=== PATIENT | female | born 1990 | race Caucasian/White ===

== ENCOUNTER 2023-11-02 16:05 | Outpatient (OUT) | payer OTHER, SELFPAY ==
[2023-11-02 16:37] LABS: Basophils Percent Auto 0.2 % (0.2-2.0); Eosinophils Percent Auto 0.5 % (0.9-7.0); Hematocrit 33.9 % (36.0-48.0); Hemoglobin 9.5 g/dL (12.0-16.0); Immature Granulocytes Abs Auto 0.01 10^3/uL (0.00-0.03); Immature Granulocytes Pct Auto 0.2 % (0.0-0.5); Lymphocytes Absolute Auto 2.2 10^3/uL (1.2-3.8); Lymphocytes Percent Auto 34.3 % (20.5-60.0); Mean Corpuscular Hemoglobin 19.8 pg (26.7-34.0); Mean Corpuscular Volume 70.5 fL (81.0-99.0); Mean Platelet Volume 10.8 fL (9.5-13.5); Monocytes Absolute Auto 0.5 10^3/uL (0.3-0.8); Monocytes Percent Auto 7.4 % (1.7-12.0); Neutrophils Absolute Auto 3.7 10^3/uL (1.4-6.5); Neutrophils Percent Auto 57.4 % (43.0-75.0); Platelet Count 429 10^3/uL (150-450); Red Cell Distribution Width 28.6 % (11.0-15.0); White Blood Count 6.4 10^3/uL (4.0-11.0)
[2023-11-02 16:53] LABS: Percent Iron Saturation 6.5 %
[2023-11-02 16:56] LABS: Red Blood Count 4.81 10^6/uL (4.20-5.40)
[2023-11-04 15:08] LABS: Hgb A 97.9 % (96.4-98.8); Hgb A2 2.1 % (1.8-3.2)
== END 2023-11-02 16:06 | disposition home or self-care (01) ==
LOC: LAB 16:08
PROVIDERS: PCP Family Medicine; Visit Provider Internal Medicine Hematology & Oncology
DX: D64.9 Anemia, unspecified (principal); D50.9 Iron deficiency anemia, unspecified; K90.9 Intestinal malabsorption, unspecified
CPT/HCPCS: 36415; 82728; 83540; 83550; 85025

== ENCOUNTER 2023-11-12 07:30 | Outpatient (RCR) | payer OTHER, SELFPAY ==
--- NOTE | 2023-11-12 08:21 | PC.NURSE ---
0800 Arrival ambulatory to chair 2. alert oriented.no complaints offered. Explained procedure for medication administration. verbalizes understanding. given water, offered menu, warm blanket and pillow given for comfort. IV #22 inserted rt wrist on 1 attempt, patient tolerated well.
[2023-11-12] MEDS: ACETAMINOPHEN 500 MG TABLET 1000 MG PO (08:39)
[2023-11-12] MEDS: diphenhydrAMINE HCL 25 MG, HYDROCORTISONE SODIUM SUCC/PF 100 MG in 0.9 % SODIUM CHLORID... 301.5 MG IV (08:42)
[2023-11-12] MEDS: IRON DEXTRAN COMPLEX 100 MG/2 ML VIAL 25 MG IVP (09:12)
--- NOTE | 2023-11-12 09:30 | PC.NURSE ---
0912test dose administered, instructed patient to call staff if any itching shortness of breath tachycardia. etc. verbalizes understanding.
[2023-11-12 10:37] VITALS: BP 123/80; PULSE 63; RESP 18; TEMP 36.4; O2SAT 98
--- NOTE | 2023-11-12 10:38 | PC.NURSE ---
Tolerating infusion without any s/s of reaction, meal ordered. vs obtained
--- NOTE | 2023-11-12 12:24 | PC.NURSE ---
Tolerating infusion wthout any issues. up to bathroom several times. eats meal while here.
== END 2023-12-05 23:59 | disposition home or self-care (01) ==
LOC: INF 07:30
PROVIDERS: PCP Family Medicine; Visit Provider Internal Medicine Hematology & Oncology
DX: D50.9 Iron deficiency anemia, unspecified (principal); K90.9 Intestinal malabsorption, unspecified; D64.9 Anemia, unspecified
CPT/HCPCS: 96365; 96366; 96374; J1720; J1750

== ENCOUNTER 2023-12-07 07:20 | Outpatient (RCR) | payer OTHER, SELFPAY ==
[2023-12-07 08:41] LABS: Basophils Percent Auto 0.2 % (0.2-2.0); Eosinophils Absolute Auto 0.1 10^3/uL (0.0-0.7); Eosinophils Percent Auto 1.1 % (0.9-7.0); Hematocrit 41.9 % (36.0-48.0); Hemoglobin 12.8 g/dL (12.0-16.0); Immature Granulocytes Abs Auto 0.02 10^3/uL (0.00-0.03); Immature Granulocytes Pct Auto 0.3 % (0.0-0.5); Lymphocytes Percent Auto 30.2 % (20.5-60.0); Mean Corpuscular HGB Conc 30.5 g/dL (29.9-35.2); Mean Corpuscular Hemoglobin 22.9 pg (26.7-34.0); Mean Corpuscular Volume 75.1 fL (81.0-99.0); Mean Platelet Volume 10.3 fL (9.5-13.5); Monocytes Absolute Auto 0.6 10^3/uL (0.3-0.8); Monocytes Percent Auto 9.4 % (1.7-12.0); Neutrophils Absolute Auto 3.8 10^3/uL (1.4-6.5); Neutrophils Percent Auto 58.8 % (43.0-75.0); Platelet Count 322 10^3/uL (150-450); Red Blood Count 5.58 10^6/uL (4.20-5.40); Red Cell Distribution Width 27.1 % (11.0-15.0); White Blood Count 6.5 10^3/uL (4.0-11.0)
[2023-12-07 09:05] LABS: Percent Iron Saturation 13.8 %
== END 2024-01-04 23:59 | disposition home or self-care (01) ==
LOC: INF 07:20
PROVIDERS: PCP Family Medicine; Visit Provider Internal Medicine Hematology & Oncology
DX: D50.9 Iron deficiency anemia, unspecified (principal); K90.9 Intestinal malabsorption, unspecified; D64.9 Anemia, unspecified
CPT/HCPCS: 36415; 82728; 83540; 83550; 85025; G0463

== ENCOUNTER 2024-01-26 20:06 | Emergency (ER) | payer OTHER, SELFPAY ==
[2024-01-26 20:16] VITALS: BP 115/76; PULSE 56; TEMP 36.8; O2SAT 94; BMI 36.0
--- NOTE | 2024-01-26 20:18 | XR_ITS ---
The [address] [address] Patient Name: JE CANELA MRN: [id number] date: 1990 Sex: F Assigned Patient Location: ER Current Patient Location: ED.MAIN Accession/Order Number: [id number] Exam Date: 01/26/2024 20:42 Report Date: 01/26/2024 21:51 At the request of: MICKY COTTON Procedure: XR knee RT 3V XR knee RT 3V, XR femur RT 2V 01/26/2024 8:42 PM EDT CLINICAL INDICATION: Fall COMPARISON: None. TECHNIQUE: 2 views of the right femur. 3 views of the right knee. FINDINGS: Right femur The bones are intact. The alignment is anatomic. The soft tissues are grossly unremarkable. Right knee The bones are intact. The alignment is anatomic. The joints are maintained. The soft tissues are grossly unremarkable. XR/XR knee RT 3V IMPRESSION: No acute osseous abnormality of the right femur or right knee. Electronically authenticated by: PATRICA GRIFFIN Date: 01/26/2024 21:51
--- NOTE | 2024-01-26 20:19 | ED.FALL1 ---
HPI HPI - Fall General Chief Complaint: Fall Stated Complaint: FALL LOWER INJURY Time Seen by Provider: 01/26/24 20:14 Source: patient and family Mode of arrival: walk-in Limitations: no limitations History of Present Illness HPI Narrative: This 33-year-old female presents for evaluation of right knee pain and decreased range of motion. The patient states she was carrying her baby over a baby gate and the baby lunged forward causing her to twist and fall over the baby gate. She states her body went [address] and her right leg went the other way. She states she heard and felt a pop in the back of her knee and has not been able to move her leg since that time. She denies striking her head. She denies any neck or back pain. She required assistance to get up and then into the car. Her mother brought her to the emergency department. She is unable to straighten or move her right leg. She states she can feel her toes but resists any movement of her lower extremity due to pain in her knee. Related Data Home Medications ?Medication ?Instructions ?Recorded ?Confirmed alprazolam 1 mg tablet mg 01/26/24 amitriptyline 25 mg tablet mg 01/26/24 biotin 10,000 mcg capsule mcg PO 01/26/24 ferrous sulfate 325 mg (65 mg mg 01/26/24 iron) tablet (FeroSul) folic acid 1 mg tablet 01/26/24 gabapentin 300 mg capsule mg 01/26/24 meloxicam 7.5 mg tablet mg 01/26/24 methocarbamol 500 mg tablet mg 01/26/24 pantoprazole 40 mg tablet,delayed mg PO 01/26/24 release pyridoxine (vitamin B6) 25 mg mg 01/26/24 tablet (Vitamin B-6) sertraline 100 mg tablet mg 01/26/24 tizanidine 4 mg tablet mg 01/26/24 Allergies Allergy/AdvReac Type Severity Reaction Status Date / Time Penicillins Allergy Unknown Verified 01/26/24 20:16 Opioid HPI Opioid Management Most Recent Pain and Opioid Data: No Data to Display Review of Systems ROS Status of ROS 10 or more systems reviewed and unremarkable except as noted in history and below Exam Narrative Exam Narrative: Vital signs and Nursing Notes reviewed: General: Awake, alert, oriented, uncomfortable appearing female, no respiratory distress she required assistance from the lobby to room 5 due to inability to weight-bear HEENT: Normocephalic atraumatic, mucous membranes are moist and pink, eyes are clear, normal conjunctiva, vision is grossly intact Neck: Supple, no meningeal signs, no anterior or posterior cervical lymphadenopathy Chest: Lungs are clear to auscultation with good air entry, there is no wheezing rhonchi or rales appreciated no accessory muscle use, patient is speaking in complete sentences-no chest wall tenderness to palpation CVS: Regular rate and rhythm S1-S2, no murmurs rubs or gallops, pulses are brisk and equal bilaterally Extremities: There is generalized right-sided knee tenderness. The patient's knee is held in approximately 15 degrees of flexion. There is no bony deformity noted. She resists any range of motion. There is no effusion appreciated there is no calf swelling or tenderness. Foot is warm and sensate. Skin: Normal in appearance without rash,pallor, petechiae or purpura Neuro: No focal deficits Constitutional Vital Signs, click to edit/add: Last Vital Signs Temp 98.2 F 01/26/24 20:16 Pulse 117 H 01/26/24 20:25 Resp 18 01/26/24 20:16 BP 115/76 01/26/24 20:16 Pulse Ox 95 01/26/24 20:25 O2 Del Method Room Air 01/26/24 20:16 Course Vital Signs Vital signs: Vital Signs Temperature 98.2 F 01/26/24 20:16 Pulse Rate 56 L 01/26/24 20:16 Respiratory Rate 18 01/26/24 20:16 Blood Pressure 115/76 01/26/24 20:16 Pulse Oximetry 94 L 01/26/24 20:16 Oxygen Delivery Method Room Air 01/26/24 20:16 Temperature 98.2 F 01/26/24 20:16 Pulse Rate 117 H 01/26/24 20:25 Respiratory Rate 18 01/26/24 20:16 Blood Pressure 115/76 01/26/24 20:16 Pulse Oximetry 95 01/26/24 20:25 Oxygen Delivery Method Room Air 01/26/24 20:16 MDM - Fall MDM Narrative Medical decision making narrative: This 33-year-old female presents for evaluation of right knee pain after falling over a baby gate while holding her baby at home. She states her body went [address] and her right leg went another way. Upon arrival she was nonambulatory. She was brought to room 5 on the stretcher. She had what appeared to be an elevated high riding patella. The remainder of the exam was normal. She declined range of motion due to discomfort. She was medicated with a milligram of Dilaudid and oral Zofran and x-ray of the right femur and right knee was ordered. The x-rays do not show any bony deformity. She did appear to have a high riding patella and manipulative techniques were used to attempt to reduce the patella. It is moving fairly well. There is a small effusion superior to the patella she complains of pain mostly in the posterior aspect of the knee indicating she may have disrupted a meniscus or ligament. The results of the x-ray discussed with the patient and her mother. She was placed in a knee immobilizer and given crutches for ambulation. She will be discharged home with 2 [place] to go on a short course of [place] to use as needed for pain. She will be referred to outpatient orthopedics. Medical Records Medical records narrative: The [address] [address] XRay Report Signed Patient: JE CANELA MR#: [id number] : 1990 Acct:[id number] Age/Sex: 33 / F ADM Date: 01/26/24 Loc: ER Attending Dr: Ordering Physician: Laya Vásquez Date of Service: 01/26/24 Procedure(s): XR femur RT 2V Accession Number(s): [id number] cc: Laya Vásquez; Morris Reynolds M.D.~ The [address] [address] Patient Name: JE CANELA MRN: [id number] date: 1990 Sex: F Assigned Patient Location: ER Current Patient Location: ED.MAIN Accession/Order Number: [id number] Exam Date: 01/26/2024 20:42 Report Date: 01/26/2024 21:51 At the request of: LAYA VÁSQUEZ Procedure: XR femur RT 2V XR knee RT 3V, XR femur RT 2V 01/26/2024 8:42 PM EDT CLINICAL INDICATION: Fall COMPARISON: None. TECHNIQUE: 2 views of the right femur. 3 views of the right knee. FINDINGS: Right femur The bones are intact. The alignment is anatomic. The soft tissues are grossly unremarkable. Right knee The bones are intact. The alignment is anatomic. The joints are maintained. The soft tissues are grossly unremarkable. XR/XR femur RT 2V IMPRESSION: No acute osseous abnormality of the right femur or right knee. Electronically authenticated by: PATRICA GRIFFIN Date: 01/26/2024 21:51 Discharge Plan Discharge Stand Alone Forms: Portal Instructions Chief Complaint: Fall Clinical Impression: Internal derangement of right knee, Fall from standing, Dislocation of patella, right, closed Patient Disposition: Home, Self-Care Time of Disposition Decision: 22:17 Condition: Good Prescriptions / Home Meds: No Action methocarbamol 500 mg tablet alprazolam 1 mg tablet tizanidine 4 mg tablet pyridoxine (vitamin B6) [Vitamin B-6] 25 mg tablet sertraline 100 mg tablet meloxicam 7.5 mg tablet amitriptyline 25 mg tablet pantoprazole 40 mg tablet,delayed release (DR/EC) PO biotin 10,000 mcg capsule PO ferrous sulfate [FeroSul] 325 mg (65 mg iron) tablet gabapentin 300 mg capsule folic acid 1 mg tablet Print Language: Lebanese Instructions: ACL Injury (ED), Patellar Dislocation (ED), Fall Prevention (ED), Knee Immobilizer (ED) Referrals: Morris Reynolds MD [Primary Care Provider] - 1 week Serg Molina MD [Physician] - 1 week (right knee injury s/p fall) Procedures ED Procedure Instructions Procedures Procedures: This patient presents with right-sided knee pain with what appeared to be an high riding patella. She was medicated with Dilaudid and gentle traction and manipulative techniques were used to return the patella to the anatomic position. The patient felt a pop at that time and had some relief of her pain.
[2024-01-26 20:25] VITALS: PULSE 117; O2SAT 95
--- OUTSIDE RECORDS SUMMARY | 2024-01-26 20:25 | XMS_ITS | CCD ---
Author Organization [facility] CliniSyut Care Team Providers Care Publications Manager Name Role Phone FREDA, DR MATOS Consulting Unavailable FREDA, DR MATOS Admitting Unavailable FREDA, DR MATOS Attending Unavailable NADERER, DR MOBLEY A Primary Care Unavailable FREDA, DR MATOS Attending Unavailable FREDA, DR MATOS Consulting Unavailable FREDA, DR MATOS Admitting Unavailable NADERER, DR MOBELY A Primary Care Unavailable FREDA, DR MATOS Attending Unavailable FREDA, DR MATOS Admitting Unavailable NADERER, DR MOBLEY A Primary Care Unavailable PAY, DR STEWART Admitting Unavailable PAY, DR STEWART Attending Unavailable PAY, DR STEWART Consulting Unavailable NADERER, DR MOBLEY A Primary Care Unavailable GONZÁLEZ, BRENDA Admitting Unavailable GONZÁLEZ, BRENDA Attending Unavailable GONZÁLEZ, BRENDA Consulting Unavailable NADERER, DR MOBLEY A Primary Care Unavailable MISC, DR MEYER Admitting Unavailable NADERER, DR MOBLEY A Primary Care Unavailable MISC, DR MEYER Consulting Unavailable MISC, DR MEYER Attending Unavailable FREDA, DR MATOS Consulting Unavailable FREDA, DR MATOS Admitting Unavailable NADERER, DR MOBLEY A Primary Care Unavailable FREDA, DR MATOS Attending Unavailable FREDA, DR MATOS Admitting Unavailable FREDA, DR MATOS Attending Unavailable NADERER, DR MOBLEY A Primary Care Unavailable FREDA, DR MATOS Admitting Unavailable FREDA, DR MATOS Attending Unavailable NADERER, DR MOBLEY A Primary Care Unavailable FREDA, DR MATOS Attending Unavailable FREDA, DR MATOS Admitting Unavailable NADERER, DR MOBLEY A Primary Care Unavailable NADERER, DR MORRIS Klein Admitting Unavailable NADERER, DR MORRIS Klein Attending Unavailable NADERER, DR MOBLEY A Primary Care Unavailable NADERER, DR MORRIS Klein Consulting Unavailable FREDA, DR MATOS Consulting Unavailable FREDA, DR MATOS Admitting Unavailable FREDA, DR MATOS Attending Unavailable NADERER, DR MORRIS Klein Primary Care Unavailable ZIEBER, DR HILLARY Bass Consulting Unavailable FREDA, DR MATOS Attending Unavailable FREDA, DR MATOS Admitting Unavailable NADERER, DR MORRIS Klein Primary Care Unavailable FREDA, DR MATOS Attending Unavailable FREDA, DR MATOS Consulting Unavailable FREDA, DR MATOS Admitting Unavailable NADERER, DR MORRIS Klein Primary Care Unavailable ZIEBER, DR HILLARY Bass Consulting Unavailable MISC, DR MEYER Admitting Unavailable NADERER, DR MORRIS Klein Primary Care Unavailable MISC, DR MEYER Consulting Unavailable MISC, DR MEYER Attending Unavailable FREDA, DR MATOS Admitting Unavailable NADERER, DR MORRIS Klein Primary Care Unavailable FREDA, DR MATOS Attending Unavailable FREDA, DR MATOS Admitting Unavailable FREDA, DR MATOS Attending Unavailable NADERER, DR MORRIS Klein Primary Care Unavailable KARASIK, DR LÓPEZ Attending Unavailable KARASIK, DR LÓPEZ Consulting Unavailable KARASIK, DR LÓPEZ Admitting Unavailable NADERER, DR MORRIS Klein Primary Care Unavailable WEST, DR SCOTT Atkinson Consulting Unavailable FREDA, DR MATOS Consulting Unavailable KARASIK, DR LÓPEZ Consulting Unavailable KARASIK, DR LÓPEZ Admitting Unavailable KARASIK, DR LÓPEZ Attending Unavailable NADERER, DR MORRIS Klein Primary Care Unavailable WEST, DR SCOTT Atkinson Consulting Unavailable FREDA, DR MATOS Consulting Unavailable FREDA, DR MATOS Consulting Unavailable FREDA, DR MATOS Admitting Unavailable FREDA, DR MATOS Attending Unavailable NADERER, DR MORRIS Klein Primary Care Unavailable FREDA, DR MATOS Consulting Unavailable FREDA, DR MATOS Admitting Unavailable FREDA, DR MATOS Attending Unavailable NADERER, DR MORRIS Klein Primary Care Unavailable FREDA, DR MATOS Consulting Unavailable FREDA, DR MATOS Primary Care Unavailable FREDA, DR MATOS Admitting Unavailable FREDA, DR MATOS Attending Unavailable KARASIK, DR LÓPEZ Consulting Unavailable KARASIK, DR LÓPEZ Admitting Unavailable KARASIK, DR LÓPEZ Attending Unavailable NADERER, DR MORRIS Klein Primary Care Unavailable FREDA, DR MATOS Consulting Unavailable ZIEBER, DR HILLARY Bass Consulting Unavailable FREDA, DR MATOS Consulting Unavailable FREDA, DR MATOS Admitting Unavailable FREDA, DR MATOS Attending Unavailable NADERER, DR MORRIS Klein Primary Care Unavailable KARASIK, DR LÓPEZ Consulting Unavailable KARASIK, DR LÓPEZ Admitting Unavailable KARASIK, DR LÓPEZ Attending Unavailable NADERER, DR MORRIS Klein Primary Care Unavailable WEST, DR SCTOT Atkinson Consulting Unavailable FREDA, DR MATOS Consulting Unavailable KARASIK, DR LÓPEZ Consulting Unavailable KARASIK, DR LÓPEZ Admitting Unavailable KARASIK, DR LÓPEZ Attending Unavailable NADERER, DR MORRIS Klein Primary Care Unavailable FREDA, DR MATOS Consulting Unavailable ZIEBER, DR HILLARY Bass Consulting Unavailable NADERER, DR MORRIS Klein Admitting Unavailable NADERER, DR MORRIS Klein Attending Unavailable NADERER, DR MORRIS Klein Consulting Unavailable NADERER, DR MORRIS Klein Primary Care Unavailable FREDA, DR MATOS Attending Unavailable FREDA, DR MATOS Admitting Unavailable NADERER, DR MORRIS Klein Primary Care Unavailable MAG, VESTA Admitting Unavailable MAG, VESTA Attending Unavailable MAG, VESTA Consulting Unavailable NADERER, DR MORRIS Klein Primary Care Unavailable FREDA, DR MATOS Attending Unavailable FREDA, DR MATOS Consulting Unavailable FREDA, DR MATOS Admitting Unavailable NADERER, DR MORRIS Klein Primary Care Unavailable SALOMON, FERMIN Consulting Unavailable FREDA, DR MATOS Procedure Practitioner Unavailab le FREDA, DR MATOS Attending Unavailable FREDA, DR MATOS Consulting Unavailable FREDA, DR MATOS Admitting Unavailable NADERER, DR MORRIS Klein Primary Care Unavailable RFEDA, DR MATOS Attending Unavailable FREDA, DR MATOS Admitting Unavailable NADERER, DR MORRIS Klein Primary Care Unavailable MISC, DR MEYER Admitting Unavailable NADERER, DR MORRIS Klein Primary Care Unavailable MISC, DR MEEYR Attending Unavailable NADERER, DR MORRIS Klein Primary Care Unavailable FREDA, DR MATOS Attending Unavailable MISC, DR MEYER Admitting Unavailable MISC, DR MEYER Consulting Unavailable ZIEBER, DR HILLARY Bass Consulting Unavailable KARASIK, DR LÓPEZ Consulting Unavailable KARASIK, DR LÓPEZ Admitting Unavailable KARASIK, DR LÓPEZ Attending Unavailable NADERER, DR MORRIS Klein Primary Care Unavailable WEST, DR SCOTT Atkinson Consulting Unavailable FREDA, DR MATOS Consulting Unavailable FREDA, DR MATOS Attending Unavailable FREDA, DR MATOS Admitting Unavailable WEST, DR SCOTT Atkinson Consulting Unavailable NADERER, DR MORRIS Klein Primary Care Unavailable FREDA, DR MATOS Consulting Unavailable MARQUISE, DR LÓPEZ Attending Unavailable KATYHK, DR LÓPEZ Consulting Unavailable MARQUISE, DR LÓPEZ Admitting Unavailable ROXY, DR MORRIS Klein Referring Unavailable PORFIRIOERER, DR MORRIS Klein Primary Care Unavailable FREDA, DR MATOS Consulting Unavailable Morris Ramsey MD Primary Care Provider Morris Ramsey MD Primary Care Provider CHRISTIANSON, NEAL N Attending Unavailable MORRIS RAMSEY Referring Unavailable MORRIS RAMSEY Primary Care Unavailable CHRISTIANSON, NEAL N Referring Unavailable MORRIS RAMSEY Primary Care Unavailable ASHOK, NEAL N Referring Unavailable ROXY, MORRIS Primary Care Unavailable ASHOK, NEAL N Attending Unavailable MORRIS RAMSEY Referring Unavailable ROXY, MORRIS Primary Care Unavailable ZE ABARCA Attending Unavailable DARIEN MONTANA Attending Unavailab ZE Sorto Attending Unavailable Allergies Allergy Classification Reported Allergen(s) Allergy Type Date of Onset Reaction(s) Facility (1 source) Amoxicillin Drug Allergy 2 [facility] Repository (2 sources) Penicillins Propensity to adverse reactions 3 Hives, Itching [facility] Medications Current Medications Medication Drug Class(es) Dates Sig (Normalized) Sig (Original) acetaminophen 325 mg / oxyCODONE hydrochloride 10 mg oral tablet (2 sources) Opioid Agonist take 1 tablet by mouth every four hours as needed for pain oxyCODONE-acetamino phen (PERCOCET) 10-325 mg per tablet Take 1 tablet by mouth every 4 (four) hours as needed for pain. 0 Active ALPRAZolam 1 mg oral tablet (2 sources) Benzodiazepine Start: 03-22-2023 take 1 tablet by mouth three times daily as needed ALPRAZolam (Xanax) 1 MG tablet Take 1 mg by mouth 3 (three) times a day as needed. 0 03/22/2023 Active amitriptyline hydrochloride 25 mg oral tablet (6 sources) Tricyclic Antidepressant Start: 06-14-2023 End: 10-21-2023 amitriptyline (ELAVIL) 25 mg tablet Indications: Fibromyalgia take 1 capsule by mouth AT 8PM 30 tablet 5 10/21/2023 Active biotin 10 mg oral capsule (2 sources) Start: 06-24-2023 take 1 capsule by mouth twice daily at bedtime biotin 10 MG capsule Indications: Fibromyalgia , Lupus (CMS/HCC) take 1 capsule by mouth twice a day - IN THE MORNING AND BEFORE BEDTIME 30 capsule 11 06/24/2023 Active Citalopram (2 sources) Serotonin Reuptake Inhibitor CITALOPRAM HYDROBROMIDE (CITALOPRAM ORAL) Take by mouth. 0 Active ferrous sulfate 325 mg oral tablet (2 sources) take 1 tablet by mouth once daily at breakfast ferrous sulfate 325 (65 FE) mg tablet Take 1 tablet (325 mg total) by mouth daily with breakfast. 0 Active fludrocortisone acetate 0.1 mg oral tablet (2 sources) Start: 08-12-2023 End: 11-10-2023 take 1 tablet by mouth at bedtime fludrocortisone (Florinef) 0.1 MG tablet Indications: Dysautonomia (CMS/HCC) Take 1 tablet (0.1 mg) by mouth at bedtime 30 tablet 2 08/12/2023 11/10/2023 Active folic acid 1 mg oral tablet (2 sources) Start: 04-01-2023 take 1 tablet by mouth in the morning folic acid (Folvite) 1 MG tablet Take 1,000 mcg by mouth in the morning. 0 04/01/2023 Active gabapentin 300 mg oral capsule (6 sources) Anti-epileptic Agent Start: 05-20-2023 End: 10-21-2023 gabapentin (NEURONTIN) 300 mg capsule Indications: Fibromyalgia One capsule at 8 PM 30 capsule 5 10/21/2023 Active ibuprofen 800 mg oral tablet (2 sources) Nonsteroidal Anti-inflammatory Drug Start: 12-05-2017 take 1 tablet by mouth every eight hours as needed for pain ibuprofen (ADVIL,MOTRIN) 800 mg tablet Take 1 tablet (800 mg total) by mouth every 8 (eight) hours as needed for pain for up to 30 doses. 30 tablet 0 12/05/2017 Active LORazepam 0.5 mg oral tablet (2 sources) Benzodiazepine take 1 tablet by mouth every six hours as needed for anxiety LORazepam (ATIVAN) 0.5 mg tablet Take 0.5 mg by mouth every 6 (six) hours as needed for anxiety. 0 Active methocarbamol 500 mg oral tablet (6 sources) Muscle Relaxant Start: 05-20-2023 End: 10-21-2023 take 1 tablet by mouth once daily at bedtime methocarbamoL (ROBAXIN) 500 mg tablet Indications: Fibromyalgia Take 1 tablet (500 mg total) by mouth once daily at bedtime. 30 tablet 5 10/21/2023 Active omeprazole 10 mg delayed release oral capsule (4 sources) Proton Pump Inhibitor take 1 capsule by mouth in the morning omeprazole (PriLOSEC) 10 mg capsule Take 1 capsule (10 mg total) by mouth in the morning. 0 Active pantoprazole 40 mg delayed release oral tablet (4 sources) Proton Pump Inhibitor Start: 04-12-2023 take 1 tablet by mouth in the morning pantoprazole (ProtoNix) 40 MG EC tablet Take 40 mg by mouth in the morning and 40 mg before bedtime. 0 04/12/2023 Active take 1 tablet by mouth in the mo rning pantoprazole (PROTONIX) 20 mg EC tablet Take 1 tablet (20 mg total) by mouth in the morning. 0 Active predniSONE 10 mg oral tablet (2 sources) Start: 04-06-2023 take 6 tablets by mouth once daily, then take 4 tablets by mouth once daily predniSONE (Deltasone) 10 MG tablet take 6 tablets by mouth once daily for 3 days then 4 once daily f... (REFER TO PRESCRIPTION NOTES). 0 04/06/2023 Active 25/iron fum/folic/dha (-1 ORAL) (2 sources) 25/iron fum/folic/dha (-1 ORAL) Take by mouth. 0 Active pyridoxine hydrochloride 25 mg oral tablet (2 sources) Start: 04-26-2023 pyridoxine (Vitamin B-6) 25 MG tablet sertraline 100 mg oral tablet (4 sources) Serotonin Reuptake Inhibitor Start: 05-13-2021 take 1 tablet by mouth in the morning sertraline (ZOLOFT) 100 mg tablet Take 1 tablet (100 mg total) by mouth in the morning. 0 05/13/2021 Active tiZANidine 4 mg oral tablet (2 sources) Central alpha-2 Adrenergic Agonist Start: 08-12-2023 End: 11-10-2023 take 0.5 tablet by mouth at bedtime tiZANidine (Zanaflex) 4 MG tablet Indications: Lumbar radiculopathy Take 0.5 tablets (2 mg) by mouth at bedtime 15 tablet 2 08/12/2023 11/10/2023 Active vitamin b6 100 mg oral tablet (2 sources) take 1 tablet by mouth in the morning pyridoxine, vitamin B6, (vitamin B-6) 100 mg tablet Take 1 tablet (100 mg total) by mouth in the morning. 0 Active Problems Active Problems Problem Classification Problem Date Documented Date Episodic/Chronic Anxiety disorders (1 source) Anxiety disorder, unspecified; Translations: [ANXIETY DISORDER UNSPECIFIED] Onset: 01-12-2022 Chronic Deficiency and other anemia (1 source) Iron deficiency anemia; Translations: [Iron deficiency anemia, unspecified] 09-20-2023 Episodic Deficiency and other anemia (1 source) Iron deficiency anemia, unspecified; Translations: [Iron deficiency anemia, unspecified] Onset: 09-20-2023 Episodic Esophageal disorders (1 source) Gastro-esophageal reflux disease without esophagitis; Translations: [GERD WITHOUT ESOPHAGITIS] Onset: 01-12-2022 Chronic Immunizations and screening for infectious disease (7 sources) Encounter for screening for infections with a predominantly sexual mode of transmission; Translations: [Encounter for immunization] Onset: 08-14-2021 Episodic Malaise and fatigue (1 source) Other fatigue; Translations: [OTHER FATIGUE] Onset: 04-23-2022 Episodic Menstrual disorders (4 sources) Excessive and frequent menstruation with regular cycle; Translations: [EXCESS FREQ MENSTRUATION W/REG CYCL] Onset: 04-22-2022 Chronic Mood disorders (1 source) Major depressive disorder, single episode, unspecified; Translations: [JAY DEPRESS D/O SINGLE EPIS UNS] Onset: 01-12-2022 Chronic Noninfectious gastroenteritis (2 sources) Chronic diarrhea; Translations: [Noninfective gastroenteritis and colitis, unspecified] Onset: 09-20-2023 09-20-2023 Episodic Other aftercare (1 source) Other 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 (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 therapy; Translations: [OTH OPERATIONS RESEARCH DIRECTOR CURRENT DRUG THERAPY] Onset: 05-15-2022 Episodic Other complications of ; puerperium affecting management of mother (3 sources) Obesity complicating childbirth; Translations: [OBESITY COMPLICATING CHILDBIRTH] Onset: 01-01-2022 Chronic Other complications of ; puerperium affecting management of mother (1 source) Anemia complicating childbirth; Translations: [ANEMIA COMPLICATING CHILDBIRTH] Onset: 01-12-2022 Chronic Other complications of (4 sources) Anemia complicating , third trimester; Translations: [ANEMIA COMP THIRD TRI] Onset: 11-24-2021 Chronic Other connective tissue disease (6 sources) Fibromyalgia; Translations: [Fibromyalgia] Onset: 12-04-2022 09-20-2023 Episodic Other female genital disorders (4 sources) Abnormal uterine and vaginal bleeding, unspecified; Translations: [ABNORMAL UTERINE VAGINAL BLEED UNS] Onset: 03-23-2022 Chronic Other hematologic conditions (3 sources) ESR raised; Translations: [Elevated erythrocyte sedimentation rate] Onset: 10-21-2023 09-20-2023 Episodic Other hematologic conditions (1 source) Elevated erythrocyte sedimentation rate; Translations: [Elevated erythrocyte sedimentation rate] Onset: 09-20-2023 Episodic Other nervous system disorders (2 sources) Small fiber neuropathy; Translations: [Polyneuropathy, unspecified] Onset: 05-13-2023 05-13-2023 Chronic Other nervous system disorders (1 source) Other chronic pain; Translations: [Other chronic pain] Onset: 09-20-2023 Chronic Other non-traumatic joint disorders (3 sources) Multiple joint pain; Translations: [Pain in unspecified joint] Onset: 10-21-2023 09-20-2023 Episodic Other non-traumatic joint disorders (1 source) Pain in unspecified joint; Translations: [Pain in unspecified joint] Onset: 09-20-2023 Episodic Other nutritional; endocrine; and metabolic disorders (1 source) Morbid (severe) obesity due to excess calories; Translations: [MORBID SEVERE OBES D/T EXCESS VIOLET] Onset: 01-12-2022 Chronic Other and delivery including normal (6 sources) Encounter for routine follow-up; Translations: [Single live ] Onset: 07-19-2021 Episodic Other screening for suspected conditions (not mental disorders or infectious disease) (11 sources) Encounter for screening for Streptococcus B; Translations: [Encounter for other screening for genetic and chromosomal anomalies] Onset: 07-15-2021 Episodic Other skin disorders (4 sources) Rash and other nonspecific skin eruption; Translations: [RASH OTH NONSPECIFIC SKIN ERUPTION] Onset: 05-12-2022 Episodic Regional enteritis and ulcerative colitis (7 sources) Ulcerative colitis, unspecified, without complications; Translations: [Ulcerative colitis] Onset: 09-01-2021 09-01-2021 Chronic Rheumatoid arthritis and related disease (9 sources) Rheumatoid arthritis without rheumatoid factor, unspecified site; Translations: [Rheumatoid arthritis, unspecified] Onset: 01-12-2022 Chronic Systemic lupus erythematosus and connective tissue disorders (5 sources) Systemic lupus erythematosus, unspecified; Translations: [Lupus erythematosus] Onset: 05-15-2022 09-01-2021 Chronic Unclassified (5 sources) Latent tuberculosis; 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 TUBERCULOSIS] Onset: 07-22-2021 Unclassified (1 source) CONTACT W/AND (SUSP) EXPOS COVID-19; Translations: [CONTACT W/AND (SUSP) EXPOS COVID-19] Onset: 01-12-2022 Unclassified (4 sources) [facility] SPCF DIS/COND COMPL ; Translations: [[facility] SPCF DIS/COND COMPL ] Onset: 11-28-2021 Unclassified (1 source) Low back pain, unspecified; Translations: [Low back pain, unspecified] Onset: 09-20-2023 Viral infection (5 sources) COVID-19; Translations: [COVID-19] Onset: 08-08-2021 Past or Other Problems Problem Classification Problem Date Documented Date Episodic/Chronic Abdominal pain (1 source) Unspecified abdominal pain; Translations: [UNSPECIFIED ABDOMINAL PAIN] Onset: 11-12-2021 Episodic Acute posthemorrhagic anemia (1 source) Acute posthemorrhagic anemia; Translations: [ACUTE POSTHEMORRHAGIC ANEMIA] Onset: 01-12-2022 Episodic Administrative/social admission (5 sources) Persons encountering health services in other specified circumstances; Translations: [PERS ENC HLTH SRVC OT CIRCUMSTANCE] Onset: 03-23-2022 Episodic Deficiency and other anemia (1 source) Other specified anemias; Translations: [OTHER SPECIFIED ANEMIAS] Onset: 01-12-2022 Episodic Deficiency and other anemia (1 source) Anemia, unspecified; Translations: [ANEMIA UNSPECIFIED] Onset: 11-28-2021 Episodic Early or threatened labor (1 source) False labor before 37 completed weeks of gestation, third trimester; Translations: [FALSE LABR BEFOR 37 WK GEST 3RD TRI] Onset: 12-09-2021 Episodic Hemorrhage during ; abruptio placenta; placenta previa (4 sources) Low lying placenta NOS or without hemorrhage, unspecified trimester; Translations: [LOW LYING PL NOS W/O HEMORR UNS TRI] Onset: 10-27-2021 Episodic Nausea and vomiting (1 source) Vomiting, unspecified; Translations: [VOMITING UNSPECIFIED] Onset: 08-14-2021 Episodic Other complications of ; puerperium affecting management of mother (1 source) Other specified complications of labor and delivery; Translations: [OTH SPECIFIED COMP LABOR AND DELIVERY] Onset: 01-12-2022 Episodic Other complications of ; puerperium affecting management of mother (1 source) Other mental disorders complicating childbirth; Translations: [OTH MENTAL D/O COMP CHILDBIRTH] Onset: 01-12-2022 Episodic Other complications of ; puerperium affecting management of mother (1 source) Diseases of the digestive system complicating childbirth; Translations: [DZ DIGESTIVE SYSTEM COMP CHILDBIRTH] Onset: 01-12-2022 Episodic Other complications of (4 sources) Other specified related conditions, third trimester; Translations: [OTH SPEC PREG RELATED COND 3RD TRI] Onset: 12-29-2021 Episodic Other complications of (1 source) Other viral diseases complicating , third trimester; Translations: [OTH VIRAL DZ COMP PREG THIRD TRI] Onset: 11-28-2021 Episodic Other complications of (5 sources) Other specified related conditions, second trimester; Translations: [OTH SPEC PREG RELATED COND 2ND TRI] Onset: 08-14-2021 Episodic Other complications of (4 sources) Other viral diseases complicating , second trimester; Translations: [OTH VIRAL DZ COMP PREG SECOND TRI] Onset: 08-08-2021 Episodic Other connective tissue disease (2 sources) Fibromyalgia; Translations: [FIBROMYALGIA] Onset: 01-12-2022 Episodic Other connective tissue disease (2 sources) Muscle pain; Translations: [Myalgia, unspecified site] Onset: 04-28-2023 04-28-2023 Episodic Other female genital disorders (1 source) Other specified noninflammatory disorders of vagina; Translations: [OTH SPEC NONINFLAMMATORY D/O VAGINA] Onset: 11-20-2021 Episodic Other nervous system disorders (2 sources) Impairment of balance; Translations: [Other abnormalities of gait and mobility] Onset: 06-24-2023 06-24-2023 Episodic Residual codes; unclassified (1 source) 37 weeks gestation of ; Translations: [37 WEEKS GESTATION OF ] Onset: 01-12-2022 Episodic Residual codes; unclassified (1 source) 36 weeks gestation of ; Translations: [36 WEEKS GESTATION OF ] Onset: 12-31-2021 Episodic Residual codes; unclassified (1 source) 35 weeks gestation of ; Translations: [35 WEEKS GESTATION OF ] Onset: 12-24-2021 Episodic Residual codes; unclassified (1 source) 34 weeks gestation of ; Translations: [34 WEEKS GESTATION OF ] Onset: 12-17-2021 Episodic Residual codes; unclassified (1 source) 33 weeks gestation of ; Translations: [33 WEEKS GESTATION OF ] Onset: 12-11-2021 Episodic Residual codes; unclassified (1 source) 32 weeks gestation of ; Translations: [32 WEEKS GESTATION OF ] Onset: 12-03-2021 Episodic Residual codes; unclassified (1 source) 31 weeks gestation of ; Translations: [31 WEEKS GESTATION OF ] Onset: 11-28-2021 Episodic Residual codes; unclassified (1 source) 29 weeks gestation of ; Translations: [29 WEEKS GESTATION OF ] Onset: 11-12-2021 Episodic Residual codes; unclassified (1 source) 19 weeks gestation of ; Translations: [19 WEEKS GESTATION OF ] Onset: 09-02-2021 Episodic Residual codes; unclassified (1 source) 17 weeks gestation of ; Translations: [17 WEEKS GESTATION OF ] Onset: 08-14-2021 Episodic Residual codes; unclassified (2 sources) Amnesia; Translations: [Other amnesia] Onset: 04-28-2023 04-28-2023 Episodic Screening and history of mental health and substance abuse codes (1 source) Personal history of nicotine dependence; Translations: [PERSONAL HISTORY OF NICOTINE DEPEND] Onset: 01-12-2022 Episodic Spondylosis; intervertebral disc disorders; other back problems (4 sources) Dorsalgia, unspecified; Translations: [Chronic low back pain] Onset: 09-02-2021 09-20-2023 Episodic Substance-related disorders (2 sources) Drug use complicating childbirth; Translations: [Cannabis use, unspecified, uncomplicated] Onset: 01-12-2022 Episodic Unclassified (1 source) OT SPCF DIS/COND COMPL ; Translations: [OTH SPCF DIS/COND COMPL ] Onset: 12-05-2021 Viral infection (1 source) Herpesviral infection, unspecified; Translations: [HERPESVIRAL INFECTION UNSPECIFIED] Onset: 11-28-2021 Episodic Results Test Name Value Interpretation Reference Range Facility 36on 01-05-2024 36 Last visit: 07/07/22 Med refill request denied. PT needs to be seen in clinic. marti Normal [facility] XR SACROILIAC JOINTS MIN 3 V WSon 09-22-2023 XR SACROILIAC JOINTS MIN 3 VWS XR SACROILIAC JOINTS MIN 3 VWS SACROILIAC JOINTS 3 VIEW COMPARISON: None. HISTORY: Chronic low back pain Impression: No bone erosion or evidence for advanced degenerative change of the bilateral sacroiliac joints. There is mild spurring of the bilateral SI joints. Finalized by Benson Sampson MD on 09/21/2023 10:15 PM [facility] XR SPINE LUMBAR 2 OR 3 VWSon 09-22-2023 XR SPINE LUMBAR 2 OR 3 VWS XR SPINE LUMBAR 2 OR 3 VWS LUMBAR SPINE 3 VIEWS COMPARISON: None. HISTORY: Chronic low back pain without sciatica. FINDINGS: AP, lateral, and coned lateral lumbar spine radiographs obtained. There is normal alignment of the lumbar spine with no evidence for an acute fracture or subluxation. L5-S1 disc space narrowing. No evidence for advanced facet arthropathy. IMPRESSION: L5-S1 disc space narrowing. Finalized by Benson Sampson MD on 09/21/2023 10:07 PM [facility] [place] GENERIC ORDERon 024 TEST NAME [id number] DS DNA BY DEANNA RED NO GEL SERUM Normal [facility] Comment on above: Result Comment: Raquel ected on 09/20 AT 1617: Previously reported as [id number] DS DNA BY DEANNA SST SERUM Performed By: #### A GO #### [facility] [employer] AND [employer] ([id number]) [address] [place] [address], TEST RESULT SEE NOTE Normal [facility] Comment on above: Result Comment: NOTE Test name Result Flag Units RefIntvl Double-Stranded DNA (dsDNA) Ab IgG IFA <1:10 <1:10 INTERPRETIVE INFORMATION: Double-Stranded DNA (dsDNA) Antibody, IgG by IFA (using Crithidia luciliae) Positivity for anti-double stranded DNA (anti-dsDNA) IgG antibody is a diagnostic criterion of systemic lupus erythematosus (SLE). The presence of the anti-dsDNA IgG antibody is identified by IFA titer (Crithidia luciliae indirect fluorescent test [ALYCE]). ALYCE is highly specific for SLE with a sensitivity of 50-60 percent. Some patients with early or inactive SLE may be positive for anti-dsDNA IgG by JOSE R but negative by ALYCE. If the ALYCE result is negative but the patient has a positive JOSE R and clinical suspicion remains, consider antinuclear antibody (RAGHAVENDRA) testing by IFA. Additional information and recommendations for testing may be found at [email or web address]. Performed By: Melon [address] [place] [address] Alarm Adjuster: Melchor Lopez MD, PhD CLIA Number: [id number] Performed By: #### A GO #### [facility] [employer] AND WELLNESS ([id number]) [address] [place] [address], C-reactive proteinon 024 CRP [Mass/Vol] 3.3 mg/dL High 0.000 - 0.744 mg/dL [facility] CBC AND AUTO DIFFon 09-20-19 24 Erythrocyte distribution width (RBC) [Ratio] 20.5 % High 11.5-15.0 [facility] Comment on above: Performed By: #### C BCA, 77782-7, IMGB, 1988-5, 02016-7 #### [facility] ([id number]) [address] [place] [address], [facility] [address] [place] [address] #### 80016-5, TTAG #### [facility] WELLNESS ([id number]) [address] [facility], Hematocrit (Bld) [Volume fraction] 30.6 % Low 35-47 [facility] Comment on above: Performed By: #### C CAESAR, 81647-9, IMGB, 1988-01, #### [facility] ([id number]) [address] [place] [address], [address] [place] [id number] #### 91896-1, TTAG #### [facility] ([id number]) [address] [facility], Hemoglobin (Bld) [Mass/Vol] 9.2 g/dL Low 11.7-15.5 [facility] Comment on above: Performed By: #### C CAESAR, 85550-4, IMGB, 1988-01, #### [facility] ([id number]) [address] [place] [address], [address] [place] [address] #### 78986-2, TTAG #### [facility] WELLNESS ([id number]) [address] [place] [address], HYPOCHROMIA 1+ Abnormal NONE [facility] Comment on above: Performed By: #### C CAESAR, 15421-4, IMGB, 1988-01, #### [facility] ([id number]) [address] [place] [address], [address] [place] [address] #### 49602-8, TTAG #### [facility] ([id number]) [address] [place] [address], Lymphocytes (Bld) [#/Vol] 0.9 10*3/uL Low 1.0-3.5 [facility] Comment on above: Performed By: #### C CAESAR, 75215-3, IMGB, 1988-01, #### [facility] ([id number]) [address] [place] [address], [address] [place] [address] #### 54598-8, TTAG #### [facility] ([id number]) [address] [place] [address], Lymphocytes/100 WBC (Bld) 20.2 % Normal [facility] Comment on above: Performed By: #### Jewel MAYNARD, 57166-4, IMGB, 1988-01, 41444-2 #### [facility] ([id number]) [address] [place] [address], [address] [place] [address] #### 09715-6, TTAG #### [facility] ([id number]) [address] [place] [address], MCH (RBC) [Entitic mass] 18.2 pg Low 27-34 [facility] Comment on above: Performed By: #### Jewel MAYNARD, 73455-6, IMGB, 1988-01, 23740-5 #### [facility] ([id number]) [address] [place] [address], [address] [place] [address] #### 03869-5, TTAG #### [facility] ([id number]) [address] [place] [address], MCHC (RBC) [Mass/Vol] 30.1 g/dL Low 32-36 [facility] Comment on above: Performed By: #### Jewel MAYNARD, 36267-1, IMGB, 1988-01, #### [facility] ([id number]) [address] [place] [address], [address] [place] [address] #### 20122-9, TTAG #### [facility] ([id number]) [address] [place] [address], MCV (RBC) [Entitic vol] 61 fL Low 80-100 [facility] Comment on above: Performed By: #### Jewel MAYNARD, 34825-5, IMGB, 1988-01, 53381-1 #### [facility] ([id number]) [address] [facility], [address] [place] [address] #### 65938-8, TTAG #### [facility] ([id number]) [address] [facility], Monocytes (Bld) [#/Vol] 0.3 10*3/uL Normal 0-0.9 [facility] Comment on above: Performed By: #### C CAESAR, 98187-5, IMGB, 1988-01, 89222-0 #### [facility] ([id number]) [address] [place] [address], [address] [place] [address] #### 22290-3, TTAG #### [facility] ([id number]) [address] [place] [address], Monocytes/100 WBC (Bld) 5.8 % Normal [facility] Comment on above: Performed By: #### Jewel MAYNARD, 36835-8, IMGB, 1988-01, #### [facility] ([id number]) [address] [place] [address], [address] [place] [address] #### 35721-2, TTAG #### [facility] ([id number]) [address] [place] [address], Neutrophils (Bld) [#/Vol] 3.3 10*3/uL Normal 1.5-6.6 [facility] Comment on above: Performed By: #### Jewel MAYNARD, 30410-0, IMGB, 1988-01, #### [facility] ([id number]) [address] [place] [address], [address] [place] [address] #### 39340-9, TTAG #### [facility] ([id number]) [address] [place] [address], OVALOCYTE 1+ Abnormal NONE [facility] Comment on above: Performed By: #### Jewel MAYNARD, 28580-5, IMGB, 1988-01, #### [facility] ([id number]) [address] [facility], [address] [place] [address] #### 89006-3, TTAG #### [facility] ([id number]) [address] [facility], Platelet mean volume (Bld) [Entitic vol] 8.8 fL Normal 7-12 [facility] Comment on above: Performed By: #### Jewel MAYNARD, 52167-0, IMGB, 1988-01, 23828-8 #### [facility] ([id number]) [address] [facility], [address] [place] [address] #### 33148-9, TTAG #### [facility] ([id number]) [address] [facility], Platelets (Bld) [#/Vol] 369 10*3/uL Normal 150-450 [facility] Comment on above: Performed By: #### eJwel MAYNARD, 58032-7, IMGB, 1988-01, 40190-9 #### [facility] ([id number]) [address] [facility], [address] [place] [address] #### 82074-7, TTAG #### [facility] ([id number]) [facility], POLYCHROMASIA 1+ Abnormal NONE [facility] Comment on above: Performed By: #### Jewel MAYNARD, 26746-1, IMGB, 1988-01, #### [facility] ([id number]) [address] [facility], [address] [place] [address] #### 55359-7, TTAG #### [facility] ([id number]) [address] [facility], RBC COUNT 5.06 X10E12/L Normal 3.80-5.20 [facility] Comment on above: Performed By: #### Jewel MAYNARD, 20815-7, IMGB, 1988-01, #### [facility] ([id number]) [address] [facility], [address] [place] [address] #### 89483-2, TTAG #### [facility] ([id number]) [address] [facility], SEG NEUTROPHIL 74.0 % Normal [facility] Comment on above: Performed By: #### C CAESAR, 29625-6, [facility] 1988-[place], 47220-3 #### [facility] ([id number]) [address] [facility], [address] [place] [address] #### 10517-8, TTAG #### [facility] ([id number]) [address] [facility], WBC (Bld) [#/Vol] 4.5 10*3/uL Normal 4.0-11.0 [facility] Comment on above: Performed By: #### Jewel MAYNARD, 61912-9, [facility] 1988-[place], 59962-6 #### [facility] ([id number]) [address] [facility], [address] [place] [address] #### 63263-6, TTAG #### [facility] ([id number]) [address] [facility], CBC auto differentialon 09-06 Erythrocyte distribution width (RBC) [Ratio] 20.5 % High 11.5 - 15.0 % [facility] Hematocrit (Bld) [Volume fraction] 30.6 % Low 35 - 47 % [facility] Hemoglobin (Bld) [Mass/Vol] 9.2 g/dL Low 11.7 - 15.5 g/dL [facility] Hypochromia Ql (Bld) 1+ Abnormal NONE^NONE [facility] Interpretation and review of laboratory results Abnormal [facility] Lymphocytes (Bld) [#/Vol] 0.9 10*3/uL Low [facility] Lymphocytes/100 WBC (Bld) 20.2 % [facility] MCH (RBC) [Entitic mass] 18.2 pg Low 27 - 34 pg [facility] MCHC (RBC) [Mass/Vol] 30.1 g/dL Low 32 - 36 g/dL [facility] MCV (RBC) [Entitic vol] 61 fL Low 80 - 100 fL [facility] Monocytes (Bld) [#/Vol] 0.3 10*3/uL [facility] Monocytes/100 WBC (Bld) 5.8 % [facility] Neutrophils (Bld) [#/Vol] 3.3 10*3/uL [facility] Ovalocytes LM Ql (Bld) 1+ Abnormal NONE^NONE [facility] Platelet mean volume (Bld) [Entitic vol] 8.8 fL 7 - 12 fL [facility] Platelets (Bld) [#/Vol] 369 10*3/uL [facility] Polychromasia LM Ql (Bld) 1+ Abnormal NONE^NONE [facility] RBC (Bld) [#/Vol] 5.06 10*6/uL [facility] Segmented neutrophils/100 WBC (Bld) 74.0 % [facility] WBC corrected for nucl RBC Auto (Bld) [#/Vol] 4.5 [facility] CRP [Mass/Vol]on 09-20-2023 Interpretation and review of laboratory results Abnormal [facility] C REACTIVE PROTEIN 3.3 mg/dL High 0.000-0.744 [facility] Comment on above: Performed By: #### C CAESAR, 56615-8, IMGB, 1987-, 48674-8 #### [facility] ([id number]) [address] [place] [address], [address] [place] [address] #### 24329-3, TTAG #### [facility] ([id number]) [address] [place] [address], ESR Photometric method (Bld) [Velocity]on 09-20-2023 ESR, ERYTHROCYTE SEDIMENTATION RATE 84 mm/h High 0-20 [facility] Comment on above: Performed By: #### C CAESAR, 76921-9, IM, 1988-01, 92274-6 #### [facility] ([id number]) [address] [place] [address], [facility] [address] [place] [address] #### 25977-1, TTAG #### [facility] ([id number]) [address] [place] [address], Interpretation and review of laboratory results Abnormal [facility] Endomysium Ab Ql (S)on 09-20 ENDOMYSIAL ABS IGA <1:10 Normal <1:10, Te st Not Indicated [facility] Comment on above: Result Comment: NOTE Reference Range: Negative < 1:10 Dilution Endomysial IgA antibody assay is used an aid in diagnosis of celiac disease in individuals who are not IgA-deficient. Clinical correlation required. Test Performed By: [place] [address] Alarm Adjuster: Cesar Barnes III, M.D. [place] #[id number] Performed By: #### C CAESAR, 49226-9, [facility] 1988-[place], 10140-8 #### [facility] ([id number]) [address] [place] [address] #### 06024-5, TTAG #### [facility] ([id number]) [address] [place] [address], Erythrocyte Sedimentation Ra te (ESR)on 09-20-2023 ESR Photometric method (Bld) [Velocity] 84 mm/h High 0 - 20 mm/h [facility] IGG SUBCLASSESon 09-20-2023 IGG SUBCLASS 1 597.6 mg/dL Normal 382-929 [facility] Comment on above: Performed By: #### Jewel MAYNARD, 68911-1, IMGB, 1988-01, 35215-7 #### [facility] ([id number]) [address] [place] [address], [address] [place] [address] #### 19800-9, TTAG #### [facility] ([id number]) [address] [facility], IGG SUBCLASS 2 302.5 mg/dL Normal 242-700 [facility] Comment on above: Performed By: #### Jewel MAYNARD, 84588-7, IMGB, 1988-01, 68963-6 #### [facility] ([id number]) [address] [facility], [address] [place] [address] #### 74885-6, TTAG #### [facility] ([id number]) [address] [facility], IGG SUBCLASS 3 54.9 mg/dL Normal 22-176 [facility] Comment on above: Performed By: #### Jewel MAYNARD, 07996-3, IMGB, 1988-01, 13381-3 #### [facility] ([id number]) [address] [facility], [address] [place] [address] #### 19133-9, TTAG #### [facility] ([id number]) [address] [place] [address], IGG SUBCLASS 4 8.0 mg/dL Normal 4-86 [facility] Comment on above: Performed By: #### Jewel MAYNARD, 22036-3, IMGB, 1988-01, 68245-3 #### [facility] ([id number]) [address] [facility], [address] [place] [address] #### 47963-7, TTAG #### [facility] ([id number]) [address] [place] [address], IMMUNOGLOBULINSon 09-20-2023 IgA [Mass/Vol] 198 mg/dL Normal 68-378 [facility] Comment on above: Performed By: #### Jewel MAYNARD, 64789-6, IMGB, 1988-01, 65598-1 #### [facility] ([id number]) [address] [facility], [address] [place] [address] #### 36767-5, TTAG #### [facility] ([id number]) [address] [facility], IgG [Mass/Vol] 997 mg/dL Normal 635-1741 [facility] Comment on above: Performed By: #### C CAESAR, 96352-4, IMGB, 1988-01, 03399-4 #### [facility] ([id number]) [address] [facility], [address] [place] [address] #### 59469-9, TTAG #### [facility] ([id number]) [address] [facility], IgM [Mass/Vol] 165 mg/dL Normal 45-281 [facility] Comment on above: Performed By: #### C CAESAR, 74767-9, IMGB, 1988-01, 51975-7 #### [facility] ([id number]) [address] [facility], [address] [place] [id number] #### 76977-9, TTAG #### [facility] ([id number]) [address] [place] [address] Immunoglobulinson 09-20-2023 IgA [Mass/Vol] 198 mg/dL 68 - 378 mg/dL [facility] IgG [Mass/Vol] 997 mg/dL 635 - 1741 mg/dL [facility] IgM [Mass/Vol] 165 mg/dL 45 - 281 mg/dL [facility] Laboratory comment Holger (Repo rt)on 09-20-2023 UNLISTED LAB TEST Sent to reference lab Normal [facility] Comment on above: Performed By: #### A GO #### [facility] ([id number]) [address] [place] [address] TTG AB IGA IGGon 09-20-2023 TTG AB IGA <1.2 Normal <4.0 (Negative) [facility] Comment on above: Performed By: #### C CAESAR, 93070-4, IMGB, 1988-01, #### [facility] ([id number]) [address] [place] [address], [address] [place] [address] #### 35327-9, TTAG #### [facility] ([id number]) [address] [place] [address], [facility] AB IGG 1.4 U/mL Normal <6.0 (Negative) [facility] Comment on above: Result Comment: NOTE Test Performed by: [facility] [address] [place] [address] Emergency Vehicle Operations Instructor: Alexander Gonsalez M.D. Ph.D.; CLIA# [id number] Performed By: #### C BCA, 63471-3, IMGB, 1988-, 05643-7 #### [facility] ([id number]) [address] [place] [address], [address] [place] [address] #### 26172-6, TTAG #### [facility] ([id number]) [address] [place] [address], Unlisted Lab Test anti-DNA b y crithedia with titrationon 09-20-2023 Laboratory comment Holger (Report) Sent to reference lab [facility] Vitamin D 25 hydroxyon 09-20 Vitamin D+Metabolites [Mass/Vol] 30.7 ng/mL 30 - 100 ng/mL [facility] Comment on above: Vitamin D status 25 [place] Vitamin D Deficiency <20 ng/mL Insufficiency 20-29 ng/mL Sufficiency 30-100 ng/mL Toxicity >100 ng/mL NOTE: A pediatric reference range has not been established by the compressor technician of this kit. The [place] [employer] recommends a Vitamin D level of = or >20ng/mL in infants and children. Vitamin D+Metabolites [Mass/ Vol]on 09-20-2023 [facility] VITAMIN D 25 HYD TOT 30.7 ng/mL Normal 30-100 [facility] Comment on above: Result Comment: Vitamin D status 25 [place] Vitamin D Deficiency <20 ng/mL Insufficiency 20-29 ng/mL Sufficiency 30-100 ng/mL Toxicity >100 ng/mL NOTE: A pediatric reference range has not been established by the compressor technician of this kit. The [place] [employer] recommends a Vitamin D level of = or >20ng/mL in infants and children. Performed By: #### C BCA, 38862-7, IMGB, 1987-, 43737-8 #### [facility] ([id number]) [address] [place] [address], [address] [place] [address] #### 05026-4, TTAG #### [facility] [employer] AND [employer] ([id number]) [address] [place] [address], 36on 05-24-2023 36 [facility] please advise if refill appropriate Normal [facility] DHEA-SULFATEon 04-23-2022 DHEA-Sulfate 16.1 ug/dL Critically low 84.8-378.0 [facility] Comment on above: Performed By: #### D PATRICIA ####[facility] [address] [place], [place] [address]FrDr. Estella Lopez ESTRADIOLon 04-23-2022 Estradiol <5.0 Normal [facility] Comment on above: Result Comment: Adul t Female: Follicular phase 12.5 - 166.0 Ovulation phase 85.8 - 498.0 Luteal phase 43.8 - 211.0 Postmenopausal <6.0 - 54.7 1st trimester 215.0 - >4300.0 Hui ECLIA methodology Performed By: #### C MP, CRP #### [facility] [address] [place], [place] [address] Dr. Estella Lopez FSHon 04-23-2022 FSH 9.9 mIU/mL Normal [facility] Comment on above: Result Comment: Adul t Female: Follicular phase 3.5 - 12.5 Ovulation phase 4.7 - 21.5 Luteal phase 1.7 - 7.7 Postmenopausal 25.8 - 134.8 Performed By: #### [facility] ####[facility] [address] [place] [address]DrBerna Lopez LUTEINIZING HORMONE (LH)on 0 04-23-2022 LH 3.8 mIU/mL Normal [facility] Comment on above: Result Comment: Adul t Female: Follicular phase 2.4 - 12.6 Ovulation phase 14.0 - 95.6 Luteal phase 1.0 - 11.4 Postmenopausal 7.7 - 58.5 Performed By: #### L BCL ####[facility] [address] [place] [address]DrBerna Lopez PROGESTERONEon 04-23-2022 Progesterone <0.1 Normal [facility] Comment on above: Result Comment: Foll icular phase 0.1 - 0.9 Luteal phase 1.8 - 23.9 Ovulation phase 0.1 - 12.0 First trimester 11.0 - 44.3 Second trimester 25.4 - 83.3 Third trimester 58.7 - 214.0 Postmenopausal 0.0 - 0.1 Performed By: #### C MP, CRP #### [facility] [address] [place] [address] Dr. Estella Lopez TESTOSTERONE, TOTALon 2021 Testosterone [Mass/Vol] ng/dL Critically low 8-60 [facility] Comment on above: Performed By: #### T ESTTOT #### [facility] [address] [place] [address] Dr. Estella Lopez CBC AUTO DIFFon 04-22-2022 BASO # 0.0 103/ul Normal 0.0-0.1 [facility] Comment on above: Performed By: #### C BC ####[facility] [address] [place] [address]DrBerna Lopez Basophils/100 WBC (Bld) 0.2 % Normal 0.2-2.0 [facility] Comment on above: Performed By: #### C BC ####[facility] [address] [place] [address]DrBerna Lopez EO # 0.0 103/ul Normal 0.0-0.7 [facility] Comment on above: Performed By: #### C BC ####[facility] [address] [place] [address]Dr. Estella Lopez Eosinophils/100 WBC (Bld) 0.1 % Critically low 0.9-7.0 [facility] Comment on above: Performed By: #### C BC ####[facility] [address] [place] [address]Dr. Estella Lopez Erythrocyte distribution width (RBC) [Ratio] 18.6 % Critically high 11.0-15.0 [facility] Comment on above: Performed By: #### C BC ####[facility] [address] [place], [place] [address]Dr. Estella Lopez Hematocrit (Bld) [Volume fraction] 39.5 % Normal 36.0-48.0 [facility] Comment on above: Performed By: #### C BC ####[facility] [address] [place], [place] [address]Dr. Estella Lopez Hemoglobin (Bld) [Mass/Vol] 11.9 g/dL Critically low 12.0-16.0 [facility] Comment on above: Performed By: #### C BC ####[facility] [address] [place], [place] [address]Dr. Estella Lopez IG # 0.03 10e3/ul Normal 0.00-0.03 [facility] Comment on above: Performed By: #### C BC ####[facility] [address] [place], [place] [address]Dr. Estella Lopez IG % 0.3 % Normal 0.0-0.5 [facility] Comment on above: Performed By: #### C BC ####[facility] [address] [place], [place] [address]Dr. Estella Lopez LYMPH # 1.9 103/ul Normal 1.2-3.8 [facility] Comment on above: Performed By: #### C BC ####[facility] [address] [place], [place] [address]Dr. Estella Lopez Lymphocytes/100 WBC (Bld) 18.3 % Critically low 20.5-60.0 [facility] Comment on above: Performed By: #### C BC ####[facility] [address] [place] [address]Dr. Estella Lopez MANUAL DIFF REQ NO Normal [facility] [place] Comment on above: Performed By: #### C BC ####[facility] [address] [place] [id number]. Estella Lopez MCH (RBC) [Entitic mass] 22.3 pg Critically low 26.7-34.0 [facility] Comment on above: Performed By: #### C BC ####[facility] [address] [place] [address]Dr. Estella Lopez MCHC (RBC) [Mass/Vol] 30.1 g/dL Normal 29.9-35.2 [facility] Comment on above: Performed By: #### C BC ####[facility] [address] [place], [place] [address]Dr. Estella Lopez MCV (RBC) [Entitic vol] 74.0 fL Critically low 81.0-99.0 [facility] Comment on above: Performed By: #### C BC ####[facility] [address] [place] [address]Dr. Estella Lopez MONO # 0.8 103/ul Normal 0.3-0.8 [facility] Comment on above: Performed By: #### C BC ####[facility] [address] [place] [address]Dr. Estella Lopez Monocytes/100 WBC (Bld) 7.5 % Normal 1.7-12.0 [facility] Comment on above: Performed By: #### C BC ####[facility] [address] [place], [place] [address]DrBerna Lopez NEUT # 7.5 103/ul Critically high 1.4-6.5 The [facility] [place] Comment on above: Performed By: #### C BC ####[facility] Y[address] [place], [place] [address]Dr. Estella Lopez Neutrophils/100 WBC (Bld) 73.6 % Normal 43.0-75.0 [facility] Comment on above: Performed By: #### C BC ####[facility] [address] [place] [id number]. Estella Lopez Platelet mean volume (Bld) [Entitic vol] 10.9 fL Normal 9.5-13.5 [facility] Comment on above: Performed By: #### C BC ####[facility] [address] [place] [id number]. Estella Lopez PLT 388 103/ul Normal 150-450 [facility] Comment on above: Performed By: #### C BC ####[facility] [address] [place] [id number] Lopez RBC 5.34 106/ul Normal 4.20-5.40 [facility] Comment on above: Performed By: #### C BC ####[facility] [address] [place] [id number]. Estella Lopez WBC 10.2 103/ul Normal 4.0-11.0 [facility] Comment on above: Performed By: #### C BC ####[facility] [address] [place] [id number]. Estella Lopez FREE T3on 04-22-2022 FREE T3 2.40 pg/mlL Normal 2.18-3.98 [facility] Comment on above: Performed By: #### T SH, FT3 ####[facility] [address] [place] [phone]. Estella Lopez FREE T4on 04-22-2022 Free T4 [Mass/Vol] 0.99 ng/dL Normal 0.76-1.46 [facility] Comment on above: Performed By: #### C MP, CRP #### [facility] [address] [place], [place] [address] Dr. Estella Lopez TSHon 04-22-2022 TSH 1.098 uIU/mL Normal 0.358-3.740 [facility] Comment on above: Performed By: #### T SH, FT3 ####[facility] [address] [place] [phone]. Estella Lopez CYCLIC CITRULLINATED PEPTIDE AB (CCP)on 04-21-2022 CCP Antibodies IgG/IgA 5 units Normal 0-19 Th [facility] Comment on above: Result Comment: Nega tive <20 Weak positive 20 - 39 Moderate positive 40 - 59 Strong positive >59 Performed By: #### C MP, CRP #### [facility] [address] [address] [address] Estella Lopez PROTEIN ELECTROPHERESISon Albumin [Mass/Vol] 3.1 g/dL Normal 2.9-4.4 [facility] Comment on above: Performed By: #### P RTELEC ####[facility] [address] [place] [address]Dr. Estella Lopez Albumin/Globulin [Mass ratio] 0.9 {ratio} Normal 0.7-1.7 [facility] Comment on above: Performed By: #### P RTELEC ####[facility] [address] [place], [place] [address]DrBerna Lopez Ybnfi-8-Norujikw 0.4 g/dL Normal 0.0-0.4 [facility] Comment on above: Performed By: #### P RTELEC ####[facility] Kw[address] [place], [place] [address]DrBerna Lopez Iavdx-2-Nshmaiar 1.2 g/dL Critically high 0.4-1.0 [facility] Comment on above: Performed By: #### P RTELEC ####[facility] [address] [place] [address]DrBerna Lopez Beta Globulin 1.2 g/dL Normal 0.7-1.3 [facility] Comment on above: Performed By: #### P RTELEC ####[facility] [address] [place] [address]Dr. Estella Lopez Gamma Globulin 0.8 g/dL Normal 0.4-1.8 [facility] Comment on above: Performed By: #### P RTELEC ####[facility] [address] [place], [place] [address]DrBerna Lopez Globulin (S) [Mass/Vol] 3.6 g/dL Normal 2.2-3.9 [facility] Comment on above: Performed By: #### P RTELEC ####[facility] [address] [place] [address]Dr. Estella Lopez M-Prashant Not Observed Normal Not Observed [facility] Comment on above: Performed By: #### P RTELEC ####[facility] [address] [place] [address]Dr. Estella Lopez PDF . Normal [facility] Comment on above: Performed By: #### P RTELEC ####[facility] [address] [place] [address]Dr. Estella Lopez Please note: Comment [facility] Comment on above: Result Comment: Prot ein electrophoresis scan will follow via computer, mail, or performance improvement coordinator delivery. Performed By: #### P RTELEC ####[facility] [address] [place], [place] [address]Dr. Estella Lopez Protein [Mass/Vol] 6.7 g/dL Normal 6.0-8.5 [facility] Comment on above: Performed By: #### P RTELEC ####[facility] [address] [place], [place] [address]Dr. Estella Lopez IMMUNOGLOBULINS IGA/IGM/IGG QUANTITATIVEon 04-18-2022 Immunoglobulin A, Qn, Serum 149 mg/dL Normal 87-352 [facility] Comment on above: Performed By: #### I MMUNGL ####[facility] Z[address] [place], [place] [address]Dr. Estella Lopez Immunoglobulin G, Qn, Serum 977 mg/dL Normal 586-1602 [facility] Comment on above: Performed By: #### I MMUNGL ####[facility] [address] [place], [place] [address]Dr. Estella Lopez Immunoglobulin M, Qn, Serum 98 mg/dL Normal 26-217 [facility] Comment on above: Performed By: #### I MMUNGL ####[facility] [address] [place], [place] [address]Dr. Estella Lopez CRPon 04-17-2022 CRP 1.3 mg/dL Critically high <=1.0 The [facility] [place] Comment on above: Performed By: #### C MP, CRP #### [facility] [address] [place] [address] [address] Estella Lopez SED RATE WESTERGRENon 2021 SED RATE 67 mm/hr Critically high <=20 The [facility] [place] Comment on above: Performed By: #### S EDR ####[facility] [address] [place] [phone]. Estella Lopez US PELVIS AND TRANSVAGon US PELVIS AND TRANSVAG EXAMINATION: US PELVIS AND TRANSVAG HISTORY: Abnormal uterine bleeding unrelated to menstrual cycle ; 10 weeks COMPARISON: No relevant comparison available. TECHNIQUE: Transabdominal and transvaginal sonographic examination. FINDINGS: UTERUS: Normal size and appearance. Uterus size: 8.5 x 5.7 x 4.3 cm ENDOMETRIUM: Normal homogeneous appearance. Endometrial thickness: 8 mm RIGHT OVARY: Not seen. No suspicious adnexal findings. LEFT OVARY: Normal size and appearance. Duplex Doppler demonstrates normal waveform and flow; resistive index 0.4. Ovary size: 1.9 x 1.2 x 1.2 cm CUL-DE-SAC: Unremarkable. No significant free fluid. BLADDER: Unremarkable. OTHER: None. IMPRESSION: 1. No abnormal or suspicious findings to account for patient's symptoms. Electronically authenticated by: HILLARY KULKARNI Date: 2022-03-24 11:53 Normal [facility] CBC AUTO DIFFon 03-23-2022 BASO # 0.0 103/ul Normal 0.0-0.1 [facility] Comment on above: Performed By: #### C BC #### [facility] [address] [place] [address] [address] Estella Lopez Basophils/100 WBC (Bld) 0.3 % Normal 0.2-2.0 [facility] Comment on above: Performed By: #### C BC #### [facility] [address] [place] [address] [address] Estella Lopez EO # 0.0 103/ul Normal 0.0-0.7 [facility] Comment on above: Performed By: #### C BC #### [facility] [address] [place] [address] Dr. Estella Lopez Eosinophils/100 WBC (Bld) 0.7 % Critically low 0.9-7.0 [facility] Comment on above: Performed By: #### C BC #### [facility] [address] [place] [address] Dr. Estella Lopez Erythrocyte distribution width (RBC) [Ratio] 20.4 % Critically high 11.0-15.0 [facility] Comment on above: Performed By: #### C BC #### [facility] [address] [place] [address] Dr. Estella Lopez Hematocrit (Bld) [Volume fraction] 38.3 % Normal 36.0-48.0 [facility] Comment on above: Performed By: #### C BC #### [facility] [address] [place] [address] Dr. Estella Lopez Hemoglobin (Bld) [Mass/Vol] 11.5 g/dL Critically low 12.0-16.0 [facility] Comment on above: Performed By: #### C BC #### [facility] [address] [place] [address] Dr. Estella Lopez IG # 0.02 10e3/ul Normal 0.00-0.03 [facility] Comment on above: Performed By: #### C BC #### [facility] [address] [place] [address] Dr. Estella Lopez IG % 0.3 % Normal 0.0-0.5 [facility] Comment on above: Performed By: #### C BC #### [facility] [address] [place] [address] Dr. Estella Lopez LYMPH # 1.9 103/ul Normal 1.2-3.8 [facility] Comment on above: Performed By: #### C BC #### [facility] [address] [place] [address] Dr. Estella Lopez Lymphocytes/100 WBC (Bld) 33.4 % Normal 20.5-60.0 [facility] Comment on above: Performed By: #### C BC #### [facility] [address] [place] [address] Dr. Estella Lopez MANUAL DIFF REQ NO Normal [facility] Comment on above: Performed By: #### C BC #### [facility] [address] [place] [address] Dr. Estella Lopez MCH (RBC) [Entitic mass] 22.1 pg Critically low 26.7-34.0 [facility] Comment on above: Performed By: #### C BC #### [facility] [address] [place] [address] Dr. Estella Lopez MCHC (RBC) [Mass/Vol] 30.0 g/dL Normal 29.9-35.2 [facility] Comment on above: Performed By: #### C BC #### [facility] [address] [place] [address] Dr. Estella Lopez MCV (RBC) [Entitic vol] 73.5 fL Critically low 81.0-99.0 [facility] Comment on above: Performed By: #### C BC #### [facility] [address] [place] [address] Dr. Estella Lopez MONO # 0.5 103/ul Normal 0.3-0.8 [facility] Comment on above: Performed By: #### C BC #### [facility] [address] [place] [address] Dr. Estella Lopez Monocytes/100 WBC (Bld) 8.3 % Normal 1.7-12.0 [facility] Comment on above: Performed By: #### C BC #### [facility] [address] [place] [address] Dr. Estella Lopez NEUT # 3.3 103/ul Normal 1.4-6.5 [facility] Comment on above: Performed By: #### C BC #### [facility] [address] [place] [address] Dr. Estella Lopez Neutrophils/100 WBC (Bld) 57.0 % Normal 43.0-75.0 [facility] Comment on above: Performed By: #### C BC #### [facility] [address] [place] [address] [address] Estella Lopez Platelet mean volume (Bld) [Entitic vol] 10.0 fL Normal 9.5-13.5 [facility] Comment on above: Performed By: #### C BC #### [facility] [address] [place] [address] [address] Estella Lopez PLT 374 103/ul Normal 150-450 [facility] Comment on above: Performed By: #### C BC #### [facility] [address] [address] [address] Estella Lopez RBC 5.21 106/ul Normal 4.20-5.40 [facility] Comment on above: Performed By: #### C BC #### [facility] [address] [place] [address] [address] Estella Lopez WBC 5.8 103/ul Normal 4.0-11.0 [facility] Comment on above: Performed By: #### C BC #### [facility] [address] [place] [address] [address] Estella Lopez CRPon 03-23-2022 CRP 2.1 mg/dL Critically high <=1.0 [facility] Comment on above: Performed By: #### C MP, CRP #### [facility] [address] [place] [address] Dr. Estella Lopez PROF 14(COMP METB)on 022 Albumin [Mass/Vol] 2.9 g/dL Critically low 3.4-5.0 [facility] Comment on above: Performed By: #### C MP, CRP #### [facility] [address] [place] [address] [address] Estella Lopez Albumin/Globulin [Mass ratio] 0.7 {ratio} Normal [facility] Comment on above: Performed By: #### C MP, CRP #### [facility] [address] [place] [address] [address] Estella Lopez ALP [Catalytic activity/Vol] 132 U/L Critically high 46-116 [facility] Comment on above: Performed By: #### C MP, CRP #### [facility] [address] [place] [address] [address] Estella Lopez ALT [Catalytic activity/Vol] 27 U/L Normal 14-59 [facility] Comment on above: Performed By: #### C MP, CRP #### [facility] [address] [place] [address] [address] Estella Lopez Anion gap [Moles/Vol] 12.1 mmol/L Normal [facility] Comment on above: Performed By: #### C MP, CRP #### [facility] [address] [place] [address] [address] Estella Lopez AST [Catalytic activity/Vol] 19 U/L Normal 15-37 [facility] Comment on above: Performed By: #### C MP, CRP #### [facility] [address] [address] [address] Estella Lopez Bilirubin [Mass/Vol] 0.2 mg/dL Normal 0.2-1.0 [facility] Comment on above: Performed By: #### C MP, CRP #### [facility] [address] [place] [address] [address] Estella Lopez Calcium [Mass/Vol] 8.6 mg/dL Normal 8.5-10.1 [facility] Comment on above: Performed By: #### C MP, CRP #### [facility] [address] [place] [address] [address] Estella Lopez Chloride [Moles/Vol] 104 mmol/L Normal 98-107 [facility] Comment on above: Performed By: #### C MP, CRP #### [facility] [address] [place] [address] [address] Estella Lopez CO2 [Moles/Vol] 26.8 mmol/L Normal 21.0-32.0 [facility] Comment on above: Performed By: #### C MP, CRP #### [facility] [address] [address] [address] Estella Lopez Creatinine [Mass/Vol] 0.81 mg/dL Normal 0.55-1.02 [facility] Comment on above: Performed By: #### C MP, CRP #### [facility] [address] [place] [address] [address] Estella Lopez EGFR-AF GAMBIAN >60 Normal >=60 [facility] Comment on above: Performed By: #### C MP, CRP #### [facility] [address] [place] [address] [address] Estella Lopez EGFR-NON AF GAMBIAN >60 Normal >=60 [facility] Comment on above: Performed By: #### C MP, CRP #### [facility] [address] [place] [address] [address] Estella Lopez Globulin (S) [Mass/Vol] 4.3 g/dL Normal [facility] Comment on above: Performed By: #### C MP, CRP #### [facility] [address] [place] [address] Dr. Estella Lopez Glucose [Mass/Vol] 78 mg/dL Normal 74-106 [facility] Comment on above: Performed By: #### C MP, CRP #### [facility] [address] [address] [address] Estella Lopez Potassium [Moles/Vol] 3.9 mmol/L Normal 3.5-5.1 [facility] Comment on above: Performed By: #### C MP, CRP #### [facility] [address] [place] [address] Dr. Estella Lopez Protein [Mass/Vol] 7.2 g/dL Normal 6.4-8.2 [facility] Comment on above: Performed By: #### C MP, CRP #### [facility] [address] [place] [address] [address] Estella Lopez Sodium [Moles/Vol] 139 mmol/L Normal 136-145 [facility] Comment on above: Performed By: #### C MP, CRP #### [facility] [address] [address] [address] Estella Lopez Urea nitrogen [Mass/Vol] 7.0 mg/dL Normal 7.0-18.0 [facility] Comment on above: Performed By: #### C MP, CRP #### [facility] [address] [address] [address] Estella Lopez Urea nitrogen/Creatinine [Mass ratio] 8.6 mg/mg Normal [facility] Comment on above: Performed By: #### C MP, CRP #### [facility] [address] [address] [address] Estella Lopez SED RATE WESTERGRENon 2021 SED RATE 77 mm/hr Critically high <=20 [facility] Comment on above: Performed By: #### S EDR #### [facility] [address] [place] [address] Dr. Estella Lopez PRBC LEUKOREDUCEDon 01-06-20 22 ABO and Rh group Nom (Bld) Cross Match Result Compatible Unit Blood Type O Pos Unit Number [id number] Status Information Transfused Product ID Red Blood Cells Product Code [id number] Cross Match Result Compatible Unit Blood Type O Pos Unit Number [id number] Status Information Transfused Product ID Red Blood Cells Product Code [id number] Normal [facility] Comment on above: Performed By: #### P RBC ####[facility] [address] [place] [address]Dr. Estella Lopez CBC AUTO DIFFon 01-04-2022 BASO # 0.0 103/ul Normal 0.0-0.1 [facility] Comment on above: Performed By: #### C MP, CRP #### [facility] [address] [place] [address] Dr. Estella Lopez Basophils/100 WBC (Bld) 0.2 % Normal 0.2-2.0 [facility] Comment on above: Performed By: #### C MP, CRP #### [facility] [address] [place] [address] Dr. Estella Lopez EO # 0.1 103/ul Normal 0.0-0.7 [facility] Comment on above: Performed By: #### C MP, CRP #### [facility] [address] [place] [address] Dr. Estella Lopez Eosinophils/100 WBC (Bld) 1.0 % Normal 0.9-7.0 [facility] Comment on above: Performed By: #### C MP, CRP #### [facility] [address] [place] [address] Dr. Estella Lopez Erythrocyte distribution width (RBC) [Ratio] 23.1 % Critically high 11.0-15.0 [facility] Comment on above: Performed By: #### C MP, CRP #### [facility] [address] [place] [address] Dr. Estella Lopez Hematocrit (Bld) [Volume fraction] 30.3 % Critically low 36.0-48.0 [facility] Comment on above: Performed By: #### C MP, CRP #### [facility] [address] [place] [address] Dr. Estella Lopez Hemoglobin (Bld) [Mass/Vol] 9.1 g/dL Critically low 12.0-16.0 [facility] Comment on above: Performed By: #### C MP, CRP #### [facility] [address] [place] [address] Dr. Estella Lopez IG # 0.08 10e3/ul Critically high 0.00-0.03 [facility] Comment on above: Performed By: #### C MP, CRP #### [facility] [address] [place] [address] Dr. Estella Lopez IG % 0.7 % Critically high 0.0-0.5 [facility] [place] Comment on above: Performed By: #### C MP, CRP #### [facility] [address] [place] [address] Dr. Estella Lopez LYMPH # 2.6 103/ul Normal 1.2-3.8 [facility] Comment on above: Performed By: #### C MP, CRP #### [facility] [address] [place] [address] Dr. Estella Lopez Lymphocytes/100 WBC (Bld) 23.6 % Normal 20.5-60.0 [facility] Comment on above: Performed By: #### C MP, CRP #### [facility] [address] [place] [address] Dr. Estella Lopez MANUAL DIFF REQ NO Normal [facility] Comment on above: Performed By: #### C MP, CRP #### [facility] [address] [place] [address] Dr. Estella Lopez MCH (RBC) [Entitic mass] 21.5 pg Critically low 26.7-34.0 [facility] Comment on above: Performed By: #### C MP, CRP #### [facility] [address] [place] [address] Dr. Estella Lopez MCHC (RBC) [Mass/Vol] 30.0 g/dL Normal 29.9-35.2 [facility] Comment on above: Performed By: #### C MP, CRP #### [facility] [address] [place] [address] Dr. Estella Lopez MCV (RBC) [Entitic vol] 71.5 fL Critically low 81.0-99.0 [facility] Comment on above: Performed By: #### C MP, CRP #### [facility] [address] [place] [address] Dr. Estella Lopez MONO # 0.5 103/ul Normal 0.3-0.8 [facility] Comment on above: Performed By: #### C MP, CRP #### [facility] [address] [place] [address] Dr. Estella Lopez Monocytes/100 WBC (Bld) 4.4 % Normal 1.7-12.0 [facility] Comment on above: Performed By: #### C MP, CRP #### [facility] [address] [place] [address] Dr. Estella Lopez NEUT # 7.7 103/ul Critically high 1.4-6.5 [facility] [place] Comment on above: Performed By: #### C MP, CRP #### [facility] [address] [place] [address] Dr. Estella Lopez Neutrophils/100 WBC (Bld) 70.1 % Normal 43.0-75.0 [facility] Comment on above: Performed By: #### C MP, CRP #### [facility] [address] [place] [address] Dr. Estella Lopez Platelet mean volume (Bld) [Entitic vol] 10.4 fL Normal 9.5-13.5 [facility] Comment on above: Performed By: #### C MP, CRP #### [facility] [address] [place] [address] Dr. Estella Lopez PLT 275 103/ul Normal 150-450 [facility] Comment on above: Performed By: #### C MP, CRP #### [facility] [address] [place] [address] Dr. Estella Lopez RBC 4.24 106/ul Normal 4.20-5.40 [facility] Comment on above: Performed By: #### C MP, CRP #### [facility] [address] [place] [address] Dr. Estella Lopez WBC 11.0 103/ul Normal 4.0-11.0 [facility] Comment on above: Performed By: #### C MP, CRP #### [facility] [address] [place] [address] Dr. Estella Lopez CBC AUTO DIFFon 01-03-2022 BASO # 0.0 103/ul Normal 0.0-0.1 [facility] Comment on above: Performed By: #### C MP, CRP #### [facility] [address] [place] [address] Dr. Estella Lopez Basophils/100 WBC (Bld) 0.2 % Normal 0.2-2.0 [facility] Comment on above: Performed By: #### C MP, CRP #### [facility] [address] [place] [address] Dr. Estella Lopez EO # 0.1 103/ul Normal 0.0-0.7 [facility] Comment on above: Performed By: #### C MP, CRP #### [facility] [address] [place] [address] Dr. Estella Lopez Eosinophils/100 WBC (Bld) 0.7 % Critically low 0.9-7.0 [facility] Comment on above: Performed By: #### C MP, CRP #### [facility] [address] [place] [address] Dr. Estella Lopez Erythrocyte distribution width (RBC) [Ratio] 20.8 % Critically high 11.0-15.0 [facility] Comment on above: Performed By: #### C MP, CRP #### [facility] [address] [place] [address] Dr. Estella Lopez Hematocrit (Bld) [Volume fraction] 23.2 % Critically low 36.0-48.0 [facility] Comment on above: Result Comment: Test Repeated. Critical Value Verified Performed By: #### C MP, CRP #### [facility] [address] [place] [address] Dr. Estella Lopez Hemoglobin (Bld) [Mass/Vol] 6.6 g/dL Critically low 12.0-16.0 [facility] Comment on above: Result Comment: Test Repeated. Critical Value Verified Performed By: #### C MP, CRP #### [facility] [address] [place] [address] Dr. Estella Lopez IG # 0.07 10e3/ul Critically high 0.00-0.03 [facility] Comment on above: Performed By: #### C MP, CRP #### [facility] [address] [place] [address] Dr. Estella Lopez IG % 0.5 % Normal 0.0-0.5 [facility] Comment on above: Performed By: #### C MP, CRP #### [facility] [address] [place] [address] Dr. Estella Lopez LYMPH # 2.7 103/ul Normal 1.2-3.8 [facility] Comment on above: Performed By: #### C MP, CRP #### [facility] [address] [place] [address] Dr. Estella Lopez Lymphocytes/100 WBC (Bld) 21.1 % Normal 20.5-60.0 [facility] Comment on above: Performed By: #### C MP, CRP #### [facility] [address] [place] [address] Dr. Estella Lopez MANUAL DIFF REQ NO Normal [facility] Comment on above: Performed By: #### C MP, CRP #### [facility] [address] [place] [address] Dr. Estella Lopez MCH (RBC) [Entitic mass] 19.1 pg Critically low 26.7-34.0 [facility] Comment on above: Performed By: #### C MP, CRP #### [facility] [address] [place] [address] Dr. Estella Lopez MCHC (RBC) [Mass/Vol] 28.4 g/dL Critically low 29.9-35.2 [facility] Comment on above: Performed By: #### C MP, CRP #### [facility] [address] [place] [address] Dr. Estella Lopez MCV (RBC) [Entitic vol] 67.2 fL Critically low 81.0-99.0 [facility] Comment on above: Performed By: #### C MP, CRP #### [facility] [address] [place] [address] Dr. Estella Lopez MONO # 0.6 103/ul Normal 0.3-0.8 [facility] Comment on above: Performed By: #### C MP, CRP #### [facility] [address] [place] [address] Dr. Estella Lopez Monocytes/100 WBC (Bld) 5.0 % Normal 1.7-12.0 [facility] Comment on above: Performed By: #### C MP, CRP #### [facility] [address] [place] [address] Dr. Estella Lopez NEUT # 9.2 103/ul Critically high 1.4-6.5 [facility] Comment on above: Performed By: #### C MP, CRP #### [facility] [address] [place] [address] Dr. Estella Lopez Neutrophils/100 WBC (Bld) 72.5 % Normal 43.0-75.0 [facility] Comment on above: Performed By: #### C MP, CRP #### [facility] [address] [place] [address] Dr. Estella Lopez Platelet mean volume (Bld) [Entitic vol] 10.5 fL Normal 9.5-13.5 [facility] Comment on above: Performed By: #### C MP, CRP #### [facility] [address] [place] [address] Dr. Estella Lopez PLT 274 103/ul Normal 150-450 [facility] Comment on above: Performed By: #### C MP, CRP #### [facility] [address] [place] [address] Dr. Estella Lopez RBC 3.45 106/ul Critically low 4.20-5.40 [facility] Comment on above: Performed By: #### C MP, CRP #### [facility] [address] [place] [address] Dr. Estella Lopez WBC 12.7 103/ul Critically high 4.0-11.0 [facility] Comment on above: Performed By: #### C MP, CRP #### [facility] [address] [place] [address] Dr. Estella Lopez CBC AUTO DIFFon 01-01-2022 BASO # 0.0 103/ul Normal 0.0-0.1 [facility] Comment on above: Performed By: #### C MP, CRP #### [facility] [address] [place] [address] Dr. Estella Lopez Basophils/100 WBC (Bld) 0.1 % Critically low 0.2-2.0 [facility] Comment on above: Performed By: #### C MP, CRP #### [facility] [address] [place] [address] Dr. Estella Lopez EO # 0.0 103/ul Normal 0.0-0.7 [facility] Comment on above: Performed By: #### C MP, CRP #### [facility] [address] [place] [address] Dr. Estella Lopez Eosinophils/100 WBC (Bld) 0.2 % Critically low 0.9-7.0 [facility] Comment on above: Performed By: #### C MP, CRP #### [facility] [address] [address] [address] Estella Lopez Erythrocyte distribution width (RBC) [Ratio] 20.2 % Critically high 11.0-15.0 [facility] Comment on above: Performed By: #### C MP, CRP #### [facility] [address] [place] [address] Dr. Estella Lopez Hematocrit (Bld) [Volume fraction] 26.9 % Critically low 36.0-48.0 [facility] Comment on above: Performed By: #### C MP, CRP #### [facility] [address] [place] [address] Dr. Estella Lopez Hemoglobin (Bld) [Mass/Vol] 7.5 g/dL Critically low 12.0-16.0 [facility] Comment on above: Performed By: #### C MP, CRP #### [facility] [address] [place] [address] Dr. Estella Lopez IG # 0.08 10e3/ul Critically high 0.00-0.03 [facility] Comment on above: Performed By: #### C MP, CRP #### [facility] [address] [place] [address] Dr. Estella Lopez IG % 0.7 % Critically high 0.0-0.5 [facility] Comment on above: Performed By: #### C MP, CRP #### [facility] [address] [place] [address] Dr. Estella Lopez LYMPH # 2.1 103/ul Normal 1.2-3.8 [facility] Comment on above: Performed By: #### C MP, CRP #### [facility] [address] [place] [address] Dr. Estella Lopez Lymphocytes/100 WBC (Bld) 18.2 % Critically low 20.5-60.0 [facility] Comment on above: Performed By: #### C MP, CRP #### [facility] [address] [place] [address] Dr. Estella Lopez MANUAL DIFF REQ NO Normal [facility] Comment on above: Performed By: #### C MP, CRP #### [facility] [address] [place] [address] Dr. Estella Lopez MCH (RBC) [Entitic mass] 18.6 pg Critically low 26.7-34.0 [facility] Comment on above: Result Comment: 2+ h ypochromasia Performed By: #### C MP, CRP #### [facility] [address] [place] [address] Dr. Estella Lopez MCHC (RBC) [Mass/Vol] 27.9 g/dL Critically low 29.9-35.2 [facility] Comment on above: Performed By: #### C MP, CRP #### [facility] [address] [place] [address] Dr. Estella Lopez MCV (RBC) [Entitic vol] 66.7 fL Critically low 81.0-99.0 [facility] Comment on above: Performed By: #### C MP, CRP #### [facility] [address] [place] [address] Dr. Estella Lopez MONO # 0.6 103/ul Normal 0.3-0.8 [facility] Comment on above: Performed By: #### C MP, CRP #### [facility] [address] [place] [address] Dr. Estella Lopez Monocytes/100 WBC (Bld) 5.6 % Normal 1.7-12.0 [facility] Comment on above: Performed By: #### C MP, CRP #### [facility] [address] [place] [address] Dr. Estella Lopez NEUT # 8.6 103/ul Critically high 1.4-6.5 [facility] Comment on above: Performed By: #### C MP, CRP #### [facility] [address] [place] [address] Dr. Estella Lopez Neutrophils/100 WBC (Bld) 75.2 % Critically high 43.0-75.0 [facility] Comment on above: Performed By: #### C MP, CRP #### [facility] [address] [place] [address] Dr. Estella Lopez Platelet mean volume (Bld) [Entitic vol] 10.7 fL Normal 9.5-13.5 [facility] Comment on above: Performed By: #### C MP, CRP #### [facility] [address] [address] [address] Estella Lopez PLT 327 103/ul Normal 150-450 [facility] Comment on above: Performed By: #### C MP, CRP #### [facility] [address] [address] [address] Estella Lopez RBC 4.03 106/ul Critically low 4.20-5.40 [facility] Comment on above: Performed By: #### C MP, CRP #### [facility] [address] [address] [address] Estella Lopez WBC 11.5 103/ul Critically high 4.0-11.0 [facility] Comment on above: Performed By: #### C MP, CRP #### [facility] [address] [address] [address] Estella Lopez Covid-19 PCR ([facility])on 12-06 SARS-CoV-2 (COVID-19) RNA NICOLE+probe Ql (Unsp spec) Not detected Normal NOT DETECTED [facility] Comment on above: Result Comment: When diagnostic testing is negative, the possibility of a false negative should be considered in the context of a patient's recent exposures and the presence of clinical signs and symptoms consistent with SARS-CoV-2. This test is not yet approved or cleared by the [place] FDA. When there are no FDA-approved or cleared tests available, and other criteria are met, FDA can make tests available under an emergency access mechanism called an Emergency Use Authorization (EUA). The EUA for this test is supported by the [employer] of Health and Human Service's declaration that circumstances exist to justify the emergency use of in vitro diagnostics for the detection and/or diagnosis of the virus that causes COVID-19. This EUA will remain in effect for the duration of the COVID-19 declaration justifying emergency of IVDs, unless it is terminated or revoked by the FDA (after which the test may no longer be used). Performed By: #### C VDTBH ####[facility] [id number] [address]Dr. Estella Lopez DRUG SCREEN RAPID (URINE)on 01-01-2022 AMP Negative Normal NEGATIVE [facility] Comment on above: Performed By: #### C MP, CRP #### [facility] [address] [address] [address] Estella Lopez BAR Negative Normal NEGATIVE [facility] Comment on above: Performed By: #### C MP, CRP #### [facility] [address] [address] [address] Estella Lopez BUP Negative Normal NEGATIVE [facility] Comment on above: Performed By: #### C MP, CRP #### [facility] [address] [address] [address] Estella Lopez BZO Negative Normal NEGATIVE [facility] Comment on above: Performed By: #### C MP, CRP #### [facility] [address] [address] [address] Estella Lopez DOUGLAS Negative Normal NEGATIVE [facility] Comment on above: Performed By: #### C MP, CRP #### [facility] [address] [address] [address] Estella Lopez CUT-OFFS SEE BELOW Normal [facility] Comment on above: Result Comment: AMP (Amphetamine): 500ng/mL, BAR (Barbituates): 200 ng/mL, BZO (Benzodiazepines): 150 ng/mL, BUP (Buprenorphine): 10 ng/mL, DOUGLAS (Cocaine): 150 ng/mL, mAMP (Methamphetamine): 500 ng/mL, MTD (Methadone): 200 ng/mL, OPI (Opiates): 100 ng/mL, OXY (Oxycodone): 100 ng/mL, PCP (Phencyclidine): 25 ng/mL, PPX (Propoxyphene): 300 ng/mL, THC (Cannabinoids): 50 ng/mL, TCA (Trycyclic Antidepressants): 300 ng/mL Performed By: #### C MP, CRP #### [facility] [address] [place] [address] Dr. Estella Lopez DRUG CUT HEADER DRUG CLASS TEST SYSTEM CUT-OFF CONCENTRATIONS ARE FOLLOWS: Normal [facility] Comment on above: Performed By: #### C MP, CRP #### [facility] [address] [address] [address] Estella Lopez mAMP Negative Normal NEGATIVE [facility] Comment on above: Performed By: #### C MP, CRP #### [facility] [address] [address] [address] Estella Lopez MTD Negative Normal NEGATIVE [facility] Comment on above: Performed By: #### C MP, CRP #### [facility] [address] [address] [address] Estella Lopez OPI Negative Normal NEGATIVE [facility] Comment on above: Performed By: #### C MP, CRP #### [facility] [address] [address] [address] Estella Lopez OXY Negative Normal NEGATIVE [facility] Comment on above: Performed By: #### C MP, CRP #### [facility] [address] [place] [address] Dr. Estella Lopez PCP Negative Normal NEGATIVE [facility] Comment on above: Performed By: #### C MP, CRP #### [facility] [address] [address] [address] Estella Lopez PPX Negative Normal NEGATIVE [facility] Comment on above: Performed By: #### C MP, CRP #### [facility] [address] [place] [address] Dr. Estella Lopez TCA Negative Normal NEGATIVE [facility] Comment on above: Performed By: #### C MP, CRP #### [facility] [address] [place] [address] Dr. Estella Lopez THC Positive Abnormal NEGATIVE [facility] Comment on above: Performed By: #### C MP, CRP #### [facility] [address] [place] [address] Dr. Estella Lopez TYPE AND SCREENon 01-01-2022 TYPE AND SCREEN Negative Normal [facility] Comment on above: Performed By: #### T NS ####[facility] [id number] [address]Dr. Estella Lopez US PREG BIOPHY W NON STRESSo n 12-29-2021 US PREG BIOPHY W NON STRESS EXAMINATION: US PREG BIOPHY W NON STRESS HISTORY: Systemic lupus erythematosus COMPARISON: No relevant comparison available. TECHNIQUE: Ultrasound biophysical profile was performed in the radiology department. FINDINGS: BREATHING MOVEMENTS: 2.0 GROSS BODY MOVEMENTS: 2.0 TONE: 2.0 QUALITATIVE AMNIOTIC FLUID VOLUME: 2.0 PRESENTATION: CEPHALIC HEART RATE: 125.0 bpm H.B./min AMNIOTIC FLUID VOLUME: 13.8 cm cm GESTATIONAL AGE: 36 weeks 5 days CONCLUSION: Total biophysical profile score: 8.0 Electronically authenticated by: SCOTT ESPINO Date: 2021-12-29 17:02 Normal [facility] GROUP B STREP CULTUREon 12-06 S. agalactiae Ag Ql (Unsp spec) Culture Observations: NEGATIVE FOR GROUP B STREPTOCOCCUS. Normal [facility] Comment on above: Performed By: #### G BSCX ####[facility] [id number] [id number] Lopez US PREG BIOPHY W NON STRESSo n 12-22-2021 US PREG BIOPHY W NON STRESS EXAMINATION: US PREG BIOPHY W NON STRESS HISTORY: Systemic lupus erythematosus COMPARISON: Ultrasound biophysical 12/15/2021 TECHNIQUE: Ultrasound biophysical profile was performed. FINDINGS: BREATHING MOVEMENTS: 2.0 GROSS BODY MOVEMENTS: 2.0 TONE: 2.0 QUALITATIVE AMNIOTIC FLUID VOLUME: 2.0 PRESENTATION: CEPHALIC HEART RATE: 118.4 bpm bpm. AMNIOTIC FLUID VOLUME: 16.0 cm GESTATIONAL AGE: 35 weeks 5 days CONCLUSION: Total biophysical profile score 8.0. Electronically authenticated by: HILLARY KULKARNI Date: 2021-12-22 11:55 Normal [facility] US PREG BIOPHY W NON STRESSo n 12-15-2021 US PREG BIOPHY W NON STRESS EXAMINATION: US PREG BIOPHY W NON STRESS HISTORY: Systemic lupus erythematosus COMPARISON: No relevant comparison available. TECHNIQUE: Ultrasound biophysical profile was performed in the radiology department. FINDINGS: BREATHING MOVEMENTS: 2.0 GROSS BODY MOVEMENTS: 2.0 TONE: 2.0 QUALITATIVE AMNIOTIC FLUID VOLUME: 2.0 PRESENTATION: CEPHALIC HEART RATE: 142.1 bpm H.B./min AMNIOTIC FLUID VOLUME: 19.0 cm cm GESTATIONAL AGE: 34 weeks 5 days CONCLUSION: Total biophysical profile score: 8.0 Electronically authenticated by: SCOTT ESPINO Date: 2021-12-15 12:12 Normal [facility] US PREG BIOPHY W NON STRESSo n 12-08-2021 US PREG BIOPHY W NON STRESS EXAMINATION: US PREG BIOPHY W NON STRESS HISTORY: Systemic lupus erythematosus COMPARISON: Ultrasound biophysical 12/04/2021 TECHNIQUE: Ultrasound biophysical profile was performed. FINDINGS: BREATHING MOVEMENTS: 2.0 GROSS BODY MOVEMENTS: 2.0 TONE: 2.0 QUALITATIVE AMNIOTIC FLUID VOLUME: 2.0 PRESENTATION: Cephalic HEART RATE: 124.4 bpm bpm. AMNIOTIC FLUID VOLUME: 17.1 cm GESTATIONAL AGE: 33 weeks 5 days CONCLUSION: Total biophysical profile score 8.0. Electronically authenticated by: HILLARY KULKARNI Date: 2021-12-08 12:02 Normal [facility] UA (CLEAN/CATCH) [place] RUNNER/MICRO I F IND.on 12-05-2021 Bilirubin Ql (U) Negative Normal NEGATIVE [facility] Comment on above: Performed By: #### U ACSIND #### [facility] [address] [place] [address] Dr. Estella Lopez Clarity (U) CLEAR Normal CLEAR [facility] Comment on above: Performed By: #### U ACSIND #### [facility] [address] [place] [address] Dr. Estella Lopez Color (U) LT. YELLOW Normal YELLOW [facility] Comment on above: Performed By: #### U ACSIND #### [facility] [address] [address] [address] Estella Lopez Glucose Ql (U) Negative Normal NEGATIVE [facility] Comment on above: Performed By: #### U ACSIND #### [facility] [address] [address] [address] Estella Lopez Hemoglobin Ql (U) Negative Normal NEGATIVE [facility] Comment on above: Performed By: #### U ACSIND #### [facility] [address] [place] [address] Dr. Estella Lopez Ketones Ql (U) TRACE Abnormal NEGATIVE [facility] Comment on above: Performed By: #### U ACSIND #### [facility] [address] [address] [address] Estella Lopez LEUKOCYTES Negative Normal NEGATIVE [facility] Comment on above: Performed By: #### U ACSIND #### [facility] [address] [address] [address] Estella Lopez Nitrite Ql (U) Negative Normal NEGATIVE [facility] Comment on above: Performed By: #### U ACSIND #### [facility] [address] [address] [address] Estella Lopez pH (U) 6.0 [pH] Normal 5-9 [facility] Comment on above: Performed By: #### U ACSIND #### [facility] [address] [place] [address] Dr. Estella Lopez SPEC GRAVITY 1.025 Normal 1.005-<=1.025 [facility] Comment on above: Performed By: #### U ACSIND #### [facility] [address] [place] [address] Dr. Estella Lopez UA PROTEIN Negative Normal NEGATIVE/ TRACE [facility] Comment on above: Performed By: #### U ACSIND #### [facility] [address] [address] [address] Estella Lopez UR MICRO IND NOT INDICATED Normal [facility] Comment on above: Performed By: #### U ACSIND #### [facility] [address] [place] [address] Dr. Estella Lopez Urobilinogen Qn (U) 0.2 {Allen'U}/dL Normal 0.2 - 1. 0 [facility] Comment on above: Performed By: #### U ACSIND #### [facility] [address] [place] [address] Dr. Estella Lopez US PREG BIOPHY W NON STRESSo n 12-05-2021 US PREG BIOPHY W NON STRESS EXAMINATION: US PREG BIOPHY W NON STRESS HISTORY: Contraction COMPARISON: 12/01/2021 TECHNIQUE: Ultrasound biophysical profile was performed in the radiology department. non-reactive stress testing was performed by nursing staff in the birthing center. FINDINGS: BREATHING MOVEMENTS: 2.0 GROSS BODY MOVEMENTS: 2.0 TONE: 2.0 QUALITATIVE AMNIOTIC FLUID VOLUME: 2.0 PRESENTATION: Cephalic HEART RATE: 134.3 bpm H.B./min AMNIOTIC FLUID VOLUME: 18.4 cm cm GESTATIONAL AGE: 33 weeks 1 days CONCLUSION: Total biophysical profile score: 8.0 Electronically authenticated by: SCOTT ESPINO Date: 2021-12-05 07:14 Normal [facility] US PREG PLACENTAon US PREG PLACENTA EXAMINATION: US PREG PLACENTA HISTORY: Contraction COMPARISON: 10/28/2021 FINDINGS: position: Cephalic presentation, longitudinal lie Placenta: Posterior, grade 1. The placental edge is 3.6 cm from the internal cervical os Heart rate: Variable ranging from 105-124 bpm, decelerations noted by the technologist Cervix: 3.4 cm, closed IMPRESSION: Variable heart rate, decelerations noted by the technologist Electronically authenticated by: SCOTT ESPINO Date: 2021-12-05 07:16 Normal [facility] US PREG BIOPHY W NON STRESSo n 12-01-2021 US PREG BIOPHY W NON STRESS EXAMINATION: US PREG BIOPHY W NON STRESS HISTORY: Systemic lupus erythematosus COMPARISON: No relevant comparison available. TECHNIQUE: Ultrasound biophysical profile was performed in the radiology department. FINDINGS: BREATHING MOVEMENTS: 2.0 GROSS BODY MOVEMENTS: 2.0 TONE: 2.0 QUALITATIVE AMNIOTIC FLUID VOLUME: 2.0 PRESENTATION: CEPHALIC HEART RATE: 131.7 bpm H.B./min AMNIOTIC FLUID VOLUME: 20.7 cm cm GESTATIONAL AGE: 32 weeks 5 days Other: Partial nuchal cord CONCLUSION: Total biophysical profile score: 8.0 Electronically authenticated by: SCOTT ESPINO Date: 2021-12-01 16:01 Normal [facility] US PREG BIOPHY W NON STRESSo n 11-25-2021 US PREG BIOPHY W NON STRESS EXAMINATION: US PREG BIOPHY W NON STRESS HISTORY: Systemic lupus erythematosus COMPARISON: No relevant comparison available. TECHNIQUE: Ultrasound biophysical profile was performed in the radiology department. FINDINGS: BREATHING MOVEMENTS: 2.0 GROSS BODY MOVEMENTS: 2.0 TONE: 2.0 QUALITATIVE AMNIOTIC FLUID VOLUME: 2.0 PRESENTATION: CEPHALIC HEART RATE: 150.0 bpm H.B./min AMNIOTIC FLUID VOLUME: 16.3 cm cm GESTATIONAL AGE: 31 weeks 5 days CONCLUSION: Total biophysical profile score: 8.0 Electronically authenticated by: SCOTT ESPINO Date: 2021-11-25 07:26 Normal [facility] CHLAMYDIA/GONOCOCCUS NICOLE (SW AB/URINE/PAPon 11-22-2021 Chlamydia trachomatis, NICOLE Negative Normal Negative [facility] Comment on above: Performed By: #### C MP, CRP #### [facility] [address] [place] [address] Dr. Estella Lopez Neisseria gonorrhoeae, NICOLE Negative Normal Negative [facility] Comment on above: Performed By: #### C MP, CRP #### [facility] [address] [place] [address] Dr. Estella Lopez VAGINITIS/VAGINOSIS DNA PROB Brett 11-21-2021 Mirela species Negative Normal Negative [facility] Comment on above: Performed By: #### C MP, CRP #### [facility] [address] [place] [address] Dr. Estella Lopez Gardnerella vaginalis Negative Normal Negative [facility] Comment on above: Performed By: #### C MP, CRP #### [facility] [address] [place] [address] Dr. Estella Lopez Trichomonas vaginalis Negative Normal Negative [facility] Comment on above: Performed By: #### C MP, CRP #### [facility] [address] [place] [address] Dr. Estella Lopez UA (CLEAN/CATCH) CONE RUNNER/MICRO I F IND.on 11-10-2021 Bilirubin Ql (U) Negative Normal NEGATIVE [facility] Comment on above: Performed By: #### C MP, CRP #### [facility] [address] [place] [address] Dr. Estella Lopez Clarity (U) CLEAR Normal CLEAR [facility] Comment on above: Performed By: #### C MP, CRP #### [facility] [address] [place] [address] Dr. Estella Lopez Color (U) LT. YELLOW Normal YELLOW [facility] Comment on above: Performed By: #### C MP, CRP #### [facility] [address] [place] [address] Dr. Estella Lopez Glucose Ql (U) Negative Normal NEGATIVE [facility] Comment on above: Performed By: #### C MP, CRP #### [facility] [address] [place] [address] Dr. Estella Lopez Hemoglobin Ql (U) Negative Normal NEGATIVE [facility] Comment on above: Performed By: #### C MP, CRP #### [facility] [address] [place] [address] Dr. Estella Lopez Ketones Ql (U) >=80 Abnormal NEGATIVE [facility] Comment on above: Performed By: #### C MP, CRP #### [facility] [address] [place] [address] Dr. Estella Lopez LEUKOCYTES Negative Normal NEGATIVE [facility] Comment on above: Performed By: #### C MP, CRP #### [facility] [address] [place] [address] Dr. Estella Lopez Nitrite Ql (U) Negative Normal NEGATIVE [facility] Comment on above: Performed By: #### C MP, CRP #### [facility] [address] [place] [address] Dr. Estella Lopez pH (U) 6.5 [pH] Normal 5-9 [facility] Comment on above: Performed By: #### C MP, CRP #### [facility] [address] [place] [address] Dr. Estella Lopez SPEC GRAVITY 1.020 Normal 1.005-<=1.025 The [facility] Comment on above: Performed By: #### C MP, CRP #### [facility] [address] [place] [address] Dr. Estella Lopez UA PROTEIN Negative Normal NEGATIVE/ TRACE The [facility] Comment on above: Performed By: #### C MP, CRP #### [facility] [address] [place] [address] Dr. Estella Lopez UR MICRO IND NOT INDICATED Normal The [facility] Comment on above: Performed By: #### C MP, CRP #### [facility] [address] [place] [address] Dr. Estella Lopez Urobilinogen Qn (U) 0.2 {Allen'U}/dL Normal 0.2 - 1. 0 The [facility] Comment on above: Performed By: #### C MP, CRP #### [facility] [address] [place] [address] Dr. Estella Lopez US PREG GROWTHon 10-27-2021 US PREG GROWTH EXAMINATION: US PREG GROWTH HISTORY: Low lying placenta COMPARISON: No relevant comparison available. FINDINGS: Heart Rate: 140.6 bpm Number: 1.0 Position: CEPHALIC Amniotic Fluid Volume: 16.3 cm Maximum Vertical Pocket: 5.3 cm BIOMETRY: BPD: 7.3 cm cm; 29 weeks 1 days; 84% HC: 26.1 cmcm; 28 weeks 3 days; 41% AC: 23.5 cm cm; 27 weeks 6 days; 45% FL: 5.1 cm cm; 27 weeks 2 days; 22% EFW: 1121.3 grams; 39% FL/AC: 21.6 FL/BPD: 69.7 HC/AC: 1.1 GESTATIONAL AGE: Age by EDC: 27 weeks 5 days FREDDY by EDC: 01/21/2022 Age by US: 28 weeks, 1 day FREDDY by US: 01/18/2022 IMPRESSION: 1. Single live intrauterine with growth detailed above. 2. Borderline low-lying placenta, 3.2 cm from cervical os. Electronically authenticated by: HILLARY KULKARNI Date: 2021-10-27 12:27 Normal The [facility] US PREG PLACENTAon US PREG PLACENTA EXAMINATION: US PREG PLACENTA HISTORY: Low lying placenta COMPARISON: No relevant comparison available. FINDINGS: PLACENTA: Posterior with lower margin 3.2 cm from internal os. No evidence of abruption or subchorionic hematoma. CERVIX LENGTH: 4.3 cm; closed. HEART RATE: 141 bpm OTHER: None. IMPRESSION: 1. Posterior placenta which is borderline low lying. No correlate of studies for comparison. Electronically authenticated by: HILLARY KULKARNI Date: 2021-10-27 12:20 Normal The [facility] UA (CLEAN/CATCH) CONE RUNNER/MICRO I F IND.on 09-01-2021 Bilirubin Ql (U) Negative Normal NEGATIVE [facility] Comment on above: Performed By: #### U ACSIND #### [facility] [address] [address] [address] Estella Lopez Clarity (U) CLEAR Normal CLEAR [facility] Comment on above: Performed By: #### U ACSIND #### [facility] [address] [place] [address] Dr. Estella Lopez Color (U) LT. YELLOW Normal YELLOW [facility] Comment on above: Performed By: #### U ACSIND #### [facility] [address] [address] [address] Estella Lopez Glucose Ql (U) Negative Normal NEGATIVE The [facility] Comment on above: Performed By: #### U ACSIND #### [facility] [address] [place] [address] Dr. Estella Lopez Hemoglobin Ql (U) Negative Normal NEGATIVE [facility] Comment on above: Performed By: #### U ACSIND #### [facility] [address] [place] [address] Dr. Estella Lopez Ketones Ql (U) Negative Normal NEGATIVE The [facility] Comment on above: Performed By: #### U ACSIND #### [facility] [address] [place] [address] Dr. Estella Lopez LEUKOCYTES Negative Normal NEGATIVE [facility] Comment on above: Performed By: #### U ACSIND #### [facility] [address] [place] [address] Dr. Estella Lopez Nitrite Ql (U) Negative Normal NEGATIVE The [facility] Comment on above: Performed By: #### U ACSIND #### [facility] [address] [place] [address] Dr. Estella Lopez pH (U) 6.5 [pH] Normal 5-9 [facility] Comment on above: Performed By: #### U ACSIND #### [facility] [address] [place] [address] Dr. Estella Lopez SPEC GRAVITY 1.015 Normal 1.005-<=1.025 [facility] Comment on above: Performed By: #### U ACSIND #### [facility] [address] [place] [address] Dr. Estella Lopez UA PROTEIN Negative Normal NEGATIVE/ TRACE The [facility] Comment on above: Performed By: #### U ACSIND #### [facility] [address] [address] [address] Estella Lopez UR MICRO IND NOT INDICATED Normal The [facility] Comment on above: Performed By: #### U ACSIND #### [facility] [address] [address] [address] Estella Lopez Urobilinogen Qn (U) 0.2 {Allen'U}/dL Normal 0.2 - 1. 0 [facility] Comment on above: Performed By: #### U ACSIND #### [facility] [address] [address] [address] Estella Lopez XR CHEST 2 Von 07-22-2021 XR CHEST 2 V EXAMINATION: XR CHEST 2 V HISTORY: Inactive tuberculosis COMPARISON: XR chest 12/11/2020 FINDINGS: LUNGS: No significant pulmonary parenchymal abnormalities. VASCULATURE: No increased pulmonary vasculature. PLEURA: No pneumothorax, effusion, or pleural thickening. CARDIAC: No cardiomegaly or cardiac silhouette abnormality. MEDIASTINUM: No visible mass or adenopathy. BONES: No fracture or visible bone lesion. OTHER: Negative. IMPRESSION: 1. Normal chest. No suspicious findings to suggest tuberculosis. Electronically authenticated by: HILLARY KULKARNI Date: 2021-07-22 16:35 Normal The [facility] JAUN BOX TEST PT SEND OUTo n 07-15-2021 SENT TO REF LAB 07/15/2021 Normal The [facility] Comment on above: Performed By: #### N BOX ####[facility] [id number] [id number]. Estella Lopez ANAon 09-26-2020 Nuclear Ab IF (S) [Titer] HOMOGENEOUS Normal The [facility] Comment on above: Performed By: #### 1 0097, 67903, 60046, 96624 ####[facility] [place] [address], [facility] Nuclear Ab IF (S) [Titer] 1:160 Abnormal <1:40,1:40 [facility] Comment on above: Performed By: #### 1 0097, 37861, 16555, 57459 ####[facility] ANTI DNAon 09-26-2020 ANTI DNA <1:10 Normal <1:10 [facility] Comment on above: Performed By: #### 1 0097, 30318, 25966, 51125 ####[facility].[address] ANTI-ENAon 09-26-2020 ANTI SM Negative Normal NEG,NEGATIVE, Neg [facility] Comment on above: Performed By: #### 1 0097, 99912, 15968, 00619 ####[facility].[address] ANTI SM/ANTIRNP Negative Normal NEG,NEGATIVE , Neg [facility] Comment on above: Performed By: #### 1 0097, 96244, 84659, 81489 ####[facility].[address] C REACTIVE PROTEINon 021 CRP [Mass/Vol] 17.1 mg/L High 0.0-7.0 The [facility] Comment on above: Performed By: #### 1 0204, 01696, 62240, 34331 #### [facility] [address] [place] [address], [facility] CBC W/DIFFon 09-26-2020 ABS BASOPHILS 0.0 10*3/uL Normal 0.0-0.2 The [facility] Comment on above: Performed By: #### 5 6506, 19906 ####[facility].[address] ABS IMM GRANS 0.0 10*3/uL Normal 0.0-0.2 The [facility] Comment on above: Performed By: #### 5 6505, 85316 ####[facility] [place] [address], [facility] ABS NEUTROPHILS 5.1 10*3/uL Normal 1.6-7.6 [facility] Comment on above: Performed By: #### 5 6505, 87552 ####[facility] [place] [address], [facility] Basophils/100 WBC (Bld) 0.1 % Normal 0.0-1.0 The [facility] Comment on above: Performed By: #### 5 6505, 50361 ####[facility] [place] [address], [facility] Eosinophils (Bld) [#/Vol] 0.1 10*3/uL Normal 0.0-0.5 The [facility] Comment on above: Performed By: #### 5 6505, 02750 ####[facility] [place] [address], [facility] Eosinophils/100 WBC (Bld) 0.8 % Normal 0.0-6.0 The [facility] Comment on above: Performed By: #### 5 6505, 44456 ####[facility] [facility] [place] [address], [facility] Erythrocyte distribution width (RBC) [Ratio] 13.8 % Normal 11.5-15.0 The [facility] Comment on above: Performed By: #### 5 6505, 54913 ####[facility] [place] [address], [facility] Hematocrit (Bld) [Volume fraction] 40.8 % Normal 36.0-45.0 The [facility] Comment on above: Performed By: #### 5 6505, 47628 ####[facility] [address], [facility] Hemoglobin (Bld) [Mass/Vol] 12.6 g/dL Normal 12.0-15.0 The [facility] Comment on above: Performed By: #### 5 6505, 04363 ####[facility] IMMATURE GRANS 0.1 % Normal 0.0-1.0 The [facility] Comment on above: Performed By: #### 5 6505, 55588 ####[facility] [place] [address] Lymphocytes (Bld) [#/Vol] 1.7 10*3/uL Normal 1.2-4.0 The [facility] Comment on above: Performed By: #### 5 6505, 86931 ####[address] Lymphocytes/100 WBC (Bld) 23.5 % Normal 20.0-45.0 The [facility] Comment on above: Performed By: #### 5 6505, 68151 ####[address] MCH (RBC) [Entitic mass] 25.6 pg Low 27.0-33.0 The [facility] Comment on above: Performed By: #### 5 6505, 12026 ####[facility] MCHC (RBC) [Mass/Vol] 30.9 g/dL Low 32.0-35.0 The [facility] Comment on above: Performed By: #### 5 6505, 52316 ####[address] MCV (RBC) [Entitic vol] 82.9 fL Normal 82.0-98.0 The [facility] Comment on above: Performed By: #### 5 6505, 77207 ####[address] [place] [address], [facility] Monocytes (Bld) [#/Vol] 0.4 10*3/uL Normal 0.1-1.0 The [facility] Comment on above: Performed By: #### 5 6505, 22002 ####[facility] [place] [address], [facility] MONOS 5.9 % Normal 5.0-12.0 The [facility] Comment on above: Performed By: #### 5 6505, 87946 ####[address] [place] [address], [facility] Neutrophils/100 WBC (Bld) 69.6 % Normal 40.0-72.0 The [facility] Comment on above: Performed By: #### 5 6505, 98158 ####[address] [place] [address], [facility] Nucleated RBC/100 WBC (Bld) [Ratio] 0 % Normal 0-0 The [facility] Comment on above: Performed By: #### 5 6505, 57539 ####[address] [place] [address], [facility] PLAT CNT 328 10*3/uL Normal 150-400 The [facility] Comment on above: Performed By: #### 5 6505, 01357 ####[address] [place] [address], [facility] RBC (Bld) [#/Vol] 4.92 10*6/uL Normal 3.80-5.00 The [facility] Comment on above: Performed By: #### 5 6505, 69603 ####[address] [place] [address], [facility] WBC (Bld) [#/Vol] 7.35 10*3/uL Normal 4.00-10.60 The [facility] Comment on above: Performed By: #### 5 6505, 45520 ####[facility] [address], [facility] COMP METABOLIC PANELon 09-26 Albumin [Mass/Vol] 4.0 g/dL Normal 3.5-5.7 [facility] Comment on above: Performed By: #### 3 0728, 52505, 77922, 04140, 68873 #### [facility] [address] [place] [address], [place] ALKALINE PHOSPH 78 IU/L Normal 34-104 The [facility] Comment on above: Performed By: #### 3 0728, 50335, 81615, 41697, 11598 #### [facility] [address] [place] [address], [place] ALT [Catalytic activity/Vol] 53 U/L High 7-52 The [facility] Comment on above: Performed By: #### 3 0728, 01210, 79382, 68569, 09907 #### [facility] [address] [place] [address], [place] AST [Catalytic activity/Vol] 35 U/L Normal 13-39 The [facility] Comment on above: Performed By: #### 3 0728, 68014, 44353, 01110, 16241 #### [facility] [address] [place] [address], [place] Bilirubin [Mass/Vol] 0.2 mg/dL Low 0.3-1.0 The [facility] Comment on above: Performed By: #### 3 0728, 56781, 85743, 91549, 56408 #### [facility] [address] [place] [address], [place] Calcium [Mass/Vol] 8.8 mg/dL Normal 8.6-10.3 [facility] Comment on above: Performed By: #### 3 0728, 28873, 24482, 68684, 02988 #### [facility] [address] [place] [address], [place] Chloride [Moles/Vol] 106 mmol/L Normal 98-107 The [facility] Comment on above: Performed By: #### 3 0728, 25103, 99888, 28578, 44668 #### [facility] [address] [place] [address], [place] CO2 [Moles/Vol] 23 mmol/L Normal 21-31 [facility] Comment on above: Performed By: #### 3 0728, 51478, 82580, 79075, 56660 #### [facility] [address] [place] [address], [place] Creatinine [Mass/Vol] 0.88 mg/dL Normal 0.60-1.20 [facility] Comment on above: Performed By: #### 3 0728, 32196, 83847, 33939, 43447 #### [facility] [address] [place] [address], [place] GFR/1.73 sq M predicted among blacks MDRD (S/P/Bld) [Vol rate/Area] mL/min/{1.73_m2} Normal >60 [facility] Comment on above: Performed By: #### 3 0728, 97481, 03944, 90383, 97012 #### [facility] [address] [place] [address], [place] GFR/1.73 sq M predicted among non-blacks MDRD (S/P/Bld) [Vol rate/Area] mL/min/{1.73_m2} Normal >60 The [facility] Comment on above: Performed By: #### 3 0728, 31028, 62795, 75887, 24923 #### [facility] [address] [place] [address], [place] Glucose [Mass/Vol] 96 mg/dL Normal 70-100 [facility] Comment on above: Performed By: #### 3 0728, 97108, 81395, 92895, 42083 #### [facility] [address] [place] [address], [place] Potassium [Moles/Vol] 4.1 mmol/L Normal 3.5-5.1 The [facility] Comment on above: Performed By: #### 3 0728, 56130, 85685, 20750, 84428 #### [facility] [address] [place] [address], [place] Protein [Mass/Vol] 7.0 g/dL Normal 6.0-8.3 [facility] Comment on above: Performed By: #### 3 0728, 07952, 06807, 17360, 12079 #### [facility] [address] [place] [address], [place] Sodium [Moles/Vol] 136 mmol/L Normal 136-145 [facility] Comment on above: Performed By: #### 3 0728, 70475, 16073, 18109, 13870 #### [facility] [address] [place] [address], [place] Urea nitrogen [Mass/Vol] 11 mg/dL Normal 7-25 The [facility] Comment on above: Performed By: #### 3 0728, 39313, 15406, 30997, 72541 #### [facility] [address] [place] [address], [place] COMPLEMENT 309-26-2020 COMPLEMENT 3 160 mg/dL High 79-152 The [facility] Comment on above: Performed By: #### 1 0204, 18437, 43674, 64136 #### [facility] [address] [place] [address], [place] COMPLEMENT 4on 09-26-2020 COMPLEMENT 4 19 mg/dL Normal 16-38 [facility] Comment on above: Performed By: #### 1 0204, 08821, 20129, 74009 #### [facility] [address] [place] [address], [facility] CPKon 09-26-2020 CK [Catalytic activity/Vol] 77 U/L Normal 30-223 The [facility] Comment on above: Performed By: #### 3 0728, 66650, 17518, 55674, 47758 #### [facility] [address] [place] [address], [facility] CREATININE URINE RANDOMon Creatinine [Mass/Vol] 154.0 mg/dL Normal Th e [facility] Comment on above: Result Comment: Ther e are no established reference values for random urine specimens Performed By: #### 2 5706, 96115 #### [facility] [address] [place] [address], [facility] HAND LEFT 3 VWSon 09-26-2020 HAND LEFT 3 VWS [facility] Department of Radiology [address] [place] [address] [id number] Patient Name: DEEDEE KHAN : 1990 Sex: F Age: Race: White Pt. Location: [facility] Patient Status: D Ordered Date: 09/26/2020 11:00:00 AM Completed Date: 09/26/2020 11:25 AM Requesting Provider: AINSLEY CARDONA Attending Provider: BIB KRISHNAN I Report Copy To: Signs & Symptoms: M25.50 Pain in unspecified joint I10 History: [place] Comments: Evaluate Exam: HAND LEFT 3 VWS HAND LEFT 3 VWS HISTORY: History of lupus, hand pain. COMPARISON: None. IMPRESSION: 1. No acute abnormality. No malalignment, deformity or erosive change. Electronically signed: Moises Barrera. Transcribed by: [email or web address], User Resident: Electronically Signed by: MOISES BARRERA @ 09/27/2020 10:27 AM Normal The [facility] Comment on above: Order Comment: Evalu ate HAND RIGHT 3 VWSon HAND RIGHT 3 VWS [facility] Department of Radiology [address] [place] [phone] Patient Name: DEEDEE KHAN : 1990 Sex: F Age: Race: White Pt. Location: [facility] Patient Status: D Ordered Date: 09/26/2020 11:00:00 AM Completed Date: 09/26/2020 11:06 AM Requesting Provider: AINSLEY CARDONA Attending Provider: Report Copy To: Signs & Symptoms: M25.50 Pain in unspecified joint I10 History: [place] Comments: Evaluate Exam: HAND RIGHT 3 VWS HAND RIGHT 3 VWS HISTORY: Hand pain, history of lupus. COMPARISON: None. IMPRESSION: 1. No acute abnormality. No erosive change or malalignment. 2. No significant arthritis. Electronically signed: Moises Barrera. Transcribed by: [email or web address], User Resident: Electronically Signed by: MOISES BARRERA @ 09/27/2020 10:14 AM Normal [facility] Comment on above: Order Comment: Evalu ate LUMBAR SPINE 2 OR 3 VWSon LUMBAR SPINE 2 OR 3 VWS [facility] Department of Radiology [address] [place] [id number] Patient Name: DEEDEE KHAN : 1990 Sex: F Age: Race: White Pt. Location: [facility] Patient Status: D Ordered Date: 09/26/2020 11:00:00 AM Completed Date: 09/26/2020 11:06 AM Requesting Provider: AINSLEY CARDONA Attending Provider: Report Copy To: Signs & Symptoms: M54.5 Low back pain I10 History: [place] Comments: Evaluate Exam: LUMBAR SPINE 2 OR 3 S LUMBAR SPINE 2 OR 3 S HISTORY: Low back pain, history of lupus. COMPARISON: None. IMPRESSION: 1. No compression deformity. Minimal L5-S1 disc height loss. Mild lower lumbar lumbar facet arthrosis. Electronically signed: Moises Barrera. Transcribed by: [email or web address], User Resident: Electronically Signed by: MOISES BARRERA @ 09/27/2020 10:18 AM Normal [facility] Comment on above: Order Comment: Evalu ate RHEUMATOID FACTOR SERUMon RA 20 IU/mL Normal 0-20 [facility] Comment on above: Performed By: #### 1 0204, 94384, 72508, 74[address] #### [place] [address], [facility] S-I JOINTS MIN 4 VWSon 09-26 S-I JOINTS MIN 4 VWS [facility] Department of Radiology [address] [place] [id number] Patient Name: DEEDEE KHAN : 1990 Sex: F Age: Race: White Pt. Location: [facility] Patient Status: D Ordered Date: 09/26/2020 11:00:00 AM Completed Date: 09/26/2020 11:06 AM Requesting Provider: AINSLEY CARDONA Attending Provider: Report Copy To: Signs & Symptoms: M54.5 Low back pain I10 History: [place] Comments: Evaluate Exam: S-I JOINTS MIN 4 VWS S-I JOINTS MIN 4 VWS HISTORY: History of lupus, low back pain. COMPARISON: None. IMPRESSION: 1. No convincing evidence of sacroiliitis. No acute abnormality. Electronically signed: Moises Barrera. Transcribed by: [email or web address], User Resident: Electronically Signed by: MOISES BARRERA @ 09/27/2020 10:17 AM Normal The [facility] Comment on above: Order Comment: Evalu ate SEDIMENTATION RATEon 01-21-2 021 SED RATE 44 mm/hr High 0-20 [facility] Comment on above: Performed By: #### 5 6506, 08468 ####[facility] [place] [address], [facility] SJOGRENS ANTIBODIESon 2020 SS-A Negative Normal NEG,NEGATIVE, Neg The [facility] Comment on above: Performed By: #### 1 0097, 58227, 30532, 62035 ####[facility] [place] [address], [facility] SS-B Negative Normal NEG,NEGATIVE, Neg The [facility] Comment on above: Performed By: #### 1 0097, 53698, 63981, 29592 ####[facility] [place] [address], [facility] T PROT UR Elizabeth 09-26-2020 Protein [Mass/Vol] 12.0 mg/dL Normal [facility] Comment on above: Result Comment: Ther e are no established reference values for random urine specimens Performed By: #### 2 5706, [id number] #### [facility] [address] [place] [address], [facility] TSH3 WITH REFLEX FT4on 09-26 TSH 3RD GENERATION 2.41 uIU/mL Normal 0.34-5.60 [facility] Comment on above: Performed By: #### 3 0728, 59911, 44928, 68881, 52169 ####[facility] [place] [address], [facility] URINALYSISon 09-26-2020 Appearance (U) SL CLOUDY Abnormal CLEAR [facility] Comment on above: Performed By: #### 1 0008 ####[facility] [place] [address], [facility] Bilirubin [Mass/Vol] Negative Normal NEGATIVE [facility] Comment on above: Performed By: #### 1 0008 ####[facility] [place] [address], [facility] BLOOD Negative Normal NEGATIVE [facility] Comment on above: Performed By: #### 1 0008 ####[facility] [place] [address], [place] Color (U) YELLOW Normal YELLOW [facility] Comment on above: Performed By: #### 1 0008 ####[facility] [place] [address], [place] Glucose [Mass/Vol] Negative Normal NEGATIVE [facility] Comment on above: Performed By: #### 1 0008 ####[facility] [place] [address], [place] KETONE Negative Normal NEGATIVE [facility] Comment on above: Performed By: #### 1 0008 ####[facility] [place] [address], [facility] LEUK CARMELO Negative Normal NEGATIVE [facility] Comment on above: Performed By: #### 1 0008 ####[facility] [place] [address], [facility] MICRO NOT DONE Normal [facility] Comment on above: Result Comment: Micr oscopics not performed on urines with negative chemical reactions unless requested in original order Performed By: #### 1 0008 ####[facility] [place] [address], [facility] Nitrite Ql (U) Negative Normal NEGATIVE [facility] Comment on above: Performed By: #### 1 0008 ####[facility] [place] [address], [place] pH (Bld) 5.0 Normal 5.0-8.0 [facility] Comment on above: Performed By: #### 1 0008 ####[facility] [facility], [place] [id number] [place] [address] Protein (U) [Mass/Vol] Negative Normal NEGATIVE Th e [facility] Comment on above: Performed By: #### 1 0008 ####[facility], [place] [id number] [place] [address] SPEC GRAV 1.023 High 1.015-1.020 [facility] Comment on above: Performed By: #### 1 0008 ####[facility] VITAMIN B12on 09-26-2020 Cobalamin (Vitamin B12) [Mass/Vol] 303 pg/mL Normal 180-914 [facility] Comment on above: Result Comment: REFE RENCE RANGES: 180-914 pg/mL Normal 145-179 pg/mL Indeterminate <145 pg/mL Deficient Performed By: #### 3 0728, 43375, 38154, 29294, 45944 ####[facility] [address] VITAMIN D 25-HYDROXYon 09-26 VITAMIN D 25-OH 33.7 ng/mL Normal 30.0-80.0 [facility] Comment on above: Result Comment: >80. 0 Toxicity possible Performed By: #### 3 0728, 96844, 59088, 97818, 06484 ####[facility] [address] Vital Signs Date Time Vital Sign Value Performing Clinician Faci lity 10-21-2023 09:52-0500 Body height 162.6 cm Neal Christianson MD Work Phone: [facility] 10-21-2023 09:52-0500 Body mass index (BMI) [Ratio] 37.57 kg/m2 Neal Christianson MD Work Phone: [facility] 10-21-2023 09:52-0500 Body weight 99.34 kg Neal Christianson MD Work Phone: [facility] 10-21-2023 09:52-0500 Diastolic blood pressure 78 mm[Hg] Neal Christianson MD Work Phone: [facility] 10-21-2023 09:52-0500 Respiratory rate 18 /min Neal Christianson MD Work Phone: [facility] 10-21-2023 09:52-0500 Systolic blood pressure 138 mm[Hg] Neal Christianson MD Work Phone: [facility] 09-20-2023 13:40-0500 Body height 162.6 cm Neal Christianson MD Work Phone: [facility] 09-20-2023 13:40-0500 Body mass index (BMI) [Ratio] 36.89 kg/m2 Nael Christianson MD Work Phone: [facility] 09-20-2023 13:40-0500 Body weight 97.52 kg Neal Christianson MD Work Phone: [facility] 09-20-2023 13:40-0500 Diastolic blood pressure 74 mm[Hg] Neal Christianson MD Work Phone: [facility] 09-20-2023 13:40-0500 Respiratory rate 18 /min Neal Christianson MD Work Phone: [facility] 09-20-2023 13:40-0500 Systolic blood pressure 134 mm[Hg] Neal Christianson MD Work Phone: [facility] Encounters Encounter Date Encounter Type Care Provider Facility Start: 11-17-2023 End: 11-17-2023 ambulatory DARIEN MONTANA Not Available Start: 10-21-2023 End: 10-21-2023 ambulatory NEAL CHRISTIANSON [facility] Start: 10-21-2023 End: 10-21-2023 Office outpatient visit 40 minutes Neal Christianson MD Work Phone: [facility] Comment on above: Fibromyalgia (Primar y Dx); Ulcerative pancolitis without complication (CMS-HCC); Polyarthralgia; ESR raised; CRP elevated Start: 10-11-2023 End: 10-11-2023 ambulatory ZE ABARCA Not Available Start: 10-10-2023 Chart abstracting Ze rivera MD Work Phone: [facility] Start: 09-20-2023 End: 09-21-2023 ambulatory [facility] Start: 09-20-2023 End: 09-20-2023 ambulatory [facility] Start: 09-20-2023 End: 09-20-2023 Office outpatient visit 40 minutes Neal Christianson MD [facility] Comment on above: Iron deficiency anem ia, unspecified iron deficiency anemia type (Primary Dx); Fibromyalgia; ESR raised; Chronic diarrhea; Chronic low back pain without sciatica, unspecified back pain laterality; Polyarthralgia; RAGHAVENDRA positive Start: 08-12-2023 End: 08-12-2023 ambulatory ZE ABARCA Not Available Start: 05-12-2022 End: 05-12-[address] TERRY MUNOZ Facility:[facility]1 Start: 04-24-[address] CARLO BARBA Facility :[facility] Start: 04-22-2022 End: 04-23-[address] MORRIS RAMSEY Facility:[facility] Start: 04-21-[address] CARLO BARBA Facility :[facility] Start: 04-17-2022 End: 04-18-[address] DOCTOR FERNANDO Facility:[facility] Start: 04-14-[address] CARLO BARBA Facility :[facility] Start: 03-23-2022 End: 03-24-[address] DOCTOR FERNANDO Facility:[facility] Start: 03-23-2022 End: 03-24-[address] CARLO BARBA Facility:[facility] Start: 01-26-[address] CARLO BARBA Facility :[facility] Start: 01-21-[address] DOCTOR FERNANDO Facility :[facility] Start: 01-19-[address] CARLO BARBA Facility :[facility] Start: 01-12-[address] CARLO BARBA Facility :[facility] Start: 01-06-2022 End: 07-07-[address] CARLO BARBA Facility:[facility] Start: 01-05-[address] CARLO BARBA Facility :[facility] Start: 01-01-2022 End: 01-04-2022 Evaluation and management of inpatient DR CARLO BARBA Facility:[facility]1 Start: 12-29-2021 End: 12-29-[address] MARIBEL CAMARILLO Facility:[facility] Start: 12-25-2021 End: 12-25-[address] CARLO BARBA Facility:[facility]1 Start: 12-25-2021 End: 12-25-[address] CARLO BARBA Facility:[facility]1 Start: 12-22-2021 End: 12-22-[address] MARIBEL CAMARILLO Facility:[facility]1 Start: 12-19-2021 End: 12-19-[address] CARLO BARBA Facility:[facility]1 Start: 12-18-2021 End: 12-18-[address] CARLO BARBA Facility:[facility]1 Start: 12-15-2021 End: 12-15-[address] MARIBEL CAMARILLO Facility:[facility] Start: 12-11-2021 End: 12-11-[address] CARLO BARBA Facility:[facility] Start: 12-08-2021 End: 12-08-[address] MARIBEL CAMARILLO Facility:[facility]1 Start: 12-05-2021 End: 12-05-[address] CARLO BARBA Facility:[facility]1 Start: 12-04-2021 End: 12-04-[address] CARLO BARBA Facility:[facility]1 Start: 12-01-2021 End: 12-01-[address] MARIBEL CAMARILLO Facility:[facility]1 Start: 11-24-2021 End: 11-24-[address] MARIBEL CAMARILLO Facility:[facility] Start: 11-19-2021 End: 03-16-[address] CARLO BARBA Facility:[facility]1 Start: 11-10-2021 End: 11-10-[address] MARIBEL CAMARILLO Facility:[facility]1 Start: 10-27-2021 End: 10-28-[address] CARLO BARBA Facility:[facility]1 Start: 09-01-2021 End: 09-01-2021 ambulatory VESTA HATHAWAY Facility:[facility]1 Start: 09-01-2021 End: 09-01-[address] CARLO BARBA Facility:[facility]1 Start: 08-08-2021 End: 08-09-2021 ambulatory BRENDA GONZÁLEZ Facility:[facility]1 Start: 08-08-2021 End: 08-08-[address] MORRIS RAMSEY Facility:[facility]1 Start: 07-22-2021 End: 07-23-[address] MORRIS RAMSEY Facility:[facility]1 Start: 07-15-2021 End: 07-16-[address] CARLO BARBA Facility:[facility]1 Procedures Date Procedure Procedure Detail Performing Clinician Start: 01-03-2022 Transfusion of Nonau tologous Red Blood Cells into Peripheral Vein, Percutaneous Approach DR CARLO BARBA Start: 01-02-2022 Delivery of Products of Conception, External Approach DR CARLO BARBA Start: 01-01-2022 Drainage of Amniotic Fluid, Therapeutic from Products of Conception, Via Natural or Artificial Opening DR CARLO BARBA Start: 01-01-2022 Introduction of Othe r Hormone into Peripheral Vein, Percutaneous Approach DR CARLO BARBA Plan of Treatment Date Care Activity Detail Author Start: 10-21-2024 Adult BMI Screening Adult BMI Screen ing [facility] Start: 10-21-2024 Tobacco Screening Tobacco Screening [facility] Start: 09-20-2024 Adult BMI Screening Adult BMI Screen ing [facility] Start: 04-26-2024 Tobacco Screening Tobacco Screening [facility] Start: 02-23-2024 End: 02-23-2024 Patient encounter procedure 02/23/2024 1:15 PM EDT Office Visit [facility] [address] [address] Neal Christianson MD [address] [address] [facility] Start: 01-05-2024 End: 01-05-2024 Patient encounter procedure 01/05/2024 1:00 PM EDT Office Visit [facility] [address] [place] [address] Morris Ramsey MD [address] [place] [address] [facility] Start: 10-21-2023 End: 10-21-2023 Patient encounter procedure 10/21/2023 9:45 AM EST Office Visit [facility] [address] [id number] Neal Christianson MD [address] [address] [facility] Start: 10-11-2023 End: 10-11-2023 Patient encounter procedure 10/11/2023 9:20 AM EST [facility] [address] [facility] [address] [place] [address] Ze Abarca MD [address] [facility] [address] [address] [facility] Start: 09-20-2023 End: 09-20-2024 Endomysial antibody, IgA titer Endomysial antibody, IgA titer Lab Routine Chronic diarrhea Expected: 09/20/2023 (Approximate), Expires: 09/20/2024 [facility] Comment on above: Expected: 09/20/2023 (Approximate), Expires: 09/20/2024 Start: 09-20-2023 End: 09-20-2024 MR Hand - right WO and W contrast IV MR hand right with and without contrast Imaging Routine ESR raised Polyarthralgia RAGHAVENDRA positive Expected: 09/20/2023, Expires: 09/20/2024 [facility] Work Phone: Comment on above: Expected: 09/20/2023 , Expires: 09/20/2024 Start: 09-20-2023 End: 09-20-2024 Tissue transglutaminase, IgA & IgG [facility] Comment on above: Expected: 09/20/2023 (Approximate), Expires: 09/20/2024 Start: 09-20-2023 End: 09-20-2024 XR Lumbar spine 2 or 3 Views [facility] Comment on above: Expected: 09/20/2023 , Expires: 09/20/2024 Start: 09-20-2023 End: 09-20-2024 XR Sacroiliac Joint 3 Views [facility] Comment on above: Expected: 09/20/2023 , Expires: 09/20/2024 Start: 05-07-2023 Influenza vaccination [facility] Start: 02-11-2020 Screening for malignant neoplasm of cervix [facility] Start: 2011 Screening for malignant neoplasm of cervix Pap Smear [facility] Start: 02-11-2008 Adult BMI Follow Up Plan Adult BMI Follow Up Plan [facility] Start: 2002 Depression Screening Depression [facility] Start: 2001 DTaP,Tdap and Td Vaccines (6 - Tdap) DTaP,Tdap and Td Vaccines (6 - Tdap) [facility] Endomysium Ab [Presence] in Serum Endomysial antibody, IgA titer Lab Routine Chronic diarrhea 09/20/2023 2:36 PM EST [facility] End: 09-20-2024 IGG subclasses IGG subclasses Lab Routine ESR raised 1 Occurrences starting 09/20/2023 until 09/20/2024 [facility] Comment on above: 1 Occurrences starti ng 09/20/2023 until 09/20/2024 IGG subclasses IGG subclasses L ab Routine ESR raised 09/20/2023 2:36 PM EST [facility] Payers Date Payer Category Payer Private Health Insurance [employer]ET[employer] A ETNA POS II [id number] 2022-Present [phone] [address] [place] [address] [id number] 2022 Private Health Insurance [id number] 2019 Medicaid [facility] MEDICAID [place] MED[place] [id number] 2019-Present [address] [place] [address] [id number] 2016 Unknown [id number] 1990 Unknown [id number] 2.16.840.1.204450.3.579.2. 593 1990 Unknown [id number] 2.16.840.1.472058.3.579.2. 593 1990 Unknown [id number] 2.16.840.1.961554.3.579.2. 593 1990 Unknown [id number] 2.16.840.1.789125.3.579.2. 593 1990 Unknown [id number] 2.16.840.1.484877.3.579.2. 593 1990 Unknown [id number] 2.16.840.1.126228.3.579.2. 593 1990 Unknown [id number] 2.16.840.1.104267.3.579.2. 593 1990 Unknown [id number] 2.16.840.1.942493.3.579.2. 593 1990 Unknown [id number] 2.16.840.1.991846.3.579.2. 593 1990 Unknown [id number] 2.16.840.1.555770.3.579.2. 593 1990 Unknown [id number] 2.16.840.1.506385.3.579.2. 593 1990 Unknown [id number] 2.16.840.1.107793.3.579.2. 593 1990 Unknown [id number] 2.16.840.1.205798.3.579.2. 59 1990 Unknown [id number] 2.16.840.1.366431.3.579.2. 593 1990 Unknown [id number] 2.16.840.1.047163.3.579.2. 59 1990 Unknown [id number] 2.16.840.1.680024.3.579.2. 593 1990 Unknown [id number] 2.16.840.1.852288.3.579.2. 1990 Unknown [id number] 2.16.840.1.691944.3.579.2. 59 1990 Unknown [id number] 2.16.840.1.090759.3.579.2. 1990 Unknown [id number] 2.16.840.1.278432.3.579.2. 59 1990 Unknown [id number] 2.16.840.1.593446.3.579.2. 1990 Unknown [id number] 2.16.840.1.912111.3.579.2. 59 1990 Unknown [id number] 2.16.840.1.559461.3.579.2. 59 1990 Unknown [id number] 2.16.840.1.433294.3.579.2. 59 1990 Unknown [id number] 2.16.840.1.703989.3.579.2. 59 1990 Unknown [id number] 2.16.840.1.792989.3.579.2. 593 1990 Unknown [id number] 2.16.840.1.401156.3.579.2. 59 1990 Unknown [id number] 2.16.840.1.251986.3.579.2. 593 1990 Unknown [id number] 2.16.840.1.781440.3.579.2. 593 1990 Unknown [id number] 2.16.840.1.221473.3.579.2. 593 1990 Unknown [id number] 2.16.840.1.916623.3.579.2. 593 1990 Unknown [id number] 2.16.840.1.825122.3.579.2. 593 1990 Unknown [id number] 2.16.840.1.621118.3.579.2. 593 1990 Unknown [id number] 2.16.840.1.185123.3.579.2. 59 1990 Unknown [id number] 2.16.840.1.413231.3.579.2. 59 1990 Unknown [id number] 2.16.840.1.411931.3.579.2. 593 1990 Unknown [id number] 2.16.840.1.209810.3.579.2. 1285 1990 Unknown [id number] 2.16.840.1.955274.3.579.2. 128 1990 Unknown [id number] 2.16.840.1.274805.3.579.2. 128 1990 Unknown [id number] 2.16.840.1.251870.3.579.2. 128 1990 Unknown [id number] 2.16.840.1.933738.3.579.2. 1285 1990 Unknown [id number] 2.16.840.1.250843.3.579.2. 1259 1990 Unknown [id number] 2.16.840.1.813047.3.579.2. 1259 1990 Unknown [id number] 2.16.840.1.268097.3.579.2. 1259 1959 Self-pay [id number] 1959 Unknown [id number] Unknown [id number] 2.16.840.1.008617.3.579.2. 593 Social History Date Type Detail Facility Start: 06-09-2021 End: 04-28-2023 Tobacco smoking status NHIS Ex-smoker [facility] History of tobacco use Current smoker [facility] Start: 06-09-2021 End: 04-28-2023 Tobacco use and exposure Smokeless tobacco non-user [facility] Start: 09-20-2023 End: 10-21-2023 Alcohol intake Ex-drinker (finding) [facility] Start: 10-17-2020 End: 09-20-2023 History of Social function [facility] Start: 10-17-2020 End: 09-20-2023 Tobacco use panel [facility] Housing Instability Unknown [facility] Start: 1990 Sex Assigned At Not on file P [facility] History of tobacco use Cigarette Smoker [facility] History of Present illness Narrative 10-21-2023 Neal Christianson MD - 10/21/2023 9:45 AM EST Note Date & Type Note Facility 10-21-2023 History of Present illness Narrative Images from the original note were not included. [address] [address] Date of Service: 10/21/2023 Subjective: Deedee Reynolds is a 33 y.o. female who presents today for evaluation history of rheumatoid. Patient is seen at the request of MORRIS RAMSEY MD. This is follow-up visit with this patient who is 33-year-old female patient presenting today as an established patient for follow-up of fibromyalgia , history of inflammatory joint disease who was seen 1st time on 12/04/2022. Last time seen virtual on 09/20/2023 Onset of symptoms 2018 with polyarthritis. Methotrexate for 1 month discontinued for unknown reason. Leflunomide since 2020 Steroid courses during flare up with significant improvement Positive TB test with 9 months treatment 2021 . Other rheumatology history finger color changes not typical for Raynaud's, painful oral ulcers, excessive hair loss Widespread musculoskeletal pain as well as fatigability and non refreshing In addition she has been having neck pain as well as low back pain Lab test RAGHAVENDRA 1;80, CRISTHIAN panel negative, antiphospholipid antibodies negative, CBC showed anemia with low MCV, CMP normal, CK, aldolase and LDH normal, ESR 58, CRP 1.2 mg/dL, both C CP and rheumatoid factor were negative. Lab tests 05/14/2023 ESR 72, CRP 1.4, TSH normal, vitamin B12 normal, vitamin-D 22, hemoglobin 9, MCV 63, ferritin 4, iron 23, iron saturation 5 Lab test 09/20/2023 celiac antibodies negative, IgG subclasses normal, immunoglobulin levels normal, CRP3.3 mg/dL, ESR 84, vitamin normal, CBC hemoglobin 9.2 with low MCV, anti DNA by crithidia negative X-ray SI joints and lumbar spine normal, x-ray hands mild periarticular osteopenia with no radiographic manifestations of inflammatory arthropathy Patient was started on amitriptyline, methocarbamol as well as low-dose gabapentin November 2022 from which she did have some improvement however she continued to have pain fatigue as well as non refreshing sleep. She ran off leflunomide 2 months ago and she does not thing that it was of help. Patient off leflunomide since March 2023 Currently in amitriptyline 25 mg at bedtime, gabapentin 300 mg at bedtime, Robaxin. Today 10/21/2023 patient continued to have joints pain. She did mentioned that she was diagnosed to have ulcerative colitis at the age of 17, continued have diarrhea and blood with mucus The following portions of the patient's history were reviewed and updated as appropriate: allergies, current medications, past family history, past medical history, past social history, past surgical history and problem list. Review of Systems: Review of Systems Constitutional: Positive for fatigue (05/16). Gastrointestinal: Positive for blood in stool and diarrhea. Musculoskeletal: Positive for arthralgias and back pain. Diffuse musculoskeletal pain , feels tired in the morning, exhausted and easy fatigability during daytime Hematological: Negative. Psychiatric/Behavioral: Positive for sleep disturbance. Current Outpatient Medications Medication Sig Dispense Refill ferrous sulfate 325 (65 FE) mg tablet Take 1 tablet (325 mg total) by mouth daily with breakfast. omeprazole (PriLOSEC) 10 mg capsule Take 1 capsule (10 mg total) by mouth in the morning. pantoprazole (PROTONIX) 20 mg EC tablet Take 1 tablet (20 mg total) by mouth in the morning. 25/iron fum/folic/dha (-1 ORAL) Take by mouth. pyridoxine, vitamin B6, (vitamin B-6) 100 mg tablet Take 1 tablet (100 mg total) by mouth in the morning. sertraline (ZOLOFT) 100 mg tablet Take 1 tablet (100 mg total) by mouth in the morning. amitriptyline (ELAVIL) 25 mg tablet take 1 capsule by mouth AT 8PM 30 tablet 5 CITALOPRAM HYDROBROMIDE (CITALOPRAM ORAL) Take by mouth. (Patient not taking: Reported on 06/09/2021) gabapentin (NEURONTIN) 300 mg capsule One capsule at 8 PM 30 capsule 5 ibuprofen (ADVIL,MOTRIN) 800 mg tablet Take 1 tablet (800 mg total) by mouth every 8 (eight) hours as needed for pain for up to 30 doses. (Patient not taking: Reported on 09/01/2021) 30 tablet 0 LORazepam (ATIVAN) 0.5 mg tablet Take 0.5 mg by mouth every 6 (six) hours as needed for anxiety. (Patient not taking: Reported on 06/09/2021) methocarbamoL (ROBAXIN) 500 mg tablet Take 1 tablet (500 mg total) by mouth once daily at bedtime. 30 tablet 5 oxyCODONE-acetaminophen (PERCOCET) 10-325 mg per tablet Take 1 tablet by mouth every 4 (four) hours as needed for pain. (Patient not taking: Reported on 09/01/2021) No current facility-administered medications for this visit. Physical Exam: Physical Exam Vitals and nursing note reviewed. Constitutional: Appearance: She is well-developed. HENT: Head: Normocephalic and atraumatic. Right Ear: External ear normal. Left Ear: External ear normal. Nose: Nose normal. Eyes: Conjunctiva/sclera: Conjunctivae normal. Pupils: Pupils are equal, round, and reactive to light. Neck: Thyroid: No thyromegaly. Vascular: No JVD. Pulmonary: Effort: Pulmonary effort is normal. Musculoskeletal: General: No tenderness or deformity. Normal range of motion. Cervical back: Normal range of motion and neck supple. Comments: Symmetrical tender trigger points No definite synovitis No deformities. . Elbows no nodules Lymphadenopathy: Cervical: No cervical adenopathy. Skin: General: Skin is warm and dry. Coloration: Skin is not pale. Findings: No erythema or rash. Neurological: Mental Status: She is alert and oriented to person, place, and time. Cranial Nerves: No cranial nerve deficit. Coordination: Coordination normal. Psychiatric: Behavior: Behavior normal. Thought Content: Thought content normal. ORTEGA-28 (If Applicable) There is currently no information documented on the homunculus. Go to the Rheumatology activity and complete the homunculus joint exam. ORTEGA-28 (CRP): -- ORTEGA-28 (ESR): -- Tender (ORTEGA-28): -- Swollen (ORTEGA-28): -- BP 138/78 Resp 18 Ht 162.6 cm (5' 4.02 ) Wt 99.3 kg (219 lb) BMI 37.57 kg/m : reviewed Labs and Imaging: reviewed and discussed with the patient during the visit.I Lab Results Component Value Date WBC 4.5 09/20/2023 HGB 9.2 (L) 09/20/2023 HCT 30.6 (L) 09/20/2023 MCV 61 (L) 09/20/2023 CRP 3.3 (H) 09/20/2023 C3 195 (H) 12/04/2022 C4 37 12/04/2022 GFR >60 05/05/2017 GFR >60 05/05/2017 AST 17 12/04/2022 AST 19 03/02/2015 Imaging: Assessment and Plan: Deedee Reynolds is a 33 y.o. female patient with: 1. Fibromyalgia - amitriptyline (ELAVIL) 25 mg tablet; take 1 capsule by mouth AT 8PM Dispense: 30 tablet; Refill: 5 - gabapentin (NEURONTIN) 300 mg capsule; One capsule at 8 PM Dispense: 30 capsule; Refill: 5 - methocarbamoL (ROBAXIN) 500 mg tablet; Take 1 tablet (500 mg total) by mouth once daily at bedtime. Dispense: 30 tablet; Refill: 5 2. Ulcerative pancolitis without complication ([facility]) - [facility] [place], [place]; Future 3. Polyarthralgia 4. ESR raised 5. CRP elevated At this point patient continued to have joints pain as well as fatigability in addition she has been having low back pain. Patient has chronic diarrhea with blood on and off. Patient has iron-deficiency anemia. Has been seen by Hematology under treatment Putting order for gastroenterology referral as the patient was not able to make appointment last MRI right hand rule out hands arthritis , was not scheduled last time when she was in the clinic Return to clinic in January. Total effh-zi-qgvq time was 40 minutes with more than 50% of the visit spent counseling and discussing diagnostic or treatment recommendations, prognosis, risks and benefits of management options, instructions, compliance or risk-factor reduction. This note was created with the assistance of a speech recognition program. While intending to generate a timely document that accurately reflects the content of the visit, no guarantee can be provided that every grammatical or spelling mistake has been or will be identified or corrected. Thank you for your understanding. [facility] Dr. Neal Christianson MD [address] [facility], [address] [place] [address] Office: [phone] documented in this encounter [facility] Reason for referral (narrative) 10-18-2023 Consultation (Routine) - Pending Review Note Date & Type Note Facility 10-18-2023 Reason for referr al (narrative) Specialty Diagnoses / Procedures Referred By Elaine t Referred To Contact Gastroenterology Diagnoses Ulcerative pancolitis without complication ([facility]) Neal Christianson MD [address] [facility] [address] [place] [address] Krissy Key MD [address] [facility] [place] [address] Referral ID Status Reason Start Date Expiration Date Visits Requested Visits Authorized [id number] Pending Review Specialty Services Required 10/21/2023 10/20/2024 1 1 System History of Present illness Narrative 09-20-2023 Neal Christianson MD - 09/20/2023 1:45 PM EST Note Date & Type Note Facility 09-20-2023 History of Present illness Narrative Images from the original note were not included. [address] [facility] [address] [facility] [id number] Date of Service: 09/20/2023 Subjective: Deedee Reynolds is a 33 y.o. female who presents today for evaluation history of rheumatoid. Patient is seen at the request of MORRIS RAMSEY MD. This is follow-up visit with this patient who is 33-year-old female patient presenting today as an established patient for follow-up of fibromyalgia who was seen 1st time on 12/04/2022. Last time seen virtual on 04/26/2023 Patient symptoms started in 2018 with joint pain involving the joints of the hands, knees, ankles, hips, shoulders, elbows, feet, associated with swelling, stiffness,, patient was given methotrexate for 1 month and was stopped for unknown reason and subsequently she has been on leflunomide since 2020, she was planned to see enbril however was not given to her on the advice of her remarketing manager, she was given steroid previously during flare up and then was put on 35 mg daily as the patient said and the last time she was on prednisone was 5 months ago Patient said that she was tested positive for latent TB and received eyes and I as I had for 9 months in 2021 . In addition patient mentioned that she has been having widespread musculoskeletal pain as well as fatigability, poor sleep, feeling tired and exhausted Patient does have discoloration of the fingers on cold exposure ,not typical Raynaud's, she gets painful oral ulcers every 1 month for adolescence ,excessive hair loss, she has history of butterfly rash,she has skin rash.No history of cytopenia ,serositis,DVT/PE, 1 abortions,she has 4 children In addition she has been having neck pain as well as low back pain Lab test RAGHAVENDRA 1;80,CRISTHIAN panel negative, antiphospholipid antibodies negative, CBC showed anemia with low MCV, CMP normal, CK, aldolase and LDH normal, ESR 58, CRP 1.2 mg/dL, both C CP and rheumatoid factor were negative. Lab tests 05/14/2023 ESR 72, CRP 1.4, TSH normal, vitamin B12 normal, vitamin-D 22, hemoglobin 9, MCV 63, ferritin 4, iron 23, iron saturation 5 Patient was started on amitriptyline, methocarbamol as well as low-dose gabapentin November 2022 from which she did have some improvement however she continued to have pain fatigue as well as non refreshing sleep. She ran off leflunomide 2 months ago and she does not thing that it was of help. Patient off leflunomide since March 2020 Currently in amitriptyline 25 mg at bedtime, gabapentin 300 mg at bedtime, Robaxin. Today 09/20/2023 patient continued to have joints pain as well as fatigability. She did mentioned that she has been having diarrhea and on and of blood in addition to low back pain The following portions of the patient's history were reviewed and updated as appropriate: allergies, current medications, past family history, past medical history, past social history, past surgical history and problem list. Review of Systems: Review of Systems Constitutional: Positive for fatigue (05/16). Gastrointestinal: Positive for blood in stool and diarrhea. Musculoskeletal: Positive for arthralgias and back pain. Diffuse musculoskeletal pain , feels tired in the morning, exhausted and easy fatigability during daytime Hematological: Negative. Psychiatric/Behavioral: Positive for sleep disturbance. Current Outpatient Medications Medication Sig Dispense Refill ferrous sulfate 325 (65 FE) mg tablet Take 1 tablet (325 mg total) by mouth daily with breakfast. omeprazole (PriLOSEC) 10 mg capsule Take 1 capsule (10 mg total) by mouth in the morning. pantoprazole (PROTONIX) 20 mg EC tablet Take 1 tablet (20 mg total) by mouth in the morning. 25/iron fum/folic/dha (-1 ORAL) Take by mouth. pyridoxine, vitamin B6, (vitamin B-6) 100 mg tablet Take 1 tablet (100 mg total) by mouth in the morning. sertraline (ZOLOFT) 100 mg tablet Take 1 tablet (100 mg total) by mouth in the morning. amitriptyline (ELAVIL) 25 mg tablet take 1 capsule by mouth AT 8PM 30 tablet 5 CITALOPRAM HYDROBROMIDE (CITALOPRAM ORAL) Take by mouth. (Patient not taking: Reported on 06/09/2021) gabapentin (NEURONTIN) 300 mg capsule One capsule at 8 PM 30 capsule 5 ibuprofen (ADVIL,MOTRIN) 800 mg tablet Take 1 tablet (800 mg total) by mouth every 8 (eight) hours as needed for pain for up to 30 doses. (Patient not taking: Reported on 09/01/2021) 30 tablet 0 LORazepam (ATIVAN) 0.5 mg tablet Take 0.5 mg by mouth every 6 (six) hours as needed for anxiety. (Patient not taking: Reported on 06/09/2021) methocarbamoL (ROBAXIN) 500 mg tablet Take 1 tablet (500 mg total) by mouth once daily at bedtime. 30 tablet 5 oxyCODONE-acetaminophen (PERCOCET) 10-325 mg per tablet Take 1 tablet by mouth every 4 (four) hours as needed for pain. (Patient not taking: Reported on 09/01/2021) No current facility-administered medications for this visit. Physical Exam: Physical Exam Vitals and nursing note reviewed. Constitutional: Appearance: She is well-developed. HENT: Head: Normocephalic and atraumatic. Right Ear: External ear normal. Left Ear: External ear normal. Nose: Nose normal. Eyes: Conjunctiva/sclera: Conjunctivae normal. Pupils: Pupils are equal, round, and reactive to light. Neck: Thyroid: No thyromegaly. Vascular: No JVD. Pulmonary: Effort: Pulmonary effort is normal. Musculoskeletal: General: No tenderness or deformity. Normal range of motion. Cervical back: Normal range of motion and neck supple. Comments: Symmetrical tender trigger points No definite synovitis No deformities. . Elbows no nodules Lymphadenopathy: Cervical: No cervical adenopathy. Skin: General: Skin is warm and dry. Coloration: Skin is not pale. Findings: No erythema or rash. Neurological: Mental Status: She is alert and oriented to person, place, and time. Cranial Nerves: No cranial nerve deficit. Coordination: Coordination normal. Psychiatric: Behavior: Behavior normal. Thought Content: Thought content normal. ORTEGA-28 (If Applicable) There is currently no information documented on the homunculus. Go to the Rheumatology activity and complete the homunculus joint exam. ORTEGA-28 (CRP): -- ORTEGA-28 (ESR): -- Tender (ORTEGA-28): -- Swollen (ORTEGA-28): -- BP 134/74 Resp 18 Ht 162.6 cm (5' 4.02 ) Wt 97.5 kg (215 lb) BMI 36.89 kg/m : reviewed Labs and Imaging: reviewed and discussed with the patient during the visit.I Lab Results Component Value Date WBC 6.3 05/14/2023 HGB 9.0 (L) 05/14/2023 HCT 29.0 (L) 05/14/2023 MCV 63 (L) 05/14/2023 CRP 1.4 (H) 05/14/2023 C3 195 (H) 12/04/2022 C4 37 12/04/2022 GFR >60 05/05/2017 GFR >60 05/05/2017 AST 17 12/04/2022 AST 19 03/02/2015 Imaging: Assessment and Plan: Deedee Reynolds is a 33 y.o. female patient with: 1. Fibromyalgia - amitriptyline (ELAVIL) 25 mg tablet; take 1 capsule by mouth AT 8PM Dispense: 30 tablet; Refill: 5 - gabapentin (NEURONTIN) 300 mg capsule; One capsule at 8 PM Dispense: 30 capsule; Refill: 5 - methocarbamoL (ROBAXIN) 500 mg tablet; Take 1 tablet (500 mg total) by mouth once daily at bedtime. Dispense: 30 tablet; Refill: 5 - CBC auto differential; Future - Vitamin D 25 hydroxy; Future 2. Iron deficiency anemia, unspecified iron deficiency anemia type - [facility] [place], [place]; Future 3. ESR raised - Erythrocyte Sedimentation Rate (ESR); Future - C-reactive protein; Future - MR hand right with and without contrast; Future - Immunoglobulins; Future - IGG subclasses; Future 4. Chronic diarrhea - [facility] [place], [place]; Future - Tissue transglutaminase, IgA & IgG; Future - Endomysial antibody, IgA titer; Future 5. Chronic low back pain without sciatica, unspecified back pain laterality - X-ray sacroiliac joints minimum 3 views; Future - X-ray spine lumbar 2 or 3 views; Future 6. Polyarthralgia - Erythrocyte Sedimentation Rate (ESR); Future - C-reactive protein; Future - Unlisted Lab Test; Future - MR hand right with and without contrast; Future 7. RAGHAVENDRA positive - Erythrocyte Sedimentation Rate (ESR); Future - C-reactive protein; Future - Unlisted Lab Test; Future - MR hand right with and without contrast; Future At this point patient continued to have joints pain as well as fatigability in addition she has been having low back pain. Patient has chronic diarrhea with blood on and off. Patient has iron-deficiency anemia. As well as vitamin-D deficiency. Putting order for gastroenterology referral. Checking celiac disease. Will check immunoglobulin levels as well as IgG subclasses in addition to anti DNA CBC and ESR and CRP. X-ray lumbosacral spine and SI joint. MRI right hand rule out hands arthritis that I am not seeing by physical exam. Return to clinic 1 month. Total pxbk-ji-mpzp time was 450 minutes with more than 50% of the visit spent counseling and discussing diagnostic or treatment recommendations, prognosis, risks and benefits of management options, instructions, compliance or risk-factor reduction. This note was created with the assistance of a speech recognition program. While intending to generate a timely document that accurately reflects the content of the visit, no guarantee can be provided that every grammatical or spelling mistake has been or will be identified or corrected. Thank you for your understanding. [facility] Dr. Neal Christianson MD [address] [facility], [address] [place] [id number] Office: [phone] documented in this encounter [facility] Evaluation note Note Date & Type Note Facility Evaluation note Diagnosis Iron deficiency anemia, unspecified iron deficiency anemia type- Primary Fibromyalgia Unspecified myalgia and myositis ESR raised Elevated sedimentation rate Chronic diarrhea Diarrhea Chronic low back pain without sciatica, unspecified back pain laterality Polyarthralgia Pain in joint, multiple sites RAGHAVENDRA positive documented in this encounter [facility] Evaluation note Note Date & Type Note Facility Evaluation note Diagnosis Fibromyalgia- Primary Unspecified myalgia and myositis Ulcerative pancolitis without complication ([facility]) Polyarthralgia Pain in joint, multiple sites ESR raised Elevated sedimentation rate CRP elevated Elevated C-reactive protein (CRP) documented in this encounter [facility] Instructions Note Date & Type Note Facility Instructions Not on filedocumented in this en counter [facility] Reason for referral (narrative) Consultation (Routine) - Pending Review Note Date & Type Note Facility Reason for referral (narrati ve) Specialty Diagnoses / Procedures Referred By Contac t Referred To Contact Gastroenterology Diagnoses Iron deficiency anemia, unspecified iron deficiency anemia type Chronic diarrhea Neal Christianson MD [address] [address] Krissy Key MD [address] [address] Referral ID Status Reason Start Date Expiration Date Visits Requested Visits Authorized [id number] Pending Review Specialty Services Required 09/20/2023 09/19/2024 1 1 * Diagnostic Imaging (Routine) - Pending Review Specialty Diagnoses / Procedures Referred By Contac t Referred To Contact Radiology Diagnoses ESR raised Polyarthralgia RAGHAVENDRA positive Procedures MR hand right with and without contrast Neal Christianson MD [address] [address] Referral ID Status Reason Start Date Expiration Date V isits Requested Visits Authorized [id number] Pending Review 09/20/2023 09/19/2024 1 1 [facility] Summary Purpose Family History No Family History Records FoundNo Family History Records FoundNo Family History Records FoundNo Family History Records FoundNo Family History Records Found Advance Directives No Advanced Directives Records FoundNo Advanced Directives Records FoundNo Advanced Directives Records FoundNo Advanced Directives Records FoundNo Advanced Directives Records Found Additional Source Comments INFORMATION SOURCE (unrecogn ized section and content) DATE CREATED AUTHOR 09/30/2020 [facility] DATE CREATED AUTHOR AUTHOR'S ORGANIZ ATION 07/07/2022 [facility] DATE CREATED AUTHOR AUTHOR'S ORGANIZ ATION 10/23/2023 [facility] DATE CREATED AUTHOR AUTHOR'S ORGANIZ ATION 11/18/2023 [facility] DATE CREATED AUTHOR AUTHOR'S ORGANIZ ATION 01/06/2024 [facility] Care Teams (unrecognized sec tion and content) Publications Manager Relationship Specialty Start Date End Date Morris Ramsey MD [address] [place] [address] PCP - General Family Medicine 09/30/21 Publications Manager Relationship Specialty Start Date End Date Morris Ramsey MD PCP - General Family Medicine 02/23/23 Publications Manager Relationship Specialty Start Date End Date Morris Ramsey MD [address] [place] [address] PCP - General Family Medicine 09/30/21 FOR RECORDS PERTAINING TO PATIENTS WHO ARE OR HAVE BEEN ENROLLED IN A CHEMICAL DEPENDENCY/SUBSTANCEABUSE PROGRAM, SOME INFORMATION MAY BE OMITTED. This clinical summary was aggregated from multiple sources. Caution should be exercised in using it in the provision of clinical care. This summary normalizes information from multiple sources, and as a consequence, information in this document may materially change the coding, format and clinical context of patient data. In addition, data may be omitted in some cases. CLINICAL DECISIONS SHOULD BE BASED ON THE PRIMARY CLINICAL RECORDS. [employer] [facility]. provides no warranty or guarantee of the accuracy or completeness of information in this document.
--- NOTE | 2024-01-26 20:26 | XR_ITS ---
The [address] [address] Patient Name: JE CANELA MRN: [id number] date: 1990 Sex: F Assigned Patient Location: ER Current Patient Location: ED.MAIN Accession/Order Number: [id number] Exam Date: 01/26/2024 20:42 Report Date: 01/26/2024 21:51 At the request of: MICKY MARKER Procedure: XR femur RT 2V XR knee RT 3V, XR femur RT 2V 01/26/2024 8:42 PM EDT CLINICAL INDICATION: Fall COMPARISON: None. TECHNIQUE: 2 views of the right femur. 3 views of the right knee. FINDINGS: Right femur The bones are intact. The alignment is anatomic. The soft tissues are grossly unremarkable. Right knee The bones are intact. The alignment is anatomic. The joints are maintained. The soft tissues are grossly unremarkable. XR/XR femur RT 2V IMPRESSION: No acute osseous abnormality of the right femur or right knee. Electronically authenticated by: PATRICA GRIFFIN Date: 01/26/2024 21:51
--- NOTE | 2024-01-26 20:28 | PC.NURSE ---
Pt presents to ER after falling over a baby gate at home while carrying her child across Pt states her body went one way and her leg went the other Pt needed assistance getting out of vehicle Pt was assisted by numerous nurses and security, pt hysterically crying and assisted to a stretcher from vehicle Pt states the pain is mostly in her right knee Pt states she can feel her toes but not move them
[2024-01-26] MEDS: ONDANSETRON 4 MG RAPDIS TABLET SL (20:33)
[2024-01-26] MEDS: HYDROMORPHONE HCL 1 MG/ML CARTRIDGE IM (20:33)
[2024-01-26] MEDS: KETOROLAC TROMETHAMINE 60 MG/2 ML VIAL IM (21:34)
[2024-01-26] MEDS: HYDROCODONE/ACET 5-325 MG TABLET 2 TAB PO (22:59)
[2024-01-26 23:01] VITALS: BP 113/70; PULSE 79; O2SAT 96
== END 2024-01-26 23:12 | disposition home or self-care (01) ==
PROVIDERS: Emergency Provider Emergency Medicine; PCP Family Medicine
DX: M23.91 Unspecified internal derangement of right knee (principal); S83.004A Unspecified dislocation of right patella, initial encounter; W18.39XA Other fall on same level, initial encounter
CPT/HCPCS: 27560; 73552; 73562; 96372; 99285; J1170

== ENCOUNTER 2024-03-29 14:50 | Outpatient (OUT) | payer OTHER, SELFPAY ==
[2024-03-29 15:00] LABS: Basophils Percent Auto 0.5 % (0.2-2.0); Eosinophils Absolute Auto 0.1 10^3/uL (0.0-0.7); Eosinophils Percent Auto 0.8 % (0.9-7.0); Hematocrit 39.5 % (36.0-48.0); Immature Granulocytes Abs Auto 0.01 10^3/uL (0.00-0.03); Immature Granulocytes Pct Auto 0.2 % (0.0-0.5); Lymphocytes Absolute Auto 2.1 10^3/uL (1.2-3.8); Lymphocytes Percent Auto 35.3 % (20.5-60.0); Mean Corpuscular HGB Conc 32.9 g/dL (29.9-35.2); Mean Corpuscular Hemoglobin 27.4 pg (26.7-34.0); Mean Corpuscular Volume 83.3 fL (81.0-99.0); Mean Platelet Volume 10.3 fL (9.5-13.5); Monocytes Absolute Auto 0.4 10^3/uL (0.3-0.8); Monocytes Percent Auto 5.9 % (1.7-12.0); Neutrophils Absolute Auto 3.5 10^3/uL (1.4-6.5); Neutrophils Percent Auto 57.3 % (43.0-75.0); Platelet Count 316 10^3/uL (150-450); Red Blood Count 4.74 10^6/uL (4.20-5.40); Red Cell Distribution Width 14.2 % (11.0-15.0); White Blood Count 6.1 10^3/uL (4.0-11.0)
--- OUTSIDE RECORDS SUMMARY | 2024-03-29 15:08 | XMS_ITS | CCD ---
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 marti [facility] XR SACROILIAC JOINTS MIN 3 [...] Benson Sampson MD on 09/21/2023 10:15 PM [facility] XR SPINE LUMBAR 2 OR 3 VWSon [...] Benson Sampson MD on 09/21/2023 10:07 PM [facility] ARUP GENERIC ORDERon 024 TEST NAME [id number] DS DNA BY DEANNA RED NO GEL SERUM Normal [facility] Comment on above: Result Comment: Raquel ected on 09/20 AT 1617: Previously reported as [id number] DS DNA BY DEANNA SST SERUM Performed By: #### A GO #### [facility] [place] [employer] ([id number]) [address] [place] [address], TEST RESULT SEE NOTE Normal [facility] Comment on above: Result Comment: NOTE Test [...] recommendations for testing may be found at [email or web address]. Performed By: [employer] [address] [place] [address] Office Manager: Melchor Lopez MD, PhD CLIA Number: [id number] Performed By: #### A GO #### [facility] [employer] ([id number]) [address] [place] [address], C-reactive proteinon 024 CRP [Mass/Vol] 3.3 mg/dL High 0.000 - 0.744 mg/dL [facility] [employer] [facility] CBC AND AUTO DIFFon 09-20-19 24 Erythrocyte distribution width (RBC) [Ratio] 20.5 % High 11.5-15.0 [facility] Comment on above: Performed By: #### C BCA, 69925-4, IMGB, 1988-5, 58657-4 #### [facility] ([id number]) [address] [place] [address], [facility] [address] [place] [address] #### 39149-8, TTAG #### [facility] [place] [facility] ([id number]) [address] [facility], Hematocrit (Bld) [Volume fraction] 30.6 % Low 35-47 [facility] Comment on above: Performed By: #### C CAESAR, 74725-5, IMGB, 1988-01, #### [facility] ([id number]) [address] [place] [address], [address] [place] [id number] #### 63281-4, TTAG #### [facility] [place] [facility] ([id number]) [address] [facility], Hemoglobin (Bld) [Mass/Vol] 9.2 g/dL Low 11.7-15.5 [facility] Comment on above: Performed By: #### C CAESAR, 58217-2, IMGB, 1988-01, #### [facility] ([id number]) [address] [place] [address], [address] [place] [address] #### 24203-4, TTAG #### [facility] [place] [facility] ([id number]) [address] [place] [address], HYPOCHROMIA 1+ Abnormal NONE [facility] Comment on above: Performed By: #### C CAESAR, 66418-0, IMGB, 1988-01, #### [facility] ([id number]) [address] [place] [address], [address] [place] [address] #### 77124-9, TTAG #### [facility] [place] [facility] ([id number]) [address] [place] [address], Lymphocytes (Bld) [#/Vol] 0.9 10*3/uL Low 1.0-3.5 [facility] Comment on above: Performed By: #### C CAESAR, 53312-1, IMGB, 1988-01, #### [facility] ([id number]) [address] [place] [address], [address] [place] [address] #### 74264-3, TTAG #### [facility] [place] [facility] ([id number]) [address] [place] [address], Lymphocytes/100 WBC (Bld) 20.2 % Normal [facility] Comment on above: Performed By: #### Jewel MAYNADR, 19669-7, IMGB, 1988-01, 26221-8 #### [facility] ([id number]) [address] [place] [address], [address] [place] [address] #### 23891-6, TTAG #### [facility] [place] [facility] ([id number]) [address] [place] [address], MCH (RBC) [Entitic mass] 18.2 pg Low 27-34 [facility] Comment on above: Performed By: #### Jewel MAYNARD, 44032-8, IMGB, 1988-01, 49327-1 #### [facility] ([id number]) [address] [place] [address], [address] [place] [address] #### 19600-7, TTAG #### [facility] [place] [facility] ([id number]) [address] [place] [address], MCHC (RBC) [Mass/Vol] 30.1 g/dL Low 32-36 [facility] Comment on above: Performed By: #### Jewel MAYNARD, 03865-3, IMGB, 1988-01, #### [facility] ([id number]) [address] [place] [address], [address] [place] [address] #### 70686-6, TTAG #### [facility] [place] [facility] ([id number]) [address] [place] [address], MCV (RBC) [Entitic vol] 61 fL Low 80-100 [facility] Comment on above: Performed By: #### Jewel MAYNARD, 35449-9, IMGB, 1988-01, 32796-3 #### [facility] ([id number]) [address] [facility], [address] [place] [address] #### 80586-5, TTAG #### [facility] ([id number]) [address] [facility], Monocytes (Bld) [#/Vol] 0.3 10*3/uL Normal 0-0.9 [facility] Comment on above: Performed By: #### C CAESAR, 91525-7, IMGB, 1988-01, 29804-6 #### [facility] ([id number]) [address] [place] [address], [address] [place] [address] #### 03505-3, TTAG #### [facility] [place] [facility] ([id number]) [address] [place] [address], Monocytes/100 WBC (Bld) 5.8 % Normal [facility] Comment on above: Performed By: #### Jewel MAYNARD, 52340-4, IMGB, 1988-01, #### [facility] ([id number]) [address] [place] [address], [address] [place] [address] #### 22033-2, TTAG #### [facility] [place] [facility] ([id number]) [address] [place] [address], Neutrophils (Bld) [#/Vol] 3.3 10*3/uL Normal 1.5-6.6 [facility] Comment on above: Performed By: #### Jewel MAYNARD, 28808-7, IMGB, 1988-01, #### [facility] ([id number]) [address] [place] [address], [address] [place] [address] #### 88213-5, TTAG #### [facility] [place] [facility] ([id number]) [address] [place] [address], OVALOCYTE 1+ Abnormal NONE [facility] Comment on above: Performed By: #### Jewel MAYNARD, 77026-9, IMGB, 1988-01, #### [facility] ([id number]) [address] [facility], [address] [place] [address] #### 82481-5, TTAG #### [facility] [place] [facility] ([id number]) [address] [facility], Platelet mean volume (Bld) [Entitic vol] 8.8 fL Normal 7-12 [facility] Comment on above: Performed By: #### Jewel MAYNARD, 52168-1, IMGB, 1988-01, 35556-8 #### [facility] ([id number]) [address] [facility], [address] [place] [address] #### 09125-6, TTAG #### [facility] [place] [facility] ([id number]) [address] [facility], Platelets (Bld) [#/Vol] 369 10*3/uL Normal 150-450 [facility] Comment on above: Performed By: #### Jewel MAYNARD, 46333-7, IMGB, 1988-01, 07842-9 #### [facility] ([id number]) [address] [facility], [address] [place] [address] #### 18415-2, TTAG #### [facility] [place] [facility] ([id number]) [facility]0 [facility], POLYCHROMASIA 1+ Abnormal NONE [facility] Comment on above: Performed By: #### Jewel MAYNARD, 53253-8, IMGB, 1988-01, #### [facility] ([id number]) [address] [facility], [address] [place] [address] #### 78492-9, TTAG #### [facility] [place] [facility] ([id number]) [address] [facility], RBC COUNT 5.06 X10E12/L Normal 3.80-5.20 [facility] Comment on above: Performed By: #### Jewel MAYNARD, 98187-2, IMGB, 1988-01, #### [facility] ([id number]) [address] [facility], [address] [place] [address] #### 71837-6, TTAG #### [facility] ([id number]) [address] [facility], SEG NEUTROPHIL 74.0 % Normal [facility] Comment on above: Performed By: #### C CAESAR, 55215-3, [facility], 1988-01, 40498-0 #### [facility] ([id number]) [address] [facility], [address] [place] [address] #### 93287-9, TTAG #### [facility] ([id number]) [address] [facility], WBC (Bld) [#/Vol] 4.5 10*3/uL Normal 4.0-11.0 [facility] Comment on above: Performed By: #### Jewel MAYNARD, 83705-7, [facility], 1988-01, 98212-8 #### [facility] ([id number]) [address] [facility], [address] [place] [address] #### 96898-3, TTAG #### [facility] ([id number]) [address] [facility], CBC auto differentialon 09-06 Erythrocyte distribution width (RBC) [Ratio] 20.5 % High 11.5 - 15.0 % [facility] Hematocrit (Bld) [Volume fraction] 30.6 % Low 35 - 47 % [facility] Hemoglobin (Bld) [Mass/Vol] 9.2 g/dL Low 11.7 - 15.5 g/dL [facility] Hypochromia Ql (Bld) 1+ Abnormal NONE^NONE [facility] Interpretation and review of laboratory results Abnormal [facility] Lymphocytes (Bld) [#/Vol] 0.9 10*3/uL Low [facility] Lymphocytes/100 WBC (Bld) 20.2 % [facility] MCH (RBC) [Entitic mass] 18.2 pg Low 27 - 34 pg [facility] MCHC (RBC) [Mass/Vol] 30.1 g/dL Low 32 - 36 g/dL [facility] MCV (RBC) [Entitic vol] 61 fL Low 80 - 100 fL [facility] Monocytes (Bld) [#/Vol] 0.3 10*3/uL [facility] Monocytes/100 WBC (Bld) 5.8 % [facility] Neutrophils (Bld) [#/Vol] 3.3 10*3/uL [facility] Ovalocytes LM Ql (Bld) 1+ Abnormal NONE^NONE [facility] Platelet mean volume (Bld) [Entitic vol] 8.8 fL 7 - 12 fL [facility] Platelets (Bld) [#/Vol] 369 10*3/uL [facility] Polychromasia LM Ql (Bld) 1+ Abnormal NONE^NONE [facility] RBC (Bld) [#/Vol] 5.06 10*6/uL [facility] Segmented neutrophils/100 WBC (Bld) 74.0 % [facility] WBC corrected for nucl RBC Auto (Bld) [#/Vol] 4.5 [facility] CRP [Mass/Vol]on 09-20-2023 Interpretation and review of laboratory results Abnormal [facility] C REACTIVE PROTEIN 3.3 mg/dL High 0.000-0.744 [facility] Comment on above: Performed By: #### C CAESAR, 77001-0, IMGB, 1987-, 31130-6 #### [facility] ([id number]) [address] [place] [address], [address] [place] [address] #### 94780-9, TTAG #### [facility] [place] [facility] ([id number]) [address] [place] [address], ESR Photometric method (Bld) [Velocity]on 09-20-2023 ESR, ERYTHROCYTE SEDIMENTATION RATE 84 mm/h High 0-20 [facility] Comment on above: Performed By: #### C CAESAR, 78870-3, IM, 1988-01, 82056-5 #### [facility] ([id number]) [address] [place] [address], [facility] [address] [place] [address] #### 06488-1, TTAG #### [facility] ([id number]) [address] [place] [address], Interpretation and review of laboratory results Abnormal [facility] Endomysium Ab Ql (S)on 09-20 ENDOMYSIAL ABS IGA <1:10 Normal <1:10, Te st Not Indicated [facility] Comment on above: Result Comment: NOTE Reference Range: Negative < 1:10 Dilution Endomysial IgA antibody assay is used an aid in diagnosis of celiac disease in individuals who are not IgA-deficient. Clinical correlation required. Test Performed By: [place] [address] Office Manager: Cesar Barnes III, M.D. [place] #[id number] Performed By: #### C CAESAR, 51537-3, [facility], 1988-01, 20529-7 #### [facility] ([id number]) [address] [place] [address] #### 66835-2, TTAG #### [facility] ([id number]) [address] [place] [address], Erythrocyte Sedimentation Ra te (ESR)on 09-20-2023 ESR Photometric method (Bld) [Velocity] 84 mm/h High 0 - 20 mm/h [facility] IGG SUBCLASSESon 09-20-2023 IGG SUBCLASS 1 597.6 mg/dL Normal 382-929 [facility] Comment on above: Performed By: #### Jewel MAYNARD, 65836-8, IMGB, 1988-01, 06504-0 #### [facility] ([id number]) [address] [place] [address], [address] [place] [address] #### 42416-3, TTAG #### [facility] ([id number]) [address] [facility], IGG SUBCLASS 2 302.5 mg/dL Normal 242-700 [facility] Comment on above: Performed By: #### Jewel MAYNARD, 61428-0, IMGB, 1988-01, 72563-3 #### [facility] ([id number]) [address] [facility], [address] [place] [address] #### 88445-9, TTAG #### [facility] [place] [facility] ([id number]) [address] [facility], IGG SUBCLASS 3 54.9 mg/dL Normal 22-176 [facility] Comment on above: Performed By: #### Jewel MAYNARD, 70315-2, IMGB, 1988-01, 05133-1 #### [facility] ([id number]) [address] [facility], [address] [place] [address] #### 02541-8, TTAG #### [facility] [place] [facility] ([id number]) [address] [place] [address], IGG SUBCLASS 4 8.0 mg/dL Normal 4-86 [facility] Comment on above: Performed By: #### Jewel MAYNARD, 97329-8, IMGB, 1988-01, 07055-4 #### [facility] ([id number]) [address] [facility], [address] [place] [address] #### 56917-6, TTAG #### [facility] [place] [facility] ([id number]) [address] [place] [address], IMMUNOGLOBULINSon 09-20-2023 IgA [Mass/Vol] 198 mg/dL Normal 68-378 [facility] Comment on above: Performed By: #### Jewel MAYNARD, 91153-9, IMGB, 1988-01, 28699-9 #### [facility] ([id number]) [address] [facility], [address] [place] [address] #### 39947-2, TTAG #### [facility] [place] [facility] ([id number]) [address] [facility], IgG [Mass/Vol] 997 mg/dL Normal 635-1741 [facility] Comment on above: Performed By: #### C CAESAR, 67472-0, IMGB, 1988-01, 25331-9 #### [facility] ([id number]) [address] [facility], [address] [place] [address] #### 84405-6, TTAG #### [facility] [place] [facility] ([id number]) [address] [facility], IgM [Mass/Vol] 165 mg/dL Normal 45-281 [facility] Comment on above: Performed By: #### C CAESAR, 94227-9, IMGB, 1988-01, 27975-4 #### [facility] ([id number]) [address] [facility], [address] [place] [address] #### 66317-3, TTAG #### [facility] [place] [facility] ([id number]) [address] [place] [address] Immunoglobulinson 09-20-2023 IgA [Mass/Vol] 198 mg/dL 68 - 378 mg/dL [facility] IgG [Mass/Vol] 997 mg/dL 635 - 1741 mg/dL [facility] IgM [Mass/Vol] 165 mg/dL 45 - 281 mg/dL [facility] Laboratory comment [place] (Repo rt)on 09-20-2023 UNLISTED LAB TEST Sent to reference lab Normal [facility] Comment on above: Performed By: #### A GO #### [facility] ([id number]) [address] [place] [address] TTG AB IGA IGGon 09-20-2023 TTG AB IGA <1.2 Normal <4.0 (Negative) [facility] Comment on above: Performed By: #### C CAESAR, 75908-0, IMGB, 1988-01, #### [facility] ([id number]) [address] [place] [address], [address] [place] [address] #### 97231-3, TTAG #### [facility] ([id number]) [address] [place] [address], [facility] AB IGG 1.4 U/mL Normal <6.0 (Negative) [facility] Comment on above: Result Comment: NOTE Test Performed by: [facility] [address] [place] [address] Supervisor Sample Preparation: Alexander Gonsalez M.D. Ph.D.; CLIA# [id number] Performed By: #### C BCA, 92121-9, IMGB, 1988-, 37793-3 #### [facility] ([id number]) [address] [place] [address], [address] [place] [address] #### 71267-4, TTAG #### [facility] ([id number]) [address] [place] [address], Unlisted Lab Test anti-DNA b y crithedia with titrationon 09-20-2023 Laboratory comment [place] (Report) Sent to reference lab [facility] Vitamin D 25 hydroxyon 09-20 Vitamin D+Metabolites [Mass/Vol] 30.7 ng/mL 30 - 100 ng/mL [facility] Comment on above: Vitamin D status 25 [place] Vitamin D Deficiency <20 ng/mL Insufficiency 20-29 ng/mL Sufficiency 30-100 ng/mL Toxicity >100 ng/mL NOTE: A pediatric reference range has not been established by the director of promotions of this kit. The [employer] recommends a Vitamin D level of = or >20ng/mL in infants and children. Vitamin D+Metabolites [Mass/ Vol]on 09-20-2023 [facility] VITAMIN D 25 HYD TOT 30.7 ng/mL Normal 30-100 [facility] Comment on above: Result Comment: Vitamin D status 25 [place] Vitamin D Deficiency <20 ng/mL Insufficiency 20-29 ng/mL Sufficiency 30-100 ng/mL Toxicity >100 ng/mL NOTE: A pediatric reference range has not been established by the director of promotions of this kit. The [employer] recommends a Vitamin D level of = or >20ng/mL in infants and children. Performed By: #### C BCA, 57557-5, IMGB, 1987-, 38211-5 #### [facility] ([id number]) [address] [place] [address], [address] [place] [address] #### 33636-2, TTAG #### [facility] [place] [employer] ([id number]) [address] [place] [address], 36on 05-24-2023 36 [facility] advise if [facility]ill [facility] DHEA-SULFATEon 04-23-2022 DHEA-Sulfate 16.1 ug/dL Critically low 84.8-378.0 [facility] Comment on above: Performed By: #### D PATRICIA ####[facility] [address] [place], [place] [address]UnDr. Estella Lopez ESTRADIOLon 04-23-2022 Estradiol <5.0 Normal [facility] Comment on above: Result Comment: Adul t Female: Follicular phase 12.5 - 166.0 Ovulation phase 85.8 - 498.0 Luteal phase 43.8 - 211.0 Postmenopausal <6.0 - 54.7 1st trimester 215.0 - >4300.0 Hui ECLIA methodology Performed By: #### C MP, CRP #### [facility] [address] [place], [place] [address] Dr. Estella Lopez FSHon 04-23-2022 FSH 9.9 mIU/mL Normal [facility] Comment on above: Result Comment: Adul t Female: Follicular phase 3.5 - 12.5 Ovulation phase 4.7 - 21.5 Luteal phase 1.7 - 7.7 Postmenopausal 25.8 - 134.8 Performed By: #### L [facility] ####[facility] [address] [place] [address]DrBerna Lopez LUTEINIZING HORMONE (LH)on 0 04-23-2022 LH 3.8 mIU/mL Normal [facility] Comment on above: Result Comment: Adul t Female: Follicular phase 2.4 - 12.6 Ovulation phase 14.0 - 95.6 Luteal phase 1.0 - 11.4 Postmenopausal 7.7 - 58.5 Performed By: #### L BCL ####[facility] [address] [place] [address]DrBerna Lopez PROGESTERONEon 04-23-2022 Progesterone <0.1 Normal [facility] Comment on above: Result Comment: Foll icular phase 0.1 - 0.9 Luteal phase 1.8 - 23.9 Ovulation phase 0.1 - 12.0 First trimester 11.0 - 44.3 Second trimester 25.4 - 83.3 Third trimester 58.7 - 214.0 Postmenopausal 0.0 - 0.1 Performed By: #### C MP, CRP #### [facility] [address] [place] [address] Dr. Estella Lopez TESTOSTERONE, TOTALon 2021 Testosterone [Mass/Vol] ng/dL Critically low 8-60 [facility] Comment on above: Performed By: #### T ESTTOT #### [facility] [address] [place] [address] Dr. Estella Lopez CBC AUTO DIFFon 04-22-2022 BASO # 0.0 103/ul Normal 0.0-0.1 [facility] Comment on above: Performed By: #### C BC ####[facility] [address] [place] [address]DrBerna Lopez Basophils/100 WBC (Bld) 0.2 % Normal 0.2-2.0 [facility] Comment on above: Performed By: #### C BC ####[facility] [address] [place] [address]DrBerna Lopez EO # 0.0 103/ul Normal 0.0-0.7 [facility] Comment on above: Performed By: #### C BC ####[facility] [address] [place] [address]Dr. Estella Lopez Eosinophils/100 WBC (Bld) 0.1 % Critically low 0.9-7.0 [facility] Comment on above: Performed By: #### C BC ####[facility] [address] [place] [address]Dr. Estella Lopez Erythrocyte distribution width (RBC) [Ratio] 18.6 % Critically high 11.0-15.0 [facility] Comment on above: Performed By: #### C BC ####[facility] [address] [place], [place] [address]Dr. Estella Lopez Hematocrit (Bld) [Volume fraction] 39.5 % Normal 36.0-48.0 [facility] Comment on above: Performed By: #### C BC ####[facility] [address] [place], [place] [address]Dr. Estella Lopez Hemoglobin (Bld) [Mass/Vol] 11.9 g/dL Critically low 12.0-16.0 [facility] Comment on above: Performed By: #### C BC ####[facility] [address] [place], [place] [address]Dr. Esetlla Lopez IG # 0.03 10e3/ul Normal 0.00-0.03 [facility] Comment on above: Performed By: #### C BC ####[facility] [address] [place], [place] [address]Dr. Estella Lopez IG % 0.3 % Normal 0.0-0.5 [facility] Comment on above: Performed By: #### C BC ####[facility] [address] [place], [place] [address]Dr. Estella Lopez LYMPH # 1.9 103/ul Normal 1.2-3.8 [facility] Comment on above: Performed By: #### C BC ####[facility] [address] [address] [place], [place] [address]Dr. Estella Lopez Lymphocytes/100 WBC (Bld) 18.3 % Critically low 20.5-60.0 [facility] Comment on above: Performed By: #### C BC ####[facility] [address] [place] [address]Dr. Estella Lopez MANUAL DIFF REQ NO Normal [facility] Comment on above: Performed By: #### C BC ####[facility] [address] [place] [id number]. Estella Lopez MCH (RBC) [Entitic mass] 22.3 pg Critically low 26.7-34.0 [facility] Comment on above: Performed By: #### C BC ####[facility] [address] [place] [address]Dr. Estella Lopez MCHC (RBC) [Mass/Vol] 30.1 g/dL Normal 29.9-35.2 [facility] Comment on above: Performed By: #### C BC ####[facility] [address] [place], [place] [address]Dr. Estella Lopez MCV (RBC) [Entitic vol] 74.0 fL Critically low 81.0-99.0 [facility] Comment on above: Performed By: #### C BC ####[facility] [address] [place] [address]Dr. Estella Lopez MONO # 0.8 103/ul Normal 0.3-0.8 [facility] Comment on above: Performed By: #### C BC ####[facility] [address] [place] [address]Dr. Estella Lopez Monocytes/100 WBC (Bld) 7.5 % Normal 1.7-12.0 [facility] Comment on above: Performed By: #### C BC ####[facility] [address] [place], [place] [address]DrBerna Lopez NEUT # 7.5 103/ul Critically high 1.4-6.5 [facility] Comment on above: Performed By: #### C BC ####[facility] [address] [place], [place] [address]Dr. Estella Lopez Neutrophils/100 WBC (Bld) 73.6 % Normal 43.0-75.0 [facility] Comment on above: Performed By: #### C BC ####[facility] [address] [place] [id number]. Estella Lopez Platelet mean volume (Bld) [Entitic vol] 10.9 fL Normal 9.5-13.5 [facility] Comment on above: Performed By: #### C BC ####[facility] [address] [place] [id number]. Estella Lopez PLT 388 103/ul Normal 150-450 [facility] Comment on above: Performed By: #### C BC ####[facility] [address] [place] [id number] Lopez RBC 5.34 106/ul Normal 4.20-5.40 [facility] Comment on above: Performed By: #### C BC ####[facility] [address] [place] [id number]. Estella Lopez WBC 10.2 103/ul Normal 4.0-11.0 [facility] Comment on above: Performed By: #### C BC ####[facility] [address] [place] [id number]. Estella Lopez FREE T3on 04-22-2022 FREE T3 2.40 pg/mlL Normal 2.18-3.98 [facility] Comment on above: Performed By: #### T SH, FT3 ####[facility] [address] [place] [id number]. Estella Lopez FREE T4on 04-22-2022 Free T4 [Mass/Vol] 0.99 ng/dL Normal 0.76-1.46 [facility] Comment on above: Performed By: #### C MP, CRP #### [facility] [address] [place], [place] [address] Dr. Estella Lopez TSHon 04-22-2022 TSH 1.098 uIU/mL Normal 0.358-3.740 [facility] Comment on above: Performed By: #### T SH, FT3 ####[facility] [address] [place] [id number]. Estella Lopez CYCLIC CITRULLINATED PEPTIDE AB (CCP)on 04-21-2022 CCP Antibodies IgG/IgA 5 units Normal 0-19 [facility] Comment on above: Result Comment: Nega tive <20 Weak positive 20 - 39 Moderate positive 40 - 59 Strong positive >59 Performed By: #### C MP, CRP #### [facility] [address] [address] [address] Estella Lopez PROTEIN ELECTROPHERESISon Albumin [Mass/Vol] 3.1 g/dL Normal 2.9-4.4 [facility] Comment on above: Performed By: #### P RTELEC ####[facility] [address] [place] [address]Dr. Estella Lopez Albumin/Globulin [Mass ratio] 0.9 {ratio} Normal 0.7-1.7 [facility] Comment on above: Performed By: #### P RTELEC ####[facility] [address] [place], [place] [address]DrBerna Lopez Sbbzs-4-Sotwjanl 0.4 g/dL Normal 0.0-0.[address] [facility] Comment on above: Performed By: #### P RTELEC ####[facility] [address] [place], [place] [address]DrBerna Lopez Lbtnd-3-Bshnwecw 1.2 g/dL Critically high 0.4-1.0 [facility] Comment on above: Performed By: #### P RTELEC ####[facility] [address] [place] [address]DrBerna Lopez Beta Globulin 1.2 g/dL Normal 0.7-1.3 [facility] Comment on above: Performed By: #### P RTELEC ####[facility] [address] [place] [address]Dr. Estella Lopez Gamma Globulin 0.8 g/dL Normal 0.4-1.8 [facility] Comment on above: Performed By: #### P RTELEC ####[facility] [address] [place], [place] [address]DrBerna Lopez Globulin (S) [Mass/Vol] 3.6 g/dL Normal 2.2-3.9 [facility] Comment on above: Performed By: #### P RTELEC ####[facility] [address] [place] [address]Dr. Estella Lopez M-Prashant Not Observed Normal Not Observed [facility] Comment on above: Performed By: #### P RTELEC ####[facility] [address] [place] [address]Dr. Estella Lopez PDF . Normal [facility] Comment on above: Performed By: #### P RTELEC ####[facility] [address] [place] [address]Dr. Estella Lopez Please note: Comment [facility] Comment on above: Result Comment: Prot ein electrophoresis scan will follow via computer, mail, or contract administrator delivery. Performed By: #### P RTELEC ####[facility] [address] [place], [place] [address]Dr. Estella Lopez Protein [Mass/Vol] 6.7 g/dL Normal 6.0-8.5 [facility] Comment on above: Performed By: #### P RTELEC ####[facility] [address] [place], [place] [address]Dr. Estella Lopez IMMUNOGLOBULINS IGA/IGM/IGG QUANTITATIVEon 04-18-2022 Immunoglobulin A, Qn, Serum 149 mg/dL Normal 87-352 [facility] Comment on above: Performed By: #### I MMUNGL ####[facility] [address] [place], [place] [address]Dr. Estella Lopez Immunoglobulin G, Qn, Serum 977 mg/dL Normal 586-1602 [facility] Comment on above: Performed By: #### I MMUNGL ####[facility] [address] [place], [place] [address]Dr. Estella Lopez Immunoglobulin M, Qn, Serum 98 mg/dL Normal 26-217 [facility] Comment on above: Performed By: #### I MMUNGL ####[facility] [address] [place], [place] [address]Dr. Estella Lopez CRPon 04-17-2022 CRP 1.3 mg/dL Critically high <=1.0 [facility] Comment on above: Performed By: #### C MP, CRP #### [facility] [address] [place] [address] [address] Estella Lopez SED RATE WESTERGRENon 2021 SED RATE 67 mm/hr Critically high <=20 [facility] Comment on above: Performed By: #### S EDR ####[facility] [address] [place] [id number]. Estella Lopez US PELVIS AND TRANSVAGon US [...] HILLARY KULKARNI Date: 2022-03-24 11:53 Normal [facility] CBC AUTO DIFFon 03-23-2022 BASO # 0.0 103/ul Normal 0.0-0.1 [facility] Comment on above: Performed By: #### C BC #### [facility] [address] [address] [address] Estella Lopez Basophils/100 WBC (Bld) 0.3 % Normal 0.2-2.0 [facility] Comment on above: Performed By: #### C BC #### [facility] [address] [address] [address] Estella Lopez EO # 0.0 103/ul Normal 0.0-0.7 [facility] Comment on above: Performed By: #### C BC #### [facility] [address] [place] [address] Dr. Estella Lopez Eosinophils/100 WBC (Bld) 0.7 % Critically low 0.9-7.0 [facility] Comment on above: Performed By: #### C BC #### [facility] [address] [place] [address] Dr. Estella Lopez Erythrocyte distribution width (RBC) [Ratio] 20.4 % Critically high 11.0-15.0 [facility] Comment on above: Performed By: #### C BC #### [facility] [address] [place] [address] Dr. Estella Lopez Hematocrit (Bld) [Volume fraction] 38.3 % Normal 36.0-48.0 [facility] Comment on above: Performed By: #### C BC #### [facility] [address] [place] [address] Dr. Estella Lopez Hemoglobin (Bld) [Mass/Vol] 11.5 g/dL Critically low 12.0-16.0 [facility] Comment on above: Performed By: #### C BC #### [facility] [address] [place] [address] Dr. Estella Lopez IG # 0.02 10e3/ul Normal 0.00-0.03 [facility] Comment on above: Performed By: #### C BC #### [facility] [address] [place] [address] Dr. Estella Lopez IG % 0.3 % Normal 0.0-0.5 [facility] Comment on above: Performed By: #### C BC #### [facility] [address] [place] [address] Dr. Estella Lopez LYMPH # 1.9 103/ul Normal 1.2-3.8 [facility] Comment on above: Performed By: #### C BC #### [facility] [address] [place] [address] Dr. Estella Lopez Lymphocytes/100 WBC (Bld) 33.4 % Normal 20.5-60.0 [facility] Comment on above: Performed By: #### C BC #### [facility] [address] [place] [address] Dr. Estella Lopez MANUAL DIFF REQ NO Normal [facility] Comment on above: Performed By: #### C BC #### [facility] [address] [place] [address] Dr. Estella Lopez MCH (RBC) [Entitic mass] 22.1 pg Critically low 26.7-34.0 [facility] Comment on above: Performed By: #### C BC #### [facility] [address] [place] [address] Dr. Estella Lopez MCHC (RBC) [Mass/Vol] 30.0 g/dL Normal 29.9-35.2 [facility] Comment on above: Performed By: #### C BC #### [facility] [address] [place] [address] Dr. Estella Lopez MCV (RBC) [Entitic vol] 73.5 fL Critically low 81.0-99.0 [facility] Comment on above: Performed By: #### C BC #### [facility] [address] [place] [address] Dr. Estella Lopez MONO # 0.5 103/ul Normal 0.3-0.8 [facility] Comment on above: Performed By: #### C BC #### [facility] [address] [place] [address] Dr. Estella Lopez Monocytes/100 WBC (Bld) 8.3 % Normal 1.7-12.0 [facility] Comment on above: Performed By: #### C BC #### [facility] [address] [place] [address] Dr. Estella Lopez NEUT # 3.3 103/ul Normal 1.4-6.5 [facility] Comment on above: Performed By: #### C BC #### [facility] [address] [place] [address] Dr. Estella Lopez Neutrophils/100 WBC (Bld) 57.0 % Normal 43.0-75.0 [facility] Comment on above: Performed By: #### C BC #### [facility] [address] [address] [address] Estella Lopez Platelet mean volume (Bld) [Entitic vol] 10.0 fL Normal 9.5-13.5 [facility] Comment on above: Performed By: #### C BC #### [facility] [address] [address] [address] Estella Lopez PLT 374 103/ul Normal 150-450 [facility] Comment on above: Performed By: #### C BC #### [facility] [address] [address] [address] Estella Lopez RBC 5.21 106/ul Normal 4.20-5.40 [facility] Comment on above: Performed By: #### C BC #### [facility] [address] [address] [address] Estella Lopez WBC 5.8 103/ul Normal 4.0-11.0 [facility] Comment on above: Performed By: #### C BC #### [facility] [address] [address] [address] Estella Lopez CRPon 03-23-2022 CRP 2.1 mg/dL Critically high <=1.0 [facility] Comment on above: Performed By: #### C MP, CRP #### [facility] [address] [place] [address] Dr. Estella Lopez PROF 14(COMP METB)on 022 Albumin [Mass/Vol] 2.9 g/dL Critically low 3.4-5.0 [facility] Comment on above: Performed By: #### C MP, CRP #### [facility] [address] [address] [address] Estella Lopez Albumin/Globulin [Mass ratio] 0.7 {ratio} Normal [facility] Comment on above: Performed By: #### C MP, CRP #### [facility] [address] [address] [address] Estella Lopez ALP [Catalytic activity/Vol] 132 U/L Critically high 46-116 [facility] Comment on above: Performed By: #### C MP, CRP #### [facility] [address] [address] [address] Estella Lopez ALT [Catalytic activity/Vol] 27 U/L Normal 14-59 [facility] Comment on above: Performed By: #### C MP, CRP #### [facility] [address] [address] [address] Estella Lopez Anion gap [Moles/Vol] 12.1 mmol/L Normal [facility] Comment on above: Performed By: #### C MP, CRP #### [facility] [address] [place] [address] [address] Estella Lopez AST [Catalytic activity/Vol] 19 U/L Normal 15-37 [facility] Comment on above: Performed By: #### C MP, CRP #### [facility] [address] [address] [address] Estella Lopez Bilirubin [Mass/Vol] 0.2 mg/dL Normal 0.2-1.0 [facility] Comment on above: Performed By: #### C MP, CRP #### [facility] [address] [address] [address] Estella Lopez Calcium [Mass/Vol] 8.6 mg/dL Normal 8.5-10.1 [facility] Comment on above: Performed By: #### C MP, CRP #### [facility] [address] [address] [address] Estella Lopez Chloride [Moles/Vol] 104 mmol/L Normal 98-107 [facility] Comment on above: Performed By: #### C MP, CRP #### [facility] [address] [address] [address] Estella Lopez CO2 [Moles/Vol] 26.8 mmol/L Normal 21.0-32.[address] [facility] Comment on above: Performed By: #### C MP, CRP #### [facility] [address] [address] [address] Estella Lopez Creatinine [Mass/Vol] 0.81 mg/dL Normal 0.55-1.02 [facility] Comment on above: Performed By: #### C MP, CRP #### [facility] [address] [address] [address] Estella Lopez EGFR-AF COOK ISLANDER >60 Normal >=[address] [facility] Comment on above: Performed By: #### C MP, CRP #### [facility] [address] [address] [address] Estella Lopez EGFR-NON AF [place] ISLANDER >60 Normal >=60 [facility] Comment on above: Performed By: #### C MP, CRP #### [facility] [address] [address] [address] Estella Lopez Globulin (S) [Mass/Vol] 4.3 g/dL Normal [facility] Comment on above: Performed By: #### C MP, CRP #### [facility] [address] [place] [address] Dr. Estella Lopez Glucose [Mass/Vol] 78 mg/dL Normal 74-106 [facility] Comment on above: Performed By: #### C MP, CRP #### [facility] [address] [address] [address] Estella Lopez Potassium [Moles/Vol] 3.9 mmol/L Normal 3.5-5.1 [facility] Comment on above: Performed By: #### C MP, CRP #### [facility] [address] [place] [address] Dr. Estella Lopez Protein [Mass/Vol] 7.2 g/dL Normal 6.4-8.2 [facility] Comment on above: Performed By: #### C MP, CRP #### [facility] [address] [address] [address] Estella Lopez Sodium [Moles/Vol] 139 mmol/L Normal 136-145 [facility] Comment on above: Performed By: #### C MP, CRP #### [facility] [address] [address] [address] Estella Lopez Urea nitrogen [Mass/Vol] 7.0 mg/dL Normal 7.0-18.0 [facility] Comment on above: Performed By: #### C MP, CRP #### [facility] [address] [address] [address] Estella Lopez Urea nitrogen/Creatinine [Mass ratio] 8.6 mg/mg Normal [facility] Comment on above: Performed By: #### C MP, CRP #### [facility] [address] [address] [address] Estella Lopez SED RATE WESTERGRENon 2021 SED RATE 77 mm/hr Critically high <=20 [facility] Comment on above: Performed By: #### S EDR #### [facility] [address] [place] [address] Dr. Estella Lopez PRBC LEUKOREDUCEDon 01-06-20 22 ABO and Rh group Nom (Bld) Cross Match Result Compatible Unit Blood Type O Pos Unit Number [id number] Status Information Transfused Product ID Red Blood Cells Product Code [id number] Cross Match Result Compatible Unit Blood Type O Pos Unit Number [id number] Status Information Transfused Product ID Red Blood Cells Product Code [id number] Normal [facility] Comment on above: Performed By: #### P RBC ####[facility] [address] [place] [address]Dr. Estella Lopez CBC AUTO DIFFon 01-04-2022 BASO # 0.0 103/ul Normal 0.0-0.1 [facility] Comment on above: Performed By: #### C MP, CRP #### [facility] [address] [place] [address] Dr. Estella Lopez Basophils/100 WBC (Bld) 0.2 % Normal 0.2-2.0 [facility] Comment on above: Performed By: #### C MP, CRP #### [facility] [address] [place] [address] Dr. Estella Lopez EO # 0.1 103/ul Normal 0.0-0.7 [facility] Comment on above: Performed By: #### C MP, CRP #### [facility] [address] [place] [address] Dr. Estella Lopez Eosinophils/100 WBC (Bld) 1.0 % Normal 0.9-7.0 [facility] Comment on above: Performed By: #### C MP, CRP #### [facility] [address] [place] [address] Dr. Estella Lopez Erythrocyte distribution width (RBC) [Ratio] 23.1 % Critically high 11.0-15.0 [facility] Comment on above: Performed By: #### C MP, CRP #### [facility] [address] [place] [address] Dr. Estella Lopez Hematocrit (Bld) [Volume fraction] 30.3 % Critically low 36.0-48.0 [facility] Comment on above: Performed By: #### C MP, CRP #### [facility] [address] [place] [address] Dr. Estella Lopez Hemoglobin (Bld) [Mass/Vol] 9.1 g/dL Critically low 12.0-16.0 [facility] Comment on above: Performed By: #### C MP, CRP #### [facility] [address] [place] [address] Dr. Estella Lopez IG # 0.08 10e3/ul Critically high 0.00-0.03 [facility] Comment on above: Performed By: #### C MP, CRP #### [facility] [address] [place] [address] Dr. Estella Lopez IG % 0.7 % Critically high 0.0-0.5 [facility] Comment on above: Performed By: #### C MP, CRP #### [facility] [address] [place] [address] Dr. Estella Lopez LYMPH # 2.6 103/ul Normal 1.2-3.8 [facility] Comment on above: Performed By: #### C MP, CRP #### [facility] [address] [place] [address] Dr. Estella Lopez Lymphocytes/100 WBC (Bld) 23.6 % Normal 20.5-60.0 [facility] Comment on above: Performed By: #### C MP, CRP #### [facility] [address] [place] [address] Dr. Estella Lopez MANUAL DIFF REQ NO Normal [facility] Comment on above: Performed By: #### C MP, CRP #### [facility] [address] [place] [address] Dr. Estella Lopez MCH (RBC) [Entitic mass] 21.5 pg Critically low 26.7-34.0 [facility] Comment on above: Performed By: #### C MP, CRP #### [facility] [address] [place] [address] Dr. Estella Lopez MCHC (RBC) [Mass/Vol] 30.0 g/dL Normal 29.9-35.2 [facility] Comment on above: Performed By: #### C MP, CRP #### [facility] [address] [place] [address] Dr. Estella Lopez MCV (RBC) [Entitic vol] 71.5 fL Critically low 81.0-99.0 [facility] Comment on above: Performed By: #### C MP, CRP #### [facility] [address] [place] [address] Dr. Estella Lopez MONO # 0.5 103/ul Normal 0.3-0.8 [facility] Comment on above: Performed By: #### C MP, CRP #### [facility] [address] [place] [address] Dr. Estella Lopez Monocytes/100 WBC (Bld) 4.4 % Normal 1.7-12.0 [facility] Comment on above: Performed By: #### C MP, CRP #### [facility] [address] [place] [address] Dr. Estella Lopez NEUT # 7.7 103/ul Critically high 1.4-6.5 [facility] Comment on above: Performed By: #### C MP, CRP #### [facility] [address] [place] [address] Dr. Estella Lopez Neutrophils/100 WBC (Bld) 70.1 % Normal 43.0-75.0 [facility] Comment on above: Performed By: #### C MP, CRP #### [facility] [address] [place] [address] Dr. Estella Lopez Platelet mean volume (Bld) [Entitic vol] 10.4 fL Normal 9.5-13.5 [facility] Comment on above: Performed By: #### C MP, CRP #### [facility] [address] [place] [address] Dr. Estella Lopez PLT 275 103/ul Normal 150-450 [facility] Comment on above: Performed By: #### C MP, CRP #### [facility] [address] [place] [address] Dr. Estella Lopez RBC 4.24 106/ul Normal 4.20-5.40 [facility] Comment on above: Performed By: #### C MP, CRP #### [facility] [address] [place] [address] Dr. Estella Lopez WBC 11.0 103/ul Normal 4.0-11.0 [facility] Comment on above: Performed By: #### C MP, CRP #### [facility] [address] [place] [address] Dr. Estella Lopez CBC AUTO DIFFon 01-03-2022 BASO # 0.0 103/ul Normal 0.0-0.1 [facility] Comment on above: Performed By: #### C MP, CRP #### [facility] [address] [place] [address] Dr. Estella Lopez Basophils/100 WBC (Bld) 0.2 % Normal 0.2-2.0 [facility] Comment on above: Performed By: #### C MP, CRP #### [facility] [address] [place] [address] Dr. Estella Lopez EO # 0.1 103/ul Normal 0.0-0.7 [facility] Comment on above: Performed By: #### C MP, CRP #### [facility] [address] [place] [address] Dr. Estella Lopez Eosinophils/100 WBC (Bld) 0.7 % Critically low 0.9-7.0 [facility] Comment on above: Performed By: #### C MP, CRP #### [facility] [address] [place] [address] Dr. Estella Lopez Erythrocyte distribution width (RBC) [Ratio] 20.8 % Critically high 11.0-15.0 [facility] Comment on above: Performed By: #### C MP, CRP #### [facility] [address] [place] [address] Dr. Estella Lopez Hematocrit (Bld) [Volume fraction] 23.2 % Critically low 36.0-48.0 [facility] Comment on above: Result Comment: Test Repeated. Critical Value Verified Performed By: #### C MP, CRP #### [facility] [address] [place] [address] Dr. Estella Lopez Hemoglobin (Bld) [Mass/Vol] 6.6 g/dL Critically low 12.0-16.0 [facility] Comment on above: Result Comment: Test Repeated. Critical Value Verified Performed By: #### C MP, CRP #### [facility] [address] [place] [address] Dr. Estella Lopez IG # 0.07 10e3/ul Critically high 0.00-0.03 [facility] Comment on above: Performed By: #### C MP, CRP #### [facility] [address] [place] [address] Dr. Estella Lopez IG % 0.5 % Normal 0.0-0.5 [facility] Comment on above: Performed By: #### C MP, CRP #### [facility] [address] [place] [address] Dr. Estella Lopez LYMPH # 2.7 103/ul Normal 1.2-3.8 [facility] Comment on above: Performed By: #### C MP, CRP #### [facility] [address] [place] [address] Dr. Estella Lopez Lymphocytes/100 WBC (Bld) 21.1 % Normal 20.5-60.0 [facility] Comment on above: Performed By: #### C MP, CRP #### [facility] [address] [place] [address] Dr. Estella Lopez MANUAL DIFF REQ NO Normal [facility] Comment on above: Performed By: #### C MP, CRP #### [facility] [address] [place] [address] Dr. Estella Lopez MCH (RBC) [Entitic mass] 19.1 pg Critically low 26.7-34.0 [facility] Comment on above: Performed By: #### C MP, CRP #### [facility] [address] [place] [address] Dr. Estella Lopez MCHC (RBC) [Mass/Vol] 28.4 g/dL Critically low 29.9-35.2 [facility] Comment on above: Performed By: #### C MP, CRP #### [facility] [address] [place] [address] Dr. Estella Lopez MCV (RBC) [Entitic vol] 67.2 fL Critically low 81.0-99.0 [facility] Comment on above: Performed By: #### C MP, CRP #### [facility] [address] [place] [address] Dr. Estella Lopez MONO # 0.6 103/ul Normal 0.3-0.8 [facility] Comment on above: Performed By: #### C MP, CRP #### [facility] [address] [place] [address] Dr. Estella Lopez Monocytes/100 WBC (Bld) 5.0 % Normal 1.7-12.0 [facility] Comment on above: Performed By: #### C MP, CRP #### [facility] [address] [place] [address] Dr. Estella Lopez NEUT # 9.2 103/ul Critically high 1.4-6.5 [facility] Comment on above: Performed By: #### C MP, CRP #### [facility] [address] [place] [address] Dr. Estella Lopez Neutrophils/100 WBC (Bld) 72.5 % Normal 43.0-75.0 [facility] Comment on above: Performed By: #### C MP, CRP #### [facility] [address] [place] [address] Dr. Estella Lopez Platelet mean volume (Bld) [Entitic vol] 10.5 fL Normal 9.5-13.5 [facility] Comment on above: Performed By: #### C MP, CRP #### [facility] [address] [place] [address] Dr. Estella Lopez PLT 274 103/ul Normal 150-450 [facility] Comment on above: Performed By: #### C MP, CRP #### [facility] [address] [place] [address] Dr. Estella Lopez RBC 3.45 106/ul Critically low 4.20-5.40 [facility] Comment on above: Performed By: #### C MP, CRP #### [facility] [address] [place] [address] Dr. Estella Lopez WBC 12.7 103/ul Critically high 4.0-11.0 [facility] Comment on above: Performed By: #### C MP, CRP #### [facility] [address] [place] [address] Dr. Estella Lopez CBC AUTO DIFFon 01-01-2022 BASO # 0.0 103/ul Normal 0.0-0.1 [facility] Comment on above: Performed By: #### C MP, CRP #### [facility] [address] [place] [address] Dr. Estella Lopez Basophils/100 WBC (Bld) 0.1 % Critically low 0.2-2.0 [facility] Comment on above: Performed By: #### C MP, CRP #### [facility] [address] [place] [address] Dr. Estella Lopez EO # 0.0 103/ul Normal 0.0-0.7 [facility] Comment on above: Performed By: #### C MP, CRP #### [facility] [address] [place] [address] Dr. Estella Lopez Eosinophils/100 WBC (Bld) 0.2 % Critically low 0.9-7.0 [facility] Comment on above: Performed By: #### C MP, CRP #### [facility] [address] [address] [address] Estella Lopez Erythrocyte distribution width (RBC) [Ratio] 20.2 % Critically high 11.0-15.0 [facility] Comment on above: Performed By: #### C MP, CRP #### [facility] [address] [place] [address] Dr. Estella Lopez Hematocrit (Bld) [Volume fraction] 26.9 % Critically low 36.0-48.0 [facility] Comment on above: Performed By: #### C MP, CRP #### [facility] [address] [place] [address] Dr. Estella Lopez Hemoglobin (Bld) [Mass/Vol] 7.5 g/dL Critically low 12.0-16.0 [facility] Comment on above: Performed By: #### C MP, CRP #### [facility] [address] [place] [address] Dr. Estella Lopez IG # 0.08 10e3/ul Critically high 0.00-0.03 [facility] Comment on above: Performed By: #### C MP, CRP #### [facility] [address] [place] [address] Dr. Estella Lopez IG % 0.7 % Critically high 0.0-0.5 [facility] Comment on above: Performed By: #### C MP, CRP #### [facility] [address] [place] [address] Dr. Estella Lopez LYMPH # 2.1 103/ul Normal 1.2-3.8 [facility] Comment on above: Performed By: #### C MP, CRP #### [facility] [address] [place] [address] Dr. Estella Lopez Lymphocytes/100 WBC (Bld) 18.2 % Critically low 20.5-60.0 [facility] Comment on above: Performed By: #### C MP, CRP #### [facility] [address] [place] [address] Dr. Estella Lopez MANUAL DIFF REQ NO Normal [facility] Comment on above: Performed By: #### C MP, CRP #### [facility] [address] [place] [address] Dr. Estella Lopez MCH (RBC) [Entitic mass] 18.6 pg Critically low 26.7-34.0 [facility] Comment on above: Result Comment: 2+ h ypochromasia Performed By: #### C MP, CRP #### [facility] [address] [place] [address] Dr. Estella Lopez MCHC (RBC) [Mass/Vol] 27.9 g/dL Critically low 29.9-35.2 [facility] Comment on above: Performed By: #### C MP, CRP #### [facility] [address] [place] [address] Dr. Estella Lopez MCV (RBC) [Entitic vol] 66.7 fL Critically low 81.0-99.0 [facility] Comment on above: Performed By: #### C MP, CRP #### [facility] [address] [place] [address] Dr. Estella Lopez MONO # 0.6 103/ul Normal 0.3-0.8 [facility] Comment on above: Performed By: #### C MP, CRP #### [facility] [address] [place] [address] Dr. Estella Lopez Monocytes/100 WBC (Bld) 5.6 % Normal 1.7-12.0 [facility] Comment on above: Performed By: #### C MP, CRP #### [facility] [address] [place] [address] Dr. Estella Lopez NEUT # 8.6 103/ul Critically high 1.4-6.5 [facility] Comment on above: Performed By: #### C MP, CRP #### [facility] [address] [place] [address] Dr. Estella Lopez Neutrophils/100 WBC (Bld) 75.2 % Critically high 43.0-75.0 [facility] Comment on above: Performed By: #### C MP, CRP #### [facility] [address] [place] [address] Dr. Estella Lopez Platelet mean volume (Bld) [Entitic vol] 10.7 fL Normal 9.5-13.5 [facility] Comment on above: Performed By: #### C MP, CRP #### [facility] [address] [address] [address] Estella Lopez PLT 327 103/ul Normal 150-450 [facility] Comment on above: Performed By: #### C MP, CRP #### [facility] [address] [address] [address] Estella Lopez RBC 4.03 106/ul Critically low 4.20-5.40 [facility] Comment on above: Performed By: #### C MP, CRP #### [facility] [address] [address] [address] Estella Lopez WBC 11.5 103/ul Critically high 4.0-11.[address] [facility] Comment on above: Performed By: #### C MP, CRP #### [facility] [address] [address] [address] Estella Lopez Covid-19 PCR ([facility])on 12-06 SARS-CoV-2 (COVID-19) RNA NICOLE+probe Ql (Unsp spec) Not detected Normal NOT DETECTED [facility] Comment on above: Result Comment: When diagnostic [...] for this test is supported by the [place] of [employer] and Human Service's declaration that [...] be used). Performed By: #### C VDTBH ####[facility] [id number] [address]Dr. Estella Lopez DRUG SCREEN RAPID (URINE)on 01-01-2022 AMP Negative Normal NEGATIVE [facility] Comment on above: Performed By: #### C MP, CRP #### [facility] [address] [address] [address] Estella Lopez BAR Negative Normal NEGATIVE [facility] Comment on above: Performed By: #### C MP, CRP #### [facility] [address] [address] [address] Estella Lopez BUP Negative Normal NEGATIVE [facility] Comment on above: Performed By: #### C MP, CRP #### [facility] [address] [address] [address] Estella Lopez BZO Negative Normal NEGATIVE [facility] Comment on above: Performed By: #### C MP, CRP #### [facility] [address] [address] [address] Estella Lopez DOUGLAS Negative Normal NEGATIVE [facility] Comment on above: Performed By: #### C MP, CRP #### [facility] [address] [address] [address] Estella Lopez CUT-OFFS SEE BELOW Normal [facility] Comment on above: Result Comment: AMP (Amphetamine): [...] Performed By: #### C MP, CRP #### [facility] [address] [place] [address] Dr. Estella Lopez DRUG CUT HEADER DRUG CLASS TEST SYSTEM CUT-OFF CONCENTRATIONS ARE FOLLOWS: Normal [facility] Comment on above: Performed By: #### C MP, CRP #### [facility] [address] [address] [address] Estella Lopez mAMP Negative Normal NEGATIVE [facility] Comment on above: Performed By: #### C MP, CRP #### [facility] [address] [address] [address] Estella Lopez MTD Negative Normal NEGATIVE [facility] Comment on above: Performed By: #### C MP, CRP #### [facility] [address] [address] [address] Estella Lopez OPI Negative Normal NEGATIVE [facility] Comment on above: Performed By: #### C MP, CRP #### [facility] [address] [address] [address] Estella Lopez OXY Negative Normal NEGATIVE [facility] Comment on above: Performed By: #### C MP, CRP #### [facility] [address] [place] [address] Dr. Estella Lopez PCP Negative Normal NEGATIVE [facility] Comment on above: Performed By: #### C MP, CRP #### [facility] [address] [address] [address] Estella Lopez PPX Negative Normal NEGATIVE [facility] Comment on above: Performed By: #### C MP, CRP #### [facility] [address] [place] [address] Dr. Estella Lopez TCA Negative Normal NEGATIVE [facility] Comment on above: Performed By: #### C MP, CRP #### [facility] [address] [place] [address] Dr. Estella Lopez THC Positive Abnormal NEGATIVE [facility] Comment on above: Performed By: #### C MP, CRP #### [facility] [address] [place] [address] Dr. Estella Lopez TYPE AND SCREENon 01-01-2022 TYPE AND SCREEN Negative Normal [facility] Comment on above: Performed By: #### T NS ####[facility] [id number] [address]Dr. Estella Lopez US PREG BIOPHY W NON [...] by: SCOTT ESPINO Date: 2021-12-29 17:02 Normal [facility] GROUP B STREP CULTUREon 12-06 S. agalactiae Ag Ql (Unsp spec) Culture Observations: NEGATIVE FOR GROUP B STREPTOCOCCUS. Normal [facility] Comment on above: Performed By: #### G BSCX ####[facility] [id number] [id number] Lopez US PREG BIOPHY W NON STRESSo [...] HILLARY KULKARNI Date: 2021-12-22 11:55 Normal [facility] US PREG BIOPHY W NON STRESSo n [...] SCOTT ESPINO Date: 2021-12-15 12:12 Normal [facility] US PREG BIOPHY W NON STRESSo n [...] HILLARY KULKARNI Date: 2021-12-08 12:02 Normal [facility] UA (CLEAN/CATCH) CLOTH BLEACHING RANGE BACK TENDER/MICRO I F IND.on 12-05-2021 Bilirubin Ql (U) Negative Normal NEGATIVE [facility] Comment on above: Performed By: #### U ACSIND #### [facility] [address] [place] [address] Dr. Estella Lopez Clarity (U) CLEAR Normal CLEAR [facility] Comment on above: Performed By: #### U ACSIND #### [facility] [address] [place] [address] Dr. Estella Lopez Color (U) LT. YELLOW Normal YELLOW [facility] Comment on above: Performed By: #### U ACSIND #### [facility] [address] [address] [address] Estella Lopez Glucose Ql (U) Negative Normal NEGATIVE [facility] Comment on above: Performed By: #### U ACSIND #### [facility] [address] [address] [address] Estella Lopez Hemoglobin Ql (U) Negative Normal NEGATIVE [facility] Comment on above: Performed By: #### U ACSIND #### [facility] [address] [place] [address] Dr. Estella Lopez Ketones Ql (U) TRACE Abnormal NEGATIVE [facility] Comment on above: Performed By: #### U ACSIND #### [facility] [address] [address] [address] Estella Lopez LEUKOCYTES Negative Normal NEGATIVE [facility] Comment on above: Performed By: #### U ACSIND #### [facility] [address] [address] [address] Estella Lopez Nitrite Ql (U) Negative Normal NEGATIVE [facility] Comment on above: Performed By: #### U ACSIND #### [facility] [address] [address] [address] Estella Lopez pH (U) 6.0 [pH] Normal 5-9 [facility] Comment on above: Performed By: #### U ACSIND #### [facility] [address] [place] [address] Dr. Estella Lopez SPEC GRAVITY 1.025 Normal 1.005-<=1.025 [facility] Comment on above: Performed By: #### U ACSIND #### [facility] [address] [place] [address] Dr. Estella Lopez UA PROTEIN Negative Normal NEGATIVE/ TRACE [facility] Comment on above: Performed By: #### U ACSIND #### [facility] [address] [address] [address] Estella Lopez UR MICRO IND NOT INDICATED Normal [facility] Comment on above: Performed By: #### U ACSIND #### [facility] [address] [place] [address] Dr. Estella Lopez Urobilinogen Qn (U) 0.2 {Allen'U}/dL Normal 0.2 - 1. 0 [facility] Comment on above: Performed By: #### U ACSIND #### [facility] [address] [place] [address] Dr. Estella Lopez US PREG BIOPHY W [...] by: SCOTT ESPINO Date: 2021-12-05 07:14 Normal [facility] US PREG PLACENTAon US PREG PLACENTA EXAMINATION: [...] by: SCOTT ESPINO Date: 2021-12-05 07:16 Normal [facility] US PREG BIOPHY W NON STRESSo n [...] by: SCOTT ESPINO Date: 2021-12-01 16:01 Normal [facility] US PREG BIOPHY W NON STRESSo n [...] SCOTT ESPINO Date: 2021-11-25 07:26 Normal [facility] CHLAMYDIA/GONOCOCCUS NICOLE (SW AB/URINE/PAPon 11-22-2021 Chlamydia trachomatis, NICOLE Negative Normal Negative [facility] Comment on above: Performed By: #### C MP, CRP #### [facility] [address] [place] [address] Dr. Estella Lopez Neisseria gonorrhoeae, NICOLE Negative Normal Negative [facility] Comment on above: Performed By: #### C MP, CRP #### [facility] [address] [place] [address] Dr. Estella Lopez VAGINITIS/VAGINOSIS DNA PROB Brett 11-21-2021 Mirela species Negative Normal Negative [facility] Comment on above: Performed By: #### C MP, CRP #### [facility] [address] [place] [address] Dr. Estella Lopez Gardnerella vaginalis Negative Normal Negative [facility] Comment on above: Performed By: #### C MP, CRP #### [facility] [address] [place] [address] Dr. Estella Lopez Trichomonas vaginalis Negative Normal Negative [facility] Comment on above: Performed By: #### C MP, CRP #### [facility] [address] [place] [address] Dr. Estella Lopez UA (CLEAN/CATCH) CLOTH BLEACHING RANGE BACK TENDER/MICRO I F IND.on 11-10-2021 Bilirubin Ql (U) Negative Normal NEGATIVE [facility] Comment on above: Performed By: #### C MP, CRP #### [facility] [address] [place] [address] Dr. Estella Lopez Clarity (U) CLEAR Normal CLEAR [facility] Comment on above: Performed By: #### C MP, CRP #### [facility] [address] [place] [address] Dr. Estella Lopez Color (U) LT. YELLOW Normal YELLOW [facility] Comment on above: Performed By: #### C MP, CRP #### [facility] [address] [place] [address] Dr. Estella Lopez Glucose Ql (U) Negative Normal NEGATIVE [facility] Comment on above: Performed By: #### C MP, CRP #### [facility] [address] [place] [address] Dr. Estelal Lopez Hemoglobin Ql (U) Negative Normal NEGATIVE [facility] Comment on above: Performed By: #### C MP, CRP #### [facility] [address] [place] [address] Dr. Estella Lopez Ketones Ql (U) >=80 Abnormal NEGATIVE [facility] Comment on above: Performed By: #### C MP, CRP #### [facility] [address] [place] [address] Dr. Estella Lopez LEUKOCYTES Negative Normal NEGATIVE [facility] Comment on above: Performed By: #### C MP, CRP #### [facility] [address] [place] [address] Dr. Estella Lopez Nitrite Ql (U) Negative Normal NEGATIVE [facility] Comment on above: Performed By: #### C MP, CRP #### [facility] [address] [place] [address] Dr. Estella Lopez pH (U) 6.5 [pH] Normal 5-9 [facility] Comment on above: Performed By: #### C MP, CRP #### [facility] [address] [place] [address] Dr. Estella Lopez SPEC GRAVITY 1.020 Normal 1.005-<=1.025 [facility] Comment on above: Performed By: #### C MP, CRP #### [facility] [address] [place] [address] Dr. Estella Lopez UA PROTEIN Negative Normal NEGATIVE/ TRACE [facility] Comment on above: Performed By: #### C MP, CRP #### [facility] [address] [place] [address] Dr. Estella Lopez UR MICRO IND NOT INDICATED Normal [facility] Comment on above: Performed By: #### C MP, CRP #### [facility] [address] [place] [address] Dr. Estella Lopez Urobilinogen Qn (U) 0.2 {Allen'U}/dL Normal 0.2 - 1. 0 [facility] Comment on above: Performed By: #### C MP, CRP #### [facility] [address] [place] [address] Dr. Estella Lopez US PREG GROWTHon 10-27-2021 [...] HILLARY KULKARNI Date: 2021-10-27 12:27 Normal [facility] US PREG PLACENTAon US PREG PLACENTA EXAMINATION: [...] HILLARY KULKARNI Date: 2021-10-27 12:20 Normal [facility] UA (CLEAN/CATCH) CLOTH BLEACHING RANGE BACK TENDER/MICRO I F IND.on 09-01-2021 Bilirubin Ql (U) Negative Normal NEGATIVE [facility] Comment on above: Performed By: #### U ACSIND #### [facility] [address] [address] [address] Estella Lopez Clarity (U) CLEAR Normal CLEAR [facility] Comment on above: Performed By: #### U ACSIND #### [facility] [address] [place] [address] Dr. Estella Lopez Color (U) LT. YELLOW Normal YELLOW [facility] Comment on above: Performed By: #### U ACSIND #### [facility] [address] [address] [address] Estella Lopez Glucose Ql (U) Negative Normal NEGATIVE [facility] Comment on above: Performed By: #### U ACSIND #### [facility] [address] [place] [address] Dr. Estella Lopez Hemoglobin Ql (U) Negative Normal NEGATIVE [facility] Comment on above: Performed By: #### U ACSIND #### [facility] [address] [place] [address] Dr. Estella Lopez Ketones Ql (U) Negative Normal NEGATIVE [facility] Comment on above: Performed By: #### U ACSIND #### [facility] [address] [place] [address] Dr. Estella Lopez LEUKOCYTES Negative Normal NEGATIVE [facility] Comment on above: Performed By: #### U ACSIND #### [facility] [address] [place] [address] Dr. Estella Lopez Nitrite Ql (U) Negative Normal NEGATIVE The [facility] Comment on above: Performed By: #### U ACSIND #### [facility] [address] [place] [address] Dr. Estella Lopez pH (U) 6.5 [pH] Normal 5-9 [facility] Comment on above: Performed By: #### U ACSIND #### [facility] [address] [place] [address] Dr. Estella Lopez SPEC GRAVITY 1.015 Normal 1.005-<=1.025 [facility] Comment on above: Performed By: #### U ACSIND #### [facility] [address] [place] [address] Dr. Estella Lopez UA PROTEIN Negative Normal NEGATIVE/ TRACE [facility] Comment on above: Performed By: #### U ACSIND #### [facility] [address] [address] [address] Estella Lopez UR MICRO IND NOT INDICATED Normal The [facility] Comment on above: Performed By: #### U ACSIND #### [facility] [address] [address] [address] Estella Lopez Urobilinogen Qn (U) 0.2 {Allen'U}/dL Normal 0.2 - 1. 0 [facility] Comment on above: Performed By: #### U ACSIND #### [facility] [address] [address] [address] Estella Lopez XR CHEST 2 Von [...] HILLARY KULKARNI Date: 2021-07-22 16:35 Normal [facility] JAUN BOX TEST PT SEND OUTo n 07-15-2021 SENT TO REF LAB 07/15/2021 Normal The [facility] Comment on above: Performed By: #### N BOX ####[facility] [id number] [id number]. Estella Lopez ANAon 09-26-2020 Nuclear Ab IF (S) [Titer] HOMOGENEOUS Normal [facility] Comment on above: Performed By: #### 1 0097, 51674, 15733, 69868 ####[facility] [place] [address], [facility] Nuclear Ab IF (S) [Titer] 1:160 Abnormal <1:40,1:40 [facility] Comment on above: Performed By: #### 1 0097, 31993, 35902, 87669 ####[facility] [facility].[address] ANTI DNAon 09-26-2020 ANTI DNA <1:10 Normal <1:10 [facility] Comment on above: Performed By: #### 1 0097, 73727, 53329, 87962 ####[facility] [facility].[address] ANTI-ENAon 09-26-2020 ANTI SM Negative Normal NEG,NEGATIVE, Neg [facility] Comment on above: Performed By: #### 1 0097, 60558, 16831, 17092 ####[facility] [facility].[address] ANTI SM/ANTIRNP Negative Normal NEG,NEGATIVE , Neg [facility] Comment on above: Performed By: #### 1 0097, 21924, 49380, 20072 ####[facility] [facility].[address] C REACTIVE PROTEINon 021 CRP [Mass/Vol] 17.1 mg/L High 0.0-7.0 The [facility] Comment on above: Performed By: #### 1 0204, 80120, 13222, 79519 #### [facility] [address] [facility] [place] [place] [address], [facility] CBC W/DIFFon 09-26-2020 ABS BASOPHILS 0.0 10*3/uL Normal 0.0-0.2 The [facility] Comment on above: Performed By: #### 5 6506, 84337 ####[facility] [facility].[address] ABS IMM GRANS 0.0 10*3/uL Normal 0.0-0.2 The [facility] Comment on above: Performed By: #### 5 6505, 51319 ####[facility] [place] [address], [facility] ABS NEUTROPHILS 5.1 10*3/uL Normal 1.6-7.6 [facility] Comment on above: Performed By: #### 5 6505, 96413 ####[facility] [place] [address], [facility] Basophils/100 WBC (Bld) 0.1 % Normal 0.0-1.0 [facility] Comment on above: Performed By: #### 5 6505, 61593 ####[facility] [place] [address], [facility] Eosinophils (Bld) [#/Vol] 0.1 10*3/uL Normal 0.0-0.5 [facility] Comment on above: Performed By: #### 5 6505, 10910 ####[facility] [place] [address], [facility] Eosinophils/100 WBC (Bld) 0.8 % Normal 0.0-6.0 [facility] Comment on above: Performed By: #### 5 6505, 45206 ####[facility] [place] [address], [facility] Erythrocyte distribution width (RBC) [Ratio] 13.8 % Normal 11.5-15.0 [facility] Comment on above: Performed By: #### 5 6505, 62687 ####[facility] [place] [address], [facility] Hematocrit (Bld) [Volume fraction] 40.8 % Normal 36.0-45.0 [facility] Comment on above: Performed By: #### 5 6505, 63257 ####[facility] [address], [facility] Hemoglobin (Bld) [Mass/Vol] 12.6 g/dL Normal 12.0-15.0 [facility] Comment on above: Performed By: #### 5 6505, 98838 ####[facility] IMMATURE GRANS 0.1 % Normal 0.0-1.0 The [facility] Comment on above: Performed By: #### 5 6505, 97378 ####[facility] [place] [address] Lymphocytes (Bld) [#/Vol] 1.7 10*3/uL Normal 1.2-4.0 [facility] Comment on above: Performed By: #### 5 6505, 12652 ####[address] Lymphocytes/100 WBC (Bld) 23.5 % Normal 20.0-45.0 [facility] Comment on above: Performed By: #### 5 6505, 15135 ####[address] MCH (RBC) [Entitic mass] 25.6 pg Low 27.0-33.0 [facility] Comment on above: Performed By: #### 5 6505, 10514 ####[facility] MCHC (RBC) [Mass/Vol] 30.9 g/dL Low 32.0-35.0 [facility] Comment on above: Performed By: #### 5 6505, 24946 ####[address] MCV (RBC) [Entitic vol] 82.9 fL Normal 82.0-98.0 [facility] Comment on above: Performed By: #### 5 6505, 77295 ####[address] [place] [address], [facility] Monocytes (Bld) [#/Vol] 0.4 10*3/uL Normal 0.1-1.0 [facility] Comment on above: Performed By: #### 5 6505, 83899 ####[facility] [facility] [place] [place] [address], [facility] MONOS 5.9 % Normal 5.0-12.0 [facility] Comment on above: Performed By: #### 5 6505, 94493 ####[address] [place] [address], [facility] Neutrophils/100 WBC (Bld) 69.6 % Normal 40.0-72.0 [facility] Comment on above: Performed By: #### 5 6505, 86530 ####[address] [place] [address], [facility] Nucleated RBC/100 WBC (Bld) [Ratio] 0 % Normal 0-0 [facility] Comment on above: Performed By: #### 5 6505, 80573 ####[address] [place] [address], [facility] PLAT CNT 328 10*3/uL Normal 150-400 The [facility] Comment on above: Performed By: #### 5 6505, 53349 ####[address] [place] [address], [facility] RBC (Bld) [#/Vol] 4.92 10*6/uL Normal 3.80-5.00 The [facility] Comment on above: Performed By: #### 5 6505, 37494 ####[address] [place] [address], [facility] WBC (Bld) [#/Vol] 7.35 10*3/uL Normal 4.00-10.60 [facility] Comment on above: Performed By: #### 5 6505, 38466 ####[facility] [address], [facility] COMP METABOLIC PANELon 09-26 Albumin [Mass/Vol] 4.0 g/dL Normal 3.5-5.7 The [facility] Comment on above: Performed By: #### 3 0728, 04275, 26278, 24791, 79884 #### [facility] [address] [place] [address], [place] ALKALINE PHOSPH 78 IU/L Normal 34-104 [facility] Comment on above: Performed By: #### 3 0728, 76696, 90499, 07445, 95528 #### [facility] [address] [place] [address], [place] ALT [Catalytic activity/Vol] 53 U/L High 7-52 [facility] Comment on above: Performed By: #### 3 0728, 67282, 93790, 09841, 77229 #### [facility] [address] [place] [address], [place] AST [Catalytic activity/Vol] 35 U/L Normal 13-39 [facility] Comment on above: Performed By: #### 3 0728, 93134, 37367, 89626, 69629 #### [facility] [address] [place] [address], [place] Bilirubin [Mass/Vol] 0.2 mg/dL Low 0.3-1.0 [facility] Comment on above: Performed By: #### 3 0728, 98993, 13285, 21445, 72801 #### [facility] [address] [place] [address], [place] Calcium [Mass/Vol] 8.8 mg/dL Normal 8.6-10.3 The [facility] Comment on above: Performed By: #### 3 0728, 82540, 20504, 72442, 67359 #### [facility] [address] [place] [address], [place] Chloride [Moles/Vol] 106 mmol/L Normal 98-107 [facility] Comment on above: Performed By: #### 3 0728, 52683, 83920, 87517, 26904 #### [facility] [address] [place] [address], [place] CO2 [Moles/Vol] 23 mmol/L Normal 21-31 [facility] Comment on above: Performed By: #### 3 0728, 99959, 50986, 65652, 48056 #### [facility] [address] [place] [address], [place] Creatinine [Mass/Vol] 0.88 mg/dL Normal 0.60-1.20 [facility] Comment on above: Performed By: #### 3 0728, 18451, 11284, 84240, 48496 #### [facility] [address] [place] [address], [place] GFR/1.73 sq M predicted among blacks MDRD (S/P/Bld) [Vol rate/Area] mL/min/{1.73_m2} Normal >60 [facility] Comment on above: Performed By: #### 3 0728, 20818, 16412, 62411, 71083 #### [facility] [address] [place] [address], [place] GFR/1.73 sq M predicted among non-blacks MDRD (S/P/Bld) [Vol rate/Area] mL/min/{1.73_m2} Normal >60 [facility] Comment on above: Performed By: #### 3 0728, 42273, 86834, 10874, 59187 #### [facility] [address] [place] [address], [place] Glucose [Mass/Vol] 96 mg/dL Normal 70-100 [facility] Comment on above: Performed By: #### 3 0728, 77061, 43077, 42410, 56814 #### [facility] [address] [place] [address], [place] Potassium [Moles/Vol] 4.1 mmol/L Normal 3.5-5.1 [facility] Comment on above: Performed By: #### 3 0728, 41933, 11479, 33078, 06910 #### [facility] [address] [place] [address], [place] Protein [Mass/Vol] 7.0 g/dL Normal 6.0-8.3 [facility] Comment on above: Performed By: #### 3 0728, 08387, 92913, 09032, 65274 #### [facility] [address] [place] [address], [place] Sodium [Moles/Vol] 136 mmol/L Normal 136-145 [facility] Comment on above: Performed By: #### 3 0728, 29737, 01336, 46626, 01041 #### [facility] [address] [place] [address], [place] Urea nitrogen [Mass/Vol] 11 mg/dL Normal 7-25 [facility] Comment on above: Performed By: #### 3 0728, 16966, 76723, 34093, 62431 #### [facility] [address] [place] [address], [place] COMPLEMENT 309-26-2020 COMPLEMENT 3 160 mg/dL High 79-152 The [facility] Comment on above: Performed By: #### 1 0204, 34531, 80353, 70462 #### [facility] [address] [place] [address], [place] COMPLEMENT 4on 09-26-2020 COMPLEMENT 4 19 mg/dL Normal 16-38 The [facility] Comment on above: Performed By: #### 1 0204, 80776, 92367, 14038 #### [facility] [address] [facility] [place] [address], [facility] CPKon 09-26-2020 CK [Catalytic activity/Vol] 77 U/L Normal 30-223 [facility] Comment on above: Performed By: #### 3 0728, 71075, 37325, 58128, 94562 #### [facility] [address] [facility] [place] [address], [facility] CREATININE URINE RANDOMon Creatinine [Mass/Vol] 154.0 mg/dL Normal [facility] Comment on above: Result Comment: Ther e are no established reference values for random urine specimens Performed By: #### 2 5706, 07743 #### [facility] [address] [place] [address], [facility] HAND LEFT 3 VWSon 09-26-2020 HAND LEFT 3 [facility] Department of Radiology [address] [place] [address] [id number] Patient Name: DEEDEE KHAN : 1990 Sex: F Age: Race: White Pt. Location: [facility] Patient Status: D Ordered Date: 09/26/2020 [...] change. Electronically signed: Moises Barrera. Transcribed by: [email or web address], User Resident: Electronically Signed by: MOISES BARRERA @ 09/27/2020 10:27 AM Normal [facility] Comment on above: Order Comment: Evalu ate HAND RIGHT 3 VWSon HAND RIGHT 3 VWS [facility] Department of Radiology [address] [place] [phone] Patient Name: DEEDEE KHAN : 1990 Sex: F Age: Race: White Pt. Location: [facility] Patient Status: D Ordered Date: 09/26/2020 [...] arthritis. Electronically signed: Moises Barrera. Transcribed by: [email or web address], User Resident: Electronically Signed by: MOISES BARRERA @ 09/27/2020 10:14 AM Normal [facility] Comment on above: Order Comment: Evalu ate LUMBAR SPINE 2 OR 3 VWSon LUMBAR SPINE 2 OR 3 VWS [facility] Department of Radiology [address] [place] [phone] Patient Name: DEEDEE KHAN : 1990 Sex: F Age: Race: White Pt. Location: [facility] Patient Status: D Ordered Date: 09/26/2020 11:00:00 AM Completed Date: 09/26/2020 11:06 AM Requesting Provider: AINSLEY CARDONA Attending Provider: Report Copy To: Signs & Symptoms: M54.5 Low back pain I10 History: [place] Comments: Evaluate Exam: LUMBAR SPINE 2 OR 3 S LUMBAR SPINE 2 OR 3 S HISTORY: Low back pain, history of lupus. COMPARISON: None. IMPRESSION: 1. No compression deformity. Minimal L5-S1 disc height loss. Mild lower lumbar lumbar facet arthrosis. Electronically signed: Moises Barrera. Transcribed by: [email or web address], User Resident: Electronically Signed by: MOISES BARRERA @ 09/27/2020 10:18 AM Normal [facility] Comment on above: Order Comment: Evalu ate RHEUMATOID FACTOR SERUMon RA 20 IU/mL Normal 0-20 [facility] Comment on above: Performed By: #### 1 0204, 77820, 57878, 15131 #### [place] [address], [facility] S-I JOINTS MIN 4 VWSon 09-26 S-I JOINTS MIN 4 VWS [facility] Department of Radiology [address] [place] [phone] Patient Name: DEEDEE KHAN : 1990 Sex: F Age: Race: White Pt. Location: [facility] Patient Status: D Ordered Date: 09/26/2020 [...] abnormality. Electronically signed: Moises Barrera. Transcribed by: [email or web address], User Resident: Electronically Signed by: MOISES BARRERA @ 09/27/2020 10:17 AM Normal [facility] Comment on above: Order Comment: Evalu ate SEDIMENTATION RATEon 01-21-2 021 SED RATE 44 mm/hr High 0-20 [facility] Comment on above: Performed By: #### 5 6506, 96055 ####[facility] [facility] [place] [address], [facility] SJOGRENS ANTIBODIESon 2020 SS-A Negative Normal NEG,NEGATIVE, Neg [facility] Comment on above: Performed By: #### 1 0097, 34866, 39694, 25552 ####[facility] [facility] [place] [place] [address], [facility] SS-B Negative Normal NEG,NEGATIVE, Neg [facility] Comment on above: Performed By: #### 1 0097, 18510, 98037, 02065 ####[facility] [facility] [place] [address], [facility] T PROT UR Elizabeth 09-26-2020 Protein [Mass/Vol] 12.0 mg/dL Normal The [facility] Comment on above: Result Comment: Ther e are no established reference values for random urine specimens Performed By: #### 2 5706, 93026 #### [facility] [address] [facility] [place] [place] [address], [facility] TSH3 WITH REFLEX FT4on 09-26 TSH 3RD GENERATION 2.41 uIU/mL Normal 0.34-5.60 The [facility] Comment on above: Performed By: #### 3 0728, 69302, 99857, 65700, 12750 ####[facility] [facility] [place] [address], [facility] URINALYSISon 09-26-2020 Appearance (U) SL CLOUDY Abnormal CLEAR The [facility] Comment on above: Performed By: #### 1 0008 ####[facility] [facility] [place] [address], [facility] Bilirubin [Mass/Vol] Negative Normal NEGATIVE [facility] Comment on above: Performed By: #### 1 0008 ####[facility] [facility] [place] [place] [address], [facility] BLOOD Negative Normal NEGATIVE [facility] Comment on above: Performed By: #### 1 0008 ####[facility] [facility] [place] [place] [address], [place] Color (U) YELLOW Normal YELLOW [facility] Comment on above: Performed By: #### 1 0008 ####[facility] [facility] [place] [place] [address], [place] Glucose [Mass/Vol] Negative Normal NEGATIVE The [facility] Comment on above: Performed By: #### 1 0008 ####[facility] [facility] [place] [place] [address], [place] KETONE Negative Normal NEGATIVE [facility] Comment on above: Performed By: #### 1 0008 ####[facility] [facility] [place] [place] [address], [facility] LEUK CARMELO Negative Normal NEGATIVE [facility] Comment on above: Performed By: #### 1 0008 ####[facility] [facility] [place] [place] [address], [facility] MICRO NOT DONE Normal The [facility] Comment on above: Result Comment: Micr oscopics not performed on urines with negative chemical reactions unless requested in original order Performed By: #### 1 0008 ####[facility] [facility] [place] [place] [address], [facility] Nitrite Ql (U) Negative Normal NEGATIVE The [facility] Comment on above: Performed By: #### 1 0008 ####[facility] [facility] [place] [place] [address], [place] pH (Bld) 5.0 Normal 5.0-8.0 [facility] Comment on above: Performed By: #### 1 0008 ####[facility] [facility], [place] [id number] [place] [address] Protein (U) [Mass/Vol] Negative Normal NEGATIVE [facility] Comment on above: Performed By: #### 1 0008 ####[facility], [place] [id number] [place] [address] SPEC GRAV 1.023 High 1.015-1.020 [facility] Comment on above: Performed By: #### 1 0008 ####[facility] [facility].[address] VITAMIN B12on 09-26-2020 Cobalamin (Vitamin B12) [Mass/Vol] 303 pg/mL Normal 180-914 [facility] Comment on above: Result Comment: REFE RENCE RANGES: 180-914 pg/mL Normal 145-179 pg/mL Indeterminate <145 pg/mL Deficient Performed By: #### 3 0728, 45883, 48331, 35771, 05264 ####[facility] VITAMIN D 25-HYDROXYon 09-26 VITAMIN D 25-OH 33.7 ng/mL Normal 30.0-80.0 [facility] Comment on above: Result Comment: >80. 0 Toxicity possible Performed By: #### 3 0728, 85575, 51774, 68919, 86767 ####[facility] Vital Signs Date Time Vital Sign Value Performing Clinician Faci lity 10-21-2023 09:52-0500 Body height 162.6 cm Neal Christianson MD Work Phone: [facility] 10-21-2023 09:52-0500 Body mass index (BMI) [Ratio] 37.57 kg/m2 Neal Christianson MD Work Phone: [facility] 10-21-2023 09:52-0500 Body weight 99.34 kg Neal Christianson MD Work Phone: [facility] [employer] [facility] 10-21-2023 09:52-0500 Diastolic blood pressure 78 mm[Hg] Neal Christianson MD Work Phone: [facility] 10-21-2023 09:52-0500 Respiratory rate 18 /min Neal Christianson MD Work Phone: [facility] 10-21-2023 09:52-0500 Systolic blood pressure 138 mm[Hg] Neal Christianson MD Work Phone: [facility] 09-20-2023 13:40-0500 Body height 162.6 cm Neal Christianson MD Work Phone: [facility] 09-20-2023 13:40-0500 Body mass index (BMI) [Ratio] 36.89 kg/m2 Neal Christianson MD Work Phone: [facility] [employer] [facility] 09-20-2023 13:40-0500 Body weight 97.52 kg Neal Christianson MD Work Phone: [facility] 09-20-2023 13:40-0500 Diastolic blood pressure 74 mm[Hg] Neal Christianson MD Work Phone: [facility] 09-20-2023 13:40-0500 Respiratory rate 18 /min Neal Christianson MD Work Phone: [facility] 09-20-2023 13:40-0500 Systolic blood pressure 134 mm[Hg] Neal Christianson MD Work Phone: [facility] Encounters Encounter Date Encounter Type Care Provider Facility Start: 11-17-2023 End: 11-17-2023 ambulatory DARIEN MONTANA Not Available Start: 10-21-2023 End: 10-21-2023 ambulatory NEAL CHRISTIANSON [facility] Start: 10-21-2023 End: 10-21-2023 Office outpatient visit 40 minutes Neal Christianson MD Work Phone: [facility] Comment on above: Fibromyalgia (Primar y Dx); Ulcerative pancolitis without complication (CMS-HCC); Polyarthralgia; ESR raised; CRP elevated Start: 10-11-2023 End: 10-11-2023 ambulatory ZE ABARCA Not Available Start: 10-10-2023 Chart abstracting Ze rivera MD Work Phone: [facility] Start: 09-20-2023 End: 09-21-2023 ambulatory [facility] Start: 09-20-2023 End: 09-20-2023 ambulatory [facility] Start: 09-20-2023 End: 09-20-2023 Office outpatient visit 40 minutes [facility] Christians[facility] Comment on above: Iron [...] Facility:[facility] Start: 12-25-2021 End: 12-25-[address] CRALO BARBA Facility:[facility] Start: 12-22-2021 End: 12-22-2021 ambulatory [...] Via Natural or Artificial Opening DR CARLO BARAB Start: 01-01-2022 Introduction of Othe r Hormone into Peripheral Vein, Percutaneous Approach DR CARLO BARBA Plan of Treatment Date Care Activity Detail Author Start: 10-21-2024 Adult BMI Screening Adult BMI Screen ing [facility] Start: 10-21-2024 Tobacco Screening Tobacco Screening [facility] Start: 09-20-2024 Adult BMI Screening Adult BMI Screen ing [facility] Start: 04-26-2024 Tobacco Screening Tobacco Screening [facility] Start: 02-23-2024 End: 02-23-2024 Patient encounter procedure 02/23/2024 1:15 PM EDT Office Visit [facility] [address] [address] Neal Christianson MD [address] [address] [facility] Start: 01-05-2024 End: 01-05-2024 Patient encounter procedure 01/05/2024 1:00 PM EDT Office Visit [facility] [address] [place] [address] Morris Ramsey MD [address] [place] [address] [facility] Start: 10-21-2023 End: 10-21-2023 Patient encounter procedure 10/21/2023 9:45 AM EST Office Visit [facility] [address] [id number] Neal Christianson MD [address] [address] [facility] Start: 10-11-2023 End: 10-11-2023 Patient encounter procedure 10/11/2023 9:20 AM EST [facility] [address] [facility] [address] [place] [address] Ze Abarca MD 6766 [facility] [address] [address] [facility] Start: 09-20-2023 End: 09-20-2024 Endomysial antibody, IgA titer Endomysial antibody, IgA titer Lab Routine Chronic diarrhea Expected: 09/20/2023 (Approximate), Expires: 09/20/2024 [facility] Comment on above: Expected: 09/20/2023 (Approximate), Expires: 09/20/2024 Start: 09-20-2023 End: 09-20-2024 MR Hand - right WO and W contrast IV MR hand right with and without contrast Imaging Routine ESR raised Polyarthralgia RAGHAVENDRA positive Expected: 09/20/2023, Expires: 09/20/2024 [facility] Work Phone: Comment on above: Expected: 09/20/2023 , Expires: 09/20/2024 Start: 09-20-2023 End: 09-20-2024 Tissue transglutaminase, IgA & IgG [facility] Comment on above: Expected: 09/20/2023 (Approximate), Expires: 09/20/2024 Start: 09-20-2023 End: 09-20-2024 XR Lumbar spine 2 or 3 Views [facility] Comment on above: Expected: 09/20/2023 , Expires: 09/20/2024 Start: 09-20-2023 End: 09-20-2024 XR Sacroiliac Joint 3 Views [facility] Comment on above: Expected: 09/20/2023 , Expires: 09/20/2024 Start: 05-07-2023 Influenza vaccination [facility] Start: 02-11-2020 Screening for malignant neoplasm of cervix [facility] Start: 2011 Screening for malignant neoplasm of cervix Pap Smear [facility] Start: 02-11-2008 Adult BMI Follow Up Plan Adult BMI Follow Up Plan [facility] Start: 2002 Depression Screening Depression [facility] Start: 2001 DTaP,Tdap and Td Vaccines (6 - Tdap) DTaP,Tdap and Td Vaccines (6 - Tdap) [facility] Endomysium Ab [Presence] in Serum Endomysial antibody, IgA titer Lab Routine Chronic diarrhea 09/20/2023 2:36 PM EST [facility] End: 09-20-2024 IGG subclasses IGG subclasses Lab Routine ESR raised 1 Occurrences starting 09/20/2023 until 09/20/2024 [facility] Comment on above: 1 Occurrences starti ng 09/20/2023 until 09/20/2024 IGG subclasses IGG subclasses L ab Routine ESR raised 09/20/2023 2:36 PM EST [facility] Payers Date Payer Category Payer Private Health Insurance [employer]ETNA A ETNA POS II [id number] 2022-Present [phone] [address] [place] [address] [id number] 2022 Private Health Insurance [id number] 2019 Medicaid [facility] MEDICAID [place] MED[place] [id number] 2019-Present [address] [place] [address] [id number] 2016 Unknown [id number] 1990 Unknown [id number] 2.16.840.1.077481.3.579.2. 593 1990 Unknown [id number] 2.16.840.1.936450.3.579.2. 593 1990 Unknown [id number] 2.16.840.1.475856.3.579.2. 593 1990 Unknown [id number] 2.16.840.1.688687.3.579.2. 593 1990 Unknown [id number] 2.16.840.1.146598.3.579.2. 593 1990 Unknown [id number] 2.16.840.1.693315.3.579.2. 593 1990 Unknown [id number] 2.16.840.1.349905.3.579.2. 593 1990 Unknown [id number] 2.16.840.1.062373.3.579.2. 593 1990 Unknown [id number] 2.16.840.1.199975.3.579.2. 593 1990 Unknown [id number] 2.16.840.1.660725.3.579.2. 593 1990 Unknown [id number] 2.16.840.1.102245.3.579.2. 593 1990 Unknown [id number] 2.16.840.1.154617.3.579.2. 593 1990 Unknown [id number] 2.16.840.1.293302.3.579.2. 59 1990 Unknown [id number] 2.16.840.1.400351.3.579.2. 593 1990 Unknown [id number] 2.16.840.1.161524.3.579.2. 59 1990 Unknown [id number] 2.16.840.1.802143.3.579.2. 593 1990 Unknown [id number] 2.16.840.1.231257.3.579.2. 1990 Unknown [id number] 2.16.840.1.019464.3.579.2. 59 1990 Unknown [id number] 2.16.840.1.016099.3.579.2. 1990 Unknown [id number] 2.16.840.1.044862.3.579.2. 59 1990 Unknown [id number] 2.16.840.1.828278.3.579.2. 1990 Unknown [id number] 2.16.840.1.596760.3.579.2. 59 1990 Unknown [id number] 2.16.840.1.688747.3.579.2. 59 1990 Unknown [id number] 2.16.840.1.870632.3.579.2. 59 1990 Unknown [id number] 2.16.840.1.747712.3.579.2. 59 1990 Unknown [id number] 2.16.840.1.147169.3.579.2. 593 1990 Unknown [id number] 2.16.840.1.632073.3.579.2. 59 1990 Unknown [id number] 2.16.840.1.525459.3.579.2. 593 1990 Unknown [id number] 2.16.840.1.221211.3.579.2. 593 1990 Unknown [id number] 2.16.840.1.686761.3.579.2. 593 1990 Unknown [id number] 2.16.840.1.654607.3.579.2. 593 1990 Unknown [id number] 2.16.840.1.630127.3.579.2. 593 1990 Unknown [id number] 2.16.840.1.699883.3.579.2. 593 1990 Unknown [id number] 2.16.840.1.081050.3.579.2. 59 1990 Unknown [id number] 2.16.840.1.635422.3.579.2. 59 1990 Unknown [id number] 2.16.840.1.852360.3.579.2. 593 1990 Unknown [id number] 2.16.840.1.927669.3.579.2. 1285 1990 Unknown [id number] 2.16.840.1.887810.3.579.2. 128 1990 Unknown [id number] 2.16.840.1.956466.3.579.2. 128 1990 Unknown [id number] 2.16.840.1.372829.3.579.2. 128 1990 Unknown [id number] 2.16.840.1.895862.3.579.2. 1285 1990 Unknown [id number] 2.16.840.1.075562.3.579.2. 1259 1990 Unknown [id number] 2.16.840.1.440363.3.579.2. 1259 1990 Unknown [id number] 2.16.840.1.856054.3.579.2. 1259 1959 Self-pay [id number] 1959 Unknown [id number] Unknown [id number] 2.16.840.1.849933.3.579.2. 593 Social History Date Type Detail Facility Start: 06-09-2021 End: 04-28-2023 Tobacco smoking status NHIS Ex-smoker [facility] History of tobacco use Current smoker [facility] Start: 06-09-2021 End: 04-28-2023 Tobacco use and exposure Smokeless tobacco non-user [facility] Start: 09-20-2023 End: 10-21-2023 Alcohol intake Ex-drinker (finding) [facility] Start: 10-17-2020 End: 09-20-2023 History of Social function [facility] Start: 10-17-2020 End: 09-20-2023 Tobacco use panel [facility] Housing Instability Unknown [facility] Start: 1990 Sex Assigned At Not on file P [facility] History of tobacco use Cigarette Smoker [facility] History of Present illness Narrative 10-21-2023 Neal Christianson MD - 10/21/2023 9:45 AM EST Note Date & Type Note Facility 10-21-2023 History of Present illness Narrative Images from the original note were not included. [address] [address] Date of Service: 10/21/2023 Subjective: Deedee Reynolds [...] Refill: 5 2. Ulcerative pancolitis without complication ([facility]) - [facility] [place], [place]; Future 3. Polyarthralgia 4. ESR raised [...] clinic Return to clinic in January. Total usfe-dz-moje time was 40 minutes with more than [...] or corrected. Thank you for your understanding. [facility] Rhe[facility] Dr. Neal Christianson MD [address] [facility], [address] [place] [address] Office: [phone] documented in this encounter [facility] Reason for referral (narrative) 10-18-2023 Consultation (Routine) - Pending Review Note Date & Type Note Facility 10-18-2023 Reason for referr al (narrative) Specialty Diagnoses / Procedures Referred By Elaine t Referred To Contact Gastroenterology Diagnoses Ulcerative pancolitis without complication ([facility]) Neal Christianson MD [address] [facility] [address] [place] [address] Krissy Key MD [address] [facility] [place] [address] Referral ID Status Reason Start Date Expiration Date Visits Requested Visits Authorized [id number] Pending Review Specialty Services Required 10/21/2023 10/20/2024 1 1 [facility] History of Present illness Narrative 09-20-2023 Neal Christianson MD - 09/20/2023 1:45 PM EST Note Date & Type Note Facility 09-20-2023 History of Present illness Narrative Images from the original note were not included. [address] [facility] [address] [facility] [address] Date of Service: 09/20/2023 Subjective: Deedee Reynolds [...] to her on the advice of her it support manager, she was given steroid previously during [...] anemia, unspecified iron deficiency anemia type - [facility] [place], [place]; Future 3. ESR raised - Erythrocyte Sedimentation Rate (ESR); Future - C-reactive protein; Future - MR hand right with and without contrast; Future - Immunoglobulins; Future - IGG subclasses; Future 4. Chronic diarrhea - [facility] [place], [place]; Future - Tissue transglutaminase, IgA & [...] exam. Return to clinic 1 month. Total kblj-ny-usna time was 450 minutes with more than [...] or corrected. Thank you for your understanding. [facility] Rheumat[facility] Dr. Neal Christianson MD [address] [facility], [address] [place] [id number] Office: [phone] documented in this encounter [facility] Evaluation note Note Date & Type Note Facility Evaluation note Diagnosis Iron deficiency anemia, unspecified iron deficiency anemia type- Primary Fibromyalgia Unspecified myalgia and myositis ESR raised Elevated sedimentation rate Chronic diarrhea Diarrhea Chronic low back pain without sciatica, unspecified back pain laterality Polyarthralgia Pain in joint, multiple sites RAGHAVENDRA positive documented in this encounter [facility] Evaluation note Note Date & Type Note Facility Evaluation note Diagnosis Fibromyalgia- Primary Unspecified myalgia and myositis Ulcerative pancolitis without complication ([facility]) Polyarthralgia Pain in joint, multiple sites ESR [...] type Chronic diarrhea Neal Christianson MD [address] [address] Krissy Key MD [address] [address] Referral ID Status Reason Start Date Expiration Date Visits Requested Visits Authorized [id number] Pending Review Specialty Services Required 09/20/2023 09/19/2024 1 1 * Diagnostic Imaging (Routine) - Pending Review Specialty Diagnoses / Procedures Referred By Contac t Referred To Contact Radiology Diagnoses ESR raised Polyarthralgia RAGHAVENDRA positive Procedures MR hand right with and without contrast Neal Christianson MD [address] [address] Referral ID Status Reason Start Date Expiration Date V isits Requested Visits Authorized [id number] Pending Review 09/20/2023 09/19/2024 1 1 [facility] [...] section and content) DATE CREATED AUTHOR 09/30/2020 [facility] DATE CREATED AUTHOR AUTHOR'S ORGANIZ ATION 07/07/2022 [facility] DATE CREATED AUTHOR AUTHOR'S ORGANIZ ATION 10/23/2023 [facility] DATE CREATED AUTHOR AUTHOR'S ORGANIZ ATION 11/18/2023 [facility] d[facility] Specialists [facility] DATE CREATED AUTHOR AUTHOR'S ORGANIZ ATION 01/06/2024 [facility] Care Teams (unrecognized sec tion and content) Applications Intern Relationship Specialty Start Date End Date Morris Ramsey MD [address] [place] [address] PCP - General Family Medicine 09/30/21 Applications Intern Relationship Specialty Start Date End Date Morris Ramsey MD PCP - General Family Medicine 02/23/23 Applications Intern Relationship Specialty Start Date End Date Morris Ramsey MD [address] [place] [address] PCP - General Family Medicine 09/30/21 FOR [...] BE BASED ON THE PRIMARY CLINICAL RECORDS. [facility]. provides no warranty or guarantee of the accuracy or completeness of information in this document.
[2024-03-29 15:25] LABS: Percent Iron Saturation 16.3 %
[2024-03-30 04:07] LABS: Ferritin 128 ng/mL (15-150); Vitamin B12 467 pg/mL (232-1245)
[2024-03-30 07:09] LABS: Vitamin D, 25-Hydroxy 19.1 ng/mL (30.0-100.0)
== END 2024-03-29 14:51 | disposition home or self-care (01) ==
LOC: LAB 14:51
PROVIDERS: PCP Family Medicine; Visit Provider Internal Medicine Hematology & Oncology
DX: D64.9 Anemia, unspecified (principal); D50.9 Iron deficiency anemia, unspecified; K90.9 Intestinal malabsorption, unspecified
CPT/HCPCS: 36415; 82306; 82607; 82728; 83540; 83550; 85025

== ENCOUNTER 2024-04-18 07:13 | Outpatient (RCR) | payer OTHER, SELFPAY ==
[2024-04-17 12:54] LABS: Basophils Percent Auto 0.3 % (0.2-2.0); Eosinophils Percent Auto 0.6 % (0.9-7.0); Hematocrit 42.1 % (36.0-48.0); Hemoglobin 13.5 g/dL (12.0-16.0); Immature Granulocytes Abs Auto 0.02 10^3/uL (0.00-0.03); Immature Granulocytes Pct Auto 0.3 % (0.0-0.5); Lymphocytes Absolute Auto 1.9 10^3/uL (1.2-3.8); Lymphocytes Percent Auto 29.4 % (20.5-60.0); Mean Corpuscular HGB Conc 32.1 g/dL (29.9-35.2); Mean Corpuscular Hemoglobin 26.6 pg (26.7-34.0); Mean Corpuscular Volume 82.9 fL (81.0-99.0); Mean Platelet Volume 10.5 fL (9.5-13.5); Monocytes Absolute Auto 0.4 10^3/uL (0.3-0.8); Monocytes Percent Auto 6.1 % (1.7-12.0); Neutrophils Absolute Auto 4.2 10^3/uL (1.4-6.5); Neutrophils Percent Auto 63.3 % (43.0-75.0); Platelet Count 336 10^3/uL (150-450); Red Blood Count 5.08 10^6/uL (4.20-5.40); Red Cell Distribution Width 13.7 % (11.0-15.0); White Blood Count 6.6 10^3/uL (4.0-11.0)
[2024-04-17 14:30] LABS: Percent Iron Saturation 13.3 %
== END 2024-05-06 23:59 | disposition home or self-care (01) ==
LOC: HEMC 07:13
PROVIDERS: PCP Family Medicine; Visit Provider Internal Medicine Hematology & Oncology
DX: D50.9 Iron deficiency anemia, unspecified (principal); K90.9 Intestinal malabsorption, unspecified; D64.9 Anemia, unspecified; M06.9 Rheumatoid arthritis, unspecified; E55.9 Vitamin D deficiency, unspecified; G62.9 Polyneuropathy, unspecified
CPT/HCPCS: 36415; 82306; 82607; 82728; 83540; 83550; 85025; G0463

== ENCOUNTER 2024-09-11 13:05 | Outpatient (OUT) | payer OTHER, SELFPAY ==
[2024-09-11 13:34] LABS: Basophils Percent Auto 0.4 % (0.2-2.0); Eosinophils Percent Auto 0.6 % (0.9-7.0); Hematocrit 43.7 % (36.0-48.0); Hemoglobin 14.1 g/dL (12.0-16.0); Immature Granulocytes Abs Auto 0.01 10^3/uL (0.00-0.03); Immature Granulocytes Pct Auto 0.1 % (0.0-0.5); Lymphocytes Absolute Auto 2.2 10^3/uL (1.2-3.8); Lymphocytes Percent Auto 30.9 % (20.5-60.0); Mean Corpuscular HGB Conc 32.3 g/dL (29.9-35.2); Mean Corpuscular Hemoglobin 26.3 pg (26.7-34.0); Mean Corpuscular Volume 81.4 fL (81.0-99.0); Mean Platelet Volume 10.2 fL (9.5-13.5); Monocytes Absolute Auto 0.5 10^3/uL (0.3-0.8); Monocytes Percent Auto 7.2 % (1.7-12.0); Neutrophils Absolute Auto 4.4 10^3/uL (1.4-6.5); Neutrophils Percent Auto 60.8 % (43.0-75.0); Platelet Count 332 10^3/uL (150-450); Red Blood Count 5.37 10^6/uL (4.20-5.40); Red Cell Distribution Width 13.7 % (11.0-15.0); White Blood Count 7.3 10^3/uL (4.0-11.0)
[2024-09-11 14:33] LABS: Percent Iron Saturation 12.8 %
[2024-09-12 07:18] LABS: Vitamin B12 533 pg/mL (232-1245)
== END 2024-09-11 13:06 | disposition home or self-care (01) ==
PROVIDERS: PCP Family Medicine; Visit Provider Internal Medicine Hematology & Oncology
DX: D64.9 Anemia, unspecified (principal); D50.9 Iron deficiency anemia, unspecified; K90.9 Intestinal malabsorption, unspecified
CPT/HCPCS: 36415; 82306; 82607; 82728; 83540; 83550; 85025

== ENCOUNTER 2024-09-12 07:44 | Outpatient (RCR) | payer OTHER, SELFPAY | END 2024-09-13 09:23 | disposition home or self-care (01) | LOC: HEMC 07:44 | PROVIDERS: PCP Family Medicine; Visit Provider Internal Medicine Hematology & Oncology | DX: D64.9 Anemia, unspecified (principal); D50.9 Iron deficiency anemia, unspecified; K90.9 Intestinal malabsorption, unspecified; Z87.891 Personal history of nicotine dependence; M06.9 Rheumatoid arthritis, unspecified; G62.9 Polyneuropathy, unspecified | CPT/HCPCS: G0463 ==

== ENCOUNTER 2024-11-16 07:38 | Outpatient (RCR) | payer OTHER, SELFPAY ==
[2024-11-16 12:43] LABS: Basophils Percent Auto 0.3 % (0.2-2.0); Eosinophils Percent Auto 0.5 % (0.9-7.0); Hemoglobin 14.2 g/dL (12.0-16.0); Immature Granulocytes Abs Auto 0.01 10^3/uL (0.00-0.03); Immature Granulocytes Pct Auto 0.2 % (0.0-0.5); Lymphocytes Absolute Auto 1.8 10^3/uL (1.2-3.8); Lymphocytes Percent Auto 27.2 % (20.5-60.0); Mean Corpuscular Hemoglobin 26.7 pg (26.7-34.0); Mean Platelet Volume 10.6 fL (9.5-13.5); Monocytes Absolute Auto 0.4 10^3/uL (0.3-0.8); Monocytes Percent Auto 6.5 % (1.7-12.0); Neutrophils Absolute Auto 4.2 10^3/uL (1.4-6.5); Neutrophils Percent Auto 65.3 % (43.0-75.0); Platelet Count 324 10^3/uL (150-450); Red Blood Count 5.31 10^6/uL (4.20-5.40); Red Cell Distribution Width 13.7 % (11.0-15.0); White Blood Count 6.4 10^3/uL (4.0-11.0)
[2024-11-16 12:53] LABS: Anion Gap 13.5; BUN Creatinine Ratio 3.9; Carbon Dioxide 26.2 mmol/L (21.0-32.0); Chloride 104 mmol/L (98-107); Estimated GFR (African America >60 (>=60 mL/min/1.73m^2); Estimated GFR (Non-African Ame >60 (>=60 mL/min/1.73m^2); Glucose 93 mg/dL (74-106); Potassium 3.7 mmol/L (3.5-5.1); Sodium 140 mmol/L (136-145)
[2024-11-16 13:01] LABS: Percent Iron Saturation 23.6 %
[2024-11-17 04:07] LABS: Vitamin B12 548 pg/mL (232-1245)
== END 2024-11-17 08:01 | disposition home or self-care (01) ==
LOC: HEMC 07:38
PROVIDERS: PCP Family Medicine; Visit Provider Internal Medicine Hematology & Oncology
DX: D50.9 Iron deficiency anemia, unspecified (principal); K90.9 Intestinal malabsorption, unspecified; D64.9 Anemia, unspecified; M62.9 Disorder of muscle, unspecified; M15.0 Primary generalized (osteo)arthritis; R76.0 Raised antibody titer; M79.646 Pain in unspecified finger(s); E55.9 Vitamin D deficiency, unspecified; E61.2 Magnesium deficiency; M85.9 Disorder of bone density and structure, unspecified; M45.A6 Non-radiographic axial spondyloarthritis of lumbar region; Z11.9 Encounter for screening for infectious and parasitic diseases, unspecified; Z13.29 Encounter for screening for other suspected endocrine disorder; Z87.891 Personal history of nicotine dependence; M06.9 Rheumatoid arthritis, unspecified; G62.9 Polyneuropathy, unspecified; M79.7 Fibromyalgia
CPT/HCPCS: 36415; 80048; 82306; 82607; 82728; 83540; 83550; 85025; G0463

== ENCOUNTER 2025-03-27 07:51 | Outpatient (RCR) | payer OTHER, SELFPAY ==
[2025-03-26 10:39] LABS: Hematocrit 43.3 % (36.0-48.0); Hemoglobin 14.0 g/dL (12.0-16.0); Immature Granulocytes Abs Auto 0.01 10^3/uL (0.00-0.03); Immature Granulocytes Pct Auto 0.2 % (0.0-0.5); Lymphocytes Absolute Auto 1.9 10^3/uL (1.2-3.8); Mean Corpuscular HGB Conc 32.3 g/dL (29.9-35.2); Mean Corpuscular Hemoglobin 26.1 pg (26.7-34.0); Mean Corpuscular Volume 80.6 fL (81.0-99.0); Platelet Count 340 10^3/uL (150-450); Red Blood Count 5.37 10^6/uL (4.20-5.40); White Blood Count 5.9 10^3/uL (4.0-11.0)
[2025-03-26 11:43] LABS: Iron 40.0 ug/dL (50.0-170.0); Percent Iron Saturation 12.7 %; Total Iron Binding Capacity 315.0 ug/dL (250.0-450.0)
[2025-03-26 11:49] LABS: Alanine Aminotransferase 24 U/L (14-59); Albumin Globulin Ratio 0.9; Albumin Level 3.6 g/dL (3.4-5.0); Alkaline Phosphatase 88 U/L (46-116); Anion Gap 15.1; Aspartate Amino Transferase 11 U/L (15-37); Blood Urea Nitrogen 11.0 mg/dL (7.0-18.0); Calcium 9.6 mg/dL (8.5-10.1); Carbon Dioxide 26.3 mmol/L (21.0-32.0); Chloride 104 mmol/L (98-107); Estimated GFR (African America >60 (>=60 mL/min/1.73m^2); Estimated GFR (Non-African Ame >60 (>=60 mL/min/1.73m^2); Globulin 4.1 g/dL; Glucose 89 mg/dL (74-106); Potassium 4.4 mmol/L (3.5-5.1); Sodium 141 mmol/L (136-145); Total Protein 7.7 g/dL (6.4-8.2)
[2025-03-27 04:07] LABS: Vitamin B12 599 pg/mL (232-1245)
== END 2025-04-05 23:59 | disposition home or self-care (01) ==
LOC: HEMC 07:51
PROVIDERS: PCP Family Medicine; Visit Provider Internal Medicine Hematology & Oncology
DX: D64.9 Anemia, unspecified (principal); D50.9 Iron deficiency anemia, unspecified; K90.9 Intestinal malabsorption, unspecified; M62.9 Disorder of muscle, unspecified; M15.0 Primary generalized (osteo)arthritis; R76.0 Raised antibody titer; M79.646 Pain in unspecified finger(s); E55.9 Vitamin D deficiency, unspecified; Z11.7 Encounter for testing for latent tuberculosis infection; E61.2 Magnesium deficiency; Z13.29 Encounter for screening for other suspected endocrine disorder; Z11.9 Encounter for screening for infectious and parasitic diseases, unspecified; M85.9 Disorder of bone density and structure, unspecified; M45.A6 Non-radiographic axial spondyloarthritis of lumbar region; Z87.891 Personal history of nicotine dependence
CPT/HCPCS: 36415; 80053; 82306; 82607; 82728; 83540; 83550; 85025; G0463

== ENCOUNTER 2025-04-06 07:37 | Outpatient (RCR) | payer OTHER, SELFPAY ==
[2025-04-06 09:22] VITALS: BP 130/70; PULSE 73; TEMP 36.7; O2SAT 97
[2025-04-06] MEDS: diphenhydrAMINE HCL 25 MG in 0.9 % SODIUM CHLORIDE 100 ML 301.5 MG IV (09:26)
[2025-04-06] MEDS: ACETAMINOPHEN 500 MG TABLET 1000 MG PO (09:26)
[2025-04-06] MEDS: HYDROCORTISONE SODIUM SUCC PF 100 MG/2 ML VIAL IV (09:26)
[2025-04-06] MEDS: IRON DEXTRAN COMPLEX 100 MG/2 ML VIAL 25 MG IV (10:00)
[2025-04-06 10:09] LABS: Thyroid Stimulating Hormone 1.483 uIU/mL (0.358-3.740)
[2025-04-06] MEDS: SODIUM CHLORIDE 0.9% IV (11:05)
[2025-04-06] MEDS: IRON DEXTRAN COMPLEX IV (11:05)
[2025-04-06 14:00] VITALS: BP 116/76; PULSE 76; TEMP 36.6; O2SAT 98
--- NOTE | 2025-04-06 14:08 | PC.NURSE ---
1005 test dose of iron given IVP. instructed on notfiying staff for any itching shortness of breath or wheezing. patient vebalizes understanding 1045 no s/s of reaction. pharmacy notified. patient eats 100% of meal. 1100 iron infusion initiated. educated on s/s of reaction and to notify staff. verbalizes understanding 1230 tolerates infusion without any issues 1300 resting reclined with eyes shut. respirations with ease. 1400 iron infused line flushed with ns
== END 2025-05-06 23:59 | disposition home or self-care (01) ==
LOC: HEMC 07:37
PROVIDERS: PCP Family Medicine; Visit Provider Internal Medicine Hematology & Oncology
DX: D50.9 Iron deficiency anemia, unspecified (principal); D64.9 Anemia, unspecified; K90.9 Intestinal malabsorption, unspecified; M62.9 Disorder of muscle, unspecified; M15.0 Primary generalized (osteo)arthritis; R76.0 Raised antibody titer; M79.646 Pain in unspecified finger(s); E55.9 Vitamin D deficiency, unspecified; Z11.7 Encounter for testing for latent tuberculosis infection; E61.2 Magnesium deficiency; Z13.29 Encounter for screening for other suspected endocrine disorder; Z11.9 Encounter for screening for infectious and parasitic diseases, unspecified; M85.9 Disorder of bone density and structure, unspecified; M45.A6 Non-radiographic axial spondyloarthritis of lumbar region
CPT/HCPCS: 36415; 84439; 84443; 86800; 96365; 96366; 96367; 96375; 96376; J1200; J1720; J1750

== ENCOUNTER 2025-05-22 08:58 | Outpatient (RCR) | payer OTHER, SELFPAY ==
[2025-05-21 13:36] LABS: Hematocrit 41.4 % (36.0-48.0); Hemoglobin 13.5 g/dL (12.0-16.0); Immature Granulocytes Abs Auto 0.02 10^3/uL (0.00-0.03); Immature Granulocytes Pct Auto 0.3 % (0.0-0.5); Lymphocytes Absolute Auto 2.2 10^3/uL (1.2-3.8); Mean Corpuscular HGB Conc 32.6 g/dL (29.9-35.2); Mean Corpuscular Hemoglobin 26.7 pg (26.7-34.0); Mean Corpuscular Volume 82.0 fL (81.0-99.0); Platelet Count 322 10^3/uL (150-450); Red Blood Count 5.05 10^6/uL (4.20-5.40); White Blood Count 6.6 10^3/uL (4.0-11.0)
[2025-05-21 14:42] LABS: Alanine Aminotransferase 27 U/L (14-59); Albumin Globulin Ratio 1.1; Albumin Level 3.8 g/dL (3.4-5.0); Alkaline Phosphatase 78 U/L (46-116); Anion Gap 11.3; Aspartate Amino Transferase 12 U/L (15-37); Blood Urea Nitrogen 6.0 mg/dL (7.0-18.0); Calcium 8.8 mg/dL (8.5-10.1); Carbon Dioxide 26.7 mmol/L (21.0-32.0); Chloride 107 mmol/L (98-107); Estimated GFR (African America >60 (>=60 mL/min/1.73m^2); Estimated GFR (Non-African Ame >60 (>=60 mL/min/1.73m^2); Globulin 3.5 g/dL; Glucose 105 mg/dL (74-106); Potassium 4.0 mmol/L (3.5-5.1); Sodium 141 mmol/L (136-145); Total Protein 7.3 g/dL (6.4-8.2)
[2025-05-21 14:47] LABS: Iron 49.0 ug/dL (50.0-170.0); Percent Iron Saturation 20.5 %; Total Iron Binding Capacity 239.0 ug/dL (250.0-450.0)
[2025-05-21 15:03] LABS: Ferritin 145.0 ng/mL (8.0-252.0)
[2025-05-25 08:09] LABS: FSH 4.4 mIU/mL (.)
== END 2025-06-05 23:59 | disposition home or self-care (01) ==
LOC: HEMC 08:58
PROVIDERS: PCP Family Medicine; Visit Provider Internal Medicine Hematology & Oncology
DX: D50.9 Iron deficiency anemia, unspecified (principal); D64.9 Anemia, unspecified; K90.9 Intestinal malabsorption, unspecified; M62.9 Disorder of muscle, unspecified; M15.0 Primary generalized (osteo)arthritis; R76.0 Raised antibody titer; M79.646 Pain in unspecified finger(s); E55.9 Vitamin D deficiency, unspecified; Z11.7 Encounter for testing for latent tuberculosis infection; E61.2 Magnesium deficiency; Z13.29 Encounter for screening for other suspected endocrine disorder; Z11.9 Encounter for screening for infectious and parasitic diseases, unspecified; M85.9 Disorder of bone density and structure, unspecified; M45.A6 Non-radiographic axial spondyloarthritis of lumbar region; Z87.891 Personal history of nicotine dependence; M06.9 Rheumatoid arthritis, unspecified; M79.7 Fibromyalgia; G62.9 Polyneuropathy, unspecified
CPT/HCPCS: 36415; 80053; 82533; 82627; 82670; 82728; 83001; 83002; 83540; 83550; 85025; G0463

== ENCOUNTER 2025-05-24 08:53 | Outpatient (OUT) | payer OTHER, SELFPAY ==
--- NOTE | 2025-05-24 08:56 | US_ITS ---
The [address] [address] Patient Name: JE CANELA MRN: [id number] date: 1990 Sex: F Assigned Patient Location: US Current Patient Location: US Accession/Order Number: [id number] Exam Date: 05/24/2025 09:00 Report Date: 05/24/2025 09:42 At the request of: PAT PALOMO MD Procedure: US thyroid THYROID ULTRASOUND CLINICAL DATA: Lump at right neck while swallowing for the past 2 weeks. COMPARISON: None The right thyroid lobe measures 5.6 x 1.9 x 1.0 cm. The left lobe measures 4.9 x 1.7 x 1.2 cm. The isthmus measures 3 - 4 mm. Thyroid echotexture is slightly heterogeneous. There is a tiny colloid cyst at the midpole on the right measuring 2 to 3 mm in size. No other thyroid nodularity is seen. The finance analyst reported no suspicious findings at right neck where patient feels lump when swallowing. US/US thyroid IMPRESSION: TINY RIGHT COLLOID CYST. NO OTHER SIGNIFICANT FINDINGS. Impression dictated by: Sarah Bliss M.D. 05/24/2025 9:42 AM Dictation Location: [place] [address] Electronically authenticated by: [id number] Y Date: 05/24/2025 09:42
--- OUTSIDE RECORDS SUMMARY | 2025-05-24 08:57 | XMS_ITS | Encounter Summary ---
Author Organization [facility] Address [address] [facility] [place] [address] Care Team Providers Care Alliances Consultant Name Role Phone Morris Reynolds MD Primary Care Provider [phone] Encounter Details Date Type Department Care Team (Late st Contact Info) Description 07/01/2023 Abstract [facility] [address], [place] [address] Jose Abarca MD [address], [place] [address] Social History Tobacco Use Types Packs/Day Years Used Date Smoking Tobacco: Former Cigarettes Smokeless Tobacco: Never Alcohol Use Standard Drinks/Week Comments Not Currently 0 (1 standard drink = 0.6 oz pur e alcohol) Comments Unknown Sex and Gender Information Value Date Recorded Sex Assigned at Not on file Legal Sex Female 6:38 PM EDT Gender Identity Not on file Sexual Orientation Not on file documented as of this encounter Plan of Treatment Not on file documented as of this encounter Visit Diagnoses Not on filedocumented in this encounter Care Teams Alliances Consultant Relationship Specialty Start Date End Date Morris Reynolds MD PCP - General Family Medicine 02/23/23 documented as of this encounter
--- OUTSIDE RECORDS SUMMARY | 2025-05-24 08:57 | XMS_ITS | Clinical Summary ---
Author Organization [facility] Address [id number] [address] [place] [address] Care Team Providers Care Trip Follower Name Role Phone Morris Reynolds MD Primary Care Provider [phone] Allergies No known active allergies Medications LORazepam (ATIVAN) 0.5 mg tablet Take 0.5 mg by mouth every 6 (six) hours as needed for anxiety. Active CITALOPRAM HYDROBROMIDE (CITALOPRAM ORAL) Take by mouth. Activ e ibuprofen (ADVIL,MOTRIN) 800 mg tablet Take 1 tablet (800 mg total) by mouth every 8 (eight) hours as needed for pain for up to 30 doses. 30 tablet 8 Active Additional Information Patient not taking.Reported on 12/04/2022 oxyCODONE-acetam inophen (PERCOCET) 10-325 mg per tablet Take 1 tablet by mouth every 4 (four) hours as needed for pain. Active sertraline (ZOLOFT) 100 mg tablet Take 1 tablet (100 mg total) by mouth in the morning. 1 Active omeprazole (PriLOSEC) 10 mg capsule Take 1 capsule (10 mg total) by mouth in the morning. Active pantoprazole (PROTONIX) 20 mg EC tablet Take 1 tablet (20 mg total) by mouth in the morning. Active ferrous sulfate 325 (65 FE) mg tablet Take 1 tablet (325 mg total) by mouth daily with breakfast. Active pyridoxine, vitamin B6, (vitamin B-6) 100 mg tablet Take 1 tablet (100 mg total) by mouth in the morning. Active 25/iron fum/folic/dha (-1 ORAL) Take by mouth. Activ e amitriptyline (ELAVIL) 25 mg tabletIndication s:Fibromyalgia take 1 capsule by mouth AT 8PM 30 tablet 5 4 Active gabapentin (NEURONTIN) 300 mg capsuleIndicatio ns:Fibromyalgia One capsule at 8 PM 30 capsule 5 4 Active methocarbamoL (ROBAXIN) 500 mg tabletIndication s:Fibromyalgia Take 1 tablet (500 mg total) by mouth once daily at bedtime. 30 tablet 5 4 Active Active Problems Problem Noted Date Diagnosed Date Polyarthralgia 10/21/2023 CRP elevated 10/21/2023 ESR raised 10/21/2023 Fibromyalgia 12/04/2022 Ulcerative colitis RA (rheumatoid arthritis) Lupus Social History Tobacco Use Types Packs/Day Years Used Date Smoking Tobacco: Former Smokeless Tobacco: Never Alcohol Use Standard Drinks/Week Comments Not Currently 0 (1 standard drink = 0.6 oz pur e alcohol) Childcare Answer Date Recorded Childcare Unknown 02/15/2019 Employment Answer Date Recorded Employment Unknown 02/15/2019 Purpose - Life Answer Date Recorded Purpose and direction in life Unknown Comments No Sex and Gender Information Value Date Recorded Sex Assigned at Not on file Legal Sex Female 11:43 AM EDT Gender Identity Not on file Sexual Orientation Not on file Last Filed Vital Signs Vital Sign Reading Time Taken Comments Blood Pressure 138/78 10/21/2023 9:52 AM EST Pulse 92 11/28/2021 8:02 AM EDT Temperature 36.8 C (98.3 F) 12/05/2017 10:18 AM EDT Respiratory Rate 18 10/21/2023 9:52 AM EST Oxygen Saturation 100% 12/05/2017 10:18 AM EDT Inhaled Oxygen Concentration - - Weight 99.3 kg (219 lb) 10/21/2023 9:52 AM EST Height 162.6 cm (5' 4.02 ) 10/21/2023 9:52 AM ES T Body Mass Index 37.57 10/21/2023 9:52 AM EST Plan of Treatment Health Maintenance Due Date Last Done Comments DTaP,Tdap and Td Vaccines (6 - Tdap) 2001 04/09/1995, 03/04/1992, 02/27/1991, Additional history exists Depression Screening 2002 Pap Smear 2011 Adult BMI Screening 10/21/2024 10/21/2023 Tobacco Screening 10/21/2024 10/21/2023 Influenza Vaccine 05/07/2025 Medical Devices Not on file Insurance AETNA Care Teams Trip Follower Relationship Specialty Start Date End Date Morris Reynolds MD PCP - General Family Medicine 09/30/21
--- OUTSIDE RECORDS SUMMARY | 2025-05-24 08:57 | XMS_ITS | Encounter Summary ---
Author Organization [facility] Address [address] [place] [address] Care Team Providers Care Semiconductor Wafers Tester Name Role Phone Morris Reynolds MD Primary Care Provider Encounter Details Date Type Department Care Team (Late st Contact Info) Description 12/07/2023 [facility] [address] [place] [address] Morris Reynolds MD [address] [place] [address] Social History Tobacco Use Types Packs/Day Years Used Date Smoking Tobacco: Former Cigarettes Q uit: 2019 Smokeless Tobacco: Never Alcohol Use Standard Drinks/Week [...] on filedocumented in this encounter Care Teams Semiconductor Wafers Tester Relationship Specialty Start Date End Date Morris Reynolds MD PCP - General Family Medicine 02/23/23 documented as of this encounter
--- OUTSIDE RECORDS SUMMARY | 2025-05-24 08:57 | XMS_ITS | Encounter Summary ---
Author Organization [facility] Address [address] [place] [address] Care Team Providers Care Electrical Electronics Engineer Name Role Phone Morris Reynolds MD Primary Care Provider [phone] Encounter Details Date Type Department Care Team (Late st Contact Info) Description 01/28/2024 Orders Only [facility] [address] [place] [address] Laya Vásquez MD [address] [place] [address] Social History Tobacco Use Types Packs/Day Years Used Date Smoking Tobacco: Former Cigarettes Q uit: 2019 Smokeless Tobacco: Never Alcohol Use Standard Drinks/Week Comments Not Currently 0 (1 standard drink = 0.6 oz pur e alcohol) Social Connection and Isolation Panel [NHANES] A nswer Date Recorded In a typical week, how many times do you talk on the phone with family, friends, or neighbors? Twice a week 12/29/2023 How often do you get togethe r with friends or relatives? Once a week 12/29/2023 How often do you attend jewish or buddhism serv ices? Patient declined 12/29/2023 Do you belong to any clubs o r organizations such as jewish groups, unions, fraternal or athletic groups, or school groups? No 12/29/2023 How often do you attend meet ings of the clubs or organizations you belong to? Never 12/29/2023 Are you , , di vorced, , never , or living with a partner? 12/29/2023 AUDIT-C Answer Date Recorded Q1: How often do you have a drink containing alcohol? Never 12/29/2023 Q2: How many drinks containi ng alcohol do you have on a typical day when you are drinking? Patient does not drink Q3: How often do you have si x or more drinks on one occasion? Never 12/29/2023 Overall Financial Resource Strain (CARDIA) Answe r Date Recorded How hard is it for you to pa y for the very basics like food, housing, medical care, and heating? Very hard 12/29/2023 [facility] [place] of Occupat ional Health - Occupational Stress Questionnaire Answer Date Recorded Do you feel stress - tense, restless, nervous, or anxious, or unable to sleep at night because your mind is troubled all the time - these days? Very much 12/29/2023 Exercise Vital Sign Answer Date Recorde d On average, how many days pe r week do you engage in moderate to strenuous exercise (like a brisk walk)? 0 days 12/29/2023 On average, how many minutes do you engage in exercise at this level? 0 min 12/29/2023 Hunger Vital Sign Answer Date Recorded Within the past 12 months, y ou worried that your food would run out before you got the money to buy more. Often true 12/29/19 Within the past 12 months, t he food you bought just didn't last and you didn't have money to get more. Often true 12/29/2023 PRAPARE - Transportation Answer Date Re corded In the past 12 months, has l ack of transportation kept you from medical appointments or from getting medications? Yes 12/06 In the past 12 months, has l ack of transportation kept you from meetings, work, or from getting things needed for daily living? Yes 12/29/2023 Housing Stability Vital Sign Answer Dwain e Recorded In the last 12 months, was t here a time when you were not able to pay the mortgage or rent on time? Yes 12/29/2023 In the last 12 months, how many places have you lived? 2 12/29/2023 In the last 12 months, was t here a time when you did not have a steady place to sleep or slept in a chcf (including now)? No 12/29/2023 Comments Unknown Sex and Gender Information Value Date Recorded Sex Assigned at Not on file Legal Sex Female 6:38 PM EDT Gender Identity Not on file Sexual Orientation Not on file documented as of this encounter Plan of Treatment Not on file documented as of this encounter Procedures Procedure Name Priority Date/Time Associated Diagnosis Comments XR KNEE 3 VIEWS RIGHT Routine 01/28/2024 10:29 AM EDT documented in this encounter Results * XR knee 3 views right (01/28/2024 10:29 AM EDT) Anatomical Region Laterality Modality Lower Extremities, Knee Right Radiogra phic Imaging Laya Vásquez MD IMG XR PROCEDURES Final Result documented in this encounter Visit Diagnoses Not on filedocumented in this encounter Care Teams Electrical Electronics Engineer Relationship Specialty Start Date End Date Morris Reynolds MD PCP - General Family Medicine 02/23/23 documented as of this encounter
--- OUTSIDE RECORDS SUMMARY | 2025-05-24 08:57 | XMS_ITS | Encounter Summary ---
Author Organization [facility] Address [address] [facility] [place] [place] [address] Care Team Providers Care Flooring Salesperson Name Role Phone Morris Reynolds MD Primary Care Provider [phone] Reason for Visit * Reason Onset Date Comments Med Refill 08/02/2023 Encounter Details Date Type Department Care Team (Late st Contact Info) Description 08/02/2023 Refill [facility] [address] [place] [address] Morris Reynolds MD [address] [place] [address] Social History Tobacco Use Types Packs/Day Years [...] on filedocumented in this encounter Care Teams Flooring Salesperson Relationship Specialty Start Date End Date Morris Reynolds MD PCP - General Family Medicine 02/23/23 documented as of this encounter
--- OUTSIDE RECORDS SUMMARY | 2025-05-24 08:57 | XMS_ITS | Encounter Summary ---
Author Organization [facility] Address [address] [place] [address] Care Team Providers Care Knee Bolter Name Role Phone Morris Reynolds MD Primary Care Provider [phone] Encounter Details Date Type Department Care Team (Late st Contact Info) Description 05/15/2024 Orders Only [facility] [address] [place] [address] Daija Monahan DO [address] [facility] [place] [address] Social History Tobacco Use Types Packs/Day Years [...] week 12/29/2023 How often do you attend adventism or restorationist serv ices? Patient declined 12/29/2023 Do you belong to any clubs o r organizations such as adventism groups, unions, fraternal or athletic groups, or [...] medical care, and heating? Very hard 12/29/2023 [facility] of Occupat ional Health - Occupational Stress [...] place to sleep or slept in a residential (including now)? No 12/29/2023 Comments Unknown Sex and Gender Information Value Date Recorded Sex Assigned at Not on file Legal Sex Female 6:38 PM EDT Gender Identity Not on file Sexual Orientation Not on file documented as of this encounter Plan of Treatment Not on file documented as of this encounter Procedures Procedure Name Priority Date/Time Associated Diagnosis Comments HCG, QL, URINE Routine 05/09/2024 8:15 AM EDT documented in this encounter Results * , urine (05/09/2024 8:15 AM EDT) Urine Urine specimen obtained by clean catch procedure / Unknown Daija Monahan DO LAB URINE ORDERABLES Final Resul t documented in this encounter Visit Diagnoses Not on filedocumented in this encounter Care Teams Knee Bolter Relationship Specialty Start Date End Date Morris Reynolds MD PCP - General Family Medicine 02/23/23 documented as of this encounter
--- OUTSIDE RECORDS SUMMARY | 2025-05-24 08:57 | XMS_ITS | Encounter Summary ---
Author Organization [facility] Address [address] [place] [address] Care Team Providers Care Maintenance Services Dispatcher Name Role Phone Morris Reynolds MD Primary Care Provider [phone] Encounter Details Date Type Department Care Team (Late st Contact Info) Description 09/18/2024 Abstract [facility] [address] [place] [id number] Maycol Duckworth DO [address] [place] [address] Social History Tobacco Use Types Packs/Day Years [...] week 12/29/2023 How often do you attend scientologist or alevism serv ices? Patient declined 12/29/2023 Do you belong to any clubs o r organizations such as scientologist groups, unions, fraternal or athletic groups, or [...] medical care, and heating? Very hard 12/29/2023 [facility] [place] of Occupat ional Health - Occupational Stress [...] place to sleep or slept in a fci (including now)? No 12/29/2023 Comments Unknown Sex and Gender Information Value Date Recorded Sex Assigned at Not on file Legal Sex Female 6:38 PM EDT Gender Identity Not on file Sexual Orientation Not on file documented as of this encounter Plan of Treatment Not on file documented as of this encounter Visit Diagnoses Not on filedocumented in this encounter Care Teams Maintenance Services Dispatcher Relationship Specialty Start Date End Date Morris Reynolds MD PCP - General Family Medicine 02/23/23 documented as of this encounter
--- OUTSIDE RECORDS SUMMARY | 2025-05-24 08:57 | XMS_ITS | Encounter Summary ---
Author Organization [facility] Address [address] [facility] [place] [address] Care Team Providers Care Automobile Sales Representative Name Role Phone Morris Reynolds MD Primary Care Provider [phone] Encounter Details Date Type Department Care Team (Late st Contact Info) Description 04/19/2024 Abstract [facility] [address] [place] [address] Perla Munoz LPN [address] [employer] [address] [place] [id number] Social History Tobacco Use Types Packs/Day Years [...] week 12/29/2023 How often do you attend yazidism or zoroastrianism serv ices? Patient declined 12/29/2023 Do you belong to any clubs o r organizations such as yazidism groups, unions, fraternal or athletic groups, or [...] medical care, and heating? Very hard 12/29/2023 [facility] of Occupat ional Health - Occupational Stress [...] place to sleep or slept in a detention (including now)? No 12/29/2023 Comments Unknown Sex and Gender Information Value Date Recorded Sex Assigned at Not on file Legal Sex Female 6:38 PM EDT Gender Identity Not on file Sexual Orientation Not on file documented as of this encounter Plan of Treatment Not on file documented as of this encounter Visit Diagnoses Not on filedocumented in this encounter Care Teams Automobile Sales Representative Relationship Specialty Start Date End Date Morris Reynolds MD PCP - General Family Medicine 02/23/23 documented as of this encounter
--- OUTSIDE RECORDS SUMMARY | 2025-05-24 08:57 | XMS_ITS | Encounter Summary ---
Author Organization [facility] tem Address [id number] [address] [place] [address] Care Team Providers Care Patient Account Specialist Name Role Phone Morris Reynolds MD Primary Care Provider [phone] Encounter Details Date Type Department Care Team (Late st Contact Info) Description 06/06/2021 Orders Only [facility] at [facility] [address] [place] [phone] Maycol Duckworth, DO [address] [facility] [place] [address] Social History Tobacco Use Types Packs/Day Years Used Date Smoking Tobacco: Every Day Smokeless Tobacco: Never Alcohol Use Standard Drinks/Week Comments Not Currently 0 (1 standard drink = 0.6 oz pur e alcohol) Childcare Answer Date Recorded Childcare Unknown 02/15/2019 Employment Answer Date Recorded Employment Unknown 02/15/2019 Purpose - Life Answer Date Recorded Purpose and direction in life Unknown Comments Yes Sex and Gender Information Value Date Recorded Sex Assigned at Not on file Legal Sex Female 11:43 AM EDT Gender Identity Not on file Sexual Orientation Not on file COVID-19 Exposure Response Date Recorded In the last month, have you been in contact with someone who was confirmed or suspected to have Coronavirus / COVID-19? No / Unsure 06/09/2021 9:41 AM EDT documented as of this encounter Plan of Treatment Not on file documented as of this encounter Procedures Procedure Name Priority Date/Time Associated Diagnosis Comments US OFFICE Routine 06/04/2021 US OFFICE Routine 06/02/2021 documented in this encounter Results * Ultrasound office (06/04/2021) Anatomical Region Laterality Modality AMB Ultrasound us Maycol R Donita DO IMG US ORDERABLES Final Result * Ultrasound office (06/02/2021) Anatomical Region Laterality Modality AMB Ultrasound us Maycol R Donita DO IMG US ORDERABLES Final Result documented in this encounter Visit Diagnoses Not on filedocumented in this encounter Care Teams Patient Account Specialist Relationship Specialty Start Date End Date Morris Reynolds MD PCP - General Family Medicine 09/30/21 documented as of this encounter
--- OUTSIDE RECORDS SUMMARY | 2025-05-24 08:57 | XMS_ITS | Encounter Summary ---
Author Organization [facility] Address [address] [place] [address] Care Team Providers Care Chief Of Party Name Role Phone Morris Reynolds MD Primary Care Provider [phone] Encounter Details Date Type Department Care Team (Late st Contact Info) Description 04/18/2024 Abstract [facility] [address] [place] [address] Morris Reynolds MD [address] [place] [address] Social History Tobacco Use Types Packs/Day Years [...] week 12/29/2023 How often do you attend yarsani or voodoo serv ices? Patient declined 12/29/2023 Do you belong to any clubs o r organizations such as yarsani groups, unions, fraternal or athletic groups, or [...] medical care, and heating? Very hard 12/29/2023 [facility] [place] of Occupat ional Health - Occupational Stress [...] place to sleep or slept in a skilled nursing (including now)? No 12/29/2023 Comments Unknown Sex and Gender Information Value Date Recorded Sex Assigned at Not on file Legal Sex Female 6:38 PM EDT Gender Identity Not on file Sexual Orientation Not on file documented as of this encounter Plan of Treatment Not on file documented as of this encounter Visit Diagnoses Not on filedocumented in this encounter Care Teams Chief Of Party Relationship Specialty Start Date End Date Morris Reynolds MD PCP - General Family Medicine 02/23/23 documented as of this encounter
--- OUTSIDE RECORDS SUMMARY | 2025-05-24 08:58 | XMS_ITS | Encounter Summary ---
Author Organization [facility] Address [id number] [address] [place] [address] Care Team Providers Care Loft Rigger Name Role Phone Morris Reynolds MD Primary Care Provider [phone] Reason for Visit * Reason Comments Med Refill Encounter Details Date Type Department Care Team ([facility] Contact Info) Description 06/22/2023 Refill [facility] [address] [phone] Emi Cook MD [address] [address] Fibromyalgia Social History Tobacco Use Types Packs/Day Years [...] documented as of this encounter Visit Diagnoses Diagnosis Fibromyalgia Unspecified myalgia and myositis documented in this encounter Care Teams Loft Rigger Relationship Specialty Start Date End Date Morris Reynolds MD PCP - General Family Medicine 09/30/21 documented as of this encounter
--- OUTSIDE RECORDS SUMMARY | 2025-05-24 08:58 | XMS_ITS | Clinical Summary ---
Author Organization [facility] Healthcare Address [address] [place] [address] Care Team Providers Care Plate Grainer Name Role Phone Morris Reynolds MD Primary Care Provider [phone] Allergies Active Allergy Reactions Criticality Noted Date Comments Penicillins Hives,Itching High 04/28/2023 Medications folic acid (Folvite) 1 MG tablet Take 1,000 mcg by mouth in the morning. 3 Active predniSONE (Deltasone) 10 MG tablet take 6 tablets by mouth once daily for 3 days then 4 once daily f... (REFER TO PRESCRIPTION NOTES). 3 Active omeprazole (PriLOSEC) [address] capsule Take 10 mg by mouth in the morning. Active pyridoxine (Vitamin B-6) 25 MG tablet 3 Active sertraline (Zoloft) 100 MG tablet Take 100 mg by mouth in the morning. 3 Active biotin 10 MG capsule Take 100 mg by mouth Daily Active pantoprazole (ProtoNix) 40 MG EC tabletIndicatio ns:Gastroesopha geal reflux disease with esophagitis without hemorrhage Take 1 tablet (40 mg) by mouth in the morning and 1 tablet (40 mg) before bedtime. 60 tablet 11 4 Active dexAMETHasone (Decadron) 2 MG tabletIndicatio ns:Acute pain of right knee 2mg 3 pills po X3 days,2 pills po daily X3 days , then 1 pill po daily X3 days then stop 9 days 18 pills 18 tablet 4 Active FeroSul 325 (65 Fe) MG tablet 4 Active gabapentin (Neurontin) 300 MG capsuleIndicati ons:Small fiber neuropathy Take 1 capsule (300 mg) by mouth at bedtime 90 capsule 4 Active amitriptyline (Elavil) 25 MG tabletIndicatio ns:Small fiber neuropathy Take 1 tablet (25 mg) by mouth at bedtime One capsule at 8 PM each nightOne capsule at 8 PM each night 90 tablet 3 4 Active fludrocortisone (Florinef) 0.1 MG tabletIndicatio ns:Dysautonomia (HCC) Take 0.5 tablets (0.05 mg) by mouth in the morning and in the evening 60 tablet 11 4 Active methocarbamol (Robaxin) 500 MG tabletIndicatio ns:Small fiber neuropathy Take 1 tablet (500 mg) by mouth at bedtime 90 tablet 3 4 Active ALPRAZolam (Xanax) 1 MG tabletIndicatio ns:VICKIE (generalized anxiety disorder) Take 1 tablet (1 mg) by mouth 3 (three) times a day as needed for anxiety 90 tablet 5 Active nystatin (Mycostatin) 091487 UNIT/ML suspensionIndic ations:Oral tatyana Take 5 mL (500,000 Units) by mouth in the morning and 5 mL (500,000 Units) at noon and 5 mL (500,000 Units) in the evening and 5 mL (500,000 Units) before bedtime. Do all this for 7 days. Swish in mouth and spit out. 140 mL 5 025 Active Problems Problem Noted Date Diagnosed Date VICKIE (generalized anxiety disorder) 08/25/2024 Abdominal pain 04/06/2024 Constipation 04/06/2024 Dyspepsia 04/06/2024 Gastroesophageal reflux disease 04/06/2024 Major depressive disorder, recurrent episode, mi ld 01/05/2024 Dysautonomia 11/17/2023 CRP elevated 10/21/2023 ESR raised 10/21/2023 Polyarthralgia 10/21/2023 Iron deficiency anemia 10/11/2023 Balance problems 06/24/2023 Small fiber neuropathy 05/13/2023 Lumbar radiculopathy 05/13/2023 Lupus 04/28/2023 RA (rheumatoid arthritis) 04/28/2023 Ulcerative colitis 04/28/2023 Memory loss 04/28/2023 Myalgia 04/28/2023 Fibromyalgia 12/04/2022 Encounters Date Type Department Care Team Description 04/26/2025 Telephone [facility] [address] [place] [address] Morris Reynolds MD 04/06/2025 Clinisync Result Encounter [facility] External Department Unsolicited Provider, Generic External Data 03/26/2025 Clinisync Result Encounter [facility] External Department Unsolicited Provider, Generic External Data from Last 3 Months Family History Medical History Relation Name Comments Cancer Father Hypertension Father Breast cancer Maternal Grandmother Diabetes Mother Ulcers Mother Ulcers Sister Relation Name Status Comments Father Alive Maternal Grandmother Mother Alive Sister Social History Tobacco Use Types Packs/Day Years Used Date Smoking Tobacco: Former Cigarettes Q uit: 2019 Smokeless Tobacco: Never Tobacco Cessation:Counseling Given: Not Answered Alcohol Use Standard Drinks/Week Comments Not Currently [...] week 12/29/2023 How often do you attend taoism or voodoo serv ices? Patient declined 12/29/2023 Do you belong to any clubs o r organizations such as taoism groups, unions, fraternal or athletic groups, or [...] medical care, and heating? Very hard 12/29/2023 [facility] [place] of Occupat ional Health - Occupational Stress [...] place to sleep or slept in a retirement (including now)? No 12/29/2023 Comments No Sex and Gender Information Value Date Recorded Sex Assigned at Not on file Legal Sex Female 6:38 PM EDT Gender Identity Not on file Sexual Orientation Not on file Last Filed Vital Signs Vital Sign Reading Time Taken Comments Blood Pressure 122/76 02/06/2025 11:43 AM EDT Pulse - - Temperature - - Respiratory Rate - - Oxygen Saturation - - Inhaled Oxygen Concentration - - Weight 91.6 kg (202 lb) 02/06/2025 11:43 AM EDT Height 162.6 cm (5' 4 ) 02/06/2025 11:43 AM EDT Body Mass Index 34.67 02/06/2025 11:43 AM EDT Plan of Treatment Health Maintenance Due Date Last Done Comments Pap Smear 2011 Cervical Cancer Screening 02/11/2020 HPV/Cotest 02/11/2020 Influenza Vaccine (#1) 2025 Procedures Procedure Name Priority Date/Time Associated Diagnosis Comments THYROGLOBULIN ANTIBODY Routine 9:15 AM EDT ALL THYROXINE (T4) FREE Routine 04/06/2025 9:15 AM EDT ALL THYROID STIM HORMONE Routine 04/06/2025 9:15 AM EDT ALL MISCELLANEOUS TEST Routine 5 10:24 AM EDT VITAMIN B12 Routine 03/26/2025 10:24 AM EDT [facility] VITAMIN D 25 OH Routine 03/26/2025 1 0:24 AM EDT [facility] CMP (CMP) (FOR REMOTE [facility] USE) Routine 03/26/2025 10:24 AM EDT METRO IRON AND TIBC Routine 03/26/2025 1 0:24 AM EDT ALL CBC WITH AUTO DIFF Routine 5 10:24 AM EDT from Last 3 Months Results * THYROGLOBULIN ANTIBODY (04/06/2025 9:15 AM EDT) THYROGLOBULIN ANTIBODY <1.0 0.0 - 0.9 IU/mL TB Comment: Thyroglobulin Antibody measured by Alma Ruddy Methodology It should be noted that the presence of thyroglobulin antibodies may not be pathogenic nor diagnostic, especially at very low levels. The assay joint maker machine has found that four percent of individuals without evidence of thyroid disease or autoimmunity will have positive TgAb levels up to 4 IU/mL. Performed at: [address] [id number] Bartender: Ramon Gomez PhD, Phone: [phone] 04/06/2025 9:15 AM EDT 04/06/2025 9:36 AM EDT Narrative CLIN[facility]NC - 04/09/2025 2:12 PM EDT Generic External Data Provider LAB BLOOD ORDERAB LES Final Result Performing Organization Address City/[facility]/ZIP Co de Phone Number CLINIS[facility]NC TB * ALL THYROXINE (T4) FREE (04/06/2025 9:15 AM EDT) FREE T4 1.20 0.76 - 1.46 ng/dL TB 04/06/2025 9:15 AM EDT 04/06/2025 9:36 AM EDT Narrative CLINISYNC - 04/06/2025 10:12 AM EDT Generic External Data Provider CLIN[facility]NC F inal Result Performing Organization Address [facility] Co de Phone Number [facility] * ALL THYROID STIM HORMONE (04/06/2025 9:15 AM EDT) THYROID STIMULATING HORMONE 1.483 0.358 - 3.740 uIU/mL TB 04/06/2025 9:15 AM EDT 04/06/2025 9:36 AM EDT Narrative CLINISYNC - 04/06/2025 10:10 AM EDT Generic External Data Provider CLIN[facility]NC F inal Result Performing Organization Address [facility] Co de Phone Number [facility] * VITAMIN B12 (03/26/2025 10:24 AM EDT) VITAMIN B12 599 232 - 1245 pg/mL TB Comment: Performed at: CB - [address] [id number] Bartender: Ramon Gomez PhD, Phone: [phone] 03/26/2025 10:2 4 AM EDT 03/26/2025 10:26 AM EDT Narrative CLINISYNC - 03/27/2025 4:07 AM EDT Generic External Data Provider LAB BLOOD ORDERAB LES Final Result Performing Organization Address [facility] Co de Phone Number CLINISYNC [facility] * [facility]H VITAMIN D 25 OH (03/26/2025 10:24 AM EDT) VITAMIN D 23.0 ng/mL TB Comment: <20 ng/mL Vit D deficient 20-<30 ng/mL Vit D insufficient 30-100 ng/mL Vit D sufficient >100 ng/mL Potential Toxicity 03/26/2025 10:2 4 AM EDT 03/26/2025 10:26 AM EDT Narrative CLINISYNC - 03/26/2025 12:19 PM EDT Generic External Data Provider CLINISYNC F inal Result Performing Organization Address [facility] de Phone Number CLINISYNC [facility] * (ABNORMAL) METRO IRON AND TIBC (03/26/2025 10:24 AM EDT) TBH IRON 40.0(L) 50.0 - 170.0 ug/dL TBH TBH TOTAL IRON BINDING CAPACITY 315.0 250.0 - 450.0 ug/dL TBH TBH PERCENT IRON SATURATION 12.7 % TBH 03/26/2025 10:2 4 AM EDT 03/26/2025 10:26 AM EDT Narrative CLINISYNC - 03/26/2025 11:45 AM EDT Generic External Data Provider CLINISYNC F inal Result Performing Organization Address [facility]/ZIP Co de Phone Number CLINISYNC [facility] * (ABNORMAL) [facility] CMP (CMP) (FOR REMOTE [facility] USE) (03/26/2025 10:24 AM EDT) SODIUM 141 136 - 145 mmol/L TBH POTASSIUM 4.4 3.5 - 5.1 mmol/L TBH CHLORIDE 104 98 - 107 mmol/L TBH CARBON DIOXIDE 26.3 21.0 - 32.0 mmol/L TBH ANION GAP 15.1 TBH GLUCOSE 89 74 - 106 mg/dL TBH BLOOD UREA NITROGEN 11.0 7.0 - 18.0 mg/dL TBH CREATININE 0.94 0.55 - 1.02 mg/dL TBH TBH EGFR-AF ZIMBABWEAN >60 >=60 mL/min/1. 73m 2 TBH TBH EGFR-NON AF [place]IM[place]ABWEAN >60 >=60 mL/min/1. 73m 2 TBH BUN CREATININE RATIO 11.7 TBH CALCIUM 9.6 8.5 - 10.1 mg/dL TBH BILIRUBIN TOTAL 0.3 0.2 - 1.0 mg/dL TBH ASPARTATE AMINO TRANSFERASE 11(L) 15 - 37 U/L TBH ALANINE AMINOTRANSFERASE 24 14 - 59 U/L TBH ALKALINE PHOSPHATASE 88 46 - 116 U/L TBH TOTAL PROTEIN 7.7 6.4 - 8.2 g/dL TBH ALBUMIN LEVEL 3.6 3.4 - 5.0 g/dL TBH GLOBULIN 4.1 g/dL TBH ALBUMIN GLOBULIN RATIO 0.9 TBH 03/26/2025 10:2 4 AM EDT 03/26/2025 10:26 AM EDT Narrative CLINISYNC - 03/26/2025 11:51 AM EDT Generic External Data Provider CLINISYNC F inal Result [facility] * ALL MISCELLANEOUS TEST (03/26/2025 10:24 AM EDT) MISCELLANEOUS TEST COMMENT . TB Comment: Test Ordered: [id number] Ferritin Ferritin 40 ng/mL Reference Range: 15-150 Performed at: - [address] [id number] Bartender: Ramon Gomez PhD, Phone: [phone] 03/26/2025 10:2 4 AM EDT 03/26/2025 10:26 AM EDT Narrative CLINISYNC - 03/27/2025 8:09 AM EDT [id number] Ferritin us Generic External Data Provider CLINISYNC F inal Result [facility] * (ABNORMAL) ALL CBC WITH AUTO DIFF (03/26/2025 10:24 AM EDT) TB WBC 5.9 4.0 - 11.0 10 3/uL TBH TBH RBC 5.37 4.20 - 5.40 10 6/uL TBH TBH HGB 14.0 12.0 - 16.0 g/dL TBH TBH HCT 43.3 36.0 - 48.0 % TBH TBH MCV 80.6(L) 81.0 - 99.0 fL TBH TBH MCH 26.1(L) 26.7 - 34.0 pg TBH TBH MCHC 32.3 29.9 - 35.2 g/dL TBH TBH RDW 14.0 11.0 - 15.0 % TBH TBH PLT 340 150 - 450 10 3/uL TBH TBH MPV 11.0 9.5 - 13.5 fL TBH NEUTROPHILS PERCENT AUTO 61.9 43.0 - 75.0 % TBH LYMPHOCYTES PERCENT AUTO 32.5 20.5 - 60.0 % TBH MONOCYTES PERCENT AUTO 4.9 1.7 - 12.0 % TBH TBH EO % 0.3(L) 0.9 - 7.0 % TBH BASOPHILS PERCENT AUTO 0.2 0.2 - 2.0 % TBH IMMATURE GRANULOCYTES PCT AUTO 0.2 0.0 - 0.5 % TBH NEUTROPHILS ABSOLUTE AUTO 3.7 1.4 - 6.5 10 3/uL TBH LYMPHOCYTES ABSOLUTE AUTO 1.9 1.2 - 3.8 10 3/uL TBH MONOCYTES ABSOLUTE AUTO 0.3 0.3 - 0.8 10 3/uL TBH TBH EO # 0.0 0.0 - 0.7 10 3/uL TBH BASOPHILS ABSOLUTE AUTO 0.0 0.0 - 0.1 10 3/uL TBH IMMATURE GRANULOCYTES ABS AUTO 0.01 0.00 - 0.03 10 3/uL TBH 03/26/2025 10:2 4 AM EDT 03/26/2025 10:26 AM EDT Narrative CLINISYNC - 03/26/2025 10:50 AM EDT us Generic External Data Provider CLINISYNC F inal Result CLINISYNC [facility] from Last 3 Months Insurance [employer] Care Teams Plate Grainer Relationship Specialty Start Date End Date Morris Reynolds MD PCP - General Family Medicine 02/23/23
--- OUTSIDE RECORDS SUMMARY | 2025-05-24 08:58 | XMS_ITS | Encounter Summary ---
Author Organization Isabella Oliver [facility] tem Address [id number] [address] [place] [address] Care Team Providers Care Drop Board Man Name Role Phone Morris Reynolds MD Primary Care Provider [phone] Encounter Details Date Type Department Care Team (Late st Contact Info) Description 11/18/2023 Telephone [facility] [address] [place] [address] [place] [phone] [facility] [address] [place] [address], [address] [place] [address] Social History Tobacco Use Types Packs/Day Years [...] on file documented as of this encounter Miscellaneous Notes * Telephone Encounter - Dipti Sullivan - 11/18/2023 9:50 AM EDT Received a referral for Deedee Reynolds from Dr. 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 LVM for patient to call back and schedule saddle and side wire stitcher appt. documented in this encounter Plan of Treatment Not on file documented as of this encounter Visit Diagnoses Not on filedocumented in this encounter Care Teams Drop Board Man Relationship Specialty Start Date End Date Morris Reynolds MD PCP - General Family Medicine 09/30/21 documented as of this encounter
--- OUTSIDE RECORDS SUMMARY | 2025-05-24 08:58 | XMS_ITS | Encounter Summary ---
Author Organization [facility] Address [address] [place] [place] [address] Care Team Providers Care Cartoon Designer Name Role Phone Morris Reynolds MD Primary Care Provider [phone] Encounter Details Date Type Department Care Team (Late st Contact Info) Description 11/17/2024 Abstract [facility] [address] [place] [address] Maycol Duckworth DO [address] [place] [address] Social History Tobacco Use Types Packs/Day Years [...] week 12/29/2023 How often do you attend amish or sabianism serv ices? Patient declined 12/29/2023 Do you belong to any clubs o r organizations such as amish groups, unions, fraternal or athletic groups, or [...] medical care, and heating? Very hard 12/29/2023 [facility] [place] of Occupat ional Health - Occupational Stress [...] place to sleep or slept in a custodial (including now)? No 12/29/2023 Comments Unknown Sex and Gender Information Value Date Recorded Sex Assigned at Not on file Legal Sex Female 6:38 PM EDT Gender Identity Not on file Sexual Orientation Not on file documented as of this encounter Plan of Treatment Not on file documented as of this encounter Visit Diagnoses Not on filedocumented in this encounter Care Teams Cartoon Designer Relationship Specialty Start Date End Date Morris Reynolds MD PCP - General Family Medicine 02/23/23 documented as of this encounter
--- OUTSIDE RECORDS SUMMARY | 2025-05-24 09:02 | XMS_ITS | CCD ---
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 Name Role Phone DONITA, DR MATOS Consulting Unavailable DONITA, DR MATOS Admitting Unavailable DONITA, DR MATOS Attending Unavailable NADERER, DR MOBLEY A Primary Care Unavailable DONITA, DR MATOS Attending Unavailable DONITA, DR MATOS Consulting Unavailable DONITA, DR MATOS Admitting Unavailable NADERER, DR MORRIS Klein Primary Care Unavailable DONITA, DR MATOS Attending Unavailable DONITA, DR MATOS Admitting Unavailable NADERER, DR MOBLEY A Primary Care Unavailable PAY, DR STEWART Admitting Unavailable PAY, DR STEWART Attending Unavailable PAY, DR STEWART Consulting Unavailable NADERER, DR MORRIS Klein Primary Care Unavailable GONZÁLEZ, BRENDA Admitting Unavailable GONZÁLEZ, BRENDA Attending Unavailable GONZÁLEZ, BRENDA Consulting Unavailable NADERER, DR MOBLEY A Primary Care Unavailable MISC, DR MEYER Admitting Unavailable NADERER, DR MOBLEY A Primary Care Unavailable MISC, DR MEYER Consulting Unavailable MISC, DR MEYER Attending Unavailable DONITA, DR MATOS Consulting Unavailable DONITA, DR MATOS Admitting Unavailable NADERER, DR MOBLEY A Primary Care Unavailable DONITA, DR MATOS Attending Unavailable DONITA, DR MATOS Admitting Unavailable DONITA, DR MATOS Attending Unavailable NADERER, DR MORRIS Klein Primary Care Unavailable DONITA, DR MATOS Admitting Unavailable DONITA, DR MATOS Attending Unavailable NADERER, DR MORRIS Klein Primary Care Unavailable DONITA, DR MATOS Attending Unavailable DONITA, DR MATOS Admitting Unavailable NADERER, DR MORRIS Klein Primary Care Unavailable NADERER, DR MORRIS Klein Admitting Unavailable NADERER, DR MORRIS Klein Attending Unavailable NADERER, DR MORRIS Klein Primary Care Unavailable NADERER, DR MORRIS Klein Consulting Unavailable DONITA, DR MATOS Consulting Unavailable DONITA, DR MATOS Admitting Unavailable DONITA, DR MATOS Attending Unavailable NADERER, DR MORRIS Klein Primary Care Unavailable ZIEBER, DR HILLARY Bass Consulting Unavailable DONITA, DR MATOS Attending Unavailable DONITA, DR MATOS Admitting Unavailable NADERER, DR MORRIS Klein Primary Care Unavailable DONITA, DR MATOS Attending Unavailable DONITA, DR MATOS Consulting Unavailable DONITA, DR MATOS Admitting Unavailable NADERER, DR MORRIS Klein Primary Care Unavailable ZIEBER, DR HILLARY Bass Consulting Unavailable MISC, DR MEYER Admitting Unavailable NADERER, DR MORRIS Klein Primary Care Unavailable MISC, DR MEYER Consulting Unavailable MISC, DR MEYER Attending Unavailable DONITA, DR MATOS Admitting Unavailable NADERER, DR MORRIS Klein Primary Care Unavailable DONITA, DR MATOS Attending Unavailable DONITA, DR MATOS Admitting Unavailable DONITA, DR MATOS Attending Unavailable NADERER, DR MORRIS Klein Primary Care Unavailable KARASIK, DR LÓPEZ Attending Unavailable KARASIK, DR LÓPEZ Consulting Unavailable KARASIK, DR LÓPEZ Admitting Unavailable NADERER, DR MORRIS Klein Primary Care Unavailable WEST, DR SCOTT Atkinson Consulting Unavailable DONITA, DR MATOS Consulting Unavailable KARASIK, DR LÓPEZ Consulting Unavailable KARASIK, DR LÓPEZ Admitting Unavailable KARASIK, DR LÓPEZ Attending Unavailable NADERER, DR MORRIS Klein Primary Care Unavailable WEST, DR SCOTT Atkinson Consulting Unavailable DONITA, DR MATOS Consulting Unavailable DONITA, DR MATOS Consulting Unavailable DONITA, DR MATOS Admitting Unavailable DONITA, DR MATOS Attending Unavailable NADERER, DR MORRIS Klein Primary Care Unavailable DONITA, DR MATOS Consulting Unavailable DONITA, DR MATOS Admitting Unavailable DONITA, DR MATOS Attending Unavailable NADERER, DR MORRIS Klein Primary Care Unavailable DONITA, DR MATOS Consulting Unavailable DONITA, DR MATOS Primary Care Unavailable DONITA, DR MATOS Admitting Unavailable DONITA, DR MATOS Attending Unavailable KARASIK, DR LÓPEZ Consulting Unavailable KARASIK, DR LÓPEZ Admitting Unavailable KARASIK, DR LÓPEZ Attending Unavailable NADERER, DR MORRIS Klein Primary Care Unavailable DONITA, DR MATOS Consulting Unavailable ZIEBER, DR HILLARY Bass Consulting Unavailable DONITA, DR MATOS Consulting Unavailable DONITA, DR MATOS Admitting Unavailable DONITA, DR MATOS Attending Unavailable NADERER, DR MORRIS Klein Primary Care Unavailable KARASIK, DR LÓPEZ Consulting Unavailable KARASIK, DR LÓPEZ Admitting Unavailable KARASIK, DR LÓPEZ Attending Unavailable NADERER, DR MORRIS Klein Primary Care Unavailable WEST, DR SCOTT Atkinson Consulting Unavailable DONITA, DR MATOS Consulting Unavailable KARASIK, DR LÓPEZ Consulting Unavailable KARASIK, DR LÓPEZ Admitting Unavailable KARASIK, DR LÓPEZ Attending Unavailable NADERER, DR MORRIS Klein Primary Care Unavailable DONITA, DR MATOS Consulting Unavailable ZIEBER, DR HILLARY Bass Consulting Unavailable NADERER, DR MORRIS Klein Admitting Unavailable NADERER, DR MORRIS Klein Attending Unavailable NADERER, DR MORRIS Klein Consulting Unavailable NADERER, DR MORRIS Klein Primary Care Unavailable DONITA, DR MATOS Attending Unavailable DONITA, DR MATOS Admitting Unavailable NADERER, DR MORRIS Klein Primary Care Unavailable MAG, VESTA Admitting Unavailable MAG, VESTA Attending Unavailable MAG, VESTA Consulting Unavailable NADERER, DR MORRIS Klein Primary Care Unavailable DONITA, DR MATOS Attending Unavailable DONITA, DR MATOS Consulting Unavailable DONITA, DR MATOS Admitting Unavailable NADERER, DR MORRIS Klein Primary Care Unavailable SALOMON, FERMIN Consulting Unavailable DONITA, DR MATOS Procedure Practitioner Unavailab le DONITA, DR MATOS Attending Unavailable DONITA, DR MATOS Consulting Unavailable DONITA, DR MATOS Admitting Unavailable NADERER, DR MORRIS Klein Primary Care Unavailable DONITA, DR MATOS Attending Unavailable DONITA, DR MATOS Admitting Unavailable NADERER, DR MORRIS Klein Primary Care Unavailable MISC, DR MEYER Admitting Unavailable NADERER, DR MORRIS Klein Primary Care Unavailable MISC, DR MEYER Attending Unavailable NADERER, DR MORRIS Klein Primary Care Unavailable DONITA, DR MATOS Attending Unavailable MISC, DR MEYER Admitting Unavailable MISC, DR MEYER Consulting Unavailable ZIEBER, DR HILLARY Bass Consulting Unavailable KARASIK, DR LÓPEZ Consulting Unavailable KARASIK, DR LÓPEZ Admitting Unavailable KARASIK, DR LÓPEZ Attending Unavailable NADERER, DR MORRIS Klein Primary Care Unavailable WEST, DR SCOTT Atkinson Consulting Unavailable DONITA, DR MATOS Consulting Unavailable DONITA, DR MATOS Attending Unavailable DONITA, DR MATOS Admitting Unavailable WEST, DR SCOTT Atkinson Consulting Unavailable NADERER, DR MORRIS Klein Primary Care Unavailable DONITA, DR MATOS Consulting Unavailable KARASIK, DR LÓPEZ Attending Unavailable KARASIK, DR LÓPEZ Consulting Unavailable KARASIK, DR LÓPEZ Admitting Unavailable NADERER, DR MORRIS Klein Referring Unavailable NADERER, DR MORRIS Klein Primary Care Unavailable DONITA, DR MATOS Consulting Unavailable Morris Ramsey MD Primary Care Provider CHRISTIANSON, NANO N Attending Unavailable MORRIS RAMSEY Referring Unavailable NADEREShelia, MORRIS Primary Care Unavailable CHRISTIANSON, NANO N Referring Unavailable NADEREShelia, MORRIS Primary Care Unavailable CHRISTIANSON, NANO N Referring Unavailable NADEREShelia, MORRIS Primary Care Unavailable CHRISTIANSON, NANO N Attending Unavailable MORRIS RAMSEY Referring Unavailable MORRIS RAMSEY Primary Care Unavailable MD Morris Ramsey Primary Care Provider Ly, DO Daija Bower Attending Provider [phone] Ly, Daija Bower Attending Unavailable Daija Monahan Admitting Unavailable Rodolfo, Morris Primary Care Unavailable Morris Ramsey MD Primary Care Provider Morris Ramsey MD Primary Care Provider [phone] MAYCOL DUCKWORTH Attending Unavailable MAYCOL DUCKWORTH Referring Unavailable ZE ABARCA Attending Unavailable BRISEIDA PATHAK Attending Unavailable GIO ABARCANDAN W Referring Unavailable GUDELIA LANCE Attending Unavailable MACY ZE W Referring Unavailable LAYA ORTIZ Attending Unavailable GIO ABARCANDAN W Referring Unavailable GUDELIA LANCE Attending Unavailable MACY, ZE W Referring Unavailable BRISEIDA PATHAK Attending Unavailable MACY, ZE W Referring Unavailable Allergies Allergy Classification Reported Allergen(s) Allergy Type Date of Onset Reaction(s) Facility (1 source) Amoxicillin Drug Allergy 2 [facility] (15 sources) Penicillins Propensity to adverse reactions 3 Hives, Itching [facility] (1 source) Penicillins Drug allergy (disorder) 4 [facility]ository Medications Current Medications Medication Drug Class(es) Dates Sig (Normalized) Sig (Original) acetaminophen 325 mg / oxyCODONE hydrochloride 10 mg oral tablet (2 sources) Opioid Agonist take 1 tablet by mouth every four hours as needed for pain oxyCODONE-acetami nophen (PERCOCET) 10-325 mg per tablet Take 1 tablet by mouth every 4 (four) hours as needed for pain. 0 Active ALPRAZolam 1 mg oral tablet (18 sources) Benzodiazepine Start: 12-28-2024 take 1 tablet by mouth three times daily as needed for anxiety ALPRAZolam (Xanax) 1 MG tablet Indications: VICKIE (generalized anxiety disorder) Take 1 tablet (1 mg) by mouth 3 (three) times a day as needed for anxiety 90 tablet 12/28/2024 Active Start: 03-22-2023 End: 10-12-2024 take 1 tablet by mouth three times daily as needed for anxiety ALPRAZolam (Xanax) 1 MG tablet Indications: VICKIE (generalized anxiety disorder) (CMS/HCC) Take 1 tablet (1 mg) by mouth 3 (three) times a day as needed for anxiety 90 tablet 09/12/2024 Active Start: 08-20-2020 [facility] Alprazolam (Xanax) 2 mg Tablet Active 2 MG PO Twice daily August 20, 2020 1:00am amitriptyline hydrochloride 25 mg oral tablet (20 sources) Tricyclic Antidepressant Start: 04-06-2024 End: 04-06-2025 take 1 tablet by mouth at bedtime, then take 1 tablet by mouth in the evening amitriptyline (Elavil) 25 MG tablet Indications: Small fiber neuropathy Take 1 tablet (25 mg) by mouth at bedtime One capsule at 8 PM each nightOne capsule at 8 PM each night 90 tablet 3 04/06/2024 Active Start: 06-14-2023 End: 10-21-2023 amitriptyline (ELAVIL) 25 mg tablet Indications: Fibromyalgia take 1 capsule by mouth AT 8PM 30 tablet 5 10/21/2023 Active Biotin (16 sources) Start: 04-25-2024 take 1 capsule by mo ut once daily biotin Active 1 CAP PO Daily April 25, 2024 12:00am Start: 06-24-2023 take 1 capsule by mo ut twice daily at bedtime biotin 10 MG capsule Indications: Fibromyalgia , Lupus (CMS/HCC) take 1 capsule by mouth twice a day - IN THE MORNING AND BEFORE BEDTIME 30 capsule 11 06/24/2023 Active biotin 10 MG cap razia Take 100 mg by mouth Daily Active citalopram 40 mg oral tablet (3 sources) Serotonin Reuptake Inhibitor Start: 08-20-2020 take 40 mg by mouth once daily Citalopram Active 40 MG PO Daily August 20, 2020 1:00am CITALOPRAM HYDRO BROMIDE (CITALOPRAM ORAL) Take by mouth. 0 Active dexamethasone 2 mg oral tablet (12 sources) Corticosteroid Start: 03-06-2024 dexAMETHasone (Decadron) 2 MG tablet Indications: Acute pain of right knee 2mg 3 pills po X3 days,2 pills po daily X3 days , then 1 pill po daily X3 days then stop 9 days 18 pills 18 tablet 03/06/2024 Active ferrous sulfate 325 mg oral tablet (16 sources) Start: 04-05-2024 FeroSul 325 (6 5 Fe) MG tablet 04/05/2024 Active take 1 tablet by kandace th once daily at breakfast ferrous sulfate 325 (65 FE) mg tablet Ta ke 1 tablet (325 mg total) by mouth daily with breakfast. 0 Active fludrocortisone acetate 0.1 mg oral tablet (15 sources) Start: 04-25-2024 take 0.1 mg by mouth once daily Fludrocortisone Active 0.1 MG PO Daily April 25, 2024 12:00am Start: 04-06-2024 End: 05-06-2024 take 0.5 tablet by mouth in the morning fludrocortisone (Florinef) 0.1 MG tablet Indications: Dysautonomia (HCC) Take 0.5 tablets (0.05 mg) by mouth in the morning and in the evening 60 tablet 11 04/06/2024 Active Start: 08-12-2023 End: 11-10-2023 take 1 tablet by mouth at bedtime fludrocortisone (Florinef) 0.1 MG tablet Indications: Dysautonomia (CMS/HCC) Take 1 tablet (0.1 mg) by mouth at bedtime 30 tablet 2 08/12/2023 11/10/2023 Active Folic Acid (16 sources) Start: 04-25-2024 take 1 tablet by kandace th once daily folic acid Active 1 TAB PO Daily April 25, 2024 12:00am Start: 04-01-2023 take 1 tablet by kandace th in the morning folic acid (Folvite) 1 MG tablet Take 1,000 mcg by mouth in the morning. 04/01/2023 Active gabapentin 300 mg oral capsule (20 sources) Anti-epileptic Agent Start: 04-06-2024 End: 07-05-2024 take 1 capsule by mouth at bedtime gabapentin (Neurontin) 300 MG capsule Indications: Small fiber neuropathy Take 1 capsule (300 mg) by mouth at bedtime 90 capsule 04/06/2024 Active Start: 05-20-2023 End: 10-21-2023 gabapentin (NEURONTIN) 300 m g capsule Indications: Fibromyalgia One capsule at 8 [...] hours as needed for anxiety. 0 Active meloxicam 7.5 mg oral tablet (14 sources) Nonsteroidal Anti-inflammatory Drug Start: 04-06-2024 End: 04-06-2025 take 1 tablet by mouth once daily meloxicam (Mobic) 7.5 MG tablet Indications: Fibromyalgia , Lumbar radiculopathy Take 1 tablet (7.5 mg) by mouth Daily 90 tablet 3 04/06/2024 04/06/2025 Active methocarbamol 500 mg oral tablet (20 sources) Muscle Relaxant Start: 04-06-2024 End: 04-06-2025 take 1 tablet by mouth at bedtime methocarbamol (Robaxin) 500 MG tablet Indications: Small fiber neuropathy Take 1 tablet (500 mg) by mouth at bedtime 90 tablet 3 04/06/2024 Active Start: 05-20-2023 End: 10-21-2023 take 1 tablet by mouth once daily at bedtime methocarbamoL (ROBAXIN) 500 mg tablet Indications: Fibromyalgia Take 1 tablet (500 mg total) by mouth once daily at bedtime. 30 tablet 5 10/21/2023 Active omeprazole 10 mg delayed release oral capsule (17 sources) Proton Pump Inhibitor take 1 capsule by mouth in the morning omeprazole (PriLOSEC) [address] capsule Take 10 mg by mouth in the morning. Active pantoprazole 40 mg delayed release oral tablet (18 sources) Proton Pump Inhibitor Start: 01-25-20 End: 01-25-20 take 1 tablet by mouth in the morning pantoprazole (ProtoNix) 40 MG EC tablet Indications: Gastroesophageal reflux disease with esophagitis without hemorrhage Take 1 tablet (40 mg) by mouth in the morning and 1 tablet (40 mg) before bedtime. 60 tablet 11 01/25/2024 Active Start: 04-12-2023 take 1 tablet by kandace th in the morning pantoprazole (ProtoNix) 40 MG EC tablet Take 40 mg by mouth in the morning and 40 mg before bedtime. 0 04/12/2023 Active take 1 tablet by kandace th in the morning pantoprazole (PROTONIX) 20 mg EC tablet Take 1 tablet (20 mg total) by mouth in the morning. 0 Active predniSONE 10 mg oral tablet (15 sources) Start: 04-06-2023 take 6 tablets by mouth once daily, then take 4 tablets by mouth once daily predniSONE (Deltasone) 10 MG tablet take 6 tablets by mouth once daily for 3 days then 4 once daily f... (REFER TO PRESCRIPTION NOTES). 04/06/2023 Active 25/iron fum/folic/dha (-1 ORAL) (2 sources) 25/iron fum/folic/dha (-1 ORAL) Take by mouth. 0 Active pyridoxine (17 sources) Start: 04-25-2024 Pyridoxine (Vi tamin B6) (Vitamin B-6) 25 mg tablet Active 50 MG PO Daily April 25, 2024 12:00am Start: 04-25-2024 take 1 capsule by mo uth twice daily pyridoxine (vitamin B6) Active 1 CAP PO Twice daily April 25, 2024 12:00am Start: 04-26-2023 pyridoxine (Vi tamin B-6) 25 MG tablet 04/26/2023 Active sertraline 50 mg oral tablet (18 sources) Serotonin Reuptake Inhibitor Start: 04-25-2024 take 1 tablet by mouth once daily Sertraline (Zoloft) 50 mg tablet Active 50 MG PO Daily April 25, 2024 12:00am Start: 05-13-2021 take 1 tablet by kandace th in the morning sertraline (Zoloft) 100 MG tablet Take 100 mg by mouth in the morning. 04/12/2023 Active tiZANidine 4 mg oral tablet (2 sources) Central alpha-2 Adrenergic Agonist Start: 08-12-2023 End: 11-10-2023 take 0.5 tablet by mouth at bedtime tiZANidine (Zanaflex) 4 MG tablet Indications: Lumbar radiculopathy Take 0.5 tablets (2 mg) by mouth at bedtime 15 tablet 2 08/12/2023 11/10/2023 Active traZODone hydrochloride 100 mg oral tablet (1 source) Serotonin Reuptake Inhibitor Start: 08-20-2020 take 100 mg by mouth once daily Trazodone Active 100 MG PO Daily August 20, 2020 1:00am vitamin b6 100 mg oral tablet (2 sources) take 1 tablet by mouth in the morning pyridoxine, vitamin B6, (vitamin B-6) 100 mg tablet Take 1 tablet (100 mg total) by mouth in the morning. 0 Active Completed/Discontinued Medications Medication Drug Class(es) Dates Sig (Normalized) Sig (Original) Norethindrone-Ethi n Estradiol (1 source) Estrogen Start: 08-20-2020 End: 04-25-2024 take [id number] ug by mouth once daily Norethindrone-Ethin Estradiol (Alyacen (28)) 1-35 mg-mcg tablet Discontinued 1 TAB PO Daily August 20, 2020 1:00am April 25, 2024 2:00pm Problems Active Problems Problem Classification Problem Date Documented Date Episodic/Chronic Administrative/social admission (7 sources) Persons encountering health services in other specified circumstances; Translations: [Patient encounter status] Onset: 03-23-2022 Episodic Anxiety disorders (12 sources) Anxiety disorder, unspecified; Translations: [Generalized anxiety disorder] Onset: 01-12-2022 08-25-2024 Chronic Deficiency and other anemia (2 sources) Iron deficiency anemia, unspecified; Translations: [Iron deficiency anemia, unspecified] Onset: 09-20-2023 Episodic Esophageal disorders (15 sources) Gastro-esophageal reflux disease without esophagitis; Translations: [Gastroesophageal reflux disease] Onset: 01-12-2022 08-20-2020 Chronic Immunizations and screening for infectious disease (7 sources) Encounter for screening for infections with a predominantly sexual mode of transmission; Translations: [Encounter for immunization] Onset: 08-14-2021 Episodic Malaise and fatigue (1 source) Other fatigue; Translations: [OTHER FATIGUE] Onset: 04-23-2022 Episodic Menstrual disorders (6 sources) Excessive and frequent menstruation with regular cycle; Translations: [Menorrhagia] Onset: 04-22-2022 Chronic Mood disorders (14 sources) Major depressive disorder, single episode, unspecified; Translations: [Recurrent major depressive episodes, mild ] Onset: 01-12-2022 01-05-2024 Chronic Nervous system congenital anomalies (13 sources) Disorder of autonomic nervous system; Translations: [Familial dysautonomia [Calixto-Day]] Onset: 11-17-2023 11-17-2023 Chronic Noninfectious gastroenteritis (2 sources) Noninfective gastroenteritis and colitis, unspecified; Translations: [Chronic diarrhea] Onset: 09-20-2023 09-20-2023 Episodic Other aftercare (1 source) Other snf (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 therapy; Translations: [OTH [facility] CURRENT DRUG THERAPY] Onset: 05-15-2022 Episodic Other [...] COMP THIRD TRI] Onset: 11-24-2021 Chronic Other female genital disorders (4 sources) Abnormal uterine and vaginal bleeding, unspecified; Translations: [ABNORMAL UTERINE VAGINAL BLEED UNS] Onset: 03-23-2022 Chronic Other female genital disorders (2 sources) Abnormal uterine bleeding; Translations: [Abnormal uterine and vaginal bleeding, unspecified] 02-06-2025 Chronic Other hematologic conditions (1 source) Elevated erythrocyte sedimentation rate; Translations: [Elevated erythrocyte sedimentation rate] Onset: 09-20-2023 Episodic Other nervous system disorders (15 sources) Small fiber neuropathy; Translations: [Polyneuropathy, unspecified] Onset: 05-13-2023 05-13-2023 Chronic Other nervous system disorders (1 source) Other chronic pain; Translations: [Other chronic pain] Onset: 09-20-2023 Chronic Other non-traumatic joint disorders (1 source) Pain in unspecified joint; Translations: [Pain in unspecified joint] Onset: 09-20-2023 Episodic Other nutritional; endocrine; and metabolic disorders (1 source) Morbid (severe) obesity due to excess calories; Translations: [MORBID SEVERE OBES D/T EXCESS VIOLET] Onset: 01-12-2022 Chronic Other and delivery including normal (6 sources) Encounter for routine follow-up; Translations: [Single live ] Onset: 07-19-2021 Episodic Other skin disorders (4 sources) Rash and other nonspecific skin eruption; Translations: [RASH OTH NONSPECIFIC SKIN ERUPTION] Onset: 05-12-2022 Episodic Regional enteritis and ulcerative colitis (20 sources) Ulcerative colitis, unspecified, without complications; Translations: [Ulcerative colitis] Onset: 09-01-2021 04-28-2023 Chronic Rheumatoid arthritis and related disease (20 sources) Rheumatoid arthritis without rheumatoid factor, unspecified site; Translations: [Rheumatoid arthritis, unspecified] Onset: 01-12-2022 Chronic Systemic lupus erythematosus and connective tissue disorders (20 sources) Systemic lupus erythematosus, unspecified; Translations: [Lupus erythematosus] Onset: 05-15-2022 04-28-2023 Chronic Unclassified (5 sources) Latent tuberculosis; 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 TUBERCULOSIS] Onset: 07-22-2021 Unclassified (1 source) CONTACT W/AND (SUSP) EXPOS COVID-19; Translations: [CONTACT W/AND (SUSP) EXPOS COVID-19] Onset: 01-12-2022 Unclassified (4 sources) OTH SPCF DIS/COND COMPL ; Translations: [OTH SPCF DIS/COND COMPL ] Onset: 11-28-2021 Unclassified (1 source) Low back pain, unspecified; Translations: [Low back pain, unspecified] Onset: 09-20-2023 Viral infection (5 sources) COVID-19; Translations: [COVID-19] Onset: 08-08-2021 Past or Other Problems Problem Classification Problem Date Documented Da te Episodic/Chronic Abdominal pain (20 sources) Unspecified abdominal pain; Translations: [Indigestion] Onset: 11-12-2021 08-20-2020 Episodic Acute posthemorrhagic anemia (1 source) Acute posthemorrhagic anemia; Translations: [ACUTE POSTHEMORRHAGIC ANEMIA] Onset: 01-12-2022 Episodic Deficiency and other anemia (1 source) Other specified anemias; Translations: [OTHER SPECIFIED ANEMIAS] Onset: 01-12-2022 Episodic Deficiency and other anemia (1 source) Anemia, unspecified; Translations: [ANEMIA UNSPECIFIED] Onset: 11-28-2021 Episodic Deficiency and other anemia (14 sources) Iron deficiency anemia; Translations: [Iron deficiency anemia, unspecified] Onset: 10-11-2023 10-11-2023 Episodic Early or threatened labor (1 source) [...] Onset: 01-12-2022 Episodic Other connective tissue disease (20 sources) Fibromyalgia; Translations: [Fibromyalgia] Onset: 12-04-2022 04-28-2023 Episodic Other connective tissue disease (15 sources) Muscle pain; Translations: [Myalgia, unspecified site] Onset: 04-28-2023 04-28-2023 Episodic Other connective tissue disease (1 source) Muscle weakness of limb; Translations: [Muscle weakness (generalized)] 04-27-2024 Episodic Other female genital disorders (1 source) Other specified noninflammatory disorders of vagina; Translations: [OTH SPEC NONINFLAMMATORY D/O VAGINA] Onset: 11-20-2021 Episodic Other gastrointestinal disorders (14 sources) Constipation; Translations: [Constipation, unspecified] Onset: 04-06-2024 08-20-2020 Episodic Other hematologic conditions (16 sources) ESR raised; Translations: [Elevated erythrocyte sedimentation rate] Onset: 10-21-2023 04-06-2024 Episodic Other nervous system disorders (15 sources) Impairment of balance; Translations: [Other abnormalities of gait and mobility] Onset: 06-24-2023 06-24-2023 Episodic Other non-traumatic joint disorders (16 sources) Multiple joint pain; Translations: [Pain in unspecified joint] Onset: 10-21-2023 04-06-2024 Episodic Other screening for suspected conditions (not mental disorders or infectious disease) (20 sources) Encounter for screening for Streptococcus B; Translations: [Encounter for other screening for genetic and chromosomal anomalies] Onset: 07-15-2021 Episodic Residual codes; unclassified (1 source) 37 [...] ] Onset: 08-14-2021 Episodic Residual codes; unclassified (15 sources) Amnesia; Translations: [Other amnesia] Onset: 04-28-2023 04-28-2023 Episodic Screening and history of mental health and substance abuse codes (1 source) Personal history of nicotine dependence; Translations: [PERSONAL HISTORY OF NICOTINE DEPEND] Onset: 01-12-2022 Episodic Spondylosis; intervertebral disc disorders; other back problems (19 sources) Dorsalgia, unspecified; Translations: [Lumbar radiculopathy] Onset: 09-02-2021 05-13-2023 Episodic Substance-related disorders (2 sources) Drug use complicating childbirth; Translations: [Cannabis use, unspecified, uncomplicated] Onset: 01-12-2022 Episodic Unclassified (1 source) OTH SPCF DIS/COND COMPL ; Translations: [OTH SPCF DIS/COND COMPL ] Onset: 12-05-2021 Viral infection (1 source) Herpesviral infection, unspecified; Translations: [HERPESVIRAL INFECTION UNSPECIFIED] Onset: 11-28-2021 Episodic Results Test Name Value Interpretation Reference Range Facility ALL THYROID STIM HORMONEon 0 04-06-2025 TSH Qn 1.483 m[IU]/L [facility] ALL CBC WITH AUTO DIFFon BASOPHILS ABSOLUTE AUTO 0 [facility] Basophils/100 WBC (Bld) 0.2 % 0.2 - 2.0 % [facility] Eosinophils/100 WBC (Bld) 0.3 % Low 0.9 - 7.0 % [facility] Erythrocyte distribution width (RBC) [Ratio] 14 % 11.0 - 15.0 % [facility] Hematocrit (Bld) [Volume fraction] 43.3 % 36.0 - 48.0 % [facility] Hemoglobin (Bld) [Mass/Vol] 14 g/dL 12.0 - 16.0 g/dL [facility] IMMATURE GRANULOCYTES ABS AUTO 0.01 [facility] Immature granulocytes/100 WBC (Bld) 0.2 % 0.0 - 0.5 % [facility] Interpretation and review of laboratory results Abnormal [facility] LYMPHOCYTES ABSOLUTE AUTO 1.9 [facility] Lymphocytes/100 WBC (Bld) 32.5 % 20.5 - 60.0 % [facility] MCH (RBC) [Entitic mass] 26.1 pg Low 26.7 - 34.0 pg [facility] MCHC (RBC) [Mass/Vol] 32.3 g/dL 29.9 - 35.2 g/dL [facility] MCV (RBC) [Entitic vol] 80.6 fL Low 81.0 - 99.0 fL [facility] MONOCYTES ABSOLUTE AUTO 0.3 [facility] Monocytes/100 WBC (Bld) 4.9 % 1.7 - 12.0 % [facility] NEUTROPHILS ABSOLUTE AUTO 3.7 [facility] Neutrophils/100 WBC (Bld) 61.9 % 43.0 - 75.0 % [facility] Platelet mean volume (Bld) [Entitic vol] 11 fL 9.5 - 13.5 fL [facility] TBH EO # 0 [facility] TB PLT 340 [facility] RBC 5.37 [facility] TBH WBC 5.9 [facility] US PELVIC COMPLETE W/ TVon 0 02-19-2025 US PELVIC COMPLETE W/ TV EXAM: US PELVIC COMPLETE W/ TV HISTORY: AUB, menorrhagia, anemia. COMPARISON: None available. TECHNIQUE: Two-dimensional transabdominal grayscale ultrasound imaging of the pelvis was performed. Color flow Doppler imaging of the ovaries was also performed. Transvaginal was performed. FINDINGS: UTERUS 9.0 x 4.6 x 4.8 cm The uterus is anteverted in position and demonstrates a normal, homogeneous echotexture. ENDOMETRIUM 0.9 cm The endometrium demonstrates a normal, homogeneous echotexture. RIGHT OVARY 2.4 x 1.5 x 2.0 cm The right ovary demonstrates a normal echotexture. There is normal color Doppler flow. There is a dominant follicle visualized. LEFT OVARY 1.6 x 1.0 x 1.5 cm The left ovary demonstrates a normal echotexture. There is normal color Doppler flow. No fluid is present within the cul-de-sac. IMPRESSION: 1. Unremarkable ultrasound of the pelvis. 2. Normal color Doppler flow within the bilateral ovaries. Interpreted by: Electronically signed by CRISTO CASEY II, MD, PHD at 20-Feb-2025 08:12:26 AM [facility] Normal Not Available Comment on above: Order Comment: US PE LVIS-TRANSVAG IF INDICATED Patient's last menstrual period was 01/28/2025 (approximate). HCG ( test) Ql (U)o n 02-06-2025 Interpretation and review of laboratory results Normal [facility] Preg Test, Ur Negative Negative [facility] Urinalysis macro (dipstick) panel (U)on 02-06-2025 Bilirubin, UA Negative Negative - 4(70) +++ mg/dL [facility] Blood, UA Negative Negative - 50 Juan Carlos/mcL [facility] Clarity, UA Clear [facility] Color, UA Yellow [facility] Glucose, UA Negative Negative - 2000(110) ++++ mg/dL [facility] Interpretation and review of laboratory results Normal [facility] Ketones, UA Negative Negative - 160(16) ++++ mg/dL [facility] Leukocytes, UA Negative Negative - 500+++ Flex/mcL [facility] Nitrite, UA Negative Negative - Positive [facility] pH, UA 7 5 - 9 [facility] Protein, UA Negative Negative - 1999(20) ++++ mg/dL [facility] Spec Grav, UA 1.01 1 - 1.03 [facility] Urobilinogen, UA 0.2 0.2 - 12 mg/dL [facility] ALL CBC WITH AUTO DIFFon BASOPHILS ABSOLUTE AUTO 0 [facility] Basophils/100 WBC (Bld) 0.3 % 0.2 - 2.0 % [facility] Eosinophils/100 WBC (Bld) 0.5 % Low 0.9 - 7.0 % [facility] Erythrocyte distribution width (RBC) [Ratio] 13.7 % 11.0 - 15.0 % [facility] Hematocrit (Bld) [Volume fraction] 43 % 36.0 - 48.0 % [facility] Hemoglobin (Bld) [Mass/Vol] 14.2 g/dL 12.0 - 16.0 g/dL [facility] IMMATURE GRANULOCYTES ABS AUTO 0.01 [facility] Immature granulocytes/100 WBC (Bld) 0.2 % 0.0 - 0.5 % [facility] Interpretation and review of laboratory results Abnormal [facility] LYMPHOCYTES ABSOLUTE AUTO 1.8 [facility] Lymphocytes/100 WBC (Bld) 27.2 % 20.5 - 60.0 % [facility] MCH (RBC) [Entitic mass] 26.7 pg 26.7 - 34.0 pg [facility] MCHC (RBC) [Mass/Vol] 33 g/dL 29.9 - 35.2 g/dL [facility] MCV (RBC) [Entitic vol] 81 fL 81.0 - 99.0 fL [facility] MONOCYTES ABSOLUTE AUTO 0.4 [facility] Monocytes/100 WBC (Bld) 6.5 % 1.7 - 12.0 % [facility] NEUTROPHILS ABSOLUTE AUTO 4.2 [facility] Neutrophils/100 WBC (Bld) 65.3 % 43.0 - 75.0 % [facility] Platelet mean volume (Bld) [Entitic vol] 10.6 fL 9.5 - 13.5 fL [facility] TBH EO # 0 [facility] PLT 324 [facility] RBC 5.31 [facility] WBC 6.4 [facility] ALL CBC WITH AUTO DIFFon BASOPHILS ABSOLUTE AUTO 0 [facility] Basophils/100 WBC (Bld) 0.4 % 0.2 - 2.0 % [facility] Eosinophils/100 WBC (Bld) 0.6 % Low 0.9 - 7.0 % [facility] Erythrocyte distribution width (RBC) [Ratio] 13.7 % 11.0 - 15.0 % [facility] Hematocrit (Bld) [Volume fraction] 43.7 % 36.0 - 48.0 % [facility] Hemoglobin (Bld) [Mass/Vol] 14.1 g/dL 12.0 - 16.0 g/dL [facility] IMMATURE GRANULOCYTES ABS AUTO 0.01 [facility] Immature granulocytes/100 WBC (Bld) 0.1 % 0.0 - 0.5 % [facility] Interpretation and review of laboratory results Abnormal [facility] LYMPHOCYTES ABSOLUTE AUTO 2.2 [facility] Lymphocytes/100 WBC (Bld) 30.9 % 20.5 - 60.0 % [facility] MCH (RBC) [Entitic mass] 26.3 pg Low 26.7 - 34.0 pg [facility] MCHC (RBC) [Mass/Vol] 32.3 g/dL 29.9 - 35.2 g/dL [facility] MCV (RBC) [Entitic vol] 81.4 fL 81.0 - 99.0 fL [facility] MONOCYTES ABSOLUTE AUTO 0.5 [facility] Monocytes/100 WBC (Bld) 7.2 % 1.7 - 12.0 % [facility] NEUTROPHILS ABSOLUTE AUTO 4.4 [facility] Neutrophils/100 WBC (Bld) 60.8 % 43.0 - 75.0 % [facility] Platelet mean volume (Bld) [Entitic vol] 10.2 fL 9.5 - 13.5 fL [facility] TBH EO # 0 [facility] TBH PLT 332 [facility] RBC 5.37 [facility] WBC 7.3 [facility] Amphetamine Screen Ql (U)Ord ered By: Daija Monahan on 05-09-2024 Amphetamines Ql (U) Negative Negative [facility] Barbiturates [Presence] in U rine by Screen methodOrdered By: Daija Monahan on 05-09-2024 Barbiturates Screen Ql (U) Negative Negative [facility] Benzodiazepines Screen Ql (U )Ordered By: Daija Monahan on 05-09-2024 Benzodiazepines Ql (U) Negative Negative [facility] Benzoylecgonine [Presence] i n Urine by Screen methodOrdered By: Daija Monahan on 05-09-2024 Benzoylecgonine Screen Ql (U) Negative Negative [facility] Cannabinoids [Presence] in U rine by Screen methodOrdered By: Daija Monahan on 05-09-2024 Cannabinoids Screen Ql (U) Positive High Negative [facility] Comment on above: These are unconfirme d results and should not be used for legal purposes. Drug Cut-Off Concentration: AMPH 1000 ng/mL TAYLER 200 ng/mL AURA 200 ng/mL COCM 300 ng/mL OP 300 ng/mL PCP 25 ng/mL THC 20 ng/mL Drug Screen,Urineon 05-09-20 24 Amphetamine Screen,Urine Negative Normal Negative [facility] Comment on above: Performed By: #### U RDS #### [place] [address] [place] Barbiturate Screen,Urine Negative Normal Negative [facility] Comment on above: Performed By: #### U RDS #### [place] [address] [place] Benzodiazepines Screen,Urine Negative Normal Negative [facility] Comment on above: Performed By: #### U RDS #### [place] [address] [place] Cannabinoid Screen,Urine Positive High Negative [facility] Comment on above: Result Comment: Thes e are unconfirmed results and should not be used for legal purposes. Drug Cut-Off Concentration: AMPH 1000 ng/mL TAYLER 200 ng/mL AURA 200 ng/mL COCM 300 ng/mL OP 300 ng/mL PCP 25 ng/mL THC 20 ng/mL PERFORMED BY: [place] [address] PATHOLOGIST HEATING FIXTURE TENDER SAIDA GARCIA M.D. Performed By: #### U RDS #### [place] [address] [place] Cocaine Screen,Urine Negative Normal Negative [facility] Comment on above: Performed By: #### U RDS #### [facility] [address] Opiate Screen,Urine Negative Normal Negative [facility] Comment on above: Performed By: #### U RDS #### [facility] [address] Phencyclidine Screen,Urine Negative Normal Negative [facility] Comment on above: Performed By: #### U RDS #### [facility] [address] HCG ( test) IA.rapi d Ql (U)Ordered By: Daija Monahan on 05-09-2024 HCG ( test) Ql (U) Negative [facility] HCG,Urineon 05-09-2024 Beta HCG ( test) Ql (U) Negative Normal [facility] Comment on above: Result Comment: PERF ORMED BY: [place] [address] PATHOLOGIST HEATING FIXTURE TENDER SAIDA GARCIA M.D. Performed By: #### U HCG #### [place] [address] [place] Varghese 05-09-2024 L Specimen: [id number] Received: 05/09/24 Status: SARKIS Coffey Num: [id number] Spec Type: Surgical Subm Dr: Daija Monahan DO Tissues: A Small Intestine - Biopsy/Polyp (SMALL BOWEL R/O CELIAC) B GASTRIC FOR HP (GASTRIC BX R/O H PYLORI) Procedures: HE/4, Gross/Micro L4/2, H PYLORI Age/ Patient Sex Location Account Attending Physician Je Reynolds 34/F [id number] Daija Monahan DO SPEC NUM: [id number] RECD: 05/09/24 STATUS: SARKIS COFFEY NUM: [id number] DAYNA: 05/09/[address]: Daija Monahan DO ENTERED: 05/09/[address]: SPEC TYPE: Surgical DEPT: S ENTERED BY: [id number] RECV BY: [id number] ORDERED: HE/4, Gross/Micro L4/2, H PYLORI ORDERED: HE/4, Gross/Micro L4/2, H PYLORI Pathological Diagnosis A. Small bowel, biopsy: No significant pathologic abnormality. B. Stomach, biopsy: No significant pathologic abnormality. Clinical Information Hiatal hernia, iron deficiency anemia Gross Description Part A is received in formalin with the patient's name and small bowel biopsy and consists of 2 hinkle soft tissue fragment ranging in size from 0.3 to 0.4 cm. The specimen is entirely submitted in cassette A1. Part B is received in formalin with the patient's name and gastric biopsy and consists of 2 hinkle soft tissue fragment ranging in size from 0.2 to 0.3 cm. The specimen is entirely submitted in cassette B1. CPT Codes 69534n1 Specimen: [id number] Received: 05/09/24 Status: SARKIS Coffey Num: [id number] Spec Type: Surgical Subm Dr: Daija Monahan DO Tissues: A Small Intestine - Biopsy/Polyp (SMALL BOWEL R/O CELIAC) B GASTRIC FOR HP (GASTRIC BX R/O H PYLORI) Procedures: HE/4, Gross/Micro L4/2, H PYLORI Patient: Je Reynolds [id number] (Continued) Signed (signature on file) Zeina Ayoub MD 05/16/24 1504 Normal [facility] Opiates [Presence] in Urine by Screen methodOrdered By: Daija Monahan on 05-09-2024 Opiates Screen Ql (U) Negative Negative [facility] Phencyclidine Screen Ql (U)O rdered By: Daija Monahan on 05-09-2024 Phencyclidine Ql (U) Negative Negative [facility] 36on 01-05-2024 36 Last visit: 07/07/22 Med refill request denied. PT needs to be seen in clinic. marti Normal [facility] XR SACROILIAC JOINTS MIN 3 [...] Benson Sampson MD on 09/21/2023 10:15 PM Normal [facility] XR SPINE LUMBAR 2 OR 3 VWSon [...] Benson Sampson MD on 09/21/2023 10:07 PM Normal [facility] Proximiant GENERIC ORDERon -15-2 024 TEST NAME [id number] DS DNA BY CRITHIDIA RED NO GEL SERUM Normal [facility] Comment on above: Result Comment: Raquel ected on 09/20 AT 1617: Previously reported as [id number] DS DNA BY CRITHIDIA SST SERUM Performed By: #### A GO #### Kash ([id number]) [address] [place] [address], TEST RESULT SEE NOTE Normal [facility] Comment on above: Result Comment: NOTE Test [...] recommendations for testing may be found at [email or web address]. Performed By: [employer] [address] [place] [address] District Sales Leader: Melchor Lopez MD, PhD CLIA Number: [id number] Performed By: #### A GO #### Kash ([id number]) [address] [place] [address] C-reactive proteinon 024 CRP [Mass/Vol] 3.3 mg/dL High 0.000 - 0.744 mg/dL [facility] CBC AND AUTO DIFFon 09-20-19 24 Erythrocyte distribution width (RBC) [Ratio] 20.5 % High 11.5-15.0 [facility] Comment on above: Performed By: #### Jewel MAYNARD, 18996-1, IM, 1988-01, 33588-9 #### [facility] ([id number]) [address] [place] [address], [address] [place] [address] #### 36266-7, TTAG #### [facility] ([id number]) [address] [place] [address], Hematocrit (Bld) [Volume fraction] 30.6 % Low 35-47 [facility] Comment on above: Performed By: #### Jewel MAYNARD, 40056-8, IM, 1988-01, 37058-9 #### [facility] ([id number]) [address] [place] [address], [address] [place] [address] #### 54690-5, TTAG #### [facility] ([id number]) [address] [place] [address], Hemoglobin (Bld) [Mass/Vol] 9.2 g/dL Low 11.7-15.5 [facility] Comment on above: Performed By: #### Jewel MAYNARD, 99156-6, IM, 1988-01, 74735-5 #### [facility] ([id number]) [address] [place] [address], [address] [place] [address] #### 99852-3, TTAG #### [facility] ([id number]) [address] [place] [address], HYPOCHROMIA 1+ Abnormal NONE [facility] Comment on above: Performed By: #### Jewel MAYNARD, 89061-6, IM, 1988-01, 46039-4 #### [facility] ([id number]) [address], [address] [place] [address] #### 24068-2, TTAG #### [facility] ([id number]) [address] [facility], Lymphocytes (Bld) [#/Vol] 0.9 10*3/uL Low 1.0-3.5 [facility] Comment on above: Performed By: #### Jewel MAYNARD, 83809-9, IMGB, 1988-01, #### [facility] ([id number]) [address] [facility], [address] [place] [address] #### 38559-9, TTAG #### [facility] ([id number]) [address] [facility], Lymphocytes/100 WBC (Bld) 20.2 % Normal [facility] Comment on above: Performed By: #### Jewel MAYNARD, 12844-5, IMGB, 1988-01, #### [facility] ([id number]) [address] [facility], [address] [place] [address] #### 11248-1, TTAG #### [facility] ([id number]) [address] [facility], MCH (RBC) [Entitic mass] 18.2 pg Low 27-34 [facility] Comment on above: Performed By: #### Jewel MAYNARD, 28807-8, IMGB, 1988-01, #### [facility] ([id number]) [address] [facility], [address] [place] [address] #### 84202-4, TTAG #### [facility] ([id number]) [address] [facility], MCHC (RBC) [Mass/Vol] 30.1 g/dL Low 32-[address] [facility] Comment on above: Performed By: #### Jewel MAYNARD, 22708-0, IMGB, 1988-01, 34180-3 #### [facility] ([id number]) [address] [facility], [address] [place] [address] #### 01390-8, TTAG #### [facility] ([id number]) [address] [facility], MCV (RBC) [Entitic vol] 61 fL Low 80-100 [facility] Comment on above: Performed By: #### Jewel MAYNARD, 40540-6, [facility], 1988-01, #### [facility] ([id number]) [address] [facility], [address] [place] [address] #### 80567-1, TTAG #### [facility] ([id number]) [address] [facility], Monocytes (Bld) [#/Vol] 0.3 10*3/uL Normal 0-0.9 [facility] Comment on above: Performed By: #### Jewel MAYNARD, 59502-7, [facility], 1988-01, 57485-2 #### [facility] ([id number]) [address] [facility], [address] [place] [id number] #### 85366-2, TTAG #### [facility] ([id number]) [address] [facility], Monocytes/100 WBC (Bld) 5.8 % Normal [facility] Comment on above: Performed By: #### Jewel MAYNARD, 81371-2, [facility], 1988-01, #### [facility] ([id number]) [address] [facility], [address] [place] [address] #### 20730-0, TTAG #### [facility] ([id number]) [address] [facility], Neutrophils (Bld) [#/Vol] 3.3 10*3/uL Normal 1.5-6.6 [facility] Comment on above: Performed By: #### C CAESAR, 09155-1, IMGB, 1988-01, 23612-5 #### [facility] ([id number]) [address] [facility], [address] [place] [id number] #### 94356-0, TTAG #### [facility] ([id number]) [address] [facility], OVALOCYTE 1+ Abnormal NONE [facility] Comment on above: Performed By: #### C CAESAR, 01818-4, IMGB, 1988-01, 27566-6 #### [facility] ([id number]) [address] [place] [address], [address] [place] [address] #### 67780-6, TTAG #### [facility] ([id number]) [address] [place] [address], Platelet mean volume (Bld) [Entitic vol] 8.8 fL Normal 7-12 [facility] Comment on above: Performed By: #### C CAESAR, 36370-4, IMGB, 1988-01, 00129-6 #### [facility] ([id number]) [address] [place] [address], [address] [place], [place] [address] #### 92127-0, TTAG #### [facility] ([id number]) [address] [place] [address], Platelets (Bld) [#/Vol] 369 10*3/uL Normal 150-450 [facility] Comment on above: Performed By: #### C CAESAR, 27259-5, IMGB, 1988-01, 19491-1 #### [facility] ([id number]) [address] [place] [address], [address] [place] [address] #### 10825-9, TTAG #### [facility] ([id number]) [address] [place] [address], POLYCHROMASIA 1+ Abnormal NONE [facility] Comment on above: Performed By: #### C CAESAR, 82517-9, IMGB, 1988-01, 19498-8 #### [facility] ([id number]) [address] [place] [address], [facility] [address] [place] [id number] #### 38423-7, TTAG #### [facility] ([id number]) [address] [facility], RBC COUNT 5.06 X10E12/L Normal 3.80-5.20 [facility] Comment on above: Performed By: #### C CAESAR, 32755-2, IMGB, 1988-01, 87308-0 #### [facility] ([id number]) [address] [place] [address], [place] [address] #### 39226-1, TTAG #### [facility] ([id number]) [address] [place] [address], [facility] NEUTROPHIL 74.0 % Normal [facility] Comment on above: Performed By: #### C CAESAR, 92782-2, IMGB, 1988-01, 57996-9 #### [facility] ([id number]) [address] [place] [address], [place] [address] #### 63946-2, TTAG #### [facility] ([id number]) [address] [place] [address], WBC (Bld) [#/Vol] 4.5 10*3/uL Normal 4.0-11.0 [facility] Comment on above: Performed By: #### C CAESAR, 50167-2, IMGB, 1988-01, 61066-9 #### [facility] ([id number]) [address] [place] [address], [facility] [address] [place] [id number] #### 17159-7, TTAG #### [facility] ([id number]) [address] [facility], CBC auto differentialon 09-06 Erythrocyte distribution width (RBC) [Ratio] 20.5 % High 11.5 - 15.0 % [facility] Hematocrit (Bld) [Volume fraction] 30.6 % Low 35 - 47 % [facility] Hemoglobin (Bld) [Mass/Vol] 9.2 g/dL Low 11.7 - 15.5 g/dL [facility] Hypochromia Ql (Bld) 1+ Abnormal NONE^NONE [facility] Interpretation and review of laboratory results Abnormal [facility] Lymphocytes (Bld) [#/Vol] 0.9 10*3/uL Low [facility] Lymphocytes/100 WBC (Bld) 20.2 % [facility] MCH (RBC) [Entitic mass] 18.2 pg Low 27 - 34 pg [facility] MCHC (RBC) [Mass/Vol] 30.1 g/dL Low 32 - 36 g/dL P [facility] MCV (RBC) [Entitic vol] 61 fL Low 80 - 100 fL [facility] Monocytes (Bld) [#/Vol] 0.3 10*3/uL [facility] Monocytes/100 WBC (Bld) 5.8 % [facility] Neutrophils (Bld) [#/Vol] 3.3 10*3/uL [facility] Ovalocytes LM Ql (Bld) 1+ Abnormal NONE^NONE Pr [facility] Platelet mean volume (Bld) [Entitic vol] 8.8 fL 7 - 12 fL [facility] Platelets (Bld) [#/Vol] 369 10*3/uL [facility] Polychromasia LM Ql (Bld) 1+ Abnormal NONE^NONE [facility] RBC (Bld) [#/Vol] 5.06 10*6/uL [facility] Segmented neutrophils/100 WBC (Bld) 74.0 % [facility] WBC corrected for nucl RBC Auto (Bld) [#/Vol] 4.5 [facility] CRP [Mass/Vol]on 09-20-2023 Interpretation and review of laboratory results Abnormal [facility] C REACTIVE PROTEIN 3.3 mg/dL High 0.000-0.744 [facility] Comment on above: Performed By: #### C BCA, 17526-6, IMGB, 1988-01, 09994-7 #### [facility] ([id number]) [address] [place] [address], [place] [address] #### 26656-8, TTAG #### [facility] ([id number]) [address] [place] [address], ESR Photometric method (Bld) [Velocity]on 09-20-2023 ESR, ERYTHROCYTE SEDIMENTATION RATE 84 mm/h High 0-20 [facility] Comment on above: Performed By: #### C CAESAR, 07101-8, IMGB, 1988-01, 91092-0 #### [facility] ([id number]) [address] [place] [address] #### 24574-8, TTAG #### [facility] [employer] [facility] ([id number]) [address] [place] [address], Interpretation and review of laboratory results Abnormal [facility] Endomysium Ab Ql (S)on 09-20 ENDOMYSIAL ABS IGA <1:10 Normal <1:10, Te st Not Indicated [facility] Comment on above: Result Comment: NOTE Reference Range: Negative < 1:10 Dilution Endomysial IgA antibody assay is used an aid in diagnosis of celiac disease in individuals who are not IgA-deficient. Clinical correlation required. Test Performed By: [facility] [address] [place] [address] District Sales Leader: Jaxon Cruz III #[id number] Performed By: #### C CAESAR, 31216-5, IMGB, 1988-01, 40499-6 #### [facility] ([id number]) [address] [place] [address], [place] [address] #### 28877-8, TTAG #### [facility] ([id number]) [address] [place] [address], Erythrocyte Sedimentation Ra te (ESR)on 09-20-2023 ESR Photometric method (Bld) [Velocity] 84 mm/h High 0 - 20 mm/h [facility] IGG SUBCLASSESon 09-20-2023 IGG SUBCLASS 1 597.6 mg/dL Normal 382-929 [facility] Comment on above: Performed By: #### C CAESAR, 66573-5, IMGB, 1988-01, 67049-0 #### [facility] ([id number]) [address], [address] [place] [address] #### 12488-5, TTAG #### [facility] ([id number]) [address] [facility], IGG SUBCLASS 2 302.5 mg/dL Normal 242-700 [facility] Comment on above: Performed By: #### C CAESAR, 60852-8, IMGB, 1988-01, #### [facility] ([id number]) [address], [address] [place] [address] #### 38396-8, TTAG #### [facility]LL[facility] ([id number]) [address] [facility], IGG SUBCLASS 3 54.9 mg/dL Normal 22-176 [facility] Comment on above: Performed By: #### Jewel MAYNARD, 16920-1, IMGB, 1988-01, 53069-7 #### [facility] ([id number]) [address], [address] [place] [address] #### 58997-3, TTAG #### [facility] ([id number]) [address] [facility], IGG SUBCLASS 4 8.0 mg/dL Normal 4-86 [facility] Comment on above: Performed By: #### Jewel MAYNARD, 57534-9, IMGB, 1988-01, #### [facility] ([id number]) [address] [facility] [place] [address] #### 60130-2, TTAG #### [facility] ([id number]) [address] [facility], IMMUNOGLOBULINSon 09-20-2023 IgA [Mass/Vol] 198 mg/dL Normal 68-378 [facility] Comment on above: Performed By: #### Jewel MAYNARD, 68939-2, IMGB, 1988-01, 18932-5 #### [facility] ([id number]) [address] [place] [address], [place] [address] #### 57972-2, TTAG #### [facility] ([id number]) [address] [place] [address] IgG [Mass/Vol] 997 mg/dL Normal 635-1741 [facility] Comment on above: Performed By: #### Jewel MAYNARD, 57295-4, IMGB, 1988-01, 46454-2 #### [facility] ([id number]) [address] [place] [address], [place] [address] #### 20129-3, TTAG #### [facility] ([id number]) [address] [place] [address] IgM [Mass/Vol] 165 mg/dL Normal 45-281 [facility] Comment on above: Performed By: #### Jewel MAYNARD, 39300-6, IMGB, 1988-01, 10931-0 #### [facility] ([id number]) [address] [place] [address], [address] [place] [address] #### 48843-6, TTAG #### [facility] ([id number]) [facility], Immunoglobulinson 09-20-2023 IgA [Mass/Vol] 198 mg/dL 68 - 378 mg/dL [facility] IgG [Mass/Vol] 997 mg/dL 635 - 1741 mg/dL [facility] IgM [Mass/Vol] 165 mg/dL 45 - 281 mg/dL [facility] Laboratory comment Holger (Courtney rt)on 09-20-2023 UNLISTED LAB TEST Sent to reference lab Normal [facility] Comment on above: Performed By: #### A GO #### [facility] ([id number]) [address] [place] [address] TTG AB IGA IGGon 09-20-2023 TTG AB IGA <1.2 Normal <4.0 (Negative) [facility] Comment on above: Performed By: #### C CAESAR, 03998-6, IM, 1988-01, 59513-5 #### [facility] ([id number]) [address] [place] [address], [address] [place] [address] #### 51328-8, TTAG #### [facility] [employer] [facility] ([id number]) [address] [place] [address], TTG AB IGG 1.4 U/mL Normal <6.0 (Negative) [facility] Comment on above: Result Comment: NOTE Test Performed by: [facility] [address] [place] [address] Cotton Expert: Alexander Gonsalez M.D. Ph.D.; CLIA# [id number] Performed By: #### C CAESAR, 80060-7, [facility], 1988-01, 45764-2 #### [facility] ([id number]) [address] [place] [address], [address] [place] [address] #### 93308-5, TTAG #### [facility] ([id number]) [address] [place] [address], Unlisted Lab Test anti-DNA b y crithedia with titrationon 09-20-2023 Laboratory comment Holger (Report) Sent to reference lab [facility] Vitamin D 25 hydroxyon 09-20 Vitamin D+Metabolites [Mass/Vol] 30.7 ng/mL 30 - 100 ng/mL [facility] Comment on above: Vitamin D status 25 [place] Vitamin D Deficiency <20 ng/mL Insufficiency 20-29 ng/mL Sufficiency 30-100 ng/mL Toxicity >100 ng/mL NOTE: A pediatric reference range has not been established by the surgeon partner of this kit. The [place] [employer] recommends a Vitamin D level of = or >20ng/mL in infants and children. Vitamin D+Metabolites [Mass/ Vol]on 09-20-2023 [facility] VITAMIN D 25 HYD TOT 30.7 ng/mL Normal 30-100 [facility] Comment on above: Result Comment: Vitamin D status 25 [place] Vitamin D Deficiency <20 ng/mL Insufficiency 20-29 ng/mL Sufficiency 30-100 ng/mL Toxicity >100 ng/mL NOTE: A pediatric reference range has not been established by the surgeon partner of this kit. The [place] [employer] recommends a Vitamin D level of = or >20ng/mL in infants and children. Performed By: #### C BCA, 44657-1, IMGB, 1988-5, 03475-5 #### [facility] ([id number]) [address] [place] [address] [address] [place] [address] #### 56314-5, TTA #### [facility] ([id number]) [address] [place] [address], 36on 05-24-2023 36 It looks like pt is being seen by [facility] rheumatology please advise if refill appropriate Normal [facility] DHEA-SULFATEon 04-23-2022 DHEA-Sulfate 16.1 ug/dL Critically low 84.8-378.0 [facility] Comment on above: Performed By: #### Becky GOMEZ ####[facility] [address] [place], [place] [address]OkBerna Estella John ESTRADIOLon 04-23-2022 Estradiol <5.0 Normal [facility] Comment on above: Result Comment: Adul t Female: Follicular phase 12.5 - 166.0 Ovulation phase 85.8 - 498.0 Luteal phase 43.8 - 211.0 Postmenopausal <6.0 - 54.7 1st trimester 215.0 - >4300.0 Hui ECLIA methodology Performed By: #### C MP, CRP #### [facility] [address] [address] [address] Estella Lopez FSHon 04-23-2022 FSH 9.9 mIU/mL Normal [facility] Comment on above: Result Comment: Adul t Female: Follicular phase 3.5 - 12.5 Ovulation phase 4.7 - 21.5 Luteal phase 1.7 - 7.7 Postmenopausal 25.8 - 134.8 Performed By: #### L BCFSH ####[facility] [address] [address]Dr. Estella Lopez LUTEINIZING HORMONE (LH)on 0 04-23-2022 LH 3.8 mIU/mL Normal [facility] Comment on above: Result Comment: Adul t Female: Follicular phase 2.4 - 12.6 Ovulation phase 14.0 - 95.6 Luteal phase 1.0 - 11.4 Postmenopausal 7.7 - 58.5 Performed By: #### L BCLH ####[facility] [address] [address]Dr. Estella Lopez PROGESTERONEon 04-23-2022 Progesterone <0.1 Normal [facility] Comment on above: Result Comment: Foll icular phase 0.1 - 0.9 Luteal phase 1.8 - 23.9 Ovulation phase 0.1 - 12.0 First trimester 11.0 - 44.3 Second trimester 25.4 - 83.3 Third trimester 58.7 - 214.0 Postmenopausal 0.0 - 0.1 Performed By: #### C MP, CRP #### [facility] [address] [address] [address] Estella Lopez TESTOSTERONE, TOTALon 2021 Testosterone [Mass/Vol] ng/dL Critically low 8-60 [facility] Comment on above: Performed By: #### T ESTTOT #### [facility] [address] [address] [address] Estella Lopez CBC AUTO DIFFon 04-22-2022 BASO # 0.0 103/ul Normal 0.0-0.1 [facility] Comment on above: Performed By: #### C BC ####[facility] [address] [address]Dr. Estella Lopez Basophils/100 WBC (Bld) 0.2 % Normal 0.2-2.0 [facility] Comment on above: Performed By: #### C BC ####[facility] [address] [place], [place] [address]Dr. Estella Lopez EO # 0.0 103/ul Normal 0.0-0.7 [facility] Comment on above: Performed By: #### C BC ####[facility] Rx[address] [place], [place] [address]Dr. Estella Lopez Eosinophils/100 WBC (Bld) 0.1 % Critically low 0.9-7.0 [facility] Comment on above: Performed By: #### C BC ####[facility] L[address] [place], [place] [address]Dr. Estella Lopez Erythrocyte distribution width (RBC) [Ratio] 18.6 % Critically high 11.0-15.0 [facility] Comment on above: Performed By: #### C BC ####[facility] [address] [place], [place] [address]Dr. Estella Lopez Hematocrit (Bld) [Volume fraction] 39.5 % Normal 36.0-48.0 [facility] Comment on above: Performed By: #### C BC ####[facility] V[address] [place], [place] [address]Dr. Estella Lopez Hemoglobin (Bld) [Mass/Vol] 11.9 g/dL Critically low 12.0-16.0 [facility] Comment on above: Performed By: #### C BC ####[facility] [address] [place], [place] [address]Dr. Estella Lopez IG # 0.03 10e3/ul Normal 0.00-0.03 [facility] Comment on above: Performed By: #### C BC ####[facility] [address] [place], [place] [address]Dr. Estella Lopez IG % 0.3 % Normal 0.0-0.5 [facility] Comment on above: Performed By: #### C BC ####[facility] [address] [address]DrBerna Lopez LYMPH # 1.9 103/ul Normal 1.2-3.8 [facility] Comment on above: Performed By: #### C BC ####[facility] [address] [address]DrBerna Lopez Lymphocytes/100 WBC (Bld) 18.3 % Critically low 20.5-60.0 [facility] Comment on above: Performed By: #### C BC ####[facility] [address] [address]DrBerna Lopez MANUAL DIFF REQ NO Normal [facility] Comment on above: Performed By: #### C BC ####[facility] [address] [address]DrBerna Lopez MCH (RBC) [Entitic mass] 22.3 pg Critically low 26.7-34.0 [facility] Comment on above: Performed By: #### C BC ####[facility] D[address] [place], [place] [address]DrBerna Lopez MCHC (RBC) [Mass/Vol] 30.1 g/dL Normal 29.9-35.2 [facility] Comment on above: Performed By: #### C BC ####[facility] [address] [place], [place] [address]DrBerna Lopez MCV (RBC) [Entitic vol] 74.0 fL Critically low 81.0-99.0 [facility] Comment on above: Performed By: #### C BC ####[facility] [address] [place], [place] [address]DrBerna Lopez MONO # 0.8 103/ul Normal 0.3-0.8 [facility] Comment on above: Performed By: #### C BC ####[facility] [address] [place], [place] [address]DrBerna Lopez Monocytes/100 WBC (Bld) 7.5 % Normal 1.7-12.0 [facility] Comment on above: Performed By: #### C BC ####[facility] [address] [address]Dr. Estella Lopez NEUT # 7.5 103/ul Critically high 1.4-6.5 [facility] Comment on above: Performed By: #### C BC ####[facility] [address] [address]Dr. Estella Lopez Neutrophils/100 WBC (Bld) 73.6 % Normal 43.0-75.0 [facility] Comment on above: Performed By: #### C BC ####[facility] [address] [address]Dr. Estella Lopez Platelet mean volume (Bld) [Entitic vol] 10.9 fL Normal 9.5-13.5 [facility] Comment on above: Performed By: #### C BC ####[facility] Nfk[address] [place], [place] [address]Dr. Estella Lopez PLT 388 103/ul Normal 150-450 [facility] Comment on above: Performed By: #### C BC ####[facility] Dw[address] [place], [place] [address]Dr. Estella Lopez RBC 5.34 106/ul Normal 4.20-5.40 [facility] Comment on above: Performed By: #### C BC ####[facility] [address] [place], [place] [address]Dr. Estella Lopez WBC 10.2 103/ul Normal 4.0-11.0 [facility] Comment on above: Performed By: #### C BC ####[facility] [address] [place], [place] [address]Dr. Estella Lopez FREE T3on 04-22-2021 FREE T3 2.40 pg/mlL Normal 2.18-3.98 [facility] Comment on above: Performed By: #### T SH, FT3 ####[facility] [address] [place], [place] [address]DrBerna Lopez FREE T4on 04-22-2022 Free T4 [Mass/Vol] 0.99 ng/dL Normal 0.76-1.46 [facility] Comment on above: Performed By: #### C MP, CRP #### [facility] [address] [address] [address] Estella Lopez TSHon 04-22-2022 TSH 1.098 uIU/mL Normal 0.358-3.[address] [facility] Comment on above: Performed By: #### T SH, FT3 ####[facility] [address] [address]DrBerna Lopez CYCLIC CITRULLINATED PEPTIDE AB (CCP)on 04-21-2022 CCP Antibodies IgG/IgA 5 units Normal 0-19 [facility] Comment on above: Result Comment: Nega tive <20 Weak positive 20 - 39 Moderate positive 40 - 59 Strong positive >59 Performed By: #### C MP, CRP #### [facility] [address] [address] [address] Estella Lopez PROTEIN ELECTROPHERESISon Albumin [Mass/Vol] 3.1 g/dL Normal 2.9-4.4 [facility] Comment on above: Performed By: #### P RTELEC ####[facility] [address] [address]DrBerna Lopez Albumin/Globulin [Mass ratio] 0.9 {ratio} Normal 0.7-1.7 [facility] Comment on above: Performed By: #### P RTELEC ####[facility] [address] [address]Dr. Estella Lopez Vfuvn-9-Ijwczqlm 0.4 g/dL Normal 0.0-0.4 [facility] Comment on above: Performed By: #### P RTELEC ####[facility] [address] [address]Dr. Estella Lopez Tcnkx-0-Eptoojro 1.2 g/dL Critically high 0.4-1.0 [facility] Comment on above: Performed By: #### P RTELEC ####[facility] [address] [address]Dr. Estella Lopez Beta Globulin 1.2 g/dL Normal 0.7-1.3 [facility] Comment on above: Performed By: #### P RTELEC ####[facility] [address] [address]Dr. Estella Lopez Gamma Globulin 0.8 g/dL Normal 0.4-1.8 [facility] Comment on above: Performed By: #### P RTELEC ####[facility] [address] [address]Dr. Mounarosie Lopez Globulin (S) [Mass/Vol] 3.6 g/dL Normal 2.2-3.9 [facility] Comment on above: Performed By: #### P RTELEC ####[facility] [address] [place], [place] [address]Dr. Mounarosie Lopez M-Prashant Not Observed Normal Not Observed [facility] Comment on above: Performed By: #### P RTELEC ####[facility] [address] [address]Dr. Mounarosie Lopez PDF . Normal [facility] Comment on above: Performed By: #### P RTELEC ####[facility] [address] [place], [place] [address]Dr. Estella Lopez Please note: Comment Normal [facility] Comment on above: Result Comment: Prot ein electrophoresis scan will follow via computer, mail, or regional engineer delivery. Performed By: #### P RTELEC ####[facility] [address] [address]Dr. Mounarosie Lopez Protein [Mass/Vol] 6.7 g/dL Normal 6.0-8.5 [facility] Comment on above: Performed By: #### P RTELEC ####[facility] [address] [address]Dr. Estella John IMMUNOGLOBULINS IGA/IGM/IGG QUANTITATIVEon 04-18-2022 Immunoglobulin A, Qn, Serum 149 mg/dL Normal 87-352 [facility] Comment on above: Performed By: #### I MMUNGL ####[facility] [address] [place], [place] [address]Wc. Estella Lopez Immunoglobulin G, Qn, Serum 977 mg/dL Normal 586-1602 [facility] Comment on above: Performed By: #### I MMUNGL ####[facility] [address] [place], [place] [address]Cm. Estella John Immunoglobulin M, Qn, Serum 98 mg/dL Normal 26-217 [facility] Comment on above: Performed By: #### I MMUNGL ####[facility] [address] [place], [place] [address]Xo. Estella Lopez CRPon 04-17-2022 CRP 1.3 mg/dL Critically high <=1.0 [facility] Comment on above: Performed By: #### C MP, CRP #### [facility] [address] [place], [place] [address] Dr. Estella Lopez SED RATE WESTERGRENon 2021 SED RATE 67 mm/hr Critically high <=20 [facility] Comment on above: Performed By: #### S EDR ####[facility] [address] [place], [place] [address]Qj. Mounarosie Lopez US PELVIS AND TRANSVAGon US PELVIS [...] HILLARY KULKARNI Date: 2022-03-24 11:53 Normal [facility] CBC AUTO DIFFon 03-23-2022 BASO # 0.0 103/ul Normal 0.0-0.1 [facility] Comment on above: Performed By: #### C BC #### [facility] [address] [place] [address] Dr. Estella Lopez Basophils/100 WBC (Bld) 0.3 % Normal 0.2-2.0 [facility] Comment on above: Performed By: #### C BC #### [facility] [address] [place] [address] Dr. Estella Lopez EO # 0.0 103/ul Normal 0.0-0.7 [facility] Comment on above: Performed By: #### C BC #### [facility] [address] [place] [address] Dr. Estella Lopez Eosinophils/100 WBC (Bld) 0.7 % Critically low 0.9-7.0 [facility] Comment on above: Performed By: #### C BC #### [facility] [address] [place] [address] Dr. Estella Lopez Erythrocyte distribution width (RBC) [Ratio] 20.4 % Critically high 11.0-15.0 [facility] Comment on above: Performed By: #### C BC #### [facility] [address] [place] [address] Dr. Estella Lopez Hematocrit (Bld) [Volume fraction] 38.3 % Normal 36.0-48.0 [facility] Comment on above: Performed By: #### C BC #### [facility] [address] [place] [address] Dr. Estella Lopez Hemoglobin (Bld) [Mass/Vol] 11.5 g/dL Critically low 12.0-16.0 [facility] Comment on above: Performed By: #### C BC #### [facility] [address] [place] [address] Dr. Estella Lopez IG # 0.02 10e3/ul Normal 0.00-0.03 [facility] Comment on above: Performed By: #### C BC #### [facility] [address] [place] [address] Dr. Estella Lopez IG % 0.3 % Normal 0.0-0.5 [facility] Comment on above: Performed By: #### C BC #### [facility] [address] [place] [address] Dr. Estella Lopez LYMPH # 1.9 103/ul Normal 1.2-3.8 [facility] Comment on above: Performed By: #### C BC #### [facility] [address] [place] [address] Dr. Estella Lopez Lymphocytes/100 WBC (Bld) 33.4 % Normal 20.5-60.0 [facility] Comment on above: Performed By: #### C BC #### [facility] [address] [place] [address] Dr. Estella Lopez MANUAL DIFF REQ NO Normal [facility] Comment on above: Performed By: #### C BC #### [facility] [address] [place] [address] Dr. Estella Lopez MCH (RBC) [Entitic mass] 22.1 pg Critically low 26.7-34.0 [facility] Comment on above: Performed By: #### C BC #### [facility] [address] [place] [address] Dr. Estella Lopez MCHC (RBC) [Mass/Vol] 30.0 g/dL Normal 29.9-35.2 [facility] Comment on above: Performed By: #### C BC #### [facility] [address] [place] [address] Dr. Estella Lopez MCV (RBC) [Entitic vol] 73.5 fL Critically low 81.0-99.0 [facility] Comment on above: Performed By: #### C BC #### [facility] [address] [place] [address] Dr. Estella Lopez MONO # 0.5 103/ul Normal 0.3-0.8 [facility] Comment on above: Performed By: #### C BC #### [facility] [address] [place] [address] Dr. Estella Lopez Monocytes/100 WBC (Bld) 8.3 % Normal 1.7-12.0 [facility] Comment on above: Performed By: #### C BC #### [facility] [address] [place] [address] Dr. Estella Lopez NEUT # 3.3 103/ul Normal 1.4-6.5 [facility] Comment on above: Performed By: #### C BC #### [facility] [address] [place] [address] Dr. Estella Lopez Neutrophils/100 WBC (Bld) 57.0 % Normal 43.0-75.0 [facility] Comment on above: Performed By: #### C BC #### [facility] [address] [place] [address] Dr. Estella Lopez Platelet mean volume (Bld) [Entitic vol] 10.0 fL Normal 9.5-13.5 [facility] Comment on above: Performed By: #### C BC #### [facility] [address] [place] [address] Dr. Estella Lopez PLT 374 103/ul Normal 150-450 [facility] Comment on above: Performed By: #### C BC #### [facility] [address] [place] [address] Dr. Estella Lopez RBC 5.21 106/ul Normal 4.20-5.40 [facility] Comment on above: Performed By: #### C BC #### [facility] [address] [place] [address] Dr. Estella Lopez WBC 5.8 103/ul Normal 4.0-11.0 [facility] Comment on above: Performed By: #### C BC #### [facility] [address] [place] [address] Dr. Estella Lopez CRPon 03-23-2022 CRP 2.1 mg/dL Critically high <=1.0 [facility] Comment on above: Performed By: #### C MP, CRP #### [facility] [address] [place] [address] Dr. Estella Lopez PROF 14(COMP METB)on 07-18-2 022 Albumin [Mass/Vol] 2.9 g/dL Critically low 3.4-5.0 [facility] Comment on above: Performed By: #### C MP, CRP #### [facility] [address] [place] [address] Dr. Estella Lopez Albumin/Globulin [Mass ratio] 0.7 {ratio} Normal [facility] Comment on above: Performed By: #### C MP, CRP #### [facility] [address] [address] [address] Estella Lopez ALP [Catalytic activity/Vol] 132 U/L Critically high 46-116 [facility] Comment on above: Performed By: #### C MP, CRP #### [facility] [address] [place] [address] Dr. Estella Lopez ALT [Catalytic activity/Vol] 27 U/L Normal 14-59 [facility] Comment on above: Performed By: #### C MP, CRP #### [facility] [address] [place] [address] Dr. Estella Lopez Anion gap [Moles/Vol] 12.1 mmol/L Normal [facility] Comment on above: Performed By: #### C MP, CRP #### [facility] [address] [place] [address] Dr. Estella Lopez AST [Catalytic activity/Vol] 19 U/L Normal 15-37 [facility] Comment on above: Performed By: #### C MP, CRP #### [facility] [address] [place] [address] Dr. Estella Lopez Bilirubin [Mass/Vol] 0.2 mg/dL Normal 0.2-1.0 [facility] Comment on above: Performed By: #### C MP, CRP #### [facility] [address] [place] [address] Dr. Estella Lopez Calcium [Mass/Vol] 8.6 mg/dL Normal 8.5-10.1 [facility] Comment on above: Performed By: #### C MP, CRP #### [facility] [address] [place] [address] Dr. Estella Lopez Chloride [Moles/Vol] 104 mmol/L Normal 98-107 [facility] Comment on above: Performed By: #### C MP, CRP #### [facility] [address] [address] [address] Estella Lopez CO2 [Moles/Vol] 26.8 mmol/L Normal 21.0-32.0 [facility] Comment on above: Performed By: #### C MP, CRP #### [facility] [address] [address] [address] Estella Lopez Creatinine [Mass/Vol] 0.81 mg/dL Normal 0.55-1.02 [facility] Comment on above: Performed By: #### C MP, CRP #### [facility] [address] [address] [address] Estella Lopez EGFR-AF INDIAN >60 Normal >=60 [facility] Comment on above: Performed By: #### C MP, CRP #### [facility] [address] [address] [address] Estella Lopez EGFR-NON AF INDIAN >60 Normal >=60 [facility] Comment on above: Performed By: #### C MP, CRP #### [facility] [address] [place] [address] Dr. Estella Lopez Globulin (S) [Mass/Vol] 4.3 g/dL Normal [facility] Comment on above: Performed By: #### C MP, CRP #### [facility] [address] [address] [address] Estella Lopez Glucose [Mass/Vol] 78 mg/dL Normal 74-106 [facility] Comment on above: Performed By: #### C MP, CRP #### [facility] [address] [address] [address] Estella Lopez Potassium [Moles/Vol] 3.9 mmol/L Normal 3.5-5.1 [facility] Comment on above: Performed By: #### C MP, CRP #### [facility] [address] [address] [address] Estella Lopez Protein [Mass/Vol] 7.2 g/dL Normal 6.4-8.2 [facility] Comment on above: Performed By: #### C MP, CRP #### [facility] [address] [address] [address] Estella Lopez Sodium [Moles/Vol] 139 mmol/L Normal 136-145 [facility] Comment on above: Performed By: #### C MP, CRP #### [facility] [address] [address] [address] Estella Lopez Urea nitrogen [Mass/Vol] 7.0 mg/dL Normal 7.0-18.0 [facility] Comment on above: Performed By: #### C MP, CRP #### [facility] [address] [place] [address] Dr. Estella Lopez Urea nitrogen/Creatinine [Mass ratio] 8.6 mg/mg Normal [facility] Comment on above: Performed By: #### C MP, CRP #### [facility] [address] [place] [address] Dr. Estella Lopez [facility] RATE 77 mm/hr Critically high <=20 [facility] Comment on above: Performed By: #### S EDR #### [facility] [address] [place] [address] Dr. Estella Lopez PRBC LEUKOREDUCEDon 01-06-20 22 ABO and Rh group Nom (Bld) Cross Match Result Compatible Unit Blood Type O Pos Unit Number [id number] Status Information Transfused Product ID Red Blood Cells Product Code [id number] Cross Match Result Compatible Unit Blood Type O Pos Unit Number [id number] Status Information Transfused Product ID Red Blood Cells Product Code [id number] Normal [facility] Comment on above: Performed By: #### P RBC ####[facility] [id number] [address]Dr. Estella Lopez CBC AUTO DIFFon 01-04-2022 BASO # 0.0 103/ul Normal 0.0-0.1 [facility] Comment on above: Performed By: #### C MP, CRP #### [facility] [address] [place], [place] [id number] Dr. Estella Lopez Basophils/100 WBC (Bld) 0.2 % Normal 0.2-2.0 [facility] Comment on above: Performed By: #### C MP, CRP #### [facility] [address] [place] [address] Dr. Estella Lopez EO # 0.1 103/ul Normal 0.0-0.7 [facility] Comment on above: Performed By: #### C MP, CRP #### [facility] [address] [place] [address] Dr. Estella Lopez Eosinophils/100 WBC (Bld) 1.0 % Normal 0.9-7.0 [facility] Comment on above: Performed By: #### C MP, CRP #### [facility] [address] [place] [address] Dr. Estella Lopez Erythrocyte distribution width (RBC) [Ratio] 23.1 % Critically high 11.0-15.0 [facility] Comment on above: Performed By: #### C MP, CRP #### [facility] [address] [place] [address] Dr. Estella Lopez Hematocrit (Bld) [Volume fraction] 30.3 % Critically low 36.0-48.0 [facility] Comment on above: Performed By: #### C MP, CRP #### [facility] [address] [place] [address] Dr. Estella Lopez Hemoglobin (Bld) [Mass/Vol] 9.1 g/dL Critically low 12.0-16.0 [facility] Comment on above: Performed By: #### C MP, CRP #### [facility] [address] [place] [address] Dr. Estella Lopez IG # 0.08 10e3/ul Critically high 0.00-0.03 [facility] Comment on above: Performed By: #### C MP, CRP #### [facility] [address] [place] [address] Dr. Estella Lopez IG % 0.7 % Critically high 0.0-0.5 [facility] Comment on above: Performed By: #### C MP, CRP #### [facility] [address] [address] [address] Estella Lopez LYMPH # 2.6 103/ul Normal 1.2-3.8 [facility] Comment on above: Performed By: #### C MP, CRP #### [facility] [address] [address] [address] Estella Lopez Lymphocytes/100 WBC (Bld) 23.6 % Normal 20.5-60.0 [facility] Comment on above: Performed By: #### C MP, CRP #### [facility] [address] [place] [address] Dr. Estella Lopez MANUAL DIFF REQ NO Normal [facility] Comment on above: Performed By: #### C MP, CRP #### [facility] [address] [place] [address] Dr. Estella Lopez MCH (RBC) [Entitic mass] 21.5 pg Critically low 26.7-34.0 [facility] Comment on above: Performed By: #### C MP, CRP #### [facility] [address] [place] [address] Dr. Estella Lopez MCHC (RBC) [Mass/Vol] 30.0 g/dL Normal 29.9-35.2 [facility] Comment on above: Performed By: #### C MP, CRP #### [facility] [address] [place] [address] Dr. Estella Lopez MCV (RBC) [Entitic vol] 71.5 fL Critically low 81.0-99.0 [facility] Comment on above: Performed By: #### C MP, CRP #### [facility] [address] [place] [address] Dr. Estella Lopez MONO # 0.5 103/ul Normal 0.3-0.8 [facility] Comment on above: Performed By: #### C MP, CRP #### [facility] [address] [place] [address] Dr. Estella Lopez Monocytes/100 WBC (Bld) 4.4 % Normal 1.7-12.0 [facility] Comment on above: Performed By: #### C MP, CRP #### [facility] [address] [address] [address] Estella Lopez NEUT # 7.7 103/ul Critically high 1.4-6.5 [facility] Comment on above: Performed By: #### C MP, CRP #### [facility] [address] [address] [address] Estella Lopez Neutrophils/100 WBC (Bld) 70.1 % Normal 43.0-75.0 [facility] Comment on above: Performed By: #### C MP, CRP #### [facility] [address] [address] [address] Estella Lopez Platelet mean volume (Bld) [Entitic vol] 10.4 fL Normal 9.5-13.5 [facility] Comment on above: Performed By: #### C MP, CRP #### [facility] [address] [address] [address] Estella Lopez PLT 275 103/ul Normal 150-450 [facility] Comment on above: Performed By: #### C MP, CRP #### [facility] [address] [address] [address] Estella Lopez RBC 4.24 106/ul Normal 4.20-5.40 [facility] Comment on above: Performed By: #### C MP, CRP #### [facility] [address] [address] [address] Estella Lopez WBC 11.0 103/ul Normal 4.0-11.0 [facility] Comment on above: Performed By: #### C MP, CRP #### [facility] [address] [address] [address] Estella Lopez CBC AUTO DIFFon 01-03-2022 BASO # 0.0 103/ul Normal 0.0-0.1 [facility] Comment on above: Performed By: #### C MP, CRP #### [facility] [address] [address] [address] Estella Lopez Basophils/100 WBC (Bld) 0.2 % Normal 0.2-2.0 [facility] Comment on above: Performed By: #### C MP, CRP #### [facility] [address] [place] [address] Dr. Estella Lopez EO # 0.1 103/ul Normal 0.0-0.7 [facility] Comment on above: Performed By: #### C MP, CRP #### [facility] [address] [place] [address] Dr. Estella Lopez Eosinophils/100 WBC (Bld) 0.7 % Critically low 0.9-7.0 [facility] Comment on above: Performed By: #### C MP, CRP #### [facility] [address] [place] [address] Dr. Estella Lopez Erythrocyte distribution width (RBC) [Ratio] 20.8 % Critically high 11.0-15.0 [facility] Comment on above: Performed By: #### C MP, CRP #### [facility] [address] [place] [address] Dr. Estella Lopez Hematocrit (Bld) [Volume fraction] 23.2 % Critically low 36.0-48.0 [facility] Comment on above: Result Comment: Test Repeated. Critical Value Verified Performed By: #### C MP, CRP #### [facility] [address] [place] [address] Dr. Estella Lopez Hemoglobin (Bld) [Mass/Vol] 6.6 g/dL Critically low 12.0-16.0 [facility] Comment on above: Result Comment: Test Repeated. Critical Value Verified Performed By: #### C MP, CRP #### [facility] [address] [place] [address] Dr. Estella Lopez IG # 0.07 10e3/ul Critically high 0.00-0.03 [facility] Comment on above: Performed By: #### C MP, CRP #### [facility] [address] [place] [address] Dr. Estella Lopez IG % 0.5 % Normal 0.0-0.5 [facility] Comment on above: Performed By: #### C MP, CRP #### [facility] [address] [address] [address] Estella Lopez LYMPH # 2.7 103/ul Normal 1.2-3.8 [facility] Comment on above: Performed By: #### C MP, CRP #### [facility] [address] [place] [address] Dr. Estella Lopez Lymphocytes/100 WBC (Bld) 21.1 % Normal 20.5-60.0 [facility] Comment on above: Performed By: #### C MP, CRP #### [facility] [address] [place] [address] Dr. Estella Lopez MANUAL DIFF REQ NO Normal [facility] Comment on above: Performed By: #### C MP, CRP #### [facility] [address] [place] [address] Dr. Estella Lopez MCH (RBC) [Entitic mass] 19.1 pg Critically low 26.7-34.0 [facility] Comment on above: Performed By: #### C MP, CRP #### [facility] [address] [place] [address] Dr. Estella Lopez MCHC (RBC) [Mass/Vol] 28.4 g/dL Critically low 29.9-35.2 [facility] Comment on above: Performed By: #### C MP, CRP #### [facility] [address] [place] [address] Dr. Estella Lopez MCV (RBC) [Entitic vol] 67.2 fL Critically low 81.0-99.0 [facility] Comment on above: Performed By: #### C MP, CRP #### [facility] [address] [place] [address] Dr. Estella Lopez MONO # 0.6 103/ul Normal 0.3-0.8 [facility] Comment on above: Performed By: #### C MP, CRP #### [facility] [address] [place] [address] Dr. Estella Lopez Monocytes/100 WBC (Bld) 5.0 % Normal 1.7-12.0 [facility] Comment on above: Performed By: #### C MP, CRP #### [facility] [address] [address] [address] Estella Lopez NEUT # 9.2 103/ul Critically high 1.4-6.5 [facility] Comment on above: Performed By: #### C MP, CRP #### [facility] [address] [address] [address] Estella Lopez Neutrophils/100 WBC (Bld) 72.5 % Normal 43.0-75.0 [facility] Comment on above: Performed By: #### C MP, CRP #### [facility] [address] [address] [address] Estella Lopez Platelet mean volume (Bld) [Entitic vol] 10.5 fL Normal 9.5-13.5 [facility] Comment on above: Performed By: #### C MP, CRP #### [facility] [address] [place] [address] Dr. Estella Lopez PLT 274 103/ul Normal 150-450 [facility] Comment on above: Performed By: #### C MP, CRP #### [facility] [address] [address] [address] Estella Lopez RBC 3.45 106/ul Critically low 4.20-5.40 [facility] Comment on above: Performed By: #### C MP, CRP #### [facility] [address] [place] [address] Dr. Estella Lopez WBC 12.7 103/ul Critically high 4.0-11.0 [facility] Comment on above: Performed By: #### C MP, CRP #### [facility] [address] [place] [address] Dr. Estella Lopze CBC AUTO DIFFon 01-01-2022 BASO # 0.0 103/ul Normal 0.0-0.1 [facility] Comment on above: Performed By: #### C MP, CRP #### [facility] [address] [place] [address] Dr. Estella Lopez Basophils/100 WBC (Bld) 0.1 % Critically low 0.2-2.0 [facility] Comment on above: Performed By: #### C MP, CRP #### [facility] [address] [address] [address] Estella Lopez EO # 0.0 103/ul Normal 0.0-0.7 [facility] Comment on above: Performed By: #### C MP, CRP #### [facility] [address] [place] [address] Dr. Estella Lopez Eosinophils/100 WBC (Bld) 0.2 % Critically low 0.9-7.0 [facility] Comment on above: Performed By: #### C MP, CRP #### [facility] [address] [place] [address] Dr. Estella Lopez Erythrocyte distribution width (RBC) [Ratio] 20.2 % Critically high 11.0-15.0 [facility] Comment on above: Performed By: #### C MP, CRP #### [facility] [address] [place] [address] Dr. Estella Lopez Hematocrit (Bld) [Volume fraction] 26.9 % Critically low 36.0-48.0 [facility] Comment on above: Performed By: #### C MP, CRP #### [facility] [address] [place] [address] Dr. Estella Lopez Hemoglobin (Bld) [Mass/Vol] 7.5 g/dL Critically low 12.0-16.0 [facility] Comment on above: Performed By: #### C MP, CRP #### [facility] [address] [place] [address] Dr. Estella Lopez IG # 0.08 10e3/ul Critically high 0.00-0.03 [facility] Comment on above: Performed By: #### C MP, CRP #### [facility] [address] [place] [address] Dr. Estella Lopez IG % 0.7 % Critically high 0.0-0.5 [facility] Comment on above: Performed By: #### C MP, CRP #### [facility] [address] [place] [address] Dr. Estella Lopez LYMPH # 2.1 103/ul Normal 1.2-3.8 [facility] Comment on above: Performed By: #### C MP, CRP #### [facility] [address] [place] [address] Dr. Estella Lopez Lymphocytes/100 WBC (Bld) 18.2 % Critically low 20.5-60.0 [facility] Comment on above: Performed By: #### C MP, CRP #### [facility] [address] [place] [address] Dr. Estella Lopez MANUAL DIFF REQ NO Normal [facility] Comment on above: Performed By: #### C MP, CRP #### [facility] [address] [place] [address] Dr. Estella Lopez MCH (RBC) [Entitic mass] 18.6 pg Critically low 26.7-34.0 [facility] Comment on above: Result Comment: 2+ h ypochromasia Performed By: #### C MP, CRP #### [facility] [address] [place] [address] Dr. Estella Lopez MCHC (RBC) [Mass/Vol] 27.9 g/dL Critically low 29.9-35.2 [facility] Comment on above: Performed By: #### C MP, CRP #### [facility] [address] [place] [address] Dr. Estella Lopez MCV (RBC) [Entitic vol] 66.7 fL Critically low 81.0-99.0 [facility] Comment on above: Performed By: #### C MP, CRP #### [facility] [address] [place] [address] Dr. Estella Lopez MONO # 0.6 103/ul Normal 0.3-0.8 [facility] Comment on above: Performed By: #### C MP, CRP #### [facility] [address] [place] [address] Dr. Estella Lopez Monocytes/100 WBC (Bld) 5.6 % Normal 1.7-12.0 [facility] Comment on above: Performed By: #### C MP, CRP #### [facility] [address] [place] [address] Dr. Estella Lopez NEUT # 8.6 103/ul Critically high 1.4-6.5 [facility] Comment on above: Performed By: #### C MP, CRP #### [facility] [address] [place] [address] Dr. Estella Lopez Neutrophils/100 WBC (Bld) 75.2 % Critically high 43.0-75.0 [facility] Comment on above: Performed By: #### C MP, CRP #### [facility] [address] [place] [address] Dr. Estella Lopez Platelet mean volume (Bld) [Entitic vol] 10.7 fL Normal 9.5-13.5 [facility] Comment on above: Performed By: #### C MP, CRP #### [facility] [address] [place] [address] Dr. Estella Lopez PLT 327 103/ul Normal 150-450 [facility] Comment on above: Performed By: #### C MP, CRP #### [facility] [address] [place] [address] Dr. Estella Lopez RBC 4.03 106/ul Critically low 4.20-5.40 [facility] Comment on above: Performed By: #### C MP, CRP #### [facility] [address] [place] [address] Dr. Estella Lopez WBC 11.5 103/ul Critically high 4.0-11.0 [facility] Comment on above: Performed By: #### C MP, CRP #### [facility] [address] [place] [address] Dr. Estella Lopez [facility] SARS-CoV-2 (COVID-19) RNA NICOLE+probe Ql (Unsp spec) Not detected Normal NOT DETECTED [facility] Comment on above: Result Comment: When [...] for this test is supported by the Technology [employer] Teacher of Health and Human Service's declaration that [...] be used). Performed By: #### C VDTBH ####[facility] [id number] [address]Dr. Estella Lopez DRUG SCREEN RAPID (URINE)on 01-01-2022 AMP Negative Normal NEGATIVE [facility] Comment on above: Performed By: #### C MP, CRP #### [facility] [address] [address] [address] Estella Lopez BAR Negative Normal NEGATIVE [facility] Comment on above: Performed By: #### C MP, CRP #### [facility] [address] [address] [address] Estella Lopez BUP Negative Normal NEGATIVE [facility] Comment on above: Performed By: #### C MP, CRP #### [facility] [address] [address] [address] Estella Lopez BZO Negative Normal NEGATIVE [facility] Comment on above: Performed By: #### C MP, CRP #### [facility] [address] [address] [address] Estella Lopez DOUGLAS Negative Normal NEGATIVE [facility] Comment on above: Performed By: #### C MP, CRP #### [facility] [address] [address] [address] Estella Lopez CUT-OFFS SEE BELOW Normal [facility] Comment on above: Result Comment: AMP (Amphetamine): [...] Performed By: #### C MP, CRP #### [facility] [address] [place] [address] Dr. Estella Lopez DRUG CUT HEADER DRUG CLASS TEST SYSTEM CUT-OFF CONCENTRATIONS ARE FOLLOWS: Normal [facility] Comment on above: Performed By: #### C MP, CRP #### [facility] [address] [place] [address] Dr. Estella Lopez mAMP Negative Normal NEGATIVE [facility] Comment on above: Performed By: #### C MP, CRP #### [facility] [address] [place] [address] Dr. Estella Lopez MTD Negative Normal NEGATIVE [facility] Comment on above: Performed By: #### C MP, CRP #### [facility] [address] [place] [address] Dr. Estella Lopez OPI Negative Normal NEGATIVE [facility] Comment on above: Performed By: #### C MP, CRP #### [facility] [address] [place] [address] Dr. Estella Lopez OXY Negative Normal NEGATIVE [facility] Comment on above: Performed By: #### C MP, CRP #### [facility] [address] [place] [place] [address] Dr. Estella Lopez PCP Negative Normal NEGATIVE [facility] Comment on above: Performed By: #### C MP, CRP #### [facility] [address] [place] [address] Dr. Estella Lopez PPX Negative Normal NEGATIVE [facility] Comment on above: Performed By: #### C MP, CRP #### [facility] [address] [place] [address] Dr. Estella Lopez TCA Negative Normal NEGATIVE [facility] Comment on above: Performed By: #### C MP, CRP #### [facility] [address] [address] [address] Estella Lopez THC Positive Abnormal NEGATIVE [facility] Comment on above: Performed By: #### C MP, CRP #### [facility] [address] [address] [address] Estella Lopez TYPE AND SCREENon 01-01-2022 TYPE AND SCREEN Negative Normal [facility] Comment on above: Performed By: #### T NS ####[facility] [address] [address]Dr. Estella Lopez US PREG BIOPHY W NON [...] by: SCOTT ESPINO Date: 2021-12-29 17:02 Normal [facility] GROUP B STREP CULTUREon 12-06 S. agalactiae Ag Ql (Unsp spec) Culture Observations: NEGATIVE FOR GROUP B STREPTOCOCCUS. Normal [facility] Comment on above: Performed By: #### G BSCX ####[facility] [address] [address]Dr. Estella Lopez US PREG BIOPHY W NON [...] by: HILLARY KULKARNI Date: 2021-12-22 11:55 Normal [facility] US PREG BIOPHY W NON STRESSo n [...] SCOTT ESPINO Date: 2021-12-15 12:12 Normal [facility] US PREG BIOPHY W NON STRESSo [...] HILLARY KULKARNI Date: 2021-12-08 12:02 Normal [facility] UA (CLEAN/CATCH) SQUEEGEE OPERATOR/MICRO I F IND.on 12-05-2021 Bilirubin Ql (U) Negative Normal NEGATIVE [facility] Comment on above: Performed By: #### U ACSIND #### [facility] [address] [address] [address] Estella Lopez Clarity (U) CLEAR Normal CLEAR [facility] Comment on above: Performed By: #### U ACSIND #### [facility] [address] [address] [address] Estella Lopez Color (U) LT. YELLOW Normal YELLOW [facility] Comment on above: Performed By: #### U ACSIND #### [facility] [address] [address] [address] Estella Lopez Glucose Ql (U) Negative Normal NEGATIVE [facility] Comment on above: Performed By: #### U ACSIND #### [facility] [address] [address] [address] Estella Lopez Hemoglobin Ql (U) Negative Normal NEGATIVE [facility] Comment on above: Performed By: #### U ACSIND #### [facility] [address] [address] [address] Estella Lopez Ketones Ql (U) TRACE Abnormal NEGATIVE [facility] Comment on above: Performed By: #### U ACSIND #### [facility] [address] [place] [address] Dr. Estella Lopez LEUKOCYTES Negative Normal NEGATIVE [facility] Comment on above: Performed By: #### U ACSIND #### [facility] [address] [place] [address] Dr. Estella Lopez Nitrite Ql (U) Negative Normal NEGATIVE [facility] Comment on above: Performed By: #### U ACSIND #### [facility] [address] [place] [address] Dr. Estella Lopez pH (U) 6.0 [pH] Normal 5-9 [facility] Comment on above: Performed By: #### U ACSIND #### [facility] [address] [place] [address] Dr. Estella Lopez SPEC GRAVITY 1.025 Normal 1.005-<=1.025 [facility] Comment on above: Performed By: #### U ACSIND #### [facility] [address] [place] [address] Dr. Estella Lopze UA PROTEIN Negative Normal NEGATIVE/ TRACE [facility] Comment on above: Performed By: #### U ACSIND #### [facility] [address] [place] [address] Dr. Estella Lopez UR MICRO IND NOT INDICATED Normal [facility] Comment on above: Performed By: #### U ACSIND #### [facility] [address] [place] [address] Dr. Estella Lopez Urobilinogen Qn (U) 0.2 {Allen'U}/dL Normal 0.2 - 1. 0 [facility] Comment on above: Performed By: #### U ACSIND #### [facility] [address] [place] [address] Dr. Estella Lopez US PREG BIOPHY W [...] by: SCOTT ESPINO Date: 2021-12-05 07:14 Normal [facility] US PREG PLACENTAon US PREG PLACENTA EXAMINATION: [...] by: SCOTT ESPINO Date: 2021-12-05 07:16 Normal [facility] US PREG BIOPHY W NON STRESSo n [...] by: SCOTT ESPINO Date: 2021-12-01 16:01 Normal [facility] US PREG BIOPHY W NON STRESSo [...] SCOTT ESPINO Date: 2021-11-25 07:26 Normal [facility] CHLAMYDIA/GONOCOCCUS NICOLE ( AB/URINE/PAPon 11-22-2021 Chlamydia trachomatis, NICOLE Negative Normal Negative [facility] Comment on above: Performed By: #### C MP, CRP #### [facility] [address] [place] [address] Dr. Estella Lopez Neisseria gonorrhoeae, NICOLE Negative Normal Negative [facility] Comment on above: Performed By: #### C MP, CRP #### [facility] [address] [place] [address] Dr. Estella Lopez VAGINITIS/VAGINOSIS DNA PROB Brett 11-21-2021 Mirela species Negative Normal Negative [facility] Comment on above: Performed By: #### C MP, CRP #### [facility] [address] [place] [address] Dr. Estella Lopez Gardnerella vaginalis Negative Normal Negative [facility] Comment on above: Performed By: #### C MP, CRP #### [facility] [address] [place] [address] Dr. Estella Lopez Trichomonas vaginalis Negative Normal Negative [facility] Comment on above: Performed By: #### C MP, CRP #### [facility] [address] [place] [address] Dr. Estella Lopez UA (CLEAN/CATCH) SQUEEGEE OPERATOR/MICRO I F IND.on 11-10-2021 Bilirubin Ql (U) Negative Normal NEGATIVE [facility] Comment on above: Performed By: #### C MP, CRP #### [facility] [address] [place] [address] Dr. Estella Lopez Clarity (U) CLEAR Normal CLEAR [facility] Comment on above: Performed By: #### C MP, CRP #### [facility] [address] [place] [address] Dr. Estella Lopez Color (U) LT. YELLOW Normal YELLOW [facility] Comment on above: Performed By: #### C MP, CRP #### [facility] [address] [place] [address] Dr. Estella Lopez Glucose Ql (U) Negative Normal NEGATIVE [facility] Comment on above: Performed By: #### C MP, CRP #### [facility] [address] [place] [address] Dr. Estella Lopez Hemoglobin Ql (U) Negative Normal NEGATIVE [facility] Comment on above: Performed By: #### C MP, CRP #### [facility] [address] [place] [address] Dr. Estella Lopez Ketones Ql (U) >=80 Abnormal NEGATIVE [facility] Comment on above: Performed By: #### C MP, CRP #### [facility] [address] [place] [address] Dr. Estella Lopez LEUKOCYTES Negative Normal NEGATIVE [facility] Comment on above: Performed By: #### C MP, CRP #### [facility] [address] [place] [address] Dr. Estella Lopez Nitrite Ql (U) Negative Normal NEGATIVE [facility] Comment on above: Performed By: #### C MP, CRP #### [facility] [address] [place] [address] Dr. Estella Lopez pH (U) 6.5 [pH] Normal 5-9 [facility] Comment on above: Performed By: #### C MP, CRP #### [facility] [address] [place] [address] Dr. Estella Lopez SPEC GRAVITY 1.020 Normal 1.005-<=1.025 [facility] Comment on above: Performed By: #### C MP, CRP #### [facility] [address] [address] [address] Estella Lopez UA PROTEIN Negative Normal NEGATIVE/ TRACE [facility] Comment on above: Performed By: #### C MP, CRP #### [facility] [address] [address] [address] Estella Lopez UR MICRO IND NOT INDICATED Normal [facility] Comment on above: Performed By: #### C MP, CRP #### [facility] [address] [address] [address] Estella Lopez Urobilinogen Qn (U) 0.2 {Allen'U}/dL Normal 0.2 - 1. 0 [facility] Comment on above: Performed By: #### C MP, CRP #### [facility] [address] [address] [address] Estella Lopez US PREG GROWTHon 10-27-2021 [...] HILLARY KULKARNI Date: 2021-10-27 12:27 Normal [facility] US PREG PLACENTAon US PREG PLACENTA [...] HILLARY KULKARNI Date: 2021-10-27 12:20 Normal [facility] UA (CLEAN/CATCH) SQUEEGEE OPERATOR/MICRO I F IND.on 09-01-2021 Bilirubin Ql (U) Negative Normal NEGATIVE [facility] Comment on above: Performed By: #### U ACSIND #### [facility] [address] [place] [address] Dr. Estella Lopez Clarity (U) CLEAR Normal CLEAR [facility] Comment on above: Performed By: #### U ACSIND #### [facility] [address] [place] [address] Dr. Estella Lopez Color (U) LT. YELLOW Normal YELLOW [facility] Comment on above: Performed By: #### U ACSIND #### [facility] [address] [address] [address] Estella Lopez Glucose Ql (U) Negative Normal NEGATIVE [facility] Comment on above: Performed By: #### U ACSIND #### [facility] [address] [address] [address] Estella Lopez Hemoglobin Ql (U) Negative Normal NEGATIVE [facility] Comment on above: Performed By: #### U ACSIND #### [facility] [address] [address] [address] Estella Lopez Ketones Ql (U) Negative Normal NEGATIVE [facility] Comment on above: Performed By: #### U ACSIND #### [facility] [address] [address] [address] Estella Lopez LEUKOCYTES Negative Normal NEGATIVE [facility] Comment on above: Performed By: #### U ACSIND #### [facility] [address] [place] [address] Dr. Estella Lopez Nitrite Ql (U) Negative Normal NEGATIVE [facility] Comment on above: Performed By: #### U ACSIND #### [facility] [address] [address] [address] Estella Lopez pH (U) 6.5 [pH] Normal 5-9 [facility] Comment on above: Performed By: #### U ACSIND #### [facility] [address] [address] [address] Estella Lopez SPEC GRAVITY 1.015 Normal 1.005-<=1.025 [facility] Comment on above: Performed By: #### U ACSIND #### [facility] [address] [address] [address] Estella Lopez UA PROTEIN Negative Normal NEGATIVE/ TRACE [facility] Comment on above: Performed By: #### U ACSIND #### [facility] [address] [place] [address] Dr. Estella Lopez UR MICRO IND NOT INDICATED Normal [facility] Comment on above: Performed By: #### U ACSIND #### [facility] [address] [place] [address] Dr. Estella Lopez Urobilinogen Qn (U) 0.2 {Allen'U}/dL Normal 0.2 - 1. 0 [facility] Comment on above: Performed By: #### U ACSIND #### [facility] [address] [place] [address] Dr. Estella Lopez XR CHEST 2 Von [...] HILLARY KULKARNI Date: 2021-07-22 16:35 Normal [facility] JAUN BOX TEST PT SEND OUTo n 07-15-2021 SENT TO REF LAB 07/15/2021 Normal [facility] Comment on above: Performed By: #### N BOX ####[facility] [address] [place], [place] [address]XqBerna Lopez ANAon 09-26-2020 Nuclear Ab IF (S) [Titer] HOMOGENEOUS Normal [facility] Comment on above: Performed By: #### 1 0097, 60514, 32504, 87369 ####[facility] [place] [address], [facility] Nuclear Ab IF (S) [Titer] 1:160 Abnormal <1:40,1:40 [facility] Comment on above: Performed By: #### 1 0097, 52118, 77165, 75561 ####[facility] [facility] [place] [address], [facility] ANTI DNAon 09-26-2020 ANTI DNA <1:10 Normal <1:10 [facility] Comment on above: Performed By: #### 1 0097, 03768, 36151, 20102 ####[facility] [place] [address], [facility] ANTI-ENAon 09-26-2020 ANTI SM Negative Normal NEG,NEGATIVE, Neg [facility] Comment on above: Performed By: #### 1 0097, 17369, 69757, 04316 ####[facility] [place] [address], [facility] ANTI SM/ANTIRNP Negative Normal NEG,NEGATIVE , Neg [facility] Comment on above: Performed By: #### 1 0097, 78322, 53191, 69469 ####[facility] [place] [address], [facility] C REACTIVE PROTEINon 021 CRP [Mass/Vol] 17.1 mg/L High 0.0-7.0 [facility] Comment on above: Performed By: #### 1 0204, 27414, 43339, 93214 #### [facility] [address] [place] [address], [facility] CBC W/DIFFon 09-26-2020 ABS BASOPHILS 0.0 10*3/uL Normal 0.0-0.2 [facility] Comment on above: Performed By: #### 5 6505, 82105 ####[facility] [facility] [place] [address], [facility] ABS IMM GRANS 0.0 10*3/uL Normal 0.0-0.2 [facility] Comment on above: Performed By: #### 5 6505, 88005 ####[facility] [place] [address], [facility] ABS NEUTROPHILS 5.1 10*3/uL Normal 1.6-7.6 The [facility] Comment on above: Performed By: #### 5 6505, 67942 ####[facility] [place] [address], [facility] Basophils/100 WBC (Bld) 0.1 % Normal 0.0-1.0 [facility] Comment on above: Performed By: #### 5 6505, 11277 ####[facility] .[place] [address], [facility] Eosinophils (Bld) [#/Vol] 0.1 10*3/uL Normal 0.0-0.5 [facility] Comment on above: Performed By: #### 5 6505, 75956 ####[facility] [place] [address], [facility] Eosinophils/100 WBC (Bld) 0.8 % Normal 0.0-6.0 [facility] Comment on above: Performed By: #### 5 6505, 85555 ####[facility] [place] [address], [facility] Erythrocyte distribution width (RBC) [Ratio] 13.8 % Normal 11.5-15.0 [facility] Comment on above: Performed By: #### 5 6505, [address] ####[place] [address] .[address] Hematocrit (Bld) [Volume fraction] 40.8 % Normal 36.0-45.0 [facility] Comment on above: Performed By: #### 5 6505, 39976 ####[facility] Hemoglobin (Bld) [Mass/Vol] 12.6 g/dL Normal 12.0-15.0 [facility] Comment on above: Performed By: #### 5 6505, 83291 ####[address] IMMATURE GRANS 0.1 % Normal 0.0-1.0 The [facility] Comment on above: Performed By: #### 5 6505, 67705 ####[address] Lymphocytes (Bld) [#/Vol] 1.7 10*3/uL Normal 1.2-4.0 [facility] Comment on above: Performed By: #### 5 6505, 98714 ####[place] [address] .[address] Lymphocytes/100 WBC (Bld) 23.5 % Normal 20.0-45.0 [facility] Comment on above: Performed By: #### 5 6505, 69598 ####[address] MCH (RBC) [Entitic mass] 25.6 pg Low 27.0-33.0 [facility] Comment on above: Performed By: #### 5 6505, 87577 ####[address] [place] [address], [place] MCHC (RBC) [Mass/Vol] 30.9 g/dL Low 32.0-35.0 [facility] Comment on above: Performed By: #### 5 6505, 54704 ####[facility] [place] [address].[address] MCV (RBC) [Entitic vol] 82.9 fL Normal 82.0-98.0 [facility] Comment on above: Performed By: #### 5 6505, 12759 ####[address] Monocytes (Bld) [#/Vol] 0.4 10*3/uL Normal 0.1-1.0 [facility] Comment on above: Performed By: #### 5 6505, 77162 ####[facility] [place] [address].[address] MONOS 5.9 % Normal 5.0-12.0 [facility] Comment on above: Performed By: #### 5 6505, 25313 ####[address] Neutrophils/100 WBC (Bld) 69.6 % Normal 40.0-72.0 [facility] Comment on above: Performed By: #### 5 6505, 71574 ####[address] Nucleated RBC/100 WBC (Bld) [Ratio] 0 % Normal 0-0 [facility] Comment on above: Performed By: #### 5 6505, 89003 ####[address] PLAT CNT 328 10*3/uL Normal 150-400 The [facility] Comment on above: Performed By: #### 5 6505, 94984 ####[facility] [id number], [facility] RBC (Bld) [#/Vol] 4.92 10*6/uL Normal 3.80-5.[address] [facility] Comment on above: Performed By: #### 5 6506, 85925 ####[facility] [id number], [facility] WBC (Bld) [#/Vol] 7.35 10*3/uL Normal 4.00-10.[address] [facility] Comment on above: Performed By: #### 5 6506, 43645 ####[facility] [facility] [place] [address], [facility] COMP METABOLIC PANELon 09-26 Albumin [Mass/Vol] 4.0 g/dL Normal 3.5-5.7 The [facility] Comment on above: Performed By: #### 3 0728, 75445, 58098, 96427, 19152 #### [facility] [address] [place] [address], [facility] ALKALINE PHOSPH 78 IU/L Normal 34-104 The [facility] Comment on above: Performed By: #### 3 0728, 12838, 73077, 13492, 05073 #### [facility] [address] [place] [id number], [facility] ALT [Catalytic activity/Vol] 53 U/L High 7-52 [facility] Comment on above: Performed By: #### 3 0728, 50875, 40584, 43759, 13923 #### [facility] [address] [place] [id number], [facility] AST [Catalytic activity/Vol] 35 U/L Normal 13-39 [facility] Comment on above: Performed By: #### 3 0728, 16447, 46081, 06186, 78371 #### [facility] [address] [place] [address], [place] Bilirubin [Mass/Vol] 0.2 mg/dL Low 0.3-1.0 [facility] Comment on above: Performed By: #### 3 0728, 97120, 42493, 93769, 93483 #### [facility] [address] [place] [address], [place] Calcium [Mass/Vol] 8.8 mg/dL Normal 8.6-10.3 [facility] Comment on above: Performed By: #### 3 0728, 31759, 69365, 41520, 89670 #### [facility] [address] [place] [address], [place] Chloride [Moles/Vol] 106 mmol/L Normal 98-107 [facility] Comment on above: Performed By: #### 3 0728, 01758, 26166, 31302, 91866 #### [facility] [address] [place] [address], [place] CO2 [Moles/Vol] 23 mmol/L Normal 21-31 [facility] Comment on above: Performed By: #### 3 0728, 08036, 33872, 76984, 57584 #### [facility] [address] [place] [address], [place] Creatinine [Mass/Vol] 0.88 mg/dL Normal 0.60-1.20 [facility] Comment on above: Performed By: #### 3 0728, 79106, 63296, 24592, 21621 #### [facility] [address] [place] [address], [place] GFR/1.73 sq M predicted among blacks MDRD (S/P/Bld) [Vol rate/Area] mL/min/{1.73_m2} Normal >60 [facility] Comment on above: Performed By: #### 3 0728, 15843, 82171, 11872, 04003 #### [facility] [address] [place] [address], [place] GFR/1.73 sq M predicted among non-blacks MDRD (S/P/Bld) [Vol rate/Area] mL/min/{1.73_m2} Normal >60 [facility] Comment on above: Performed By: #### 3 0728, 62582, 71922, 19278, 56418 #### [facility] [address] [place] [address], [place] Glucose [Mass/Vol] 96 mg/dL Normal 70-100 [facility] Comment on above: Performed By: #### 3 0728, 51116, 92658, 62245, 36395 #### [facility] [address] [place] [address], [place] Potassium [Moles/Vol] 4.1 mmol/L Normal 3.5-5.1 [facility] Comment on above: Performed By: #### 3 0728, 49569, 54156, 41571, 12963 #### [facility] [address] [place] [address], [place] Protein [Mass/Vol] 7.0 g/dL Normal 6.0-8.3 [facility] Comment on above: Performed By: #### 3 0728, 91193, 34343, 73000, 77201 #### [facility] [address] [place] [address], [place] Sodium [Moles/Vol] 136 mmol/L Normal 136-145 [facility] Comment on above: Performed By: #### 3 0728, 29293, 02168, 91567, 40180 #### [facility] [address] [place] [address], [place] Urea nitrogen [Mass/Vol] 11 mg/dL Normal 7-25 [facility] Comment on above: Performed By: #### 3 0728, 61109, 89709, 96427, 87797 #### [facility] [address] [place] [address], [facility] COMPLEMENT 3on 09-26-2020 COMPLEMENT 3 160 mg/dL High 79-152 [facility] Comment on above: Performed By: #### 1 0204, 41768, 33243, 85061 #### [facility] [address] [place] [address], [facility] COMPLEMENT 4on 09-26-2020 COMPLEMENT 4 19 mg/dL Normal 16-38 [facility] Comment on above: Performed By: #### 1 0204, 30919, 95010, 46720 #### [facility] [address] [place] [address], [facility] CPKon 09-26-2020 CK [Catalytic activity/Vol] 77 U/L Normal 30-223 [facility] Comment on above: Performed By: #### 3 0728, 38756, 80229, 71241, 88939 #### [facility] [address] [place] [address], [facility] CREATININE URINE RANDOMon Creatinine [Mass/Vol] 154.0 mg/dL Normal Th e [facility] Comment on above: Result Comment: Ther e are no established reference values for random urine specimens Performed By: #### 2 5706, [id number] #### [facility] [address] [facility] [place] [address], [facility] HAND LEFT 3 VWSon 09-26-2020 HAND LEFT 3 VWS [facility] Department of Radiology [address] [place] [address] Patient Name: JE KHAN : 1990 Sex: F Age: Race: White Pt. Location: 264 Patient Status: D Ordered Date: 09/26/2020 11:00:00 AM Completed Date: 09/26/2020 11:25 AM Requesting Provider: AINSLEY CARDONA Attending Provider: BIB KRISHNAN I Report Copy To: Signs & Symptoms: M25.50 Pain in unspecified joint I10 History: [place] Comments: Evaluate Exam: HAND LEFT 3 S HAND LEFT 3 VWS HISTORY: History of lupus, hand pain. COMPARISON: None. IMPRESSION: 1. No acute abnormality. No malalignment, deformity or erosive change. Electronically signed: Jacek Barrera. Transcribed by: [email or web address], User Resident: Electronically Signed by: JACEK BARRERA @ 09/27/2020 10:27 AM Normal The [facility] Comment on above: Order Comment: Evalu ate HAND RIGHT 3 Son 1 HAND RIGHT 3 [facility] Department of Radiology [address] [place] [id number] Patient Name: JE KHAN : 1990 Sex: F Age: Race: White Pt. Location: 264 Patient Status: D Ordered Date: 09/26/2020 11:00:00 AM Completed Date: 09/26/2020 11:06 AM Requesting Provider: AINSLEY CARDONA Attending Provider: Report Copy To: Signs & Symptoms: M25.50 Pain in unspecified joint I10 History: [place] Comments: Evaluate Exam: HAND RIGHT 3 VWS HAND RIGHT 3 VWS HISTORY: Hand pain, history of lupus. COMPARISON: None. IMPRESSION: 1. No acute abnormality. No erosive change or malalignment. 2. No significant arthritis. Electronically signed: Jacek Barrera. Transcribed by: [email or web address], User Resident: Electronically Signed by: JACEK BARRERA @ 09/27/2020 10:14 AM Normal The [facility] Comment on above: Order Comment: Evalu ate LUMBAR SPINE 2 OR 3 Son LUMBAR SPINE 2 OR 3 [facility] Department of Radiology [address] [place] [phone] Patient Name: JE KHAN : 1990 Sex: F Age: Race: White Pt. Location: [facility] Patient Status: D Ordered Date: 09/26/2020 11:00:00 AM Completed Date: 09/26/2020 11:06 AM Requesting Provider: AINSLEY CARDONA Attending Provider: Report Copy To: Signs & Symptoms: M54.5 Low back pain I10 History: [place] Comments: Evaluate Exam: LUMBAR SPINE 2 OR 3 VWS LUMBAR SPINE 2 OR 3 VWS HISTORY: Low back pain, history of lupus. COMPARISON: None. IMPRESSION: 1. No compression deformity. Minimal L5-S1 disc height loss. Mild lower lumbar lumbar facet arthrosis. Electronically signed: Jacek Barrera. Transcribed by: [email or web address], User Resident: Electronically Signed by: JACEK BARRERA @ 09/27/2020 10:18 AM Normal The [facility] Comment on above: Order Comment: Evalu ate RHEUMATOID FACTOR SERUMon RA 20 IU/mL Normal 0-20 [facility] Comment on above: Performed By: #### 1 0204, 28105, 76365, 80246 #### [address] S-I JOINTS MIN 4 VWSon 09-26 S-I JOINTS MIN 4 VWS [facility] Department of Radiology [address] [place] [phone] Patient Name: JE KHAN : 1990 Sex: F Age: Race: White Pt. Location: [facility] Patient Status: D Ordered Date: 09/26/2020 11:00:00 AM Completed Date: 09/26/2020 11:06 AM Requesting Provider: AINSLEY CARDONA Attending Provider: Report Copy To: Signs & Symptoms: M54.5 Low back pain I10 History: [place] Comments: Evaluate Exam: S-I JOINTS MIN 4 VWS S-I JOINTS MIN 4 VWS HISTORY: History of lupus, low back pain. COMPARISON: None. IMPRESSION: 1. No convincing evidence of sacroiliitis. No acute abnormality. Electronically signed: Jacek Barrera. Transcribed by: [email or web address], User Resident: Electronically Signed by: JACEK BARRERA @ 09/27/2020 10:17 AM Normal The [facility] Comment on above: Order Comment: Evalu ate SEDIMENTATION RATEon 021 SED RATE 44 mm/hr High 0-20 [facility] Comment on above: Performed By: #### 5 6506, 84341 ####[facility] SJOGRENS ANTIBODIESon 2020 SS-A Negative Normal NEG,NEGATIVE, Neg The [facility] Comment on above: Performed By: #### 1 0097, 39896, 45219, 04560 ####[facility] SS-B Negative Normal NEG,NEGATIVE, Neg The [facility] Comment on above: Performed By: #### 1 0097, 40996, 34336, 30834 ####[facility] [place] [address], [facility] T PROT UR Elizabeth 09-26-2020 Protein [Mass/Vol] 12.0 mg/dL Normal The [facility] Comment on above: Result Comment: Ther e are no established reference values for random urine specimens Performed By: #### 2 5706, 88104 #### [facility] [address] TSH3 WITH REFLEX FT4on 09-26 TSH 3RD GENERATION 2.41 uIU/mL Normal 0.34-5.60 [facility] Comment on above: Performed By: #### 3 0728, 48721, 46116, 71153, 59492 ####[facility] [place] [address], [place] URINALYSISon 09-26-2020 Appearance (U) SL CLOUDY Abnormal CLEAR The [facility] Comment on above: Performed By: #### 1 0008 ####[facility] [place] [address], [place] Bilirubin [Mass/Vol] Negative Normal NEGATIVE The [facility] Comment on above: Performed By: #### 1 0008 ####[facility] [place] [address], [place] BLOOD Negative Normal NEGATIVE The [facility] Comment on above: Performed By: #### 1 0008 ####[facility] [place] [address], [place] Color (U) YELLOW Normal YELLOW The [facility] Comment on above: Performed By: #### 1 0008 ####[facility] [place] [address], [place] Glucose [Mass/Vol] Negative Normal NEGATIVE The [facility] Comment on above: Performed By: #### 1 0008 ####[facility] [place] [address], [place] KETONE Negative Normal NEGATIVE The [facility] Comment on above: Performed By: #### 1 0008 ####[facility] [place] [address], [place] LEUK CARMELO Negative Normal NEGATIVE The [facility] Comment on above: Performed By: #### 1 0008 ####[facility] [place] [address], [place] MICRO NOT DONE Normal The [facility] Comment on above: Result Comment: Micr oscopics not performed on urines with negative chemical reactions unless requested in original order Performed By: #### 1 0008 ####[facility] [place] [address], [facility] Nitrite Ql (U) Negative Normal NEGATIVE [facility] Comment on above: Performed By: #### 1 0008 ####[facility] [place] [address], [facility] pH (Bld) 5.0 Normal 5.0-8.0 [facility] Comment on above: Performed By: #### 1 0008 ####[facility] [place] [address], [facility] Protein (U) [Mass/Vol] Negative Normal NEGATIVE [facility] Comment on above: Performed By: #### 1 0008 ####[facility] SPEC GRAV 1.023 High 1.015-1.020 [facility] Comment on above: Performed By: #### 1 0008 ####[facility] VITAMIN B12on 09-26-2020 Cobalamin (Vitamin B12) [Mass/Vol] 303 pg/mL Normal 180-914 [facility] Comment on above: Result Comment: REFE RENCE RANGES: 180-914 pg/mL Normal 145-179 pg/mL Indeterminate <145 pg/mL Deficient Performed By: #### 3 0728, 04663, 19812, 46586, 52648 ####[facility] VITAMIN D 25-HYDROXYon 09-26 VITAMIN D 25-OH 33.7 ng/mL Normal 30.0-80.0 The [facility] Comment on above: Result Comment: >80. 0 Toxicity possible Performed By: #### 3 0728, 55536, 87697, 89901, 56361 ####[facility] Vital Signs Date Time Vital Sign Value Performing Clinician Facility 02-06-2025 11:43-0400 Body height 162.6 cm Maycol DonitaGuang[place] [employer] Work Phone: [facility] 02-06-2025 11:43-0400 Body mass index (BMI) [Ratio] 34.67 kg/m2 [employer] Work Phone: [facility] 02-06-2025 11:43-0400 Body weight 91.63 kg Social IQ (Social Influence Quotient) Work Phone: [facility] 02-06-2025 11:43-0400 Diastolic blood pressure 76 mm[Hg] Social IQ (Social Influence Quotient) Work Phone: [facility] 02-06-2025 11:43-0400 Systolic blood pressure 122 mm[Hg] Social IQ (Social Influence Quotient) Work Phone: [facility] 05-09-2024 11:20-0400 Diastolic blood pressure 77 mm[Hg] MD Morris Ramsey Work Phone: [facility] 05-09-2024 11:20-0400 Heart rate 77 /min MD Morris Ramsey Work Phone: [facility] 05-09-2024 11:20-0400 Respiratory rate 16 /min MD Morris Ramsey Work Phone: [facility] 05-09-2024 11:20-0400 SaO2% (BldA) [Mass fraction] 96 % MD Morris Ramsey Work Phone: [facility] 05-09-2024 11:20-0400 Systolic blood pressure 115 mm[Hg] MD Morris Ramsey Work Phone: [facility] 05-09-2024 09:50-0400 Body height 162.56 cm MD Morris Ramsey Work Phone: [facility] 05-09-2024 09:50-0400 Body weight 92.98 kg MD Morris Ramsey Work Phone: [facility] 10-21-2023 09:52-0500 Body height 162.6 cm Nano Christianson MD Work Phone: [facility] [employer] [facility] 10-21-2023 09:52-0500 Body mass index (BMI) [Ratio] 37.57 kg/m2 Nano Christianson MD Work Phone: [facility] [employer] [facility] 10-21-2023 09:52-0500 Body weight 99.34 kg Nano Christianson MD Work Phone: [facility] [employer] [facility] 10-21-2023 09:52-0500 Diastolic blood pressure 78 mm[Hg] Nano Christianson MD Work Phone: [facility] [email or web address] 10-21-2023 09:52-0500 Respiratory rate 18 /min Nano Christianson MD Work Phone: [facility] [email or web address] 10-21-2023 09:52-0500 Systolic blood pressure 138 mm[Hg] Nano Christianson MD Work Phone: [facility] [employer] [facility] 09-20-2023 13:40-0500 Body height 162.6 cm Nano Christianson MD Work Phone: [facility] [email or web address] 09-20-2023 13:40-0500 Body mass index (BMI) [Ratio] 36.89 kg/m2 Nano Christianson MD Work Phone: [facility] [employer] [facility] 09-20-2023 13:40-0500 Body weight 97.52 kg Nano Christianson MD Work Phone: [facility] [employer] [facility] 09-20-2023 13:40-0500 Diastolic blood pressure 74 mm[Hg] Nano Christianson MD Work Phone: [facility] [employer] [facility] 09-20-2023 13:40-0500 Respiratory rate 18 /min Nano Christianson MD Work Phone: [facility] 09-20-2023 13:40-0500 Systolic blood pressure 134 mm[Hg] Nano Christianson MD [facility] Phone[facility] Encounters Encounter Date Encounter Type Care Provider Facility Start: 04-06-2025 End: 04-06-2025 Clinisync Result Encounter Generic External Data Provider [facility] External [facility] Unsolicited Start: 04-06-2025 End: 04-06-2025 Clinisync Result Encounter Generic External Data Provider [facility] External Department Unsolicited Start: 03-26-2025 End: 03-26-2025 Clinisync Result Encounter Generic External Data Provider [facility] External Department Unsolicited Start: 03-26-2025 End: 03-26-2025 Clinisync Result Encounter Generic External Data Provider [facility] External Department Unsolicited Start: 02-19-2025 End: 02-19-2025 ambulatory MAYCOL DONITA Not Available Start: 02-06-2025 End: 02-06-2025 Bamboo flowsheet Maycol Donita DO Work Phone: [facility] Start: 02-06-2025 End: 02-06-2025 Bamboo flowsheet Maycol Donita DO Work Phone: [facility] Start: 02-06-2025 End: 02-06-2025 ambulatory MAYCOL DONITA Not Available Start: 02-06-2025 End: 02-06-2025 Office outpatient visit 15 minutes Maycol Donita DO Work Phone: [facility] Comment on above: Encounter to discuss procedure; Abnormal uterine bleeding (AUB); Systemic lupus erythematosus, unspecified SLE type, unspecified organ involvement status (CMS/HCC); Fibromyalgia; Menorrhagia with regular cycle Start: 11-16-2024 End: 11-16-2024 Clinisync Result Encounter Generic External Data Provider [facility] External Department Unsolicited Start: 11-16-2024 End: 11-16-2024 Clinisync Result Encounter Generic External Data Provider [facility] External Department Unsolicited Start: 09-12-2024 End: 09-12-2024 Refill Morris Ramsey MD Work Phone: [facility] Comment on above: VICKIE (generalized anx iety disorder) (CMS/HCC) Start: 09-11-2024 End: 09-11-2024 Clinisync Result Encounter Generic External Data Provider [facility] External Department Unsolicited Start: 09-11-2024 End: 09-11-2024 Clinisync Result Encounter Generic External Data Provider [facility] External Department Unsolicited Start: 08-25-2024 End: 08-25-2024 Orders Only Morris Ramsey MD Work Phone: [facility] Comment on above: VICKIE (generalized anx iety disorder) (CMS/HCC) (Primary Dx) Start: 07-13-2024 End: 07-13-2024 Telephone encounter Ze Abarca MD Work Phone: [facility] Start: 05-16-2024 End: 05-29-2024 Telephone encounter Laya Ortiz MANAGER INTERMEDIATE [facility] Comment on above: re: PT today (She ca lled noting she has all her kids at home and they are all sick; she said she is in the process of contacting doctor. She is in need to cx today; re: today last PT scheduled she will call back when available.) Start: 05-09-2024 Non-patient / Non-visit MD Fern Ramsey Work Phone: [facility] G[facility] Work Phone: Start: 05-09-2024 End: 05-09-2024 Admission to same day surgery center MD Morris Ramsey Work Phone: [facility] Work Phone: Start: 05-09-2024 End: 05-09-2024 ambulatory MD Morris Ramsey Work Phone: [facility] Work Phone: Start: 04-27-2024 End: 04-27-2024 Bamboo flowsheet Briseida Pathak PT Work Phone: [facility] Start: 04-27-2024 End: 04-27-2024 Bamboo flowsheet Briseida Pathak PT Work Phone: [facility] Start: 04-27-2024 End: 04-27-2024 ambulatory Briseida Pathak PT Work Phone: [facility] Comment on above: Lumbar radiculopathy (Primary Dx); Lumbar paraspinal muscle spasm; Muscle weakness of lower extremity Start: 04-24-2024 End: 04-24-2024 ambulatory GUDELIA LANCE Not Available Start: 04-18-2024 End: 04-18-2024 ambulatory LAYA ORTIZ Not Available Start: 04-14-2024 End: 04-14-2024 ambulatory GUDELIA LANCE Not Available Start: 04-10-2024 End: 04-10-2024 ambulatory BRISEIDA PATHAK Not Available Start: 04-06-2024 End: 04-06-2024 ambulatory ZE ABARCA Not Available Start: 10-21-2023 End: 10-21-2023 ambulatory NANO N CHRISTIANSON [facility] Start: 10-21-2023 End: 10-21-2023 Office outpatient visit 40 minutes Nano Christianson MD Work Phone: [facility] Comment on above: Fibromyalgia (Primar y Dx); Ulcerative pancolitis without complication ([facility]-HCC); Polyarthralgia; ESR raised; CRP elevated Start: 10-10-2023 Chart abstracting Ze rivera MD Work Phone: [facility] Start: 09-20-2023 End: 09-21-2023 ambulatory NANO N CHRISTIANSON [facility] Start: 09-20-2023 End: 09-20-2023 ambulatory NANO N CHRISTIANSON [facility] Start: 09-20-2023 End: 09-20-2023 Office outpatient visit 40 minutes Nano Christianson MD Work Phone: [facility] Comment on above: Iron deficiency anem ia, unspecified iron deficiency anemia type (Primary Dx); Fibromyalgia; ESR raised; Chronic diarrhea; Chronic low back pain without sciatica, unspecified back pain laterality; Polyarthralgia; RAGHAVENDRA positive Start: 05-12-2022 End: 05-12-[address] TERRY MUNOZ Facility:[facility]1 Start: 04-24-[address] MAYCOL DUCKWORTH Facility :[facility]1 Start: 04-22-2022 End: 04-23-[address] MORRIS RAMSEY Facility:[facility]1 Start: 04-21-[address] MAYCOL DUCKWORTH Facility :[facility]1 Start: 04-17-2022 End: 04-18-[address] DOCTOR FERNANDO Facility:[facility]1 Start: 04-14-[address] MAYCOL DUCKWORTH Facility :[facility]1 Start: 03-23-2022 End: 03-24-[address] DOCTOR FERNANDO Facility:[facility]1 Start: 03-23-2022 End: 03-24-[address] MAYCOL DUCKWORTH Facility:[facility]1 Start: 01-26-[address] MAYCOL DUCKWORTH Facility :[facility]1 Start: 01-21-[address] DOCTOR FERNANDO Facility :[facility] Start: 01-19-[address] MAYCOL DUCKWORTH Facility :[facility]1 Start: 01-12-[address] MAYCOL DUCKWORTH Facility :[facility]1 Start: 01-06-2022 End: 07-07-[address] MAYCOL DUCKWORTH Facility:[facility]1 Start: 01-05-[address] MAYCOL DUCKWORTH Facility :[facility]1 Start: 01-01-2022 End: 01-04-2022 Evaluation and management of inpatient DR MAYCOL DUCKWORTH Facility:[facility]1 Start: 12-29-2021 End: 12-29-[address] MARIBEL CAMARILLO Facility:[facility]1 Start: 12-25-2021 End: 12-25-[address] MAYCOL DUCKWORTH Facility:[facility]1 Start: 12-25-2021 End: 12-25-[address] MAYCOL DUCKWORTH Facility:[facility]1 Start: 12-22-2021 End: 12-22-[address] MARIBEL CAMARILLO Facility:[facility]1 Start: 12-19-2021 End: 12-19-[address] MAYCOL DUCKWORTH Facility:H1 Start: 12-18-2021 End: 12-18-[address] MAYCOL DUCKWORTH Facility:[facility]1 Start: 12-15-2021 End: 12-15-[address] MARIBEL CAMARILLO Facility:[facility]1 Start: 12-11-2021 End: 12-11-[address] MAYCOL DUCKWORTH Facility:[facility]1 Start: 12-08-2021 End: 12-08-[address] MARIBEL CAMARILLO Facility:[facility]1 Start: 12-05-2021 End: 12-05-[address] MAYCOL DUCKWORTH Facility:[facility]1 Start: 12-04-2021 End: 12-04-[address] MAYCOL DUCKWORTH Facility:[facility]1 Start: 12-01-2021 End: 12-01-[address] MARIBEL CAMARILLO Facility:H1 Start: 11-24-2021 End: 11-24-[address] MARIBEL CAMARILLO Facility:H1 Start: 11-19-2021 End: 11-19-[address] MAYCOL DUCKWORTH Facility:H1 Start: 11-10-2021 End: 11-10-[address] MARIBEL CAMARILLO Facility:H1 Start: 10-27-2021 End: 10-28-[address] MAYCOL DUCKWORTH Facility:H1 Start: 09-01-2021 End: 09-01-2021 ambulatory VESTA HATHAWAY Facility:H1 Start: 09-01-2021 End: 09-01-[address] MAYCOL DUCKWORTH Facility:H1 Start: 08-08-2021 End: 08-09-2021 ambulatory BRENDA CLAUDIO Facility:H1 Start: 08-08-2021 End: 08-08-[address] MORRIS RAMSEY Facility:H1 Start: 07-22-2021 End: 07-23-[address] MORRIS RAMSEY Facility:H1 Start: 07-15-2021 End: 07-16-[address] MAYCOL DUCKWORTH Facility:H1 Procedures Date Procedure Procedure Detail Performing Clinician Start: 04-06-2025 ALL THYROID STIM HORMONE Generic Externa l Data Provider Start: 03-26-2025 ALL CBC WITH AUTO DIFF Generic External Data Provider Start: 02-06-2025 Urnls dip stick/tablet rgnt non-auto w/o micrscp Maycol Duckworth DO Work Phone: Start: 11-16-2024 ALL CBC WITH AUTO DIFF Generic External Data Provider Start: 09-11-2024 ALL CBC WITH AUTO DIFF Generic External Data Provider Start: 05-09-2024 Esophagogastroduodenoscopy MD Morris Marie er Work Phone: Start: 01-03-2022 Transfusion of Nonautologous Red Blood Cells into Peripheral Vein, Percutaneous Approach DR MAYCOL DUCKWORTH Start: 01-02-2022 Delivery of Products of Conception, External Approach DR MAYCOL DUCKWORTH Start: 01-01-2022 Drainage of Amniotic Fluid, Therapeutic from Products of Conception, Via Natural or Artificial Opening DR MAYCOL DUCKWORTH Start: 01-01-2022 Introduction of Other Hormone into Peripheral Vein, Percutaneous Approach DR MAYCOL DUCKWORTH Plan of Treatment Date Care Activity Detail Author Start: 05-07-2025 Influenza vaccination [facility] Start: 03-15-2025 End: 03-15-2025 Patient encounter procedure 03/15/2025 10:30 AM EDT Procedure Visit [facility] [address] [place] [id number] Maycol Duckworth DO [address] [place] [address] [facility] Start: 02-26-2025 End: 02-26-2025 Patient encounter procedure 02/26/2025 2:40 PM EDT Office Visit [facility] [address] [place] [phone] Maycol Duckworth DO [address] [place] [address] [facility] Start: 02-19-2025 End: 02-19-2025 Professional / ancillary services management 02/19/2025 9:30 AM EDT Ancillary Procedure [facility] [address] [place] [id number] [facility] Start: 02-06-2025 End: 02-06-2026 aPTT in Blood by Coagulation assay APTT Lab Routine Menorrhagia with regular cycle Expected: 02/06/2025 (Approximate), Expires: 02/06/2026 [facility] Comment on above: Expected: 02/06/2025 (Approximate), Expires: 02/06/2026 Start: 02-06-2025 End: 02-06-2026 US Pelvis US Pelvis w/ TV Imaging Routine Abnormal uterine bleeding (AUB) Menorrhagia with regular cycle Expected: 02/06/2025, Expires: 02/06/2026 [facility] Comment on above: Expected: 02/06/2025 , Expires: 02/06/2026 Start: 10-21-2024 Adult BMI Screening Adult BMI Screen ing [facility] Start: 10-21-2024 Tobacco Screening Tobacco Screening [facility] Start: 09-20-2024 Adult BMI Screening Adult BMI Screen ing [facility] Start: 08-17-2024 End: 08-17-2024 Patient encounter procedure 08/17/2024 10:20 AM EST Office Visit [facility] [address] [facility] [address] [place] [phone] Ze Abarca MD [address] [facility] [address] [place] [address] [facility] Start: 06-28-2024 End: 06-28-2024 Patient encounter procedure 06/28/2024 9:00 AM EDT Office Visit [facility] [address] [facility] [address] [place] [phone] Ze Abarca MD [address] [facility] [address] [place] [address] [facility] Start: 05-09-2024 End: 05-09-2024 ambulatory 05/09/2024 11:00 AM EDT Treatment [facility] [address] [facility] [address] [place] [phone] Briseida Pathak, PT [address] [place] [address] [facility] Start: 05-09-2024 [facility] Start: 05-07-2024 Influenza vaccination Influenza Vacc ine (#1) [facility] Start: 05-04-2024 End: 05-04-2024 ambulatory 05/04/2024 10:00 AM EDT Treatment [facility] [address] [facility] [address] [place] [address] Briseida Pathak, PT [address] [facility] [address] [place] [address] [facility] Start: 05-01-2024 End: 05-01-2024 Patient encounter procedure 05/01/2024 11:30 AM EDT Office Visit [facility] [address] [place] [id number] Maycol Duckworth, DO [address] [facility] [place] [address] [facility] Start: 05-01-2024 End: 05-01-2024 ambulatory 05/01/2024 10:30 AM EDT Treatment [facility] [address] [facility] [address] [place] [address] Gudelia Lance PTA [facility] Start: 04-27-2024 End: 04-27-2024 ambulatory 04/27/2024 10:30 AM EDT Treatment [facility] [address] [facility] [address] [place] [address] Briseida Pathak, PT [address] [facility] [address] [place] [address] Arrived [facility] Comment on above: Arrived Start: 04-26-2024 Tobacco Screening Tobacco Screening [facility] Start: 02-23-2024 End: 02-23-2024 Patient encounter procedure 02/23/2024 1:15 PM EDT Office Visit [facility] [address] [phone] Nano Christianson MD [address] [address] [facility] Start: 01-05-2024 End: 01-05-2024 Patient encounter procedure 01/05/2024 1:00 PM EDT Office Visit [facility] [address] [place] [address] Morirs Ramsey MD [address] [place] [address] [facility] Start: 10-21-2023 End: 10-21-2023 Patient encounter procedure 10/21/2023 9:45 AM EST Office Visit [facility] [address] [place] [phone] Nano Christianson MD [address] [address] [facility] Start: 10-11-2023 End: 10-11-2023 Patient encounter procedure 10/11/2023 9:20 AM EST Office Visit [facility] [address] [facility] [address] [place] [address] Ze Abarca MD [address] [facility] [address] [address] [facility] Start: 09-20-2023 End: 09-20-2024 Endomysial antibody, IgA titer Endomysial antibody, IgA titer Lab Routine Chronic diarrhea Expected: 09/20/2023 (Approximate), Expires: 09/20/2024 [facility] Comment on above: Expected: 09/20/2023 (Approximate), Expires: 09/20/2024 Start: 09-20-2023 End: 09-20-2024 MR Hand - right WO and W contrast IV MR hand right with and without contrast Imaging Routine ESR raised Polyarthralgia RAGHAVENDRA positive Expected: 09/20/2023, Expires: 09/20/2024 [facility] [employer] Work Phone: Comment on above: Expected: 09/20/2023 , Expires: 09/20/2024 Start: 09-20-2023 End: 09-20-2024 Tissue transglutaminase, IgA & IgG [facility] Comment on above: Expected: 09/20/2023 (Approximate), Expires: 09/20/2024 Start: 09-20-2023 End: 09-20-2024 XR Lumbar spine 2 or 3 Views [facility] Comment on above: Expected: 09/20/2023 , Expires: 09/20/2024 Start: 09-20-2023 End: 09-20-2024 XR Sacroiliac Joint 3 Views [facility] Comment on above: Expected: 09/20/2023 , Expires: 09/20/2024 Start: 05-07-2023 Influenza vaccination [facility] Start: 02-11-2020 Screening for malignant neoplasm of cervix [facility] Start: 2011 Screening for malignant neoplasm of cervix Pap Smear [facility] Start: 02-11-2008 Adult BMI Follow Up Plan Adult BMI Follow Up Plan [facility] Start: 2002 Depression Screening Depression Scre ening [facility] Start: 2001 DTaP,Tdap and Td Vaccines (6 - Tdap) DTaP,Tdap and Td Vaccines (6 - Tdap) [facility] CBC W Auto Differential panel - Blood CBC and differential Lab Routine Menorrhagia with regular cycle Ordered: 02/06/2025 [facility] [employer] Work Phone: Comment on above: Ordered: 02/06/2025 Endomysium Ab [Presence] in Serum Endomysial antibody, IgA titer Lab Routine Chronic diarrhea 09/20/2023 2:36 PM EST [facility] hCG, quantitative, hCG, quantitative, Lab Routine Menorrhagia with regular cycle Ordered: 02/06/2025 [facility] Comment on above: Ordered: 02/06/2025 Hemoglobin A1c/Hemoglobin.total in Blood Hemoglobin A1c Lab Routine Menorrhagia with regular cycle Ordered: 02/06/2025 [facility] Comment on above: Ordered: 02/06/2025 End: 09-20-2024 IGG subclasses IGG subclasses Lab Routine ESR raised 1 Occurrences starting 09/20/2023 until 09/20/2024 [facility] Comment on above: 1 Occurrences starti ng 09/20/2023 until 09/20/2024 IGG subclasses IGG subclasses L ab Routine ESR raised 09/20/2023 2:36 PM EST [facility] Patient [facility] Gastritis (DC) Know your [facility] Work Phone: Prothrombin time (PT ) in Blood by Coagulation assay Protime-INR Lab Routine Menorrhagia with regular cycle Ordered: 02/06/2025 [facility] Comment on above: Ordered: 02/06/2025 Thyrotropin [Units/volume] in Serum or Plasma TSH Lab Routine Menorrhagia with regular cycle Ordered: 02/06/2025 [facility] Comment on above: Ordered: 02/06/2025 Thyroxine (T4) free [Mass/volume] in Serum or Plasma T4, free Lab Routine Menorrhagia with regular cycle Ordered: 02/06/2025 [facility] Comment on above: Ordered: 02/06/2025 Payers Date Payer Category Payer Self-pay [id number] 2022 Managed Care O (unspecified) [id number] 2022 Private Health Insurance AETONJA JUDD POS II [id number] 2022-Present [phone] [address] [place] [address] [id number]. [id number] 2022 Private Health Insurance [id number] 2019 Medicaid [facility] MEDICAID [facility] MEDICAID [id number] 2019-Present [address] [place] [id number] [id number] 2019 Medicaid (Managed Care) [facility] MEDICAID [id number] 2016 Unknown [id number] 1990 Unknown [id number] 2.16.840.1.140519.3.579.2. 593 1990 Unknown [id number] 2.16.840.1.022968.3.579.2. 59 1990 Unknown [id number] 2.16.840.1.808602.3.579.2. 593 1990 Unknown [id number] 2.16.840.1.604872.3.579.2. 593 1990 Unknown [id number] 2.16.840.1.501092.3.579.2. 593 1990 Unknown [id number] 2.16.840.1.124547.3.579.2. 59 1990 Unknown [id number] 2.16.840.1.464783.3.579.2. 593 1990 Unknown [id number] 2.16.840.1.123069.3.579.2. 593 1990 Unknown [id number] 2.16.840.1.071176.3.579.2. 593 1990 Unknown [id number] 2.16.840.1.691551.3.579.2. 593 1990 Unknown [id number] 2.16.840.1.127909.3.579.2. 593 1990 Unknown [id number] 2.16.840.1.753994.3.579.2. 593 1990 Unknown [id number] 2.16.840.1.544904.3.579.2. 593 1990 Unknown [id number] 2.16.840.1.540942.3.579.2. 59 1990 Unknown [id number] 2.16.840.1.454418.3.579.2. 593 1990 Unknown [id number] 2.840.1.808537.3.579.2. 59 1990 Unknown [id number] 2.16.840.1.838040.3.579.2. 593 1990 Unknown [id number] 2.16.840.1.598606.3.579.2. 593 1990 Unknown [id number] 2.16.840.1.352516.3.579.2. 593 1990 Unknown [id number] 2.16840.1.274907.3.579.2. 593 1990 Unknown [id number] 2.16.840.1.376578.3.579.2. 593 1990 Unknown [id number] 2.16.840.1.076180.3.579.2. 593 1990 Unknown [id number] 2.16.840.1.754436.3.579.2. 593 1990 Unknown [id number] 2.16.840.1.757836.3.579.2. 59 1990 Unknown [id number] 2.16.840.1.836205.3.579.2. 593 1990 Unknown [id number] 2.16.840.1.408079.3.579.2. 593 1990 Unknown [id number] 2.16.840.1.332451.3.579.2. 593 1990 Unknown [id number] 2.16.840.1.162012.3.579.2. 593 1990 Unknown [id number] 2.16.840.1.946398.3.579.2. 593 1990 Unknown [id number] 2.16.840.1.165812.3.579.2. 593 1990 Unknown [id number] 2.16.840.1.346263.3.579.2. 3 1990 Unknown [id number] 2.16.840.1.752547.3.579.2. 1990 Unknown [id number] 2.16.840.1.284272.3.579.2. 593 1990 Unknown [id number] 2.16.840.1.972546.3.579.2. 3 1990 Unknown [id number] 2.16.840.1.941020.3.579.2. 593 1990 Unknown [id number] 2.16.840.1.551483.3.579.2. 1990 Unknown [id number] 2.16.840.1.278382.3.579.2. 1286 1990 Unknown [id number] 2.16.840.1.496533.3.579.2. 1285 1990 Unknown [id number] 2.16.840.1.947463.3.579.2. 1285 1990 Unknown [id number] 2.16.840.1.443298.3.579.2. 1285 1990 Unknown [id number] 2.16.840.1.981008.3.579.2. 6 1990 Unknown [id number] 2.16.840.1.038609.3.579.2. 1258 1990 Unknown [id number] 2.16.840.1.549147.3.579.2. 1258 1990 Unknown [id number] 2.16.840.1.005342.3.579.2. 1258 1990 Unknown [id number] 2.16.840.1.076190.3.579.2. 1258 1990 Unknown [id number] 2.16.840.1.402851.3.579.2. 1258 1990 Unknown [id number] 2.16.840.1.338439.3.579.2. 1258 1990 Unknown [id number] 2.16.840.1.170195.3.579.2. 1258 1990 Unknown [id number] 2.16.840.1.841837.3.579.2. 9 1959 Self-pay [id number] 1959 Unknown [id number] Department of [facility] ( and others) [facility] [id number] Unknown [id number] 2.16.840.1.323654.3.579.2. 593 Unknown [id number] 2.16.840.1.010487.3.579.2. 531 Social History Date Type Detail Facility Start: 04-28-2023 End: 11-17-2023 Tobacco smoking status WAIS Ex-smoker [facility] End: 09-06-2018 History of tobacco use Current smoker [facility] End: 09-06-2018 History of tobacco use Cigarette Smoker [facility] Start: 04-28-2023 End: 11-17-2023 Tobacco use and exposure Smokeless tobacco non-user [facility] Start: 08-12-2023 End: 02-06-2025 Alcohol intake Ex-drinker (finding) [facility] Start: 08-12-2023 End: 12-29-2023 History of Social function [facility] Start: 08-12-2023 End: 12-29-2023 Tobacco use panel [facility] Start: 1990 Sex Assigned At Not on file P [facility] Start: 1990 Sex Assigned At Female F [facility] How often do you att end latter day or hoahaoism services? Patient declined [facility] Do you belong to any clubs or organizations such as latter day groups, unions, fraternal or athletic groups, or school groups? No [facility] Are you now , , , , never or living with a partner? [facility] How often to you hav e a drink containing alcohol? Never [facility] How hard is it for y ou to pay for the very basics like food, housing, medical care, and heating Very hard [facility] Do you feel stress - tense, restless, nervous, or anxious, or unable to sleep at night because your mind is troubled all the time - these days [OSQ] Very much [facility] (I/We) worried wheth er (my/our) food would run out before (I/we) got money to buy more. Often true [facility] In the past 12 month s, was there a time when you were not able to pay the mortgage or rent on time? Yes [facility] Goals Date Patient Goal Desired Activity /State Clinical Notes 09-20-2023 to 02-06-2025 Sarah Clifton LPN - 02/06/2025 10:50 AM EDTTelephone Encounter - Jenny Epps - 07/13/2024 3:39 PM ESTTelephone Encounter - Jenny Epps - 07/13/2024 3:39 PM EST Note Date & Type Note Facility 02-06-2025 History of Presen t illness Narrative Reason for Appointment: Patient ID: Je Reynolds is a 34 y.o. female who presents for Discuss Hysterectomy (Pt present today to discuss hysterectomy ) Patient presents today for Acute Visit. and Consult appointment. MEDICATIONS Current Outpatient Medications Medication Instructions ALPRAZolam (XANAX) 1 mg, Oral, 3 times daily PRN amitriptyline (ELAVIL) 25 mg, Oral, Nightly, One capsule at 8 PM each nightOne capsule at 8 PM each night biotin 100 mg, Oral, Daily dexAMETHasone (Decadron) 2 MG tablet 2mg 3 pills po X3 days,2 pills po daily X3 days , then 1 pill po daily X3 days then stop 9 days 18 pills FeroSul 325 (65 Fe) MG tablet fludrocortisone (FLORINEF) 0.1 mg/day (0.05 mg), Oral, 2 times daily (04/21) folic acid (FOLVITE) 1,000 mcg, Oral, Daily gabapentin (NEURONTIN) 300 mg, Oral, Nightly meloxicam (MOBIC) 7.5 mg, Oral, Daily methocarbamol (ROBAXIN) 500 mg, Oral, Nightly omeprazole (PRILOSEC) 10 mg, Oral, Daily RT pantoprazole (PROTONIX) 40 mg, Oral, 2 times daily predniSONE (Deltasone) 10 MG tablet take 6 tablets by mouth once daily for 3 days then 4 once daily f... (REFER TO PRESCRIPTION NOTES). pyridoxine (Vitamin B-6) 25 MG tablet sertraline (ZOLOFT) 100 mg, Oral, Daily ALLERGIES Allergies Allergen Reactions Penicillins Hives and Itching PROBLEMS Active Ambulatory Problems Diagnosis Date Noted Fibromyalgia 12/04/2022 Lupus 04/28/2023 RA (rheumatoid arthritis) ([facility]) 04/28/2023 Ulcerative colitis 04/28/2023 Memory loss 04/28/2023 Myalgia 04/28/2023 Small fiber neuropathy 05/13/2023 Lumbar radiculopathy 05/13/2023 Balance problems 06/24/2023 Iron deficiency anemia 10/11/2023 Dysautonomia ([facility]) 11/17/2023 Major depressive disorder, recurrent episode, mild (HCC) ([facility]) 01/05/2024 Abdominal pain 04/06/2024 Constipation 04/06/2024 CRP elevated 10/21/2023 Dyspepsia 04/06/2024 ESR raised 10/21/2023 Gastroesophageal reflux disease 04/06/2024 Polyarthralgia 10/21/2023 VICKIE (generalized anxiety disorder) ([facility]) 08/25/2024 Resolved Ambulatory Problems Diagnosis Date Noted No Resolved Ambulatory Problems Past Medical History: Diagnosis Date Hx of ovarian cyst HISTORY PAST MEDICAL HISTORY SOCIAL HISTORY Past Medical History: Diagnosis Date Hx of ovarian cyst Social History Tobacco Use Smoking status: Former Current packs/day: 0.00 Types: Cigarettes Quit date: 2019 Years since quittin.4 Smokeless tobacco: Never Substance Use Topics Alcohol use: Not Currently Drug use: Never FAMILY HISTORY Family History Problem Relation Name Age of Onset Ulcers Mother Diabetes Mother Hypertension Father Cancer Father Ulcers Sister Breast cancer Maternal Grandmother SURGICAL HISTORY History reviewed. No pertinent surgical history. REVIEW OF SYSTEMS Review of Systems: Review of Systems Constitutional: Negative. HENT: Negative. Eyes: Negative. Respiratory: Negative. Cardiovascular: Negative. Gastrointestinal: Negative. Genitourinary: Negative. Musculoskeletal: Negative. Skin: Negative. Neurological: Negative. All other systems reviewed and are negative. Hematological: Negative. Endocrine: Negative. Allergic/Immunologic: Negative. OBJECTIVE Objective: Physical Exam Constitutional: Appearance: Normal appearance. She is well-developed. Cardiovascular: Rate and Rhythm: Normal rate and regular rhythm. Pulmonary: Effort: Pulmonary effort is normal. Breath sounds: Normal breath sounds. Abdominal: General: Bowel sounds are normal. There is no distension. Palpations: Abdomen is soft. Tenderness: There is no abdominal tenderness. There is no guarding or rebound. Musculoskeletal: General: No swelling. Normal range of motion. Right lower leg: No edema. Left lower leg: No edema. Neurological: Mental Status: She is alert and oriented to person, place, and time. Skin: General: Skin is warm and dry. Psychiatric: Mood and Affect: Mood normal. Behavior: Behavior normal. Vitals and nursing note reviewed. Exam conducted with a american indian policy specialist present. Vitals: Estimated body mass index is 34.67 kg/m as calculated from the following: Height as of this encounter: 5' 4 . Weight as of this encounter: 202 lb. BP: 122/76 Patient's last menstrual period was 01/28/2025 (approximate). ASSESSMENT & PLAN ICD-10-CM 1. Encounter to discuss procedure Z71.89 POCT urinalysis dipstick manually resulted POCT , urine manually resulted 2. Abnormal uterine bleeding (AUB) N93.9 3. Systemic lupus erythematosus, unspecified SLE type, unspecified organ involvement status ([facility]/HCC) M32.9 4. Fibromyalgia M79.7 Pt presents to discuss surgery- pt seeing dr schwartz for infusions for lupus. Dr Schwartz is concerned for blood loss. Pt to be scheduled for endometrial ablation with bilateral salpingectomy. Pt given ultrasound and labs to have obtained. Pt to return for preop/embx, and return for annual. Discussed future hysterectomy if needed after ablation. Documented by Sarah Clifton LPN on behalf of: Maycol Duckworth DO documented in this encounter [facility] 07-13-2024 Telephone encounter Note Pt called to reschedule follow up visit and said to inform you that her disability hearing is 08/23/2024. She will be dropping off paper work in the next week for you to complete, and will be in on 08/17/2024 for her follow up appointment. [facility] 07-13-2024 Miscellaneous Notes Pt called to reschedule follow up visit and said to inform you that her disability hearing is 08/23/2024. She will be dropping off paper work in the next week for you to complete, and will be in on 08/17/2024 for her follow up appointment. documented in this encounter [facility] 05-29-2024 Telephone encounter Note Last PT was on 04/27; 3 x's lm to check status but no attempt to be contacted back. [facility] 05-29-2024 Miscellaneous Notes Last PT was on 04/27; 3 x's lm to check status but no attempt to be contacted back. documented in this encounter [facility] 05-09-2024 Procedure note [facility] 10-21-2023 History of Presen t illness Narrative Images from the original note were not included. [address] [facility] [address] [facility] [place] [address] Date of Service: 10/21/2023 Subjective: Je Reynolds is a 33 y.o. female who [...] AST 19 03/02/2015 Imaging: Assessment and Plan: Je Reynolds is a 33 y.o. female patient [...] Refill: 5 2. Ulcerative pancolitis without complication ([facility]) - [facility] [place], [place]; Future 3. Polyarthralgia 4. ESR raised [...] clinic Return to clinic in January. Total zbwj-te-tovm time was 40 minutes with more than [...] or corrected. Thank you for your understanding. [facility]. Nano Christianson MD [address] [facility], [address] [place] [address] Office: [phone] documented in this encounter [facility] 09-20-2023 History of Presen t illness Narrative Images from the original note were not included. [address] [facility] [address] [place] [address] Date of Service: 09/20/2023 Subjective: Je Reynolds is a 33 y.o. female who [...] to her on the advice of her antique dealer, she was given steroid previously during flare [...] AST 19 03/02/2015 Imaging: Assessment and Plan: Je Reynolds is a 33 y.o. female patient [...] anemia, unspecified iron deficiency [facility] [place] [facility] [place] Future 3. ESR raised - Erythrocyte Sedimentation Rate (ESR); Future - C-reactive protein; Future - MR hand right with and without contrast; Future - Immunoglobulins; Future - IGG subclasses; Future 4. Chronic diarrhea - [facility] [place], [place]; Future - Tissue transglutaminase, IgA & [...] exam. Return to clinic 1 month. Total pwhe-km-sqmg time was 450 minutes with more than [...] or corrected. Thank you for your understanding. [facility] Dr. Nano Christianson MD [address] [facility], [address] [place] [address] Office: [phone] documented in this encounter [facility] Evaluation note No assessment inform [facility] Work Phone: Evaluation note Diagnosis Lumbar radiculopathy- Primary Thoracic or lumbosacral neuritis or radiculitis, unspecified Lumbar paraspinal muscle spasm Other symptoms referable to back Muscle weakness of lower extremity Muscle weakness (generalized) documented [facility] Diagnosis VICKIE (generalized anxiety disorder) (CMS/HCC)- Primary Generalized anxiety disorder documented [facility] Diagnosis VICKIE (generalized anxiety disorder) (CMS/HCC) Generalized anxiety disorder documented [facility] Diagnosis Iron deficiency anemia, unspecified iron deficiency anemia type- Primary Fibromyalgia Unspecified myalgia and myositis ESR raised Elevated sedimentation rate Chronic diarrhea Diarrhea Chronic low back pain without sciatica, unspecified back pain laterality Polyarthralgia Pain in joint, multiple sites RAGHAVENDRA positive documented [facility] this encounter [facility] Diagnosis Fibromyalgia- Primary Unspecified myalgia and myositis Ulcerative pancolitis without complication (CMS-HCC) Polyarthralgia Pain in joint, multiple sites ESR raised Elevated sedimentation rate CRP elevated Elevated C-reactive protein (CRP) documented in this encounter [facility]* Diagnosis Encounter to discuss procedure Abnormal uterine bleeding (AUB) Systemic lupus erythematosus, unspecified SLE type, unspecified organ involvement status (CMS/HCC) Fibromyalgia Unspecified myalgia and myositis Menorrhagia with regular cycle documented in this encounter [facility] Author Daija Monahan [facility] May 09, 2024 10:42am Note Date/Time May 09, 2024 10:25am [facility] [address] [place] [address] Gastroenterology H&P Signed Patient: Je Reynolds MR#: [id number] : 1990 Acct:[id number] Age/Sex: 34 / F Adm Date: 4 Loc: Room: Type: [facility] Attending Dr: Daija Monahan DO Copies to: Daija Monahan, DO Morris Ramsey MD~ Date of Service: 05/09/2024 HISTORY & PHYSICAL: Patient's history with special attention to the cardiovascular, pulmonary systems and the current problem was reviewed with the patient immediately prior to the procedure. Present medications and doses reviewed in the EMR. Allergies and pertinent laboratory tests were also reviewedat this time in the EMR. The physical examination, as below, was then performed. Indication, assessment and HPI: 34-year-old female who presents for EGD for GERD, history of hiatal hernia, iron deficiency anemia. Family history of GI malignancy? No PHYSICAL EXAMINATION General appearance: cooperative, NAD Skin: No jaundice, no rash or lesions Head: NCAT Eyes: Anicteric Neck: Supple Lungs: Normal respiratory effort, no use of accessory muscles Abdomen: Soft, nondistended Neuro: No focal deficits, Ox3. REVIEW OF SYSTEMS Constitutional: Denies malaise, fevers Cardiovascular: Denies chest pain, palpitations Respiratory: Denies shortness of breath, wheezing Gastrointestinal: As per HPI Genitourinary: Denies dysuria, polyuria Musculoskeletal: Denies joint swelling, joint stiffness Neurological: Denies confusion, numbness, tingling Endocrine: Denies fatigue Written informed consent obtained from the patient. Risks (including but not limited to perforation, infection, bloating, bleeding, need for emergent surgeryand loss of life), benefits and alternatives explained and questions answered. The patient verbalized understanding. Based on history patient is an appropriate candidate for the procedure. Daija Monahan DO Documented By: Daija Monahan DO 05/09/24 1025 Signed By: <Electronically signed by Daija Monahan DO> 05/09/24 1042 [facility] Work Phone: Hospital Discharge instructions Additional Instructions DISCHARGE INSTRUCTIONS FOR UPPER ENDOSCOPY WHAT TO EXPECT: - You may feel full, gassy or cramping after your procedure. In some cases, this may be from a few hours to a day. Walking may help relieve the discomfort. - Your throat may feel sore today from the scope that the doctor passed through your throat to visualize your stomach. Take a throat lozenge or suck on ice to ease the discomfort. - You may notice some streaks of blood in your sputum if the doctor has taken a biopsy. - You should begin to recover from anesthesia within 1 hour of the procedure, however may feel groggy for the next 24 hours. DO's AND DON'Ts: - Call your doctor right away if you have a hard abdomen, severe pain, vomiting or if you cough up large amounts of blood. - Call your doctor if you develop any rashes, hives or difficulty breathing. - If you take 81 mg aspirin for your heart it is safe to resume this medication. - If you take other blood thinner medications your doctor will instruct you when these can safely be resumed. - Do NOT drive for 24 hours. - Do NOT operate machinery such as power tools, lawn mowers, snow blowers, sewing machines, etc. for 24 hours. - Avoid alcoholic beverages and drugs for allergies, nerves, or sleep. - Do NOT stay alone. Do NOT leave your child unattended. - Do NOT make important personal or business decisions or sign any legal documents. - Eat solid foods and drink liquids in smaller amounts than usual until normal appetite returns. If you should experience an upset stomach, liquids high in sugar content (soda, Wander-Aid, non-acid juices) are recommended. - Do NOT smoke. - Do take it easy today. You need not stay in bed, but avoid strenuous activities such as jogging or working out. FOLLOW UP & RECOMMENDATIONS: -Please call the office and make a follow up appointment to see me if symptoms persist -Notify the doctor if you have any problems. -Follow up with PCP. -Office number [phone]. [facility] Work Phone: InstructionsNot on filedocumented in this encounter [facility] (narrative)* Consultation (Routine) - Pending Review Specialty Diagnoses / Procedures Referred By Elaine pastrana Referred To Contact Gastroenterology Diagnoses Iron deficiency anemia, unspecified iron deficiency anemia type Chronic diarrhea Nano Christianson MD [address] [facility] [address] [place] [address] Krissy Key MD [address] [facility] [address] [place] [address] Referral ID Status Reason Start Date Expiration Date Visits Requested Visits Authorized [id number] Pending Review Specialty Services Required 09/20/2023 09/19/2024 1 1 * Diagnostic Imaging (Routine) - Pending Review Specialty Diagnoses / Procedures Referred By Elaine pastrana Referred To Contact Radiology Diagnoses ESR raised Polyarthralgia RAGHAVENDRA positive Procedures MR hand right with and without contrast Nano Christianson MD [address] [facility] [address] [place] [address] Referral ID Status Reason Start Date Expiration Date V isits Requested Visits Authorized [id number] Pending Review 09/20/2023 09/19/2024 1 1 [facility] for [facility] (narrative)* Consultation (Routine) - Pending Review Specialty Diagnoses / Procedures Referred By Contita t Referred To Contact Gastroenterology Diagnoses Ulcerative pancolitis without complication (CMS-HCC) Nano Christiasnon MD [address] [facility] [address] [place] [address] Krissy Key MD [address] [facility] [address] [place] [address] Referral ID Status Reason Start Date Expiration Date Visits Requested Visits Authorized [id number] Pending Review Specialty Services Required 10/21/2023 10/20/2024 1 1 [facility] Summary Purpose Family History Relationship Condition Age at Onset Recorded Date/T sky mother Disorder of thyroid Unknown grandparent Disorder of thyroid Unknown father History of malignant neoplasm of kidney U nknown Hypertension Unknown Advance Directives Advance Directive Response Recorded Date/ Time Advance Directives No August 1:27pm Chief Complaint and Reason for Visit Chief Complaint hx of hiatal hernia, iron deficiency anemia hx of hiatal hernia, iron deficiency anemia Additional Source Comments INFORMATION SOURCE (unrecogn ized section and content) DATE CREATED AUTHOR 09/30/2020 [facility] DATE CREATED AUTHOR AUTHOR'S ORGANIZ ATION 07/07/2022 [facility] DATE CREATED AUTHOR AUTHOR'S ORGANIZ ATION 10/23/2023 [facility] DATE CREATED AUTHOR AUTHOR'S ORGANIZ ATION 01/06/2024 [facility] DATE CREATED AUTHOR AUTHOR'S ORGANIZ ATION 05/18/2024 [facility] DATE CREATED AUTHOR AUTHOR'S ORGANIZ ATION 02/20/2025 [facility] EPIC Care Teams (unrecognized sec tion and content) [employer] Relationship Specialty Start Date End Date Morris Ramsey MD PCP - General Family Medicine 02/23/23 Team Status: Active Member Role Status Dates Morris Ramsey MD Primary Care Provider Active Team Status: Inactive Member Role Status Dates Morris Ramsey MD Primary Care Provider Active S tart: May 09, 2024 End: May 09, 2024 Daija Monahan DO Attending Provider Active St art: May 09, 2024 End: May 09, 2024 Team Status: Active Member Role Status Dates Morris Ramsey MD Primary Care Provider Active S tart: May 09, 2024 Daija Monahan DO Attending Provider, Other Provider Active Start: May 09, 2024 [employer] Relationship Specialty Start Date End Date Morris Ramsey MD PCP - General Family Medicine 02/23/23 [employer] Relationship Specialty Start Date End Date Morris Ramsey MD PCP - General Family Medicine 02/23/23 [employer] Relationship Specialty Start Date End Date Morris Ramsey MD PCP - General Family Medicine 02/23/23 [employer] Relationship Specialty Start Date End Date Morris Ramsey MD PCP - General Family Medicine 02/23/23 [employer] Service [employer] Relationship Specialty Start Date End Date Morris Ramsey MD PCP - General Family Medicine 02/23/23 [employer] Relationship Specialty Start Date End Date Morris Ramsey MD PCP - General Family Medicine 02/23/23 [employer] Relationship Specialty Start Date End Date Morris Ramsey MD [address] [place] [id number] PCP - General Family Medicine 09/30/21 [employer] Relationship Specialty Start Date End Date Morris Ramsey MD [address] [place] [address] PCP - General Family Medicine 09/30/21 [employer] Relationship Specialty Start Date End Date Morrsi Ramsey MD [address] [place] [id number] PCP - General Family Medicine 02/23/23 [employer] Relationship Specialty Start Date End Date Morris Ramsey MD [address] [place] [id number] PCP - General Family Medicine 02/23/23 Reason for Visit (unrecogniz ed section and content) Specialty Diagnoses / Procedures Referred By Elaine pastrana Referred To Contact Physical Therapy Diagnoses Small fiber neuropathy Dysautonomia (CMS/HCC) Fibromyalgia Lumbar radiculopathy Procedures [place] [facility] 60 MINUTES Ze Abarca MD [address] [facility] [address] [address] Briseida Pathak, PT [address] [address] Referral ID Status Reason Start Date Expiration Date Visits Requested Visits Authorized [id number] Authorized Specialty Services Required 04/06/2024 10/03/2024 60 60 Reason Onset Date Comments re: PT today 05/16/2024 She called andreas pierre she has all her kids at home and they are all sick; she said she is in the process of contacting doctor. She is in need to cx today; re: today last PT scheduled she will call back when available. Reason Onset Date Comments Med Refill 09/12/2024 Reason Comments Discuss Hysterectomy Pt present today to discuss hysterectomy FOR RECORDS PERTAINING TO PATIENTS WHO ARE [...] BE BASED ON THE PRIMARY CLINICAL RECORDS. [facility] [employer] [facility]. provides no warranty or guarantee of the accuracy or completeness of information in this document.
== END 2025-05-24 08:54 | disposition home or self-care (01) ==
LOC: US 08:53
PROVIDERS: PCP Family Medicine; Visit Provider Internal Medicine Hematology & Oncology
DX: Z01.812 Encounter for preprocedural laboratory examination (principal); D64.9 Anemia, unspecified; D50.9 Iron deficiency anemia, unspecified; K90.9 Intestinal malabsorption, unspecified; E61.2 Magnesium deficiency; M62.9 Disorder of muscle, unspecified; M15.0 Primary generalized (osteo)arthritis; R76.0 Raised antibody titer; M79.646 Pain in unspecified finger(s); Z11.7 Encounter for testing for latent tuberculosis infection; M85.9 Disorder of bone density and structure, unspecified; M45.A6 Non-radiographic axial spondyloarthritis of lumbar region; Z13.29 Encounter for screening for other suspected endocrine disorder; Z11.9 Encounter for screening for infectious and parasitic diseases, unspecified; E55.9 Vitamin D deficiency, unspecified; R59.0 Localized enlarged lymph nodes; E04.1 Nontoxic single thyroid nodule
CPT/HCPCS: 76536